=== PATIENT | male | born 1945 | race Caucasian/White ===

== ENCOUNTER 2019-03-11 15:39 | Inpatient (IN) | payer MEDICARE, OTHER ==
--- NOTE | 2019-03-11 18:44 | ED ---
Extremity Problem HPI - General Chief complaint: Extremity Problem,Nontraumatic Stated complaint: Blood in urine, cellulitis Time Seen by Provider: 03/11/19 17:49 Source: patient, family, RN notes reviewed, old records reviewed - History of Present Illness Initial comments: This is a 73-year-old male who presents us for evaluation. Patient's sent in by visiting physicians evaluation. Patient presents today in regards to bilateral looks repainted edema. Significant swelling and erythema which they believe is related to infection. Swelling is despite patient being at home Lasix. Patient has family members at bedside who state patient swelling is a bit increased is doing poorly. In taking his medications other during his legs when his activity level has been significantly diminished. He denies any complaints denying shortness of breath or chest pain currently.Hospitalizations no recent travel history. Patient states the legs do hurt her painful but it is both legs MD Complaint: extremity pain, extremity swelling -: days(s) Location: left, right, bilateral lower extremity History of Same: Yes -: Yes arthralgia Radiation: none Severity scale (1-10): 3 Quality: aching Consistency: constant Improves with: nothing Worsens with: nothing Associated Symptoms: chest pain, myalgias, arthralgias - Related Data Previous Rx's Medication Instructions Recorded Clindamycin [Cleocin] 450 mg PO Q8HR #90 capsule 07/12/14 Allergies Allergy/AdvReac Type Severity Reaction Status Date / Time ciprofloxacin [From Cipro] Allergy Unknown Verified 03/11/19 16:52 ciprofloxacin HCl Allergy Unknown Verified 03/11/19 16:52 [From Cipro] levofloxacin [From Levaquin] Allergy Unknown Verified 03/11/19 16:52 Review of Systems ROS Statement: Those systems with pertinent positive or pertinent negative responses have been documented in the HPI. ROS Other: All systems not noted in ROS Statement are negative. Past Medical History Past Medical History: Diabetes Mellitus, GERD/Reflux, Hypertension History of Any Multi-Drug Resistant Organisms: None Reported Past Surgical History: Appendectomy, Cholecystectomy, Joint Replacement, Orthopedic Surgery, Tonsillectomy Additional Past Surgical History / Comment(s): Additional Medical Hx: Cerebral Palsy Past Psychological History: No Psychological Hx Reported Smoking Status: Never smoker Past Alcohol Use History: None Reported Past Drug Use History: None Reported General Exam General appearance: alert, in no apparent distress Head exam: Present: atraumatic, normocephalic, normal inspection Eye exam: Present: normal appearance, PERRL, EOMI. Absent: scleral icterus, conjunctival injection, periorbital swelling ENT exam: Present: normal exam, mucous membranes moist Neck exam: Present: normal inspection. Absent: tenderness, meningismus, lymphadenopathy Respiratory exam: Present: normal lung sounds bilaterally. Absent: respiratory distress, wheezes, rales, rhonchi, stridor Cardiovascular Exam: Present: regular rate, normal rhythm, normal heart sounds. Absent: systolic murmur, diastolic murmur, rubs, gallop, clicks GI/Abdominal exam: Present: soft, normal bowel sounds. Absent: distended, tenderness, guarding, rebound, rigid Extremities exam: Present: normal inspection, full ROM, normal capillary refill, other (Bilateral lower extremity edema significant). Absent: tenderness, pedal edema, joint swelling, calf tenderness Back exam: Present: normal inspection Neurological exam: Present: alert, oriented X3, CN II-XII intact Psychiatric exam: Present: normal affect, normal mood Skin exam: Present: warm, dry, intact, normal color. Absent: rash Course Vital Signs 03/11/19 16:46 Temperature 99.3 F Pulse Rate 68 Respiratory 17 Rate Blood Pressure 141/74 O2 Sat by Pulse 93 L Oximetry - Reevaluation(s) Reevaluation #1: 03/11/19 20:50 Medical records reviewed Reevaluation #2: 03/11/19 20:51 Patient having no significant shortness of breath or distress - Consultations Consultation #1: Spoke with Dr. Guzmán is agreeable for observation Medical Decision Making - Medical Decision Making 73 male to the ER for evaluation of significant lower extremity edema and swelling. No real significant shortness of breath or pain chest pain. Patient doesn't work she'll be pain - Lab Data Result diagrams: 03/11/19 19:05 03/11/19 19:05 - EKG Data -: EKG Interpreted by Me (EKG shows paced rhythm of 61, MN 292, QRS 84 QTc 434) - Radiology Data Radiology results: report reviewed (S x-rays negative for acute disease), image reviewed Disposition Clinical Impression: Bilateral lower extremity edema, Bilateral lower leg cellulitis Disposition: ADMITTED IP TO THIS [facility] Condition: Good Is patient prescribed a controlled substance at d/c from ED?: No
[2019-03-11] MEDS ORDERED: FUROSEMIDE 10 MG/ML 10 ML VIAL IV STA (18:57)
[2019-03-11 19:26] LABS: Basophils # (A) 0.1 k/uL (0-0.2); Basophils % (A) 2 %; Eosinophils # (A) 0.3 k/uL (0-0.7); Eosinophils % (A) 4 %; HCT 43.6 % (39.0-53.0); HGB 13.8 gm/dL (13.0-17.5); Lymphocytes % (A) 15 %; MCH 27.8 pg (25.0-35.0); MCHC 31.6 g/dL (31.0-37.0); MCV 88.1 fL (80.0-100.0); Mean Platelet Volume 7.7; Monocytes # (A) 0.5 k/uL (0-1.0); Monocytes % (A) 7 %; Neutrophils # (A) 4.8 k/uL (1.3-7.7); Neutrophils % (A) 72 %; Platelet Count 472 k/uL (150-450); RBC 4.95 m/uL (4.30-5.90); RDW 12.4 % (11.5-15.5); WBC 6.8 k/uL (3.8-10.6)
[2019-03-11 19:27] LABS: ALT 23 U/L (4-49); AST 28 U/L (17-59); African American GFR (CKD) >90 (>60 ml/min/1.73 sqM); Albumin 3.5 g/dL (3.5-5.0); Alkaline Phosphatase 118 U/L (38-126); Anion Gap 7 mmol/L; Blood Urea Nitrogen 15 mg/dL (9-20); Calcium 9.2 mg/dL (8.4-10.2); Carbon Dioxide 29 mmol/L (22-30); Chloride 105 mmol/L (98-107); Creatine Kinase 44 U/L (55-170); Glucose 93 mg/dL (74-99); Magnesium 2.1 mg/dL (1.6-2.3); Non-African American GFR(CKD) >90 (>60 ml/min/1.73 sqM); Phosphorus 3.2 mg/dL (2.5-4.5); Potassium 4.1 mmol/L (3.5-5.1); Sodium 141 mmol/L (137-145); Total Bilirubin 0.5 mg/dL (0.2-1.3); Total Protein 6.6 g/dL (6.3-8.2)
--- NOTE | 2019-03-11 20:18 | XR ---
EXAMINATION TYPE: XR chest 2V DATE OF EXAM: 03/11/2019 COMPARISON: 07/01/2011 HISTORY: Short of breath. Weakness. TECHNIQUE: 2 views FINDINGS: There is no heart failure nor confluent pneumonic infiltrate. There is neural stimulator in the mid thoracic spine. Costophrenic angles are clear. Heart size is normal. IMPRESSION: No active cardiopulmonary disease. No change.
[2019-03-11 22:30] LABS: Glucose,Whole Blood 96 mg/dL (75-99)
[2019-03-11] MEDS: FUROSEMIDE 10 MG/ML 4 ML VIAL IV SCH (23:03)
--- NOTE | 2019-03-12 02:55 | P.HPIM ---
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 The history was supplemented by the patient's brother (HCP - Mario Alberto Woods) who noted that the patient has been dealing with his LE edema f or many years and has had multiple episodes of cellulitis, particularly of the L leg. The patient has been taking Lasix 20 mg PO daily as prescribed by his PCP. Patient also endorsed R knee swelling and pain on-going for several weeks, which is making him difficult to ambulate with his walker. He denied any additional complaints including chest pain, SOB, nausea, vomiting, dizziness, fever, chills , or cough. The patient underwent an extensive evaluation in the emergency room with Troponin < 0.012, WBC count 6.8, Hgb 13.8, Na 141, K 4.1, Cl 105, CO2 29, BUN 15, Cr 0.51, and glucose 93. The patient is being admitted to the medicine service for further management of cellulitis. Review of Systems Pertinent positives and negatives as discussed in HPI, a complete review of systems was performed and all other systems are negative. Past Medical History Past Medical History: Diabetes Mellitus, GERD/Reflux, Hypertension History of Any Multi-Drug Resistant Organisms: None Reported Past Surgical History: Appendectomy, Cholecystectomy, Joint Replacement, Orthopedic Surgery, Tonsillectomy Additional Past Surgical History / Comment(s): Additional Medical Hx: Cerebral Palsy Past Anesthesia/Blood Transfusion Reactions: No Reported Reaction Past Psychological History: No Psychological Hx Reported Smoking Status: Never smoker Past Alcohol Use History: None Reported Past Drug Use History: None Reported - Past Family History Father Family Medical History: No Reported History Medications and Allergies Home Medications Medication Instructions Recorded Confirmed Type Acetaminophen Tab [Tylenol Tab] 500 mg PO Q6H PRN 03/11/19 03/11/19 History Ammonium Lactate Lotion 1 applic TOPICAL BID PRN 03/11/19 03/11/19 History [Lac-Hydrin 12% Lotion] Aspirin EC [Ecotrin Low Dose] 81 mg PO HS 03/11/19 03/11/19 History Atorvastatin Calcium [Lipitor] 10 mg PO DAILY 03/11/19 03/11/19 History Docusate [Colace] 200 mg PO HS 03/11/19 03/11/19 History Furosemide [Lasix] 20 mg PO DAILY 03/11/19 03/11/19 History Ipratropium Waldo 0.06%Nasal 2 spray EA NOSTRIL TID PRN 03/11/19 03/11/19 History [Atrovent Nasal 0.06%] Magnesium Oxide [Vu] 500 mg PO DAILY 03/11/19 03/11/19 History Methocarbamol [Robaxin] 1,000 mg PO QID 03/11/19 03/11/19 History NIFEdipine [NIFEdipine ER] 30 mg PO DAILY 03/11/19 03/11/19 History Potassium Chloride [Klor-Con 10] 10 meq PO BID 03/11/19 03/11/19 History Pregabalin [Lyrica] 100 mg PO BID 03/11/19 03/11/19 History metFORMIN HCL [Glucophage] 500 mg PO BID 03/11/19 03/11/19 History traMADol HCL 50 mg PO TID PRN 03/11/19 03/11/19 History Allergies Allergy/AdvReac Type Severity Reaction Status Date / Time acyclovir Allergy Unknown Verified 03/11/19 21:04 amoxicillin [From Augmentin] Allergy Unknown Verified 03/11/19 21:04 ciprofloxacin [From Cipro] Allergy Unknown Verified 03/11/19 21:04 ciprofloxacin HCl Allergy Unknown Verified 03/11/19 21:04 [From Cipro] clavulanic acid Allergy Unknown Verified 03/11/19 21:04 [From Augmentin] levofloxacin [From Levaquin] Allergy Unknown Verified 03/11/19 21:04 Macrolide Antibiotics Allergy Unknown Verified 03/11/19 21:04 Physical Exam Vitals: Vital Signs Temp Pulse Resp BP Pulse Ox 03/11/19 16:46 99.3 F 68 17 141/74 93 L Intake and Output 03/11/19 03/11/19 03/12/19 14:59 22:59 06:59 Output Total 1650 Balance -1650 Output: Urine 1650 Other: Weight 98.883 kg Results CBC & Chem 7: 03/11/19 19:05 03/11/19 19:05 Labs: Abnormal Lab Results - Last 24 Hours (Table) 03/11/19 03/11/19 Range/Units 19:05 19:05 Plt Count 472 H (150-450) k/uL Creatinine 0.51 L (0.66-1.25) mg/dL Creatine Kinase 44 L (55-170) U/L Thrombosis Risk Factor Assmnt - Choose All That Apply Any of the Below Risk Factors Present?: Yes Each Factor Represents 1 point: Obesity (BMI >25), Swollen legs (current) Each Risk Factor Represents 2 Points: Age 61-74 years Other congenital or acquired thrombophilia - If yes, enter type in comment: No Thrombosis Risk Factor Assessment Total Risk Factor Score: 4 Thrombosis Risk Factor Assessment Level: Moderate Risk Assessment and Plan Plan: Left lower extremity cellulitis in setting of LE edema -Will start patient on Clindamycin -Lasix 40 mg IV q12h -Elevate legs R knee swelling and erythema w/ hx of knee replacement -Consult orthopedic surgery Chronic conditions: Asthma, back spasms, HLD, HTN, DM -C/w home meds -CHAPO with FS DVT prophylaxis -Lovenox The patient is admitted with an anticipated less than 2 midnight stay for evaluation of cellulitis. CODE STATUS:No Code Discussed with: Patient Anticipated discharge date: 1-[address]: Home A total of 35 minutes was spent on the care of this complex patient more than 50% of the time was spent in counseling and care coordination.
[2019-03-12] MEDS ORDERED: ACETAMINOPHEN TAB 500 MG TAB PO PRN (06:00)
[2019-03-12] MEDS: CLINDAMYCIN 300 MG in DEXTROSE 5% IN WATER 50 ML IVPB SCH ×6 (06:16→17:15)
[2019-03-12 07:29] LABS: Glucose,Whole Blood 105 mg/dL (75-99)
[2019-03-12] MEDS: ENOXAPARIN 40 MG/0.4 ML SYRINGE SQ SCH (07:39)
[2019-03-12] MEDS: FUROSEMIDE 10 MG/ML 4 ML VIAL IV SCH ×2 (07:39→22:19)
[2019-03-12] MEDS: ATORVASTATIN 10 MG TAB PO SCH (07:40)
[2019-03-12] MEDS: PREGABALIN 100 MG CAP PO SCH ×2 (07:40→22:19)
[2019-03-12] MEDS: METHOCARBAMOL 500 MG TAB PO SCH ×4 (07:40→22:20)
[2019-03-12] MEDS: INSULIN ASPART (NovoLOG) 100 UNIT/ML VIAL SQ SCH ×3 (07:40→17:14)
[2019-03-12] MEDS: POTASSIUM CHLORIDE ER 10 MEQ TAB.ER.PRT PO SCH ×2 (07:40→22:19)
--- NOTE | 2019-03-12 08:56 | P.PN ---
Subjective Progress Note Date: 03/12/19 Feels ok , no cp no sob no n/v no abd pain Objective - Vital Signs Vital signs: Vital Signs Temp 98.5 F 03/12/19 05:50 Pulse 77 03/12/19 05:50 Resp 18 03/12/19 05:50 BP 150/81 03/12/19 05:50 Pulse Ox 94 L 03/12/19 05:50 Intake & Output 03/11/19 03/12/19 03/12/19 18:59 06:59 18:59 Output Total 2425 Balance -2425 Weight 98.883 kg 98.883 kg Output: Urine 2425 Other: Voiding Method Toilet Urinal # Voids 200 - Exam General: non toxic, no distress Head: atraumatic, normocephalic Eyes: EOMI, pupils equal round reactive to light ENT: Nose and ears atraumatic Neck: supple Cardiovascular: S1S2 reg, no murmur, positive posterior tibial pulse bilateral, 2+ Arthur LE edema Lungs: CTA bilateral, no rhonchi, no rales , no accessory muscle use Abdominal: soft, nontender to palpation, no guarding, no appreciable organomegaly, normal bowel sounds Ext: no gross muscle atrophy, muscle strength 4 out of 5 in all 4 extremities grossly, no contractures, R knee swollen with warmth Neuro: CN II-XI grossly intact, light touch intact all 4 extremities, finger to nose within normal limits, Psych: Alert, oriented, appropriate affect Skin: lower ext erythema - Labs CBC & Chem 7: 03/11/19 19:05 03/11/19 19:05 Labs: Abnormal Lab Results - Last 24 Hours (Table) 03/11/19 03/11/19 03/12/19 Range/Units 19:05 19:05 07:10 Plt Count 472 H (150-450) k/uL Creatinine 0.51 L (0.66-1.25) mg/dL POC Glucose (mg/dL) 105 H (75-99) mg/dL Creatine Kinase 44 L (55-170) U/L Assessment and Plan Plan: Left lower extremity cellulitis in setting of LE edema Continue on Clindamycin -Lasix 40 mg IV q12h -Elevate legs obtain bilateral lower extension to Dopplers Obtain a d-dimer Obtain a 2-D echo R knee swelling and erythema w/ hx of knee replacement -Consult orthopedic surgery, monitor, follow with recommendations. Chronic conditions: Asthma, back spasms, HLD, HTN, DM -C/w home meds -CHAPO with FS Obesity: BMI 35.2, conservative treatment. DVT prophylaxis -Lovenox CODE STATUS:No Code Discussed with: Patient Anticipated discharge date: 1-[address]: Home
--- NOTE | 2019-03-12 10:10 | US ---
EXAMINATION TYPE: US venous doppler duplex LE DATE OF EXAM: 03/12/2019 9:38 AM COMPARISON: US 2015 prior bilateral CLINICAL HISTORY: edema . Bilateral leg pain and swelling x couple weeks, exam done portable SIDE PERFORMED: Bilateral TECHNIQUE: The lower extremity deep venous system is examined utilizing real time linear array sonog gris with graded compression, doppler sonography and color-flow sonography. VESSELS IMAGED: External Iliac Vein (EIV) Common Femoral Vein Deep Femoral Vein Greater Saphenous Vein * Femoral Vein Popliteal Vein Small Saphenous Vein * Proximal Calf Veins (* superficial vessels) Right Leg: Appears negative for DVT Left Leg: Appears negative for DVT Grayscale, color doppler, spectral doppler imaging performed of the deep veins of the bilateral lower extremities. There is normal flow, compressibility, vascular waveforms. IMPRESSION: No ultrasonographic evidence for acute DVT in either lower extremity. Moderate to sever e subcutaneous edema beginning popliteal level bilaterally more prominent from prior study.
[2019-03-12 12:34] LABS: Glucose,Whole Blood 111 mg/dL (75-99)
--- NOTE | 2019-03-12 13:08 | P.CNOR ---
History of Present Illness - [facility] Consult date: 03/12/19 Consult reason: joint pain (Right knee pain) History of present illness: The patient is a 73-year-old male who was admitted for bilateral lower leg cellulitis yesterday. 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 His lower legs continue to worsen and he presented to the emergency department yesterday. He was admitted for further evaluation by internal medicine and with pedis was consulted for right knee pain. The patient states that he normally ambulates with a walker at home but has noticed incr eased pain on weightbearing to the right leg. He does have a history of a right total knee arthroplasty by Dr. Carl Smith in 2010. 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 He later went on to have a stage II revision by Dr. Carl Smith in 2011 when the infection cleared. He states the knee has been feeling okay since then but noticed increased pain over the last few days. He denies fever, chills, ill feeling, and rigors. The patient was started on antibiotics and admitted for further evaluation. Review of Systems Constitutional: Denies chills, Denies fever Cardiovascular: Denies chest pain, Denies shortness of breath Respiratory: Denies cough Gastrointestinal: Denies abdominal pain, Denies diarrhea, Denies nausea, Denies vomiting Musculoskeletal: right: knee pain, knee stiffness, knee swelling Past Medical History Past Medical History: Diabetes Mellitus, GERD/Reflux, Hypertension History of Any Multi-Drug Resistant Organisms: None Reported Past Surgical History: Appendectomy, Cholecystectomy, Joint Replacement, Orthopedic Surgery, Tonsillectomy Additional Past Surgical History / Comment(s): Additional Medical Hx: Cerebral Palsy Past Anesthesia/Blood Transfusion Reactions: No Reported Reaction Past Psychological History: No Psychological Hx Reported Smoking Status: Never smoker Past Alcohol Use History: None Reported Past Drug Use History: None Reported - Past Family History Father Family Medical History: No Reported History Medications and Allergies Home Medications Medication Instructions Recorded Confirmed Type Acetaminophen Tab [Tylenol Tab] 500 mg PO Q6H PRN 03/11/19 03/11/19 History Ammonium Lactate Lotion 1 applic TOPICAL BID PRN 03/11/19 03/11/19 History [Lac-Hydrin 12% Lotion] Aspirin EC [Ecotrin Low Dose] 81 mg PO HS 12/26/19 12/26/19 History Atorvastatin Calcium [Lipitor] 10 mg PO DAILY 03/11/19 03/11/19 History Docusate [Colace] 200 mg PO HS 03/11/19 03/11/19 History Furosemide [Lasix] 20 mg PO DAILY 03/11/19 03/11/19 History Magnesium Oxide [Vu] 500 mg PO DAILY 03/11/19 03/11/19 History Methocarbamol [Robaxin] 1,000 mg PO QID 03/11/19 03/11/19 History NIFEdipine [NIFEdipine ER] 30 mg PO DAILY 03/11/19 03/11/19 History Potassium Chloride [Klor-Con 10] 10 meq PO BID 03/11/19 03/11/19 History Pregabalin [Lyrica] 100 mg PO BID 03/11/19 03/11/19 History metFORMIN HCL [Glucophage] 500 mg PO BID 03/11/19 03/11/19 History traMADol HCL 50 mg PO TID PRN 03/11/19 03/11/19 History Allergies Allergy/AdvReac Type Severity Reaction Status Date / Time acyclovir Allergy Unknown Verified 03/11/19 21:04 amoxicillin [From Augmentin] Allergy Unknown Verified 03/11/19 21:04 ciprofloxacin [From Cipro] Allergy Unknown Verified 03/11/19 21:04 ciprofloxacin HCl Allergy Unknown Verified 03/11/19 21:04 [From Cipro] clavulanic acid Allergy Unknown Verified 03/11/19 21:04 [From Augmentin] levofloxacin [From Levaquin] Allergy Unknown Verified 03/11/19 21:04 Macrolide Antibiotics Allergy Unknown Verified 03/11/19 21:04 Physical Examination The patient is a 73-year-old male who is in no acute distress. He is alert and oriented 3. Exam of the right leg reveals diffuse swelling to the right knee, calf, and foot. There is mild pain to palpation to the medial and lateral joint lines but is not significant. There is a small to moderate effusion present. No open wounds to the knee or lower leg are present. There is no significant redness to the right lower extremity. The patient has weakness to lift the leg off the bed but has some active flexion of the knee without significant pain. No pain upon passive range of motion of the knee. Calf is soft and nontender. He is able to dorsiflex and plantarflex the ankle without much difficulty. Neurological and circulatory status is intact. Results - Labs Labs: Abnormal Lab Results - Last 24 Hours (Table) 03/11/19 03/11/19 03/12/19 Range/Units 19:05 19:05 07:10 Plt Count 472 H (150-450) k/uL D-Dimer (<0.60) mg/L FEU Creatinine 0.51 L (0.66-1.25) mg/dL POC Glucose (mg/dL) 105 H (75-99) mg/dL Creatine Kinase 44 L (55-170) U/L 03/12/19 03/12/19 Range/Units 09:30 12:18 Plt Count (150-450) k/uL D-Dimer 2.01 H (<0.60) mg/L FEU Creatinine (0.66-1.25) mg/dL POC Glucose (mg/dL) 111 H (75-99) mg/dL Creatine Kinase (55-170) U/L H & H 03/11/19 Range/Units 19:05 Hgb 13.8 (13.0-17.5) gm/dL Hct 43.6 (39.0-53.0) % Result Diagrams: 03/11/19 19:05 03/11/19 19:05 Assessment and Plan (1) Right knee pain Current Visit: Yes Status: Acute Code(s): M25.561 - PAIN IN RIGHT KNEE SNOMED Code(s): 68713586 (2) Status post right knee replacement Current Visit: Yes Status: Acute Code(s): Z96.651 - PRESENCE OF RIGHT ARTIFICIAL KNEE JOINT SNOMED Code(s): 8950564839944 (3) Bilateral lower extremity edema Current Visit: Yes Status: Acute Code(s): R60.0 - LOCALIZED EDEMA SNOMED Code(s): 336176063 (4) Bilateral lower leg cellulitis Current Visit: Yes Status: Acute Code(s): L03.116 - CELLULITIS OF LEFT LOWER LIMB; L03.115 - CELLULITIS OF RIGHT LOWER LIMB SNOMED Code(s): 775070031 Plan: The clinical findings were discussed with the patient. This case was discussed at length with Dr. Pagan. There is no family at the bedside at this time. We are recommending a aspiration of the right knee joint to rule out a recurrent total knee infection. The patient agrees to this procedure. X-ray of the right knee has also been ordered. A bedside timeout procedure was performed. The right knee was prepped with chlorhexidine. An 18-gauge needle with a 12 mL syringe was inserted in the right knee joint. There is a cloudy/turbid fluid was first aspirated then blood was aspirated from the knee joint. 5 mL of synovial fluid fluid was removed and will be sent to the laboratory for analysis of culture and sensitivity, cell count, and crystals. A 4 x 4 gauze was applied and Carlos wrap for compression to the right knee. If the patient is experiencing pain later ice can be applied. We will await aspiration results and make further recommendations depending on the patient's course and laboratory results.
--- NOTE | 2019-03-12 14:26 | XR ---
Right knee HISTORY: Right knee pain Limited right knee performed, 2 views, correlation to prior exam 11/15/2011 Soft tissue swelling is present. Patient is status post right knee arthroplasty. There is anatomic alignment. There is an overlying dr maurice. Questionable loss of joint space tibiotalar joint, possible metal to metal contact seen on th e lateral exam. No fracture or dislocation. IMPRESSION: Soft tissue swelling and additional findings above.
[2019-03-12 17:11] LABS: Glucose,Whole Blood 122 mg/dL (75-99)
--- NOTE | 2019-03-12 19:38 | ECHOF ---
Referral Reason:edema MEASUREMENTS -------- HEIGHT: 165.1 cm WEIGHT: 98.9 kg BP: 150/81 IVSd: 0.8 cm (0.6 - 1.1) LVIDd: 4.9 cm (3.9 - 5.3) LVPWd: 1.2 cm (0.6 - 1.1) IVSs: 1.3 cm LVIDs: 2.9 cm LVPWs: 1.6 cm LA Diam: 3.5 cm (2.7 - 3.8) LAESV Index (A-L): 16.13 ml/m Ao Diam: 3.5 cm (2.0 - 3.7) AV Cusp: 2.3 cm (1.5 - 2.6) LA Diam: 4.1 cm (2.7 - 3.8) MV EXCURSION: 27.072 mm (> 18.000) MV EF SLOPE: 134 mm/s (70 - 150) EPSS: 0.7 cm MV E Kingsley: 0.55 m/s MV DecT: 269 ms MV A Kingsley: 0.66 m/s MV E/A Ratio: 0.83 RAP: 5.00 mmHg RVSP: 21.80 mmHg FINDINGS -------- Sinus rhythm. This was a technically difficult study with suboptimal views. The left ventricular size is normal. There is mild concentric left ventricular hypertrophy. Overa ll left ventricular systolic function is normal with, an EF between 55 - 60 %. The right ventricle is normal in size. The left atrial size is normal. The right atrial size is normal. There is mild aortic valve sclerosis. There is no evidence of aortic regurgitation. Mild mitral annular calcification present. Mild mitral regurgitation is present. Mild tricuspid regurgitation present. Right ventricular systolic pressure is normal at < 35 mmHg. There is no evidence of pulmonary hypertension. The pulmonic valve was not well visualized. The aortic root size is normal. There is no pericardial effusion. CONCLUSIONS -------- 1. Sinus rhythm. 2. This was a technically difficult study with suboptimal views. 3. The left ventricular size is normal. 4. There is mild concentric left ventricular hypertrophy. 5. Overall left ventricular systolic function is normal with, an EF between 55 - 60 %. 6. The left atrial size is normal. 7. There is mild aortic valve sclerosis. 8. Mild mitral annular calcification present. 9. Mild mitral regurgitation is present. 10. Mild tricuspid regurgitation present. 11. Right ventricular systolic pressure is normal at < 35 mmHg. 12. The pulmonic valve was not well visualized. 13. There is no pericardial effusion. BUTTON TACKER: Jo-Ann Samuel RDCS
--- NOTE | 2019-03-12 19:52 | CT ---
EXAMINATION TYPE: CT chest angio for PE DATE OF EXAM: 03/12/2019 COMPARISON: None HISTORY: SOB CT DLP: 593.9 mGycm Automated exposure control for dose reduction was used. CONTRAST: Performed with IV Contrast, patient injected with 100 mL of Isovue 370. There are 3-D post processed images. There is mild subsegmental atelectasis or scarring at the lung bases. There is minimal pleural thicke lala left posterior lung base. There is no pleural effusion. Heart size is normal. There is no perica rdial effusion. There is no mediastinal adenopathy. There are no hilar masses. There is normal contrast opacification of the pulmonary arteries. There are no filling defects. Thoracic aorta shows no aneurysm or dissect ion. There is neural stimulator in the thoracic spine. There is multilevel spondylotic changes in the thoracic spine. There is no compression fracture. The bony thorax is intact. IMPRESSION: Pleural reaction and subsegmental atelectasis at the lung bases. No evidence of pulmonary embolism.
[2019-03-12 20:39] LABS: Glucose,Whole Blood 167 mg/dL (75-99)
[2019-03-12] MEDS: ASPIRIN 81 MG PO SCH (22:19)
[2019-03-12] MEDS: DOCUSATE 100 MG CAP PO SCH (22:19)
[2019-03-13] MEDS: CLINDAMYCIN 300 MG in DEXTROSE 5% IN WATER 50 ML IVPB SCH ×2 (00:10)
[2019-03-13] MEDS: traMADol 50 MG TAB PO PRN (00:13)
[2019-03-13] MEDS: CLINDAMYCIN 150 MG CAP PO SCH ×3 (06:23→17:52)
[2019-03-13] MEDS: ATORVASTATIN 10 MG TAB PO SCH (07:11)
[2019-03-13] MEDS: METHOCARBAMOL 500 MG TAB PO SCH ×4 (07:11→21:47)
[2019-03-13] MEDS: FUROSEMIDE 10 MG/ML 4 ML VIAL IV SCH ×2 (07:11→21:46)
[2019-03-13] MEDS: POTASSIUM CHLORIDE ER 10 MEQ TAB.ER.PRT PO SCH ×2 (07:11→21:46)
[2019-03-13] MEDS: ENOXAPARIN 40 MG/0.4 ML SYRINGE SQ SCH (07:11)
[2019-03-13] MEDS: PREGABALIN 100 MG CAP PO SCH ×2 (07:11→21:47)
[2019-03-13 07:36] LABS: Glucose,Whole Blood 145 mg/dL (75-99)
[2019-03-13] MEDS: INSULIN ASPART (NovoLOG) 100 UNIT/ML VIAL SQ SCH ×4 (08:12→21:46)
[2019-03-13 08:59] LABS: Basophils # (A) 0.1 k/uL (0-0.2); Basophils % (A) 2 %; Eosinophils # (A) 0.2 k/uL (0-0.7); Eosinophils % (A) 4 %; HCT 43.2 % (39.0-53.0); HGB 13.6 gm/dL (13.0-17.5); Lymphocytes # (A) 0.8 k/uL (1.0-4.8); Lymphocytes % (A) 16 %; MCH 27.9 pg (25.0-35.0); MCHC 31.5 g/dL (31.0-37.0); MCV 88.6 fL (80.0-100.0); Mean Platelet Volume 7.4; Monocytes # (A) 0.5 k/uL (0-1.0); Monocytes % (A) 9 %; Neutrophils # (A) 3.3 k/uL (1.3-7.7); Neutrophils % (A) 67 %; Platelet Count 405 k/uL (150-450); RBC 4.88 m/uL (4.30-5.90); RDW 12.5 % (11.5-15.5); WBC 4.9 k/uL (3.8-10.6)
[2019-03-13 09:20] LABS: ALT 19 U/L (4-49); AST 22 U/L (17-59); African American GFR (CKD) >90 (>60 ml/min/1.73 sqM); Albumin 3.3 g/dL (3.5-5.0); Alkaline Phosphatase 111 U/L (38-126); Anion Gap 8 mmol/L; Blood Urea Nitrogen 17 mg/dL (9-20); Calcium 8.8 mg/dL (8.4-10.2); Carbon Dioxide 32 mmol/L (22-30); Chloride 98 mmol/L (98-107); Glucose 122 mg/dL (74-99); Non-African American GFR(CKD) >90 (>60 ml/min/1.73 sqM); Potassium 3.9 mmol/L (3.5-5.1); Sodium 138 mmol/L (137-145); Total Bilirubin 0.5 mg/dL (0.2-1.3); Total Protein 6.3 g/dL (6.3-8.2)
[2019-03-13 11:27] LABS: Glucose,Whole Blood 101 mg/dL (75-99)
--- NOTE | 2019-03-13 12:18 | P.PN ---
<Brandon Bennett - Last Filed: 03/13/19 12:16> Subjective Progress Note Date: 03/13/19 The patient is a 73-year-old male with cerebral palsy, diabetes, hypertension, and chronic lower leg edema with recurrent episodes of cellulitis who was admitted for bilateral lower leg cellulitis 03/11/19. His lower legs continue to worsen and he presented to the emergency department 03/11/19. He was admitted for further evaluation by internal medicine and with orthopedics was consulted for right knee pain. The patient states that he normally ambulates with a walker at home but has noticed increased pain on weightbearing to the right leg. He does have a history of a right total knee arthroplasty by Dr. Carl Smith in 2010. 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 He later went on to have a stage II revision by Dr. Carl Smith in 2011 when the infection cleared. He states the knee has been feeling okay since then but noticed increased pain over the last few days. The patient was examined by Lyric Pelayo DNP yesterday, and a right knee aspiration was performed. Synovial fluid was sent to the lab for cell count, crystal analysis, and culture. Patient is examined bedside this morning. He states his pain in the right knee and right lower extremity has not changed since yesterday. He states besides this pain, he otherwise feels well. He denies chest pain, shortness breath, nausea, vomiting, fevers, chills, feelings of generalized malaise. He has no new complaints this morning. Vital signs stable. Objective - Vital Signs Vital signs: Vital Signs Temp 97.7 F 03/13/19 05:00 Pulse 58 L 03/13/19 05:00 Resp 18 03/13/19 05:00 BP 151/78 03/13/19 05:00 Pulse Ox 95 03/13/19 05:00 Intake & Output 03/12/19 03/13/19 03/13/19 18:59 06:59 18:59 Intake Total 875 Output Total 2500 2425 1999 Balance -2499 Intake: Oral 875 Output: Urine 2500 2425 1999 Other: Voiding Method Urinal Urinal Urinal # Voids 5 - Exam On examination, the patient is sitting up in bed in no apparent distress. He is alert and oriented 3. On inspection of the right lower extremity, there is diffuse swelling and erythema to the right knee, calf, and foot. There are no open wounds or lacerations. There is mild pain to palpation to the anterior knee, medial and lateral joint lines. There is a small joint effusion present. There is no pain with passive range of motion of the knee or ankle. He is able to dorsiflex and plantar flex ankle without difficulty. Motor and sensory function are intact of the right lower extremity. Right lower extremity is warm and well-perfused with brisk capillary refill distally. - Labs CBC & Chem 7: 03/13/19 07:37 03/13/19 07:37 Labs: Abnormal Lab Results - Last 24 Hours (Table) 03/12/19 03/12/19 03/12/19 Range/Units 12:18 17:02 20:15 Lymphocytes # (1.0-4.8) k/uL Carbon Dioxide (22-30) mmol/L Glucose (74-99) mg/dL POC Glucose (mg/dL) 111 H 122 H 167 H (75-99) mg/dL Albumin (3.5-5.0) g/dL 03/13/19 03/13/19 03/13/19 Range/Units 07:34 07:37 07:37 Lymphocytes # 0.8 L (1.0-4.8) k/uL Carbon Dioxide 32 H (22-30) mmol/L Glucose 122 H (74-99) mg/dL POC Glucose (mg/dL) 145 H (75-99) mg/dL Albumin 3.3 L (3.5-5.0) g/dL 03/13/19 Range/Units 11:22 Lymphocytes # (1.0-4.8) k/uL Carbon Dioxide (22-30) mmol/L Glucose (74-99) mg/dL POC Glucose (mg/dL) 101 H (75-99) mg/dL Albumin (3.5-5.0) g/dL Microbiology - Last 24 Hours (Table) 03/12/19 14:00 Gram Stain - Preliminary Synovial Fluid Body Fluid Culture - Preliminary 03/11/19 19:05 Blood Culture - Preliminary Blood No Growth after 24 hours - Imaging and Cardiology Right knee x-ray 03/12/19: Status post total knee arthroplasty, with implants in anatomic position. No fracture or dislocation seen. Assessment and Plan Assessment: Right knee pain status-post total knee arthroplasty with revision in 2011. Bilateral lower extremity cellulitis. Plan: Clinical findings and x-ray findings were discussed with the patient. Her stool leading to receive laboratory results from the aspiration of the right knee performed yesterday by Lyric Hinojosa DNP. The lab was contacted in regards to these results. These results are unable to be obtained, the patient may require a repeat aspiration of the right knee to rule out a recurrent total knee infection. Further treatment will be based off of laboratory results. Patient discussed with Dr. Pagan. <Krzysztof Pagan - Last Filed: 03/14/19 15:37> Objective - Vital Signs Vital signs: Vital Signs Temp 99.1 F 03/14/19 15:00 Pulse 72 03/14/19 15:00 Resp 16 03/14/19 15:00 BP 150/69 03/14/19 15:00 Pulse Ox 96 03/14/19 15:00 Intake & Output 03/13/19 03/14/19 03/14/19 18:59 06:59 18:59 Intake Total 900 Output Total 2800 2025 2800 Balance -2800 -1125 -2800 Intake: Oral 900 Output: Urine 2800 2025 2800 Other: Voiding Method Urinal Urinal Urinal # Voids 2 8 # Bowel Movements 1 - Labs CBC & Chem 7: 03/13/19 07:37 03/13/19 07:37 Labs: Abnormal Lab Results - Last 24 Hours (Table) 03/13/19 03/14/19 03/14/19 Range/Units 20:10 06:52 11:53 POC Glucose (mg/dL) 135 H 110 H 137 H (75-99) mg/dL C-Reactive Protein (<10.0) mg/L 03/14/19 Range/Units 13:01 POC Glucose (mg/dL) (75-99) mg/dL C-Reactive Protein 20.4 H (<10.0) mg/L Microbiology - Last 24 Hours (Table) 03/12/19 14:00 Gram Stain - Preliminary Synovial Fluid Body Fluid Culture - Preliminary 03/11/19 19:05 Blood Culture - Preliminary Blood No Growth after 48 hours Assessment and Plan Plan: Reviewed and agree with above (amendments/corrections noted below). The patient was subsequently seen and examined by me as well. Pain level has not significantly changed. PE Right Knee: Nonfocal tenderness to palpation. Effusion present. Restricted ROM A/P: Right knee pain/effusion If the lab is unable to provide results from the previous specimen, we will repeat the aspiration. Continue symptomatic treatment and PRN pain management. Krzysztof Pagan D.O. [facility]
--- NOTE | 2019-03-13 15:54 | P.PN ---
Subjective Progress Note Date: 03/13/19 Principal diagnosis: Right ankle pain Patient still having right ankle pain and swelling. No fevers or chills, chest pain or shortness of breath. No nausea or vomiting. Objective - Vital Signs Vital signs: Vital Signs Temp 98.0 F 03/13/19 11:25 Pulse 52 L 03/13/19 11:25 Resp 14 03/13/19 11:25 BP 139/73 03/13/19 11:25 Pulse Ox 96 03/13/19 11:25 Intake & Output 03/12/19 03/13/19 03/13/19 18:59 06:59 18:59 Intake Total 875 Output Total 2500 2425 2800 Balance -2500 -1550 -2800 Intake: Oral 875 Output: Urine 2500 2425 2800 Other: Voiding Method Urinal Urinal Urinal # Voids 2 - Exam General: non toxic, no distress Head: atraumatic, normocephalic Eyes: EOMI, pupils equal round reactive to light ENT: Nose and ears atraumatic Neck: supple Cardiovascular: S1S2 reg, no murmur, positive posterior tibial pulse bilateral, 2+ Arthur LE edema Lungs: CTA bilateral, no rhonchi, no rales , no accessory muscle use Abdominal: soft, nontender to palpation, no guarding, no appreciable organomegaly, normal bowel sounds Ext: no gross muscle atrophy, muscle strength 4 out of 5 in all 4 extremities grossly, no contractures, R knee and ankle swollen with warmth Neuro: CN II-XI grossly intact, light touch intact all 4 extremities, finger to nose within normal limits, Psych: Alert, oriented, appropriate affect Skin: lower ext erythema - Labs CBC & Chem 7: 03/13/19 07:37 03/13/19 07:37 Labs: Abnormal Lab Results - Last 24 Hours (Table) 03/12/19 03/12/19 03/13/19 Range/Units 17:02 20:15 07:34 Lymphocytes # (1.0-4.8) k/uL Carbon Dioxide (22-30) mmol/L Glucose (74-99) mg/dL POC Glucose (mg/dL) 122 H 167 H 145 H (75-99) mg/dL Albumin (3.5-5.0) g/dL 12/28/19 12/28/19 12/28/19 Range/Units 07:37 07:37 11:22 Lymphocytes # 0.8 L (1.0-4.8) k/uL Carbon Dioxide 32 H (22-30) mmol/L Glucose 122 H (74-99) mg/dL POC Glucose (mg/dL) 101 H (75-99) mg/dL Albumin 3.3 L (3.5-5.0) g/dL Microbiology - Last 24 Hours (Table) 03/12/19 14:00 Gram Stain - Preliminary Synovial Fluid Body Fluid Culture - Preliminary 03/11/19 19:05 Blood Culture - Preliminary Blood No Growth after 24 hours Assessment and Plan Plan: Left lower extremity cellulitis in setting of LE edema -Continue clindamycin -Diuresing well with lasix -Elevate legs R knee and ankle swelling and erythema w/ hx of knee replacement -Patient had right ankle arthrocentesis done by orthopedics yesterday, for some reason fluid analysis was not done. -Need to rule out infectious arthritis, ortho to repeat the procedure. Gout vs. osteoarthritis in the differential as well. Chronic conditions: Asthma, back spasms, HLD, HTN, DM, cerebral palsy -C/w home meds -CHAPO with FS DVT prophylaxis -Lovenox The patient is admitted with an anticipated less than 2 midnight stay for evaluation of cellulitis. CODE STATUS:No Code Discussed with: Patient Anticipated discharge date: 1-[address]: Home
[2019-03-13 17:11] LABS: Glucose,Whole Blood 93 mg/dL (75-99)
[2019-03-13 20:26] LABS: Glucose,Whole Blood 135 mg/dL (75-99)
[2019-03-13] MEDS: DOCUSATE 100 MG CAP PO SCH (21:47)
[2019-03-13] MEDS: ASPIRIN 81 MG PO SCH (21:47)
[2019-03-14] MEDS: CLINDAMYCIN 150 MG CAP PO SCH ×4 (00:04→17:57)
[2019-03-14 07:06] LABS: Glucose,Whole Blood 110 mg/dL (75-99)
[2019-03-14] MEDS: FUROSEMIDE 10 MG/ML 4 ML VIAL IV SCH ×2 (07:42→21:05)
[2019-03-14] MEDS: POTASSIUM CHLORIDE ER 10 MEQ TAB.ER.PRT PO SCH ×2 (07:42→21:06)
[2019-03-14] MEDS: ENOXAPARIN 40 MG/0.4 ML SYRINGE SQ SCH (07:42)
[2019-03-14] MEDS: PREGABALIN 100 MG CAP PO SCH ×2 (07:42→21:05)
[2019-03-14] MEDS: ATORVASTATIN 10 MG TAB PO SCH (07:42)
[2019-03-14] MEDS: METHOCARBAMOL 500 MG TAB PO SCH ×4 (07:42→21:05)
[2019-03-14] MEDS: traMADol 50 MG TAB PO PRN ×2 (10:46→21:15)
[2019-03-14 11:32] LABS: Appearance,BF Cloudy; Color,BF Yellow; Nucleated Cells, Body Fluid 37800 /uL; RBC, Body Fluid 18850 /uL
[2019-03-14 11:38] LABS: Mononuclear WBC,Body Fluid 12 %; Polynuclear WBC,Body Fluid 85 %; Total Cells Counted,Body Fluid 100
[2019-03-14 12:06] LABS: Glucose,Whole Blood 137 mg/dL (75-99)
--- NOTE | 2019-03-14 12:40 | P.PN ---
Subjective Progress Note Date: 03/14/19 Principal diagnosis: Right ankle pain Patient doing better. His right leg is less swollen today compared to yesterday. Objective - Vital Signs Vital signs: Vital Signs Temp 97.8 F 03/14/19 05:00 Pulse 57 L 03/14/19 05:00 Resp 18 03/14/19 05:00 BP 147/69 03/14/19 05:00 Pulse Ox 95 03/14/19 05:00 Intake & Output 03/13/19 03/14/19 03/14/19 18:59 06:59 18:59 Intake Total 900 Output Total 2800 2024 Balance -2800 -1125 Intake: Oral 900 Output: Urine 2800 2024 Other: Voiding Method Urinal Urinal Urinal # Voids 2 # Bowel Movements 1 - Exam General: non toxic, no distress Head: atraumatic, normocephalic Eyes: EOMI, pupils equal round reactive to light ENT: Nose and ears atraumatic Neck: supple Cardiovascular: S1S2 reg, no murmur, positive posterior tibial pulse bilateral, 2+ Arthur LE edema Lungs: CTA bilateral, no rhonchi, no rales , no accessory muscle use Abdominal: soft, nontender to palpation, no guarding, no appreciable organomegaly, normal bowel sounds Ext: no gross muscle atrophy, muscle strength 4 out of 5 in all 4 extremities grossly, no contractures, R knee and ankle swollen with warmth Neuro: CN II-XI grossly intact, light touch intact all 4 extremities, finger to nose within normal limits, Psych: Alert, oriented, appropriate affect Skin: lower ext erythema - Labs CBC & Chem 7: 03/13/19 07:37 03/13/19 07:37 Labs: Abnormal Lab Results - Last 24 Hours (Table) 03/13/19 03/14/19 03/14/19 Range/Units 20:10 06:52 11:53 POC Glucose (mg/dL) 135 H 110 H 137 H (75-99) mg/dL Microbiology - Last 24 Hours (Table) 03/11/19 19:05 Blood Culture - Preliminary Blood No Growth after 48 hours 03/12/19 14:00 Gram Stain - Preliminary Synovial Fluid Body Fluid Culture - Preliminary Assessment and Plan Plan: Left lower extremity cellulitis in setting of LE edema -Continue clindamycin -Diuresing well with lasix -Elevate legs R knee and ankle swelling and erythema w/ hx of knee replacement -Patient had repeat right [place] [address], crystals analysis pending -Infectious arthritis less likely due to lack of fever or leukocytosis. -Differential diagnosis includes gout, pseudogout, osteoarthritis. check uric acid. R/u inflammatory arthritis, check esr, sed rate Chronic conditions: Asthma, back spasms, HLD, HTN, DM, cerebral palsy -C/w home meds -CHAPO with FS DVT prophylaxis -Lovenox CODE STATUS:No Code Discussed with: Patient Anticipated discharge date: 1-[address]: Home
[2019-03-14] MEDS: INSULIN ASPART (NovoLOG) 100 UNIT/ML VIAL SQ SCH ×2 (12:54→17:34)
--- NOTE | 2019-03-14 15:48 | P.PN ---
Subjective Progress Note Date: 03/14/19 The patient states that the knee pain is mild at rest and well-controlled overall. He admits that he has not been getting around very well for a while and has had difficulty ambulating since December. He has been using a wheelchair more often at home. Objective - Vital Signs Vital signs: Vital Signs Temp 99.1 F 03/14/19 15:00 Pulse 72 03/14/19 15:00 Resp 16 03/14/19 15:00 BP 150/69 03/14/19 15:00 Pulse Ox 96 03/14/19 15:00 Intake & Output 03/13/19 03/14/19 03/14/19 18:59 06:59 18:59 Intake Total 900 Output Total 2800 2024 2800 Balance -2800 -1125 -2800 Intake: Oral 900 Output: Urine 2800 2024 2800 Other: Voiding Method Urinal Urinal Urinal # Voids 2 8 # Bowel Movements 1 - Exam Diffuse tenderness to palpation around the right knee. The knee is grossly enlarged compared to the contralateral side, consistent with multiple surgeries. Mild calor. No erythema. A mild to moderate effusion is present. He has pain with passive range of motion. Flexion contracture is noted. Chronic bilateral lower extremity edema and venous stasis changes are present. - Labs CBC & Chem 7: 03/13/19 07:37 03/13/19 07:37 Labs: Abnormal Lab Results - Last 24 Hours (Table) 03/13/19 03/14/19 03/14/19 Range/Units 20:10 06:52 11:53 POC Glucose (mg/dL) 135 H 110 H 137 H (75-99) mg/dL C-Reactive Protein (<10.0) mg/L 03/14/19 Range/Units 13:01 POC Glucose (mg/dL) (75-99) mg/dL C-Reactive Protein 20.4 H (<10.0) mg/L Microbiology - Last 24 Hours (Table) 03/12/19 14:00 Gram Stain - Preliminary Synovial Fluid Body Fluid Culture - Preliminary 03/11/19 19:05 Blood Culture - Preliminary Blood No Growth after 48 hours Assessment and Plan Assessment: Right knee pain & effusion 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 He was in agreement and an arthrocentesis was performed. 6cc of slightly cloudy yellow fluid was obtained and sent for analysis. Further recommendations to follow. Continue present care.
--- NOTE | 2019-03-14 15:57 | P.PCN ---
Date of Procedure: 03/14/19 Preoperative Diagnosis: 1. Right knee effusion 2. Status post resection arthroplasty and 2-stage revision right TKA for periprosthetic joint infection Postoperative Diagnosis: 1. Right knee effusion 2. Status post resection arthroplasty and 2-stage revision right TKA for perip rosthetic joint infection Procedure(s) Performed: Right knee arthrocentesis Anesthesia: none Surgeon: Krzysztof Pagan Description of Procedure: After informed consent was obtained, the right knee was prepped with chlorhexadine and alcohol. A time-out was performed. Using manual palpation for localization, an 18 gauge needle was inserted into the knee from a superolateral approach, using sterile gloves and strict aseptic technique. Aspirated 6 cc of clear (slightly cloudy), yellow fluid - it did not appear purulent. Sent for cell count, gram stain and cultures. Sterile adhesive dressing was applied. The patient tolerated the procedure well.
[2019-03-14 17:14] LABS: Glucose,Whole Blood 111 mg/dL (75-99)
[2019-03-14] MEDS: DOCUSATE 100 MG CAP PO SCH (21:05)
[2019-03-14] MEDS: ASPIRIN 81 MG PO SCH (21:06)
[2019-03-14 21:30] LABS: Glucose,Whole Blood 129 mg/dL (75-99)
[2019-03-15] MEDS: CLINDAMYCIN 150 MG CAP PO SCH ×5 (00:06→23:17)
[2019-03-15 07:12] LABS: Glucose,Whole Blood 123 mg/dL (75-99)
[2019-03-15] MEDS: INSULIN ASPART (NovoLOG) 100 UNIT/ML VIAL SQ SCH ×3 (07:41→17:10)
--- NOTE | 2019-03-15 08:38 | P.PN ---
Subjective Progress Note Date: 03/15/19 This is a 73 year-old male who is admitted for bialteral lower extremity cellulitis. Patient is seen and evaluated at bedside today with Dr. Carl Smith. Patient underwent aspiration of the right knee by Dr. Pagan due to pain and swelling. Patient states that his pain is improving and he denies any new complaints today. Patient denies any fever/chills, numbness, weakness, tingling, abdominal pain, shortness of breath or chest pain. Objective - Vital Signs Vital signs: Vital Signs Temp 98.0 F 03/15/19 04:49 Pulse 62 03/15/19 04:49 Resp 16 03/15/19 04:49 BP 133/75 03/15/19 04:49 Pulse Ox 92 L 03/15/19 04:49 Intake & Output 03/14/19 03/15/19 03/15/19 18:59 06:59 18:59 Output Total 2800 2025 Balance -2800 -5 Output: Urine 2800 5 Other: Voiding Method Urinal # Voids 8 2 - Exam On exam there is minimal swelling of the right knee. There is no erythema. There is no tendernes to palpation. Patient has good active range of motion of the right knee without pain or difficulty. Calf is soft and nontender to palpation. Sensation intact. Neurovascular status and circulatory status are intact. - Labs CBC & Chem 7: 03/13/19 07:37 03/13/19 07:37 Labs: Abnormal Lab Results - Last 24 Hours (Table) 03/14/19 03/14/19 03/14/19 Range/Units 11:53 13:01 17:04 POC Glucose (mg/dL) 137 H 111 H (75-99) mg/dL C-Reactive Protein 20.4 H (<10.0) mg/L 03/14/19 03/15/19 Range/Units 21:27 06:58 POC Glucose (mg/dL) 129 H 123 H (75-99) mg/dL C-Reactive Protein (<10.0) mg/L Microbiology - Last 24 Hours (Table) 03/14/19 10:32 Gram Stain - Preliminary Synovial Fluid Body Fluid Culture - Preliminary 03/11/19 19:05 Blood Culture - Preliminary Blood No Growth after 72 hours 03/12/19 14:00 Gram Stain - Preliminary Synovial Fluid Body Fluid Culture - Preliminary Assessment and Plan Assessment: History of stage II revision right total knee arthroplasty. (1) Bilateral lower extremity edema Current Visit: Yes Status: Acute Code(s): R60.0 - LOCALIZED EDEMA SNOMED Code(s): 550890214 (2) Right knee pain Current Visit: Yes Status: Acute Code(s): M25.561 - PAIN IN RIGHT KNEE SNOMED Code(s): 92654936 Plan: 1. Very low suspicion for infection of the right knee. Cultures are negative so far. Patient remains afebrile and white blood cell count is within normal limits. 2. Recommend physical therapy for mobilization. 3. No surgical intervention planned. Will continue to follow the patient closely.
[2019-03-15] MEDS: METHOCARBAMOL 500 MG TAB PO SCH ×4 (08:41→20:49)
[2019-03-15] MEDS: PREGABALIN 100 MG CAP PO SCH ×2 (08:41→20:51)
[2019-03-15] MEDS: ATORVASTATIN 10 MG TAB PO SCH (08:43)
[2019-03-15] MEDS: ENOXAPARIN 40 MG/0.4 ML SYRINGE SQ SCH (08:43)
[2019-03-15] MEDS: POTASSIUM CHLORIDE ER 10 MEQ TAB.ER.PRT PO SCH ×2 (08:43→20:49)
[2019-03-15] MEDS: FUROSEMIDE 10 MG/ML 4 ML VIAL IV SCH ×2 (08:43→20:49)
[2019-03-15 12:03] LABS: Glucose,Whole Blood 103 mg/dL (75-99)
[2019-03-15] MEDS ORDERED: ALBUTEROL NEBULIZED 2.5 MG/3 ML INHALATION PRN (15:45)
--- NOTE | 2019-03-15 15:48 | P.PN ---
Subjective Progress Note Date: 03/15/19 Principal diagnosis: Right knee swelling Patient was seen and examined. No acute events overnight. Patient reports slight improvement in the swelling in his right knee. His lower extremities have diuresed well. He denies any chest pain, shortness breath or palpitations. No nausea or vomiting. No fever or chills. Objective - Vital Signs Vital signs: Vital Signs Temp 98.0 F 03/15/19 12:38 Pulse 61 03/15/19 12:38 Resp 16 03/15/19 12:38 BP 128/73 03/15/19 12:38 Pulse Ox 96 03/15/19 12:38 Intake & Output 03/14/19 03/15/19 03/15/19 18:59 06:59 18:59 Intake Total 540 Output Total 2799 2024 Balance -2799 -2024 540 Intake: Oral 540 Output: Urine 2799 2024 Other: Voiding Method Urinal Urinal # Voids 8 2 1 - Exam General: [non toxic], [no distress], [appears at stated age] Derm: [warm], [dry] Head: [atraumatic], [normocephalic], [symmetric] Eyes: [EOMI], [no lid lag], [anicteric sclera] Mouth: [no lip lesion], [mucus membranes moist] Cardiovascular: [S1S2 reg], [no murmur], [positive DP pulse bilateral], Lungs: [CTA bilateral], [no rhonchi, no rales] , [no accessory muscle use] Abdominal: [soft], [ nontender to palpation], [no guarding], [no appreciable organomegaly] Ext: [no gross muscle atrophy], [no edema], [no contractures], [bilateral chronic venous stasis changes with erythema lower extremities], [right knee swollen with no erythema or tenderness to palpation] Neuro: [no focal neuro deficits] Psych: [Alert], [oriented], [appropriate affect] - Labs CBC & Chem 7: 03/13/19 07:37 03/13/19 07:37 Labs: Abnormal Lab Results - Last 24 Hours (Table) 03/14/19 03/14/19 03/15/19 Range/Units 17:04 21:27 06:58 POC Glucose (mg/dL) 111 H 129 H 123 H (75-99) mg/dL 03/15/19 Range/Units 11:36 POC Glucose (mg/dL) 103 H (75-99) mg/dL Microbiology - Last 24 Hours (Table) 03/14/19 10:32 Gram Stain - Preliminary Synovial Fluid Body Fluid Culture - Preliminary 03/12/19 14:00 Gram Stain - Preliminary Synovial Fluid Body Fluid Culture - Preliminary 03/11/19 19:05 Blood Culture - Preliminary Blood No Growth after 72 hours Assessment and Plan Assessment: Right knee swelling with history of knee replacement Left lower extremity cellulitis Asthma Hypertension Diabetes mellitus Cerebral palsy with back spasms Arthrocentesis does not appear to be septic. Patient is afebrile with no leukocytosis. Crystal disease and gout as part of the differential. CRP elevated. Plans: Follow PT consultation. Follow orthopedic recommendations. Follow synovial fluid culture. Plans: Continue clindamycin. Stable. Plans: Albuterol neb as needed for shortness of breath and wheezing. BP 128/73. Plans: Continue nifedipine. Monitor vitals, adjust medications as necessary. Plan care glucose 103. Plans: Insulin sliding scale. Regular Accu-Cheks. Hypoglycemic precautions. Plans: Resume tramadol, Lyrica, Robaxin. Follow PT consultation. [Patient admitted for lower extremity cellulitis. Found to have right knee swelling, arthroscopic cultures pending. Per orthopedic surgery, monitor for 1 more day. PT consultation pending. Likely DC tomorrow.]
[2019-03-15 17:03] LABS: Glucose,Whole Blood 134 mg/dL (75-99)
[2019-03-15 20:45] LABS: Glucose,Whole Blood 143 mg/dL (75-99)
[2019-03-15] MEDS: ASPIRIN 81 MG PO SCH (20:49)
[2019-03-15] MEDS: DOCUSATE 100 MG CAP PO SCH (20:49)
[2019-03-16 04:52] VITALS: RESP 16
[2019-03-16] MEDS: CLINDAMYCIN 150 MG CAP PO SCH ×2 (05:10→12:43)
[2019-03-16 07:16] LABS: Glucose,Whole Blood 117 mg/dL (75-99)
[2019-03-16] MEDS: INSULIN ASPART (NovoLOG) 100 UNIT/ML VIAL SQ SCH ×2 (07:29→12:36)
[2019-03-16] MEDS: ENOXAPARIN 40 MG/0.4 ML SYRINGE SQ SCH (08:46)
[2019-03-16] MEDS: ATORVASTATIN 10 MG TAB PO SCH (08:46)
[2019-03-16] MEDS: POTASSIUM CHLORIDE ER 10 MEQ TAB.ER.PRT PO SCH (08:46)
[2019-03-16] MEDS: FUROSEMIDE 10 MG/ML 4 ML VIAL IV SCH (08:46)
[2019-03-16] MEDS: METHOCARBAMOL 500 MG TAB PO SCH ×2 (08:46→12:43)
[2019-03-16] MEDS: PREGABALIN 100 MG CAP PO SCH (08:46)
[2019-03-16] MEDS ORDERED: NIFEdipine XL 30 MG TAB.ER.24 PO SCH (09:00)
--- NOTE | 2019-03-16 09:14 | P.DS ---
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 Chest x-ray was negative. Venous duplex was negative. Echocardiogram showed EF 55-60% with mild concentric LVH. CTA chest was done due to elevated d-dimer which showed pleural reaction and subsegmental atelectasis at the lung bases and no PE. Patient also endorsed right knee swelling and pain that was ongoing for several weeks. Patient was afebrile with no leukocytosis on admission. He was started on clindamycin and Lasix 40 mg IV twice a day to diuresis his legs. Orthopedic surgery was consulted for right knee swelling. Patient underwent arthrocentesis under orthopedic surgery. Synovial fluid cultures were negative at the time of discharge. Blood culture was negative at 96 hours. Patient was seen and examined. No acute events overnight. Able to ambulate with PT yesterday with the aid of a rolling walker. Recommends rehab but patient prefers to go home. He denies any chest pain, shortness of breath or palpitations. No fever or chills. No nausea or vomiting. General: [non toxic], [no distress], [appears at stated age] Derm: [warm], [dry] Head: [atraumatic], [normocephalic], [symmetric] Eyes: [EOMI], [no lid lag], [anicteric sclera] Mouth: [no lip lesion], [mucus membranes moist] Cardiovascular: [S1S2 reg], [no murmur], [positive DP pulse bilateral], Lungs: [CTA bilateral], [no rhonchi, no rales] , [no accessory muscle use] Abdominal: [soft], [ nontender to palpation], [no guarding], [no appreciable organomegaly] Ext: [no gross muscle atrophy], [no edema], [no contractures], [bilateral cutter out rosa venous stasis changes with improving erythema lower extremities], [right knee swollen with no erythema or tenderness to palpation] Neuro: [no focal neuro deficits] Psych: [Alert], [oriented], [appropriate affect] Right knee swelling with history of knee replacement Left lower extremity cellulitis Asthma Hypertension Diabetes mellitus Cerebral palsy with back spasms Arthrocentesis fluid analysis does not appear to be septic. Patient is afebrile with no leukocytosis. Crystal disease and gout as part of the differential. CRP elevated. Cultures preliminary negative so far. Plans: Follow PT consultation. Follow orthopedic recommendations. Follow synovial fluid culture. Plans: Continue clindamycin. Stable. Plans: Albuterol neb as needed for shortness of breath and wheezing. BP 155/79. Plans: Continue nifedipine. Monitor vitals, adjust medications as necessary. Plan care glucose 143. Plans: Insulin sliding scale. Regular Accu-Cheks. Hypoglycemic precautions. Plans: Resume tramadol, Lyrica, Robaxin. Follow PT consultation. [Patient admitted for lower extremity cellulitis, currently on oral clindamycin. Found to have right knee swelling, arthroscopic cultures so far negative. PT recommends [facility] but patient would like to go home. DC home today.] This complex discharge took about 35 minutes to complete. Pertinent Studies: Chest x-ray, venous duplex, echocardiogram, knee x-ray, chest CTA. Procedures: Arthrocentesis Patient Condition at Discharge: Good Plan - Discharge Summary Discharge Rx Participant: No New Discharge Prescriptions: New Clindamycin [Cleocin] 150 mg PO Q6HR #28 cap Continue metFORMIN HCL [Glucophage] 500 mg PO BID traMADol HCL 50 mg PO TID PRN PRN Reason: Pain NIFEdipine [NIFEdipine ER] 30 mg PO DAILY Magnesium Oxide [Vu] 500 mg PO DAILY Docusate [Colace] 200 mg PO HS Pregabalin [Lyrica] 100 mg PO BID Methocarbamol [Robaxin] 1,000 mg PO QID Aspirin EC [Ecotrin Low Dose] 81 mg PO HS Ammonium Lactate Lotion [Lac-Hydrin 12% Lotion] 1 applic TOPICAL BID PRN PRN Reason: RASH BOTH LEGS Potassium Chloride [Klor-Con 10] 10 meq PO BID Acetaminophen Tab [Tylenol] 500 mg PO Q6H PRN PRN Reason: Pain Atorvastatin Calcium [Lipitor] 10 mg PO DAILY Changed Furosemide [Lasix] 20 mg PO BID #60 tab Discharge Medication List Acetaminophen Tab [Tylenol] 500 mg PO Q6H PRN 03/11/19 [History] Ammonium Lactate Lotion [Lac-Hydrin 12% Lotion] 1 applic TOPICAL BID PRN 03/11/19 [History] Aspirin EC [Ecotrin Low Dose] 81 mg PO HS 03/11/19 [History] Atorvastatin Calcium [Lipitor] 10 mg PO DAILY 03/11/19 [History] Docusate [Colace] 200 mg PO HS 03/11/19 [History] Magnesium Oxide [Vu] 500 mg PO DAILY 03/11/19 [History] Methocarbamol [Robaxin] 1,000 mg PO QID 03/11/19 [History] NIFEdipine [NIFEdipine ER] 30 mg PO DAILY 03/11/19 [History] Potassium Chloride [Klor-Con 10] 10 meq PO BID 03/11/19 [History] Pregabalin [Lyrica] 100 mg PO BID 03/11/19 [History] metFORMIN HCL [Glucophage] 500 mg PO BID 03/11/19 [History] traMADol HCL 50 mg PO TID PRN 03/11/19 [History] Clindamycin [Cleocin] 150 mg PO Q6HR #28 cap 03/16/19 [Rx] Furosemide [Lasix] 20 mg PO BID #60 tab 03/16/19 [Rx] Follow up Appointment(s)/Referral(s): Bill Adkins MD [Primary Care Provider] - 1-2 days Krzysztof Pagan DO [Medical Doctor] - 1 Week Activity/Diet/Wound Care/Special Instructions: Diet: Diabetic Follow-up PCP within 3 days of discharge. Follow-up orthopedic surgery within 1 week of discharge. Take all medications as advised. Discharge Disposition: HOME SELF-CARE
[2019-03-16 12:33] LABS: Glucose,Whole Blood 95 mg/dL (75-99)
[2019-03-16 14:12] VITALS: BP 123/64; PULSE 62; TEMP 99
--- NOTE | 2019-03-16 14:13 | P.PN ---
Subjective Progress Note Date: 03/16/19 This is a 73 year-old male who is admitted for bialteral lower extremity cellulitis. Patient is seen and evaluated at bedside today. Patient states that he was able to stand on the right leg with physical therapy. Patient denies any new complaints or pain in the right knee today. Patient denies any fever/chills, numbness, weakness, tingling, abdominal pain, shortness of breath or chest pain. Objective - Vital Signs Vital signs: Vital Signs Temp 97.9 F 03/16/19 04:50 Pulse 79 03/16/19 04:50 Resp 16 03/16/19 04:50 BP 155/79 03/16/19 04:50 Pulse Ox 95 03/16/19 04:50 Intake & Output 03/15/19 03/16/19 03/16/19 18:59 06:59 18:59 Intake Total 1080 Output Total 1625 500 Balance 1080 -1625 -500 Weight 69.5 kg Intake: Oral 1080 Output: Urine 1625 500 Other: Voiding Method Urinal Urinal # Voids 3 # Bowel Movements 1 - Exam On exam there is minimal swelling of the right knee. There is no erythema. There is no tendernes to palpation. Patient has good active range of motion of the rig ht knee without pain or difficulty. Calf is soft and nontender to palpation. Sensation intact. Neurovascular status and circulatory status are intact. 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 (1) Bilateral lower extremity edema Current Visit: Yes Status: Acute Code(s): R60.0 - LOCALIZED EDEMA SNOMED Code(s): 579006330 (2) Right knee pain Current Visit: Yes Status: Acute Code(s): M25.561 - PAIN IN RIGHT KNEE SNOMED Code(s): 57897349 Plan: 1. Very low suspicion for infection of the right knee. Final cultures are negative. Patient remains afebrile and white blood cell count is within normal limits. 2. Recommend physical therapy for mobilization. 3. No surgical intervention planned. Patient may follow up as an outpatient.
== END 2019-03-16 15:56 | disposition home or self-care (01) | DRG 603 ==
LOC: EC 15:39 → 6NMEDSUR 18:57 → OBSVTOIN 03-13 10:37
PROVIDERS: ADMIT Internal Medicine; ATTEND Internal Medicine
PROC: 0S9C3ZX Drainage of Right Knee Joint, Percutaneous Approach, Diagnostic (ICD-10-PCS; principal; 2019-03-12)
DX: L03.115 Cellulitis of right lower limb (principal); J98.11 Atelectasis; L03.116 Cellulitis of left lower limb; M10.9 Gout, unspecified; E11.9 Type 2 diabetes mellitus without complications; E78.5 Hyperlipidemia, unspecified; G80.9 Cerebral palsy, unspecified; I10 Essential (primary) hypertension; J45.909 Unspecified asthma, uncomplicated; Z79.84 Long term (current) use of oral hypoglycemic drugs; Z79.899 Other long term (current) drug therapy; Z96.651 Presence of right artificial knee joint; M25.461 Effusion, right knee; Z88.1 Allergy status to other antibiotic agents; Z88.0 Allergy status to penicillin; R79.1 Abnormal coagulation profile; Z66 Do not resuscitate; Z90.49 Acquired absence of other specified parts of digestive tract; I83.90 Asymptomatic varicose veins of unspecified lower extremity
CPT/HCPCS: 36415; 71046; 71275; 80053; 82550; 83735; 83880; 84100; 84484; 84550; 85025; 85379; 86140; 87040; 87070; 87205; 89050; 89060; 93005; 93306; 93970; 96365; 96375; 99285

== ENCOUNTER 2019-10-19 13:12 | Inpatient (IN) | payer MEDICARE, OTHER ==
[2019-10-18 11:38] VITALS: BMI 34.7
[~2019-10-19 13:12] MED LIST: DEXAMETHASONE SOD PHOSPHATE 10 MG/ML 1 ML VIAL IV ONE; MIDAZOLAM 2 MG/2 ML VIAL IV PRN; ONDANSETRON 4 MG/2 ML VIAL IVP ONE
[2019-10-19] MEDS: LACTATED RINGERS 1,000 ML IV SCH (13:42)
[2019-10-19] MEDS ORDERED: ONDANSETRON 4 MG/2 ML VIAL ONE (13:51)
[2019-10-19 14:02] LABS: Glucose,Whole Blood 95 mg/dL (75-99)
[2019-10-19] MEDS ORDERED: PROPOFOL 10 MG/ML 20 ML VIAL IV ONE (15:08)
[2019-10-19] MEDS ORDERED: LIDOCAINE 1% INJ 10MG/ML (20 ML MDV) ONE (15:08)
[2019-10-19] MEDS ORDERED: GLYCOPYRROLATE 0.2 MG/ML 2 ML VIAL ONE (15:08)
[2019-10-19] MEDS ORDERED: MIDAZOLAM 2 MG/2 ML VIAL ONE (15:08)
[2019-10-19] MEDS ORDERED: SUCCINYLCHOLINE CHLORIDE 100 MG/5 ML SYR IV ONE (15:08)
[2019-10-19] MEDS ORDERED: fentaNYL (PF) 50 MCG/ML 2 ML AMP ONE (15:08)
[2019-10-19] MEDS ORDERED: ePHEDrine SULFATE/0.9% NACL/PF 50 MG/5 ML SYRINGE IV ONE (15:08)
[2019-10-19] MEDS ORDERED: TOBRAMYCIN SULFATE 1.2 GM VIAL MISCELLANE ONE (15:59)
[2019-10-19] MEDS ORDERED: VANCOMYCIN 1,000 MG VIAL MISCELLANE ONE (16:00)
--- NOTE | 2019-10-19 16:08 | P.OP ---
Date of Procedure: 10/19/19 Preoperative Diagnosis: Infection right total knee Postoperative Diagnosis: Superficial abscess right total knee Procedure(s) Performed: Incision and drainage superficial abscess right total knee Implants: Stimulan biocomposite antibiotic beads x 2 Anesthesia: DEEP Surgeon: Carl [employer] Teacher'S Aide #1: Brandon Bennett Estimated Blood Loss (ml): 25 Pathology: other (Superficial cultures 2. Deep cultures 2) Condition: stable Disposition: PACU Indications for Procedure: This is a 74-year-old gentleman who has had a history of a right total knee replacement. Over the past few weeks he began to have swelling and redness over the anterior medial aspect of his knee. He was seen in the office and this was aspirated and cultured, which failed to grow any bacteria. He was placed on antibiotics but continued to have redness and swelling. After discussing the surgical nonsurgical treatment options with him and his brother at length, I recommended an open irrigation and drainage of the right knee. Informed consent was obtained. Operative Findings: The operative findings show a superficial abscess on the anterior medial aspect of the knee. An arthrotomy was performed and the knee joint was inspected and found to have no purulent material. Based on this appears the infection is superficial. Description of Procedure: Patient was seen in the preoperative area consent was reviewed and operative site was marked with a skin marker. Patient was then brought to the operating room and given a general anesthetic by the anesthesia department. His right lower extremities and prepped and draped in usual sterile fashion. A universal timeout was then performed to confirm the patient's name, surgical site, ALLERGIES, and consent. Incision was made over the is right knee utilizing his prior total knee incision. The skin and subcu tissues were sharply incised down to the patellar tendon. As the tissue was dissected medially, a large abscess was encountered with a moderate amount of purulent material. This was then cultured 2. Serial was complete lately irrigated and inspected and found to have no sinus tracts leading to the knee. Next utilizing pulsatile lavage this area was thoroughly irrigated. The arthrotomy was then performed on the medial aspect of the knee down into the knee joint. Upon entry into the knee joint there was no purulent material encountered. This area was then irrigated with pulsatile lavage as well. Next the stimulan bio composite antibiotic beads were mixed. These were placed both within the knee joint and in the superficial abscess area on the anterior medial aspect of the knee. The fascia was then closed with #1 Vicryl. The subcu tissue was closed with 3-0 Vicryl. Janusz were used for the skin. Sterile shannan ssing was applied. The patient was transferred recovery room. Asst. RUTH Redding was required due the complexity of surgery and need for skilled property management assistant
[2019-10-19 16:25] LABS: Glucose,Whole Blood 102 mg/dL (75-99)
[2019-10-19] MEDS ORDERED: HYDROmorphone 0.5 MG/0.5 ML SYRINGE IVP PRN ×2 (16:28)
[2019-10-19] MEDS ORDERED: ONDANSETRON 4 MG/2 ML VIAL IVP PRN (16:28)
[2019-10-19] MEDS ORDERED: HYDROcodone/APAP 5-325MG 1 EACH TAB PO PRN (16:28)
[2019-10-19] MEDS ORDERED: hydrOXYzine pamoate 25 MG CAP PO PRN (16:28)
[2019-10-19] MEDS ORDERED: NALOXONE 0.4 MG/ML 1 ML VIAL IV PRN (16:28)
[2019-10-19] MEDS: HYDROmorphone 0.5 MG/0.5 ML SYRINGE IVP PRN ×5 (16:41→22:41)
[2019-10-19 16:57] LABS: Glucose,Whole Blood 100 mg/dL (75-99)
[2019-10-19] MEDS ORDERED: LACTATED RINGERS 1,000 ML IV ONE (17:00)
[2019-10-19 17:24] LABS: Basophils % (A) 0 %; Eosinophils # (A) 0.1 k/uL (0-0.7); Eosinophils % (A) 1 %; HCT 42.3 % (39.0-53.0); HGB 12.7 gm/dL (13.0-17.5); Hypochromasia Slight; Lymphocytes # (A) 0.6 k/uL (1.0-4.8); Lymphocytes % (A) 11 %; MCH 25.7 pg (25.0-35.0); MCV 85.8 fL (80.0-100.0); Mean Platelet Volume 7.8; Monocytes # (A) 0.2 k/uL (0-1.0); Monocytes % (A) 4 %; Neutrophils # (A) 4.4 k/uL (1.3-7.7); Neutrophils % (A) 83 %; Platelet Count 197 k/uL (150-450); RBC 4.93 m/uL (4.30-5.90); RDW 14.5 % (11.5-15.5); WBC 5.3 k/uL (3.8-10.6)
[2019-10-19] MEDS ORDERED: diphenhydrAMINE 50 MG/ML 1 ML VIAL IVP ONE (18:30)
[2019-10-19] MEDS ORDERED: SODIUM CHLORIDE 0.9% 1,000 ML IV ONE (18:47)
[2019-10-19] MEDS: SODIUM CHLORIDE 0.9% 1,000 ML IV SCH (20:40)
--- NOTE | 2019-10-19 21:26 | P.CONS ---
History of Present Illness - Reason for Consult Consult date: 10/19/19 Medical management Requesting physician: Bill Adkins - Chief Complaint Right knee infection - History of Present Illness Consultation: This is a 74-year-old patient who follows with visiting physicians Dr. Adkins. 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 Patient has been his brother Susan. Patient called Dr. Smith and had aspiration of the knee on October 05. He continued to have intermittent swelling and redness. No improvement. Some pain. He had postop revision of the right knee in 2011. Otherwise the swelling is started 2 weeks ago. Does use a walker. He did receive a course of Keflex as an outpatient. Today was taken to the operating room. I indifferent superficial abscess of the right knee was total done. It was a large abscess. Moderate amount of purulent material obtained. Cultures were sent. The knee joint itself did not show any pus. Patient currently is a dressing in place. Some pain. Review of systems: GEN.: Tired EYES: None HEENT: Decreased hearing in the right ear NECK: None RESPIRATORY: None CARDIOVASCULAR: None GASTROINTESTINAL: None GENITOURINARY: None MUSCULOSKELETAL: Pain in the joints LYMPHATICS: None HEMATOLOGICAL: None PSYCHIATRY: None NEUROLOGICAL: Unable to straighten his lower extremity. Does use a walker Wheelchair. Past medical history to include: Cerebral palsy, hard of hearing as picking the right ear, hypertension, cerebral palsy, weakness in the legs, Social history: No smoking and I'll call. Lives with his brother Mario Alberto Family history: Reviewed, noncontributory to presentation Physical examination: VITAL SIGNS: Afebrile, 55, 18, 134/61, 100% on 2 L GENERAL: BMI 34.7, Propper in bed, awake. EYES: Pupils equal. Conjunctiva normal. HEENT: External appearance of nose and ears normal, oral cavity grossly normal. Decreased hearing in the right ear NECK: JVD not raised; masses not palpable. HEART: First and second heart sounds are normal; no edema. LUNGS: Respiratory rate normal; clear to auscultation. ABDOMEN: Soft, nontender, liver spleen not palpable, no masses palpable. PSYCH: Patient able to answer questionsl. MUSCULAR skeletal: Dressing over the right knee NEUROLOGICAL: Cranial nerves grossly intact; no facial asymmetry, power and sensation grossly intact. LYMPHATICS: No lymph nodes palpable in the axilla and neck Investigations: -White count 5.3 hemoglobin 12.7 platelets 197 Assessment: -Right knee abscess superficial to the joint, having failed outpatient treatment with Keflex. Large abscess was drained. Culture was sent. Joint space was clear. 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 Home medications and resume. Add Lovenox for DVT prophylaxis. Accu-Cheks to be followed. Care was discussed with the patient. Questions answered. Dr. Craig from [place] is also been consulted Thank Dr. Smith Past Medical History Past Medical History: Diabetes Mellitus, Hearing Disorder / Deafness, Hypertension Additional Past Medical History / Comment(s): hx of cerebral palsey with surgery on legs- cannot straighten legs, uses a walker but is mostly in the wheelchair now., cellulitis feet., dry skin, pain in back, shoulders and right knee., right knee red and swollen., Pt lives in apartment by his brother (Mario Alberto)., hx obtained from Mario Alberto- pt [employer] and lost hearing aids. History of Any Multi-Drug Resistant Organisms: None Reported Past Surgical History: Appendectomy, Cholecystectomy, Joint Replacement, Orthopedic Surgery, Tonsillectomy Additional Past Surgical History / Comment(s): surgery on legs for Cerebral Palsy Past Anesthesia/Blood Transfusion Reactions: No Reported Reaction Past Psychological History: No Psychological Hx Reported Smoking Status: Never smoker Past Alcohol Use History: None Reported Past Drug Use History: None Reported - Past Family History Father Family Medical History: No Reported History Medications and Allergies Home Medications Medication Instructions Recorded Confirmed Type Aspirin EC [Ecotrin Low Dose] 81 mg PO HS 03/11/19 10/18/19 History Atorvastatin Calcium [Lipitor] 10 mg PO DAILY 03/11/19 10/18/19 History Docusate [Colace] 200 mg PO HS 03/11/19 10/18/19 History Magnesium Oxide [Vu] 500 mg PO DAILY 03/11/19 10/18/19 History NIFEdipine [NIFEdipine ER] 30 mg PO DAILY 03/11/19 10/18/19 History Potassium Chloride [Klor-Con 10] 10 meq PO BID 03/11/19 10/18/19 History Pregabalin [Lyrica] 100 mg PO BID 03/11/19 10/18/19 History metFORMIN HCL [Glucophage] 500 mg PO BID 03/11/19 10/18/19 History Furosemide [Lasix] 20 mg PO BID #60 tab 03/16/19 10/18/19 Rx Cephalexin [Keflex] 500 mg PO Q6HR 10/18/19 10/18/19 History HYDROcodone/APAP 5-325MG [Spruce 1 tab PO Q6HR PRN 10/18/19 10/18/19 History 5-325] Magnesium 500 mg PO DAILY 10/18/19 10/18/19 History Allergies Allergy/AdvReac Type Severity Reaction Status Date / Time acyclovir Allergy Unknown Verified 10/19/19 13:35 amoxicillin [From Augmentin] Allergy Unknown Verified 10/19/19 13:35 ciprofloxacin [From Cipro] Allergy Unknown Verified 10/19/19 13:35 ciprofloxacin HCl Allergy Unknown Verified 10/19/19 13:35 [From Cipro] clavulanic acid Allergy Unknown Verified 10/19/19 13:35 [From Augmentin] levofloxacin [From Levaquin] Allergy Unknown Verified 10/19/19 13:35 Macrolide Antibiotics Allergy Unknown Verified 10/19/19 13:35 Physical Exam Vitals: Vital Signs Temp Pulse Pulse Resp BP BP Pulse Ox 10/19/19 19:15 58 L 16 132/68 100 10/19/19 18:45 55 L 18 134/61 10/19/19 18:15 67 18 149/65 97 10/19/19 18:00 72 16 126/76 98 10/19/19 17:30 52 L 16 127/69 97 10/19/19 17:15 68 16 129/73 98 10/19/19 17:00 58 L 18 129/70 97 10/19/19 16:45 70 18 130/69 96 10/19/19 16:30 78 18 144/77 97 10/19/19 16:19 75 16 145/72 97 10/19/19 13:40 97.5 F L 69 16 154/76 96 Intake and Output 10/19/19 10/19/19 10/19/19 06:59 14:59 22:59 Intake Total 300 850 Output Total 25 Balance 300 825 Intake: IV 300 850 Output: Estimated Blood Loss 25 Other: Weight 97.522 kg Results CBC & Chem 7: 10/19/19 16:53 10/19/19 13:48 Labs: Abnormal Lab Results - Last 24 Hours (Table) 10/19/19 10/19/19 10/19/19 Range/Units 16:23 16:53 16:55 Hgb 12.7 L (13.0-17.5) gm/dL MCHC 30.0 L (31.0-37.0) g/dL Lymphocytes # 0.6 L (1.0-4.8) k/uL POC Glucose (mg/dL) 102 H 100 H (75-99) mg/dL
[2019-10-19 22:29] LABS: Glucose,Whole Blood 137 mg/dL (75-99)
[2019-10-19] MEDS: PREGABALIN 100 MG CAP PO SCH (22:29)
[2019-10-19] MEDS: ASPIRIN 81 MG PO SCH (22:29)
[2019-10-19] MEDS: POTASSIUM CHLORIDE ER 10 MEQ TAB.ER.PRT PO SCH (22:29)
[2019-10-19] MEDS: SENNOSIDES-DOCUSATE SODIUM 1 EACH TAB PO SCH (22:29)
[2019-10-19] MEDS: metFORMIN 500 MG TAB PO SCH (22:29)
[2019-10-20] MEDS: SODIUM CHLORIDE 0.9% 1,000 ML IV SCH ×3 (04:13→22:22)
[2019-10-20 06:56] LABS: Glucose,Whole Blood 133 mg/dL (75-99)
[2019-10-20] MEDS: LACTATED RINGERS 1,000 ML IV SCH (06:57)
[2019-10-20] MEDS ORDERED: VANCOMYCIN IV PER PHARMACY 1 EACH MISC MISCELLANE PRN (08:12)
[2019-10-20] MEDS ORDERED: VANCOMYCIN 1,750 MG in SODIUM CHLORIDE 0.9% 500 ML 500 ML IVPB ONE (08:30)
[2019-10-20] MEDS ORDERED: MAGNESIUM 500 MG PO SCH (09:00)
[2019-10-20] MEDS: metFORMIN 500 MG TAB PO SCH ×2 (09:02→22:16)
[2019-10-20] MEDS: MAGNESIUM OXIDE 400 MG TAB PO SCH (09:02)
[2019-10-20] MEDS: FUROSEMIDE 20 MG TAB PO SCH ×2 (09:04→15:15)
[2019-10-20] MEDS: ATORVASTATIN 10 MG TAB PO SCH (09:05)
[2019-10-20] MEDS: ENOXAPARIN 40 MG/0.4 ML SYRINGE SQ SCH (09:06)
[2019-10-20 09:25] LABS: African American GFR (CKD) >90 (>60 ml/min/1.73 sqM); Non-African American GFR(CKD) >90 (>60 ml/min/1.73 sqM)
[2019-10-20] MEDS: NIFEdipine XL 30 MG TAB.ER.24 PO SCH (09:38)
[2019-10-20] MEDS: POTASSIUM CHLORIDE ER 10 MEQ TAB.ER.PRT PO SCH ×2 (09:38→22:16)
[2019-10-20] MEDS: PREGABALIN 100 MG CAP PO SCH ×2 (09:38→22:15)
[2019-10-20 11:21] LABS: Glucose,Whole Blood 123 mg/dL (75-99)
--- NOTE | 2019-10-20 12:50 | P.PN ---
Subjective Progress Note Date: 10/20/19 This is a 74-year-old male who is status post incision and drainage superficial abscess right total knee. This is postoperative day #1 and patient is seen and evaluated at bedside with Dr. Carl Smith. Patient states that his pain is well-controlled and he denies any new complaints today. Objective - Vital Signs Vital signs: Vital Signs Temp 98.7 F 10/20/19 11:48 Pulse 64 10/20/19 11:48 Resp 17 10/20/19 11:48 BP 137/78 10/20/19 11:48 Pulse Ox 98 10/20/19 11:48 Intake & Output 10/19/19 10/20/19 10/20/19 18:59 06:59 18:59 Intake Total 1150 550 Output Total 25 1050 Balance 1125 -1050 550 Weight 97.522 kg 97.522 kg Intake: IV 1150 550 Vancomycin 1,750 mg In 500 Sodium Chloride 0.9% 500 ml 500 ml @ 167 mls/hr IVPB ONCE ONE Rx#: [id number] ceFAZolin 2 gm In Sodium 50 Chloride 0.9% 50 ml @ 100 mls/hr IVPB Q8H [facility] Rx#: [id number] Output: Urine 1050 Estimated Blood Loss 25 Other: Voiding Method Urinal Urinal # Voids 1 - Exam On exam dressing is clean, dry and intact. The right lower extremity is warm and well-perfused. There is chronic swelling to the right lower extremity. Sensation intact. Neurovascular status and circulatory status are intact. - Labs CBC & Chem 7: 10/19/19 16:53 10/20/19 08:42 Labs: Abnormal Lab Results - Last 24 Hours (Table) 10/19/19 10/19/19 10/19/19 Range/Units 16:23 16:53 16:55 Hgb 12.7 L (13.0-17.5) gm/dL MCHC 30.0 L (31.0-37.0) g/dL Lymphocytes # 0.6 L (1.0-4.8) k/uL POC Glucose (mg/dL) 102 H 100 H (75-99) mg/dL 10/19/19 10/20/19 10/20/19 Range/Units 22:27 06:54 11:20 Hgb (13.0-17.5) gm/dL MCHC (31.0-37.0) g/dL Lymphocytes # (1.0-4.8) k/uL POC Glucose (mg/dL) 137 H 133 H 123 H (75-99) mg/dL Microbiology - Last 24 Hours (Table) 10/19/19 15:50 Gram Stain - Preliminary Knee - Right Wound Culture - Preliminary 10/19/19 15:50 Gram Stain - Preliminary Knee - Right Wound Culture - Preliminary 10/19/19 15:50 Gram Stain - Preliminary Knee - Right Wound Culture - Preliminary 10/19/19 15:50 Gram Stain - Preliminary Knee - Right Wound Culture - Preliminary 10/19/19 15:50 Fungal Culture - Preliminary Knee - Right 10/19/19 15:50 Fungal Culture - Preliminary Knee - Right 10/19/19 15:50 Fungal Culture - Preliminary Knee - Right 10/19/19 15:50 Anaerobic Culture - Preliminary Knee - Right 10/19/19 15:50 Fungal Culture - Preliminary Knee - Right 10/19/19 15:50 Anaerobic Culture - Preliminary Knee - Right 10/19/19 15:50 Anaerobic Culture - Preliminary Knee - Right 10/19/19 15:50 Anaerobic Culture - Preliminary Knee - Right Assessment and Plan (1) Infection of right knee Current Visit: Yes Status: Acute Code(s): M00.9 - PYOGENIC ARTHRITIS, UNSPECIFIED SNOMED Code(s): 077146782 (2) Bilateral lower extremity edema Current Visit: No Status: Acute Code(s): R60.0 - LOCALIZED EDEMA SNOMED Code(s): 273545814 (3) Right knee pain Current Visit: No Status: Acute Code(s): M25.561 - PAIN IN RIGHT KNEE SNOMED Code(s): 82671525 (4) Status post right knee replacement Current Visit: No Status: Acute Code(s): Z96.651 - PRESENCE OF RIGHT ARTIFICIAL KNEE JOINT SNOMED Code(s): 4586356916598 Plan: #1.Continue routine postoperative care and pain control. #2.Cultures are pending. #3.Appreciate input from infectious disease. #4.Continue antibiotics per infectious disease. #5.Dressing to stay intact until 10/21/2019. #6. Anticipate discharge in the next 2-3 days.
[2019-10-20 16:41] LABS: Glucose,Whole Blood 103 mg/dL (75-99)
[2019-10-20 20:52] LABS: Glucose,Whole Blood 115 mg/dL (75-99)
[2019-10-20] MEDS: VANCOMYCIN 1,750 MG in SODIUM CHLORIDE 0.9% 500 ML 500 ML IVPB SCH (22:14)
[2019-10-20] MEDS: ASPIRIN 81 MG PO SCH (22:15)
[2019-10-20] MEDS: SENNOSIDES-DOCUSATE SODIUM 1 EACH TAB PO SCH (22:15)
--- NOTE | 2019-10-20 22:33 | P.CONS ---
History of Present Illness - Reason for Consult Consult date: 10/20/19 Right knee abscess Requesting physician: Pasquale Smith - Chief Complaint Right knee pain swelling x weeks - History of Present Illness Patient is a 74-year-old male with a past medical history significant for right knee replacement many years ago patient mentioned in 2011 patient did well for the last 8 years apparently over the last few weeks he started having some pain and swelling redness to the right knee area that has been aspirated outpatient setting by [facility] cultures apparently were negative patient has been treated with oral antibiotic however the patient did have significant improvement he did have persistent swelling redness and pain to the right the area. The patient is scheduled for [place] pain 3-4 out of 10 and no radiation patient denies high-grade fever or chills with these symptoms the patient was evaluated patient was electively admitted to the hospital he was taken to the OR and status post drainage of the right knee abscess which did not rate down to the prosthetic knee patient did have a drainage of this abscess culture has been obtained subsequently antibiotic bead has been placed in the abscess cavity as well as the right knee joint patient did receive cefazolin perioperatively infectious disease was consulted for further management of antibiotic therapy Review of Systems Positive point has been mentioned in the HPI rest of the systems are negative Past Medical History Past Medical History: Diabetes Mellitus, Hearing Disorder / Deafness, Hypertension Additional Past Medical History / Comment(s): hx of cerebral palsey with surgery on legs- cannot straighten legs, uses a walker but is mostly in the wheelchair now., cellulitis feet., dry skin, pain in back, shoulders and right knee., right knee red and swollen., Pt lives in apartment by his brother (Mario Alberto)., hx obtained from Mario Alberto- pt [place] and lost hearing aids. History of Any Multi-Drug Resistant Organisms: None Reported Past Surgical History: Appendectomy, Cholecystectomy, Joint Replacement, Orthopedic Surgery, Tonsillectomy Additional Past Surgical History / Comment(s): surgery on legs for Cerebral Palsy Past Anesthesia/Blood Transfusion Reactions: No Reported Reaction Past Psychological History: No Psychological Hx Reported Smoking Status: Never smoker Past Alcohol Use History: None Reported Past Drug Use History: None Reported - Past Family History Father Family Medical History: No Reported History Medications and Allergies Home Medications Medication Instructions Recorded Confirmed Type Aspirin EC [Ecotrin Low Dose] 81 mg PO HS 03/11/19 10/18/19 History Atorvastatin Calcium [Lipitor] 10 mg PO DAILY 03/11/19 10/18/19 History Docusate [Colace] 200 mg PO HS 03/11/19 10/18/19 History Magnesium Oxide [Vu] 500 mg PO DAILY 03/11/19 10/18/19 History NIFEdipine [NIFEdipine ER] 30 mg PO DAILY 03/11/19 10/18/19 History Potassium Chloride [Klor-Con 10] 10 meq PO BID 03/11/19 10/18/19 History Pregabalin [Lyrica] 100 mg PO BID 03/11/19 10/18/19 History metFORMIN HCL [Glucophage] 500 mg PO BID 03/11/19 10/18/19 History Furosemide [Lasix] 20 mg PO BID #60 tab 03/16/19 10/18/19 Rx Cephalexin [Keflex] 500 mg PO Q6HR 10/18/19 10/18/19 History HYDROcodone/APAP 5-325MG [[place] 1 tab PO Q6HR PRN 10/18/19 10/18/19 History 5-325] Allergies Allergy/AdvReac Type Severity Reaction Status Date / Time acyclovir Allergy Unknown Verified 10/19/19 13:35 amoxicillin [From Augmentin] Allergy Unknown Verified 10/19/19 13:35 ciprofloxacin [From Cipro] Allergy Unknown Verified 10/19/19 13:35 ciprofloxacin HCl Allergy Unknown Verified 10/19/19 13:35 [From Cipro] clavulanic acid Allergy Unknown Verified 10/19/19 13:35 [From Augmentin] levofloxacin [From Levaquin] Allergy Unknown Verified 10/19/19 13:35 Macrolide Antibiotics Allergy Unknown Verified 10/19/19 13:35 Physical Exam Vitals: Vital Signs Temp Pulse Pulse Resp BP BP Pulse Ox 10/20/19 07:00 98.1 F 64 16 127/63 97 10/20/19 04:00 17 10/20/19 01:55 98.6 F 71 18 176/82 97 10/20/19 00:00 18 10/19/19 20:40 16 10/19/19 19:15 58 L 16 132/68 100 10/19/19 18:45 55 L 18 134/61 10/19/19 18:15 67 18 149/65 97 10/19/19 18:00 72 16 126/76 98 08/04/20 17:30 52 L 16 127/69 97 10/19/19 17:15 68 16 129/73 98 10/19/19 17:00 58 L 18 129/70 97 10/19/19 16:45 70 18 130/69 96 10/19/19 16:30 78 18 144/77 97 10/19/19 16:19 75 16 145/72 97 10/19/19 13:40 97.5 F L 69 16 154/76 96 Intake and Output 10/19/19 10/20/19 10/20/19 22:59 06:59 14:59 Intake Total 850 Output Total 525 550 Balance 325 -550 Intake: IV 850 Output: Urine 500 550 Estimated Blood Loss 25 Other: Voiding Method Urinal Urinal # Voids 1 Weight 97.522 kg GENERAL DESCRIPTION: An elderly male lying in bed, no distress. No tachypnea or accessory muscle of respiration use. HEENT: Shows Pallor , no scleral icterus. Oral mucous membrane is dry. No pharyngeal erythema or thrush NECK: Trachea central, no thyromegaly. LUNGS: Unlabored breathing. Clear to auscultation anteriorly. No wheeze or crackle. HEART: S1, S2, regular rate and rhythm. No loud murmur ABDOMEN: Soft, no tenderness , guarding or rigidity, no organomegaly EXTREMITIES: Right knee is currently dressed up in the OR dressing SKIN: No rash, no masses palpable. NEUROLOGICAL: The patient is awake, alert, oriented x3, mood and affect normal. Results CBC & Chem 7: 10/19/19 16:53 10/20/19 08:42 Labs: Abnormal Lab Results - Last 24 Hours (Table) 10/19/19 10/19/19 10/19/19 Range/Units 16:23 16:53 16:55 Hgb 12.7 L (13.0-17.5) gm/dL MCHC 30.0 L (31.0-37.0) g/dL Lymphocytes # 0.6 L (1.0-4.8) k/uL POC Glucose (mg/dL) 102 H 100 H (75-99) mg/dL 10/19/19 10/20/19 Range/Units 22:27 06:54 Hgb (13.0-17.5) gm/dL MCHC (31.0-37.0) g/dL Lymphocytes # (1.0-4.8) k/uL POC Glucose (mg/dL) 137 H 133 H (75-99) mg/dL Microbiology - Last 24 Hours (Table) 10/19/19 15:50 Gram Stain - Preliminary Knee - Right Wound Culture - Preliminary 10/19/19 15:50 Fungal Culture - Preliminary Knee - Right 10/19/19 15:50 Fungal Culture - Preliminary Knee - Right 10/19/19 15:50 Fungal Culture - Preliminary Knee - Right 10/19/19 15:50 Wound Culture - Preliminary Knee - Right 10/19/19 15:50 Anaerobic Culture - Preliminary Knee - Right 10/19/19 15:50 Fungal Culture - Preliminary Knee - Right 10/19/19 15:50 Anaerobic Culture - Preliminary Knee - Right 10/19/19 15:50 Wound Culture - Preliminary Knee - Right 10/19/19 15:50 Wound Culture - Preliminary Knee - Right 10/19/19 15:50 Anaerobic Culture - Preliminary Knee - Right 10/19/19 15:50 Anaerobic Culture - Preliminary Knee - Right Assessment and Plan Assessment: 1- patient with right knee superficial abscess that seemed to have not draining down to the prosthetic joint in this patient failing outpatient oral antibiotic therapy concern is likely from gram-positive skin [facility] suspicion of underlying gram-negative infection 2- Patient with multiple antibiotic ALLERGIES that would limit the number of antibiotic safe to use (1) Abscess of right knee Current Visit: Yes Status: Acute Code(s): L02.415 - CUTANEOUS ABSCESS OF RIGHT LOWER LIMB SNOMED Code(s): 37063370 (2) Allergy to multiple antibiotics Current Visit: Yes Status: Acute Code(s): Z88.1 - ALLERGY STATUS TO OTHER ANTIBIOTIC AGENTS STATUS SNOMED Code(s): 154128412 Plan: 1- Vancomycin pharmacy to dose target trough of 15 while watching his kidney function and Vanco trough closely 2- patient will likely need a PICC line for outpatient IV antibiotic therapy We will follow on clinical condition and cultures to further adjust medication if needed Thank you for this consultation will follow this patient with you Time with Patient: Greater than 30
--- NOTE | 2019-10-20 22:37 | P.PN ---
Progress Note - Text Progress Note Date: 10/20/19 - Chief Complaint Right knee infection Consultation: This is a 74-year-old patient who follows with visiting physicians Dr. Adkins. 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 Patient has been his brother Susan. Patient called Dr. Smith and had aspiration of the knee on October 05. He continued to have intermittent swelling and redness. No improvement. Some pain. He had postop revision of the right knee in 2011. Otherwise the swelling is started 2 weeks ago. Does use a walker. He did receive a course of Keflex as an outpatient. Today was taken to the operating room. I indifferent superficial abscess of the right knee was total done. It was a large abscess. Moderate amount of purulent material obtained. Cultures were sent. The knee joint itself did not show any pus. Patient currently is a dressing in place. Some pain. Today-sitting up in a chair. Pain control. Dressing in place. He tolerated diet. Review of systems: Was done for constitutional, cardiovascular, GI, pulmonary. relevant finding as above Active Medications Hydrocodone Bitart/Acetaminophen ([place] 5-325) 1 each PO Q6HR PRN PRN Reason: Pain Scale 1 to 5 Hydrocodone Bitart/Acetaminophen ([place] 5-325) 2 each PO Q6HR PRN PRN Reason: Pain Scale 6 to 10 Aspirin (Aspirin) 81 mg PO HS [facility] Last Admin: 10/20/19 22:15 Dose: 81 mg Documented by: Atorvastatin Calcium (Lipitor) 10 mg PO DAILY [facility] Last Admin: 10/20/19 09:05 Dose: 10 mg Documented by: Enoxaparin Sodium (Lovenox) 40 mg SQ DAILY [facility] Last Admin: 10/20/19 09:06 Dose: 40 mg Documented by: Furosemide (Lasix) 20 mg PO BID@0900,1600 [facility] Last Admin: 10/20/19 15:15 Dose: 20 mg Documented by: Hydromorphone HCl (Dilaudid) 0.125 mg IVP Q3HR PRN PRN Reason: Pain Scale 1 to 3 Hydromorphone HCl (Dilaudid) 0.25 mg IVP Q3HR PRN PRN Reason: Pain Scale 4 to 6 Hydromorphone HCl (Dilaudid) 0.5 mg IVP Q3HR PRN PRN Reason: Pain Scale 7 to 10 Last Admin: 10/19/19 22:41 Dose: 0.5 mg Documented by: Hydroxyzine Pamoate (Vistaril) 25 mg PO Q4HR PRN PRN Reason: Mild Nausea and/or Anxiety Lactated Ringer's (Lactated Ringers) 1,000 mls @ 20 mls/hr IV .Q24H [facility] Last Admin: 10/20/19 06:57 Dose: Not Given Documented by: Sodium Chloride (Saline 0.9%) 1,000 mls @ 100 mls/hr IV .Q10H [facility] Last Admin: 10/20/19 22:22 Dose: 100 mls/hr Documented by: Vancomycin HCl 1,750 mg/ (Sodium Chloride) 500 mls @ 167 mls/hr IVPB Q12HR [facility] Last Admin: 10/20/19 22:14 Dose: 167 mls/hr Documented by: Magnesium Oxide (Mag-Ox) 400 mg PO DAILY [facility] Last Admin: 10/20/19 09:02 Dose: 400 mg Documented by: Metformin HCl (Glucophage) 500 mg PO BID [facility] Last Admin: 10/20/19 22:16 Dose: 500 mg Documented by: Naloxone HCl (Narcan) 0.2 mg IV Q2M PRN PRN Reason: Opioid Reversal Nifedipine (Procardia Xl) 30 mg PO DAILY [facility] Last Admin: 10/20/19 09:38 Dose: 30 mg Documented by: Ondansetron HCl (Zofran) 4 mg IVP Q24HR PRN PRN Reason: Nausea And Vomiting Potassium Chloride (K-Dur 10) 10 meq PO BID [facility] Last Admin: 10/20/19 22:16 Dose: 10 meq Documented by: Pregabalin (Lyrica) 100 mg PO BID [facility] Last Admin: 10/20/19 22:15 Dose: 100 mg Documented by: Senna/Docusate Sodium (Senokot-S) 2 each PO HS [facility] Last Admin: 10/20/19 22:15 Dose: 2 each Documented by: Physical examination: VITAL SIGNS: 98.8, 54, 18, 135/69, 97% room air GENERAL: BMI 34.7, sitting up in a chair. EYES: Pupils equal. Conjunctiva normal. HEENT: External appearance of nose and ears normal, oral cavity grossly normal. Decreased hearing in the right ear NECK: JVD not raised; masses not palpable. HEART: First and second heart sounds are normal; no edema. LUNGS: Respiratory rate normal; clear to auscultation. ABDOMEN: Soft, nontender, liver spleen not palpable, no masses palpable. PSYCH: Patient able to answer questions. MUSCULAR skeletal: Dressing over the right knee Investigations: Accu-Cheks 123, 103, 115 Wound cultures pending Previous testing -White count 5.3 hemoglobin 12.7 platelets 197 Assessment: -Right knee abscess superficial to the joint, having failed outpatient treatment with Keflex. Large abscess was drained. Culture was sent. Joint space was clear. 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 Other medications to continue. Cultures pending. Discussed with the patient. Thank Dr. Smith
[2019-10-21] MEDS: LACTATED RINGERS 1,000 ML IV SCH (06:01)
[2019-10-21 06:56] LABS: Glucose,Whole Blood 81 mg/dL (75-99)
[2019-10-21 08:05] LABS: African American GFR (CKD) >90 (>60 ml/min/1.73 sqM); Non-African American GFR(CKD) >90 (>60 ml/min/1.73 sqM)
[2019-10-21] MEDS: VANCOMYCIN 1,750 MG in SODIUM CHLORIDE 0.9% 500 ML 500 ML IVPB SCH ×2 (08:23→21:04)
[2019-10-21] MEDS: SODIUM CHLORIDE 0.9% 1,000 ML IV SCH ×2 (08:23→21:03)
[2019-10-21] MEDS: ENOXAPARIN 40 MG/0.4 ML SYRINGE SQ SCH (09:22)
[2019-10-21] MEDS: ATORVASTATIN 10 MG TAB PO SCH (09:24)
[2019-10-21] MEDS: MAGNESIUM OXIDE 400 MG TAB PO SCH (09:24)
[2019-10-21] MEDS: POTASSIUM CHLORIDE ER 10 MEQ TAB.ER.PRT PO SCH ×2 (09:24→21:04)
[2019-10-21] MEDS: FUROSEMIDE 20 MG TAB PO SCH ×2 (09:24→15:28)
[2019-10-21] MEDS: PREGABALIN 100 MG CAP PO SCH ×2 (09:26→21:04)
[2019-10-21] MEDS: NIFEdipine XL 30 MG TAB.ER.24 PO SCH (09:27)
[2019-10-21] MEDS: metFORMIN 500 MG TAB PO SCH ×2 (09:36→21:03)
--- NOTE | 2019-10-21 10:48 | P.PN ---
Subjective Progress Note Date: 10/21/19 This patient is a 74-year-old male who is status-post incision and drainage of right total knee superficial abscess on 10/19/19. Today's postoperative day #2. Patient is examined bedside. The patient states the pain in his right knee is well-controlled. He has been up walking around his room with walker with minimal pain. He states he otherwise feels well. He is tolerating his diet. He denies chest pain, shortness breath, nausea, vomiting, fevers, chills. Vital signs stable. Objective - Vital Signs Vital signs: Vital Signs Temp 98.3 F 10/21/19 07:00 Pulse 55 L 10/21/19 07:00 Resp 20 10/21/19 07:00 BP 154/66 10/21/19 07:00 Pulse Ox 95 10/21/19 07:00 Intake & Output 10/20/19 10/21/19 10/21/19 18:59 06:59 18:59 Intake Total 550 Output Total 950 3150 Balance -400 -3150 Intake: IV 550 Vancomycin 1,750 mg In 500 Sodium Chloride 0.9% 500 ml 500 ml @ 167 mls/hr IVPB ONCE ONE Rx#: [id number] ceFAZolin 2 gm In Sodium 50 Chloride 0.9% 50 ml @ 100 mls/hr IVPB Q8H [facility] Rx#: [id number] Output: Urine 950 3150 Other: Voiding Method Urinal Urinal Urinal # Voids 2 - Exam On examination, the patient is sitting up in bed in no apparent distress. He is alert and oriented 3. There is a clean, dry, intact dressing in place over the right knee. The dressing is taken down and reveals a benign surgical incision of the anterior knee with intact fuad. There is no current drainage or bleeding. There is moderate swelling of the knee. Patient has good strength and range of motion of the right ankle. Motor and sensory function are intact of the right lower extremity. Right calf is soft nontender to palpation. Right lower extremity is warm and well-perfused with brisk capillary refill distally. - Labs CBC & Chem 7: 10/19/19 16:53 10/21/19 07:19 Labs: Abnormal Lab Results - Last 24 Hours (Table) 10/20/19 10/20/19 10/20/19 Range/Units 11:20 16:39 20:51 Creatinine (0.66-1.25) mg/dL POC Glucose (mg/dL) 123 H 103 H 115 H (75-99) mg/dL 10/21/19 Range/Units 07:19 Creatinine 0.55 L (0.66-1.25) mg/dL POC Glucose (mg/dL) (75-99) mg/dL Microbiology - Last 24 Hours (Table) 10/19/19 15:50 Gram Stain - Preliminary Knee - Right Wound Culture - Preliminary 10/19/19 15:50 Gram Stain - Preliminary Knee - Right Wound Culture - Preliminary 10/19/19 15:50 Gram Stain - Preliminary Knee - Right Wound Culture - Preliminary 10/19/19 15:50 Gram Stain - Preliminary Knee - Right Wound Culture - Preliminary Assessment and Plan Assessment: Status-post incision and drainage of right total knee superficial abscess 10/19/2019. Post-operative day #2. Plan: - The patient's dressing was changed bedside today. He may weight-bear as tolerated on the right lower extremity with a walker. - Ice and elevation of the right lower extremity for pain and swelling control. - Pain management as needed. - Antibiotics per infectious disease. Intraoperative cultures currently pending. Per Dr. Craig, the patient will require a PICC line and outpatient IV antibiotics. - Lovenox for DVT prophylaxis per internal medicine. - Anticipate discharge within next 24-48 hours.
[2019-10-21 11:49] LABS: Glucose,Whole Blood 87 mg/dL (75-99)
[2019-10-21] MEDS ORDERED: LACTULOSE 20 GM/30 ML CUP PO ONE (12:00)
[2019-10-21 16:39] LABS: Glucose,Whole Blood 113 mg/dL (75-99)
[2019-10-21 16:56] LABS: Basophils % (A) 1 %; Eosinophils # (A) 0.2 k/uL (0-0.7); Eosinophils % (A) 3 %; HCT 39.1 % (39.0-53.0); HGB 12.1 gm/dL (13.0-17.5); Hypochromasia Slight; Lymphocytes # (A) 1.1 k/uL (1.0-4.8); Lymphocytes % (A) 16 %; MCH 26.4 pg (25.0-35.0); MCHC 30.9 g/dL (31.0-37.0); MCV 85.4 fL (80.0-100.0); Monocytes # (A) 0.7 k/uL (0-1.0); Monocytes % (A) 11 %; Neutrophils # (A) 4.3 k/uL (1.3-7.7); Neutrophils % (A) 67 %; Platelet Count 218 k/uL (150-450); RBC 4.57 m/uL (4.30-5.90); RDW 14.5 % (11.5-15.5); WBC 6.5 k/uL (3.8-10.6)
--- NOTE | 2019-10-21 19:19 | P.PN ---
Progress Note - Text Progress Note Date: 10/21/19 - Chief Complaint Right knee infection Consultation: This is a 74-year-old patient who follows with visiting physicians Dr. Adkins. 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 Patient has been his brother Susan. Patient called Dr. Smith and had aspiration of the knee on October 05. He continued to have intermittent swelling and redness. No improvement. Some pain. He had postop revision of the right knee in 2011. Otherwise the swelling is started 2 weeks ago. Does use a walker. He did receive a course of Keflex as an outpatient. Today was taken to the operating room. I indifferent superficial abscess of the right knee was total done. It was a large abscess. Moderate amount of purulent material obtained. Cultures were sent. The knee joint itself did not show any pus. Patient currently is a dressing in place. Some pain. Today-laying down. Comfortable. Tolerated diet. Pain control. Review of systems: Was done for constitutional, cardiovascular, GI, pulmonary. relevant finding as above Active Medications Hydrocodone Bitart/Acetaminophen ([place] 5-325) 1 each PO Q6HR PRN PRN Reason: Pain Scale 1 to 5 Hydrocodone Bitart/Acetaminophen ([place] 5-325) 2 each PO Q6HR PRN PRN Reason: Pain Scale 6 to 10 Aspirin (Aspirin) 81 mg PO HS [facility] Last Admin: 10/20/19 22:15 Dose: 81 mg Documented by: Atorvastatin Calcium (Lipitor) 10 mg PO DAILY [facility] Last Admin: 10/21/19 09:24 Dose: 10 mg Documented by: Enoxaparin Sodium (Lovenox) 40 mg SQ DAILY [facility] Last Admin: 10/21/19 09:22 Dose: 40 mg Documented by: Furosemide (Lasix) 20 mg PO BID@0900,1600 [facility] Last Admin: 10/21/19 15:28 Dose: 20 mg Documented by: Hydromorphone HCl (Dilaudid) 0.125 mg IVP Q3HR PRN PRN Reason: Pain Scale 1 to 3 Hydromorphone HCl (Dilaudid) 0.25 mg IVP Q3HR PRN PRN Reason: Pain Scale 4 to 6 Hydromorphone HCl (Dilaudid) 0.5 mg IVP Q3HR PRN PRN Reason: Pain Scale 7 to 10 Last Admin: 10/19/19 22:41 Dose: 0.5 mg Documented by: Hydroxyzine Pamoate (Vistaril) 25 mg PO Q4HR PRN PRN Reason: Mild Nausea and/or Anxiety Last Admin: 10/21/19 09:24 Dose: 25 mg Documented by: Lactated Ringer's (Lactated Ringers) 1,000 mls @ 20 mls/hr IV .Q24H [facility] Last Admin: 10/21/19 06:01 Dose: Not Given Documented by: Sodium Chloride (Saline 0.9%) 1,000 mls @ 100 mls/hr IV .Q10H [facility] Last Admin: 10/21/19 08:23 Dose: Not Given Documented by: Vancomycin HCl 1,750 mg/ (Sodium Chloride) 500 mls @ 167 mls/hr IVPB Q12HR [facility] Last Admin: 10/21/19 08:23 Dose: 167 mls/hr Documented by: Magnesium Oxide (Mag-Ox) 400 mg PO DAILY [facility] Last Admin: 10/21/19 09:24 Dose: 400 mg Documented by: Metformin HCl (Glucophage) 500 mg PO BID [facility] Last Admin: 10/21/19 09:36 Dose: 500 mg Documented by: Miscellaneous Information (Vancomycin Trough Due) 0 each MISCELLANE DIRECTED ONE Stop: 10/22/19 08:01 Naloxone HCl (Narcan) 0.2 mg IV Q2M PRN PRN Reason: Opioid Reversal Nifedipine (Procardia Xl) 30 mg PO DAILY [facility] Last Admin: 10/21/19 09:27 Dose: 30 mg Documented by: Ondansetron HCl (Zofran) 4 mg IVP Q24HR PRN PRN Reason: Nausea And Vomiting Potassium Chloride (K-Dur 10) 10 meq PO BID [facility] Last Admin: 10/21/19 09:24 Dose: 10 meq Documented by: Pregabalin (Lyrica) 100 mg PO BID [facility] Last Admin: 10/21/19 09:26 Dose: 100 mg Documented by: Senna/Docusate Sodium (Senokot-S) 2 each PO HS [facility] Last Admin: 10/20/19 22:15 Dose: 2 each Documented by: Physical examination: VITAL SIGNS: 98.3, 55, 20, 154/66, 95% room air GENERAL: Sitting up in the bed, comfortable. EYES: Pupils equal. Conjunctiva normal. HEENT: External appearance of nose and ears normal, oral cavity grossly normal. Decreased hearing in the right ear NECK: JVD not raised; masses not palpable. HEART: First and second heart sounds are normal; no edema. LUNGS: Respiratory rate normal; clear to auscultation. ABDOMEN: Soft, nontender, liver spleen not palpable, no masses palpable. PSYCH: AO 3, mood and affect normal. MUSCULAR skeletal: Dressing over the right knee Investigations: White count 6.5 hemoglobin 12.1 Accu-Cheks 113 Accu-Cheks 123, 103, 115 Wound cultures -pending Previous testing -White count 5.3 hemoglobin 12.7 platelets 197 Assessment: -Right knee abscess superficial to the joint, having failed outpatient treatment with Keflex. Large abscess was drained. Culture-pending. Joint space was clear. 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 Other medications to continue. Cultures pending. Discussed with patient Thank Dr. Smith
[2019-10-21 20:31] LABS: Glucose,Whole Blood 132 mg/dL (75-99)
[2019-10-21] MEDS: ASPIRIN 81 MG PO SCH (21:03)
[2019-10-21] MEDS: SENNOSIDES-DOCUSATE SODIUM 1 EACH TAB PO SCH (21:04)
--- NOTE | 2019-10-21 22:35 | PN ---
PROGRESS NOTE DATE OF SERVICE: 10/21/2019 REASON FOR FOLLOWUP: Right knee abscess and cellulitis. INTERVAL HISTORY: The patient is currently afebrile. The patient is breathing comfortably. Overall pain and discomfort to the right knee is currently controlled. No chest pain, shortness of breath or cough. No abdominal pain or diarrhea. PHYSICAL EXAMINATION: Blood pressure 168/85 with a pulse of 101, temperature 99. He is 100% on room air. General description is an elderly male lying in bed in no distress. RESPIRATORY SYSTEM: Unlabored breathing. Clear to auscultation anteriorly. HEART: S1, S2. Regular rate and rhythm. ABDOMEN: Soft. No tenderness. Right knee currently with some swelling. No significant drainage. DIAGNOSTIC IMPRESSION AND PLAN: Patient with right knee abscess, status post surgical drainage. Cultures are currently pending. Patient is currently on vancomycin, though a culture remains negative. We may switch him over to Rocephin 2 grams daily discharge and close outpatient followup. He will need a midline for outpatient antibiotics. Continue with supportive care. MMODL / IJN: [id number] /
[2019-10-22] MEDS: LACTATED RINGERS 1,000 ML IV SCH (06:03)
[2019-10-22] MEDS: SODIUM CHLORIDE 0.9% 1,000 ML IV SCH ×3 (06:03→23:37)
[2019-10-22 06:40] LABS: Glucose,Whole Blood 91 mg/dL (75-99)
[2019-10-22] MEDS ORDERED: VANCOMYCIN TROUGH DUE 1 EACH MISC MISCELLANE ONE (08:00)
[2019-10-22] MEDS: POTASSIUM CHLORIDE ER 10 MEQ TAB.ER.PRT PO SCH ×2 (08:53→21:52)
[2019-10-22] MEDS: metFORMIN 500 MG TAB PO SCH ×2 (08:53→21:52)
[2019-10-22] MEDS: MAGNESIUM OXIDE 400 MG TAB PO SCH (08:53)
[2019-10-22] MEDS: FUROSEMIDE 20 MG TAB PO SCH ×2 (08:53→16:40)
[2019-10-22] MEDS: PREGABALIN 100 MG CAP PO SCH ×2 (08:53→21:52)
[2019-10-22] MEDS: NIFEdipine XL 30 MG TAB.ER.24 PO SCH (08:54)
[2019-10-22] MEDS: ATORVASTATIN 10 MG TAB PO SCH (08:54)
[2019-10-22] MEDS: ENOXAPARIN 40 MG/0.4 ML SYRINGE SQ SCH (08:54)
[2019-10-22] MEDS: VANCOMYCIN 1,750 MG in SODIUM CHLORIDE 0.9% 500 ML 500 ML IVPB SCH ×2 (09:29→21:52)
[2019-10-22 09:57] LABS: Basophils % (A) 1 %; Eosinophils # (A) 0.2 k/uL (0-0.7); Eosinophils % (A) 3 %; HCT 40.6 % (39.0-53.0); HGB 12.4 gm/dL (13.0-17.5); Hypochromasia Slight; Lymphocytes % (A) 19 %; MCH 26.3 pg (25.0-35.0); MCHC 30.6 g/dL (31.0-37.0); MCV 85.7 fL (80.0-100.0); Mean Platelet Volume 8.1; Monocytes # (A) 0.5 k/uL (0-1.0); Monocytes % (A) 10 %; Neutrophils # (A) 3.5 k/uL (1.3-7.7); Neutrophils % (A) 66 %; Platelet Count 210 k/uL (150-450); RBC 4.73 m/uL (4.30-5.90); RDW 14.6 % (11.5-15.5); WBC 5.3 k/uL (3.8-10.6)
[2019-10-22 10:11] LABS: African American GFR (CKD) >90 (>60 ml/min/1.73 sqM); Anion Gap 5 mmol/L; Blood Urea Nitrogen 13 mg/dL (9-20); C Reactive Protein 19.3 mg/L (<10.0); Calcium 9.2 mg/dL (8.4-10.2); Carbon Dioxide 33 mmol/L (22-30); Chloride 100 mmol/L (98-107); Glucose 100 mg/dL (74-99); Non-African American GFR(CKD) >90 (>60 ml/min/1.73 sqM); Potassium 3.6 mmol/L (3.5-5.1); Sodium 138 mmol/L (137-145)
[2019-10-22 10:42] LABS: Erythrocyte Sedimentation Rate 23 mm/hr (0-15)
[2019-10-22 11:26] LABS: Glucose,Whole Blood 79 mg/dL (75-99)
[2019-10-22 16:31] LABS: INR 1.1 (<1.2); Prothrombin Time 10.9 sec (9.0-12.0)
--- NOTE | 2019-10-22 16:32 | P.PN ---
Subjective Progress Note Date: 10/22/19 This patient is a 74-year-old male who is status-post incision and drainage of right total knee superficial abscess on 10/19/19. Today's postoperative day #3. Patient is examined bedside. He states he feels well and has no complaints. He continues to ambulate with a walker with no issues. He is tolerating his diet well and has had a bowel movement post- operatively. He denies chest pain, shortness of breath, nausea, vomiting, fevers, chills. Vital signs stable. Objective - Vital Signs Vital signs: Vital Signs Temp 97.9 F 10/22/19 15:00 Pulse 62 10/22/19 15:10 Resp 20 10/22/19 15:10 BP 147/60 10/22/19 15:00 Pulse Ox 96 10/22/19 15:00 Intake & Output 10/21/19 10/22/19 10/22/19 18:59 06:59 18:59 Intake Total 500 Output Total 1600 1530 Balance -1600 500 -1530 Intake: Oral 500 Output: Urine 1600 1530 Other: Voiding Method Urinal Urinal Urinal # Voids 4 2 2 - Exam On examination, the patient is sitting up in bed in no apparent distress. He is alert and oriented 3. There is a clean, dry, intact dressing in place over the right knee. The dressing is taken down and reveals a benign surgical incision of the anterior knee with intact fuad. There is no current drainage or bleeding. There is moderate swelling of the knee. Patient has good strength and range of motion of the right ankle. Motor and sensory function are intact of the right lower extremity. Right calf is soft nontender to palpation. Right lower extremity is warm and well-perfused with brisk capillary refill distally. - Labs CBC & Chem 7: 10/22/19 09:13 10/22/19 09:13 Labs: Abnormal Lab Results - Last 24 Hours (Table) 10/21/19 10/21/19 10/21/19 Range/Units 16:38 16:43 20:24 Hgb 12.1 L (13.0-17.5) gm/dL MCHC 30.9 L (31.0-37.0) g/dL ESR (0-15) mm/hr Carbon Dioxide (22-30) mmol/L Creatinine (0.66-1.25) mg/dL Glucose (74-99) mg/dL POC Glucose (mg/dL) 113 H 132 H (75-99) mg/dL C-Reactive Protein (<10.0) mg/L 10/22/19 10/22/19 Range/Units 09:13 09:13 Hgb 12.4 L (13.0-17.5) gm/dL MCHC 30.6 L (31.0-37.0) g/dL ESR 23 H (0-15) mm/hr Carbon Dioxide 33 H (22-30) mmol/L Creatinine 0.59 L (0.66-1.25) mg/dL Glucose 100 H (74-99) mg/dL POC Glucose (mg/dL) (75-99) mg/dL C-Reactive Protein 19.3 H (<10.0) mg/L Microbiology - Last 24 Hours (Table) 10/19/19 15:50 Anaerobic Culture - Preliminary Knee - Right 10/19/19 15:50 Anaerobic Culture - Preliminary Knee - Right 10/19/19 15:50 Anaerobic Culture - Preliminary Knee - Right 10/19/19 15:50 Anaerobic Culture - Preliminary Knee - Right 10/19/19 15:50 Gram Stain - Preliminary Knee - Right Wound Culture - Preliminary 10/19/19 15:50 Gram Stain - Final Knee - Right Wound Culture - Final 10/19/19 15:50 Gram Stain - Final Knee - Right Wound Culture - Final 10/19/19 15:50 Gram Stain - Final Knee - Right Wound Culture - Final Assessment and Plan Assessment: Status-post incision and drainage of right total knee superficial abscess 10/19/2019. Post-operative day #3. Plan: - The patient's dressing was changed bedside today. He may weight-bear as tolerated on the right lower extremity with a walker. - Ice and elevation of the right lower extremity for pain and swelling control. - Pain management as needed. - Antibiotics per infectious disease. Intraoperative cultures currently pending. Per Dr. Craig, the patient will require a PICC line and outpatient IV antibiotics. - Lovenox for DVT prophylaxis per internal medicine. - Anticipate discharge within next 24-48 hours.
[2019-10-22 16:38] LABS: Glucose,Whole Blood 97 mg/dL (75-99)
[2019-10-22 20:44] LABS: Glucose,Whole Blood 119 mg/dL (75-99)
[2019-10-22] MEDS: SENNOSIDES-DOCUSATE SODIUM 1 EACH TAB PO SCH (21:52)
[2019-10-22] MEDS: ASPIRIN 81 MG PO SCH (21:52)
--- NOTE | 2019-10-22 22:46 | P.PN ---
Progress Note - Text Progress Note Date: 10/22/19 - Chief Complaint Right knee infection Consultation: This is a 74-year-old patient who follows with visiting physicians Dr. Adkins. 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 Patient has been his brother Susan. Patient called Dr. Smith and had aspiration of the knee on October 05. He continued to have intermittent swelling and redness. No improvement. Some pain. He had postop revision of the right knee in 2011. Otherwise the swelling is started 2 weeks ago. Does use a walker. He did receive a course of Keflex as an outpatient. Today was taken to the operating room. I indifferent superficial abscess of the right knee was total done. It was a large abscess. Moderate amount of purulent material obtained. Cultures were sent. The knee joint itself did not show any pus. Patient currently is a dressing in place. Some pain. Today-having pain at the operative site. He tolerated diet. Resting in bed. Review of systems: Was done for constitutional, cardiovascular, GI, pulmonary. relevant finding as above Active Medications Hydrocodone Bitart/Acetaminophen (Elbert 5-325) 1 each PO Q6HR PRN PRN Reason: Pain Scale 1 to 5 Last Admin: 10/22/19 09:03 Dose: 1 each Documented by: Hydrocodone Bitart/Acetaminophen (Elbert 5-325) 2 each PO Q6HR PRN PRN Reason: Pain Scale 6 to 10 Aspirin (Aspirin) 81 mg PO HS [facility] [place] Last Admin: 10/22/19 21:52 Dose: 81 mg Documented by: Atorvastatin Calcium (Lipitor) 10 mg PO DAILY [facility] [place] Last Admin: 10/22/19 08:54 Dose: 10 mg Documented by: Enoxaparin Sodium (Lovenox) 40 mg SQ DAILY [facility] [place] Last Admin: 10/22/19 08:54 Dose: 40 mg Documented by: Furosemide (Lasix) 20 mg PO BID@0900,1600 [facility] [place] Last Admin: 10/22/19 16:40 Dose: 20 mg Documented by: Hydromorphone HCl (Dilaudid) 0.125 mg IVP Q3HR PRN PRN Reason: Pain Scale 1 to 3 Hydromorphone HCl (Dilaudid) 0.25 mg IVP Q3HR PRN PRN Reason: Pain Scale 4 to 6 Hydromorphone HCl (Dilaudid) 0.5 mg IVP Q3HR PRN PRN Reason: Pain Scale 7 to 10 Last Admin: 10/19/19 22:41 Dose: 0.5 mg Documented by: Hydroxyzine Pamoate (Vistaril) 25 mg PO Q4HR PRN PRN Reason: Mild Nausea and/or Anxiety Last Admin: 10/21/19 09:24 Dose: 25 mg Documented by: Lactated Ringer's (Lactated Ringers) 1,000 mls @ 20 mls/hr IV .Q24H [facility] [place] Last Admin: 10/22/19 06:03 Dose: Not Given Documented by: Sodium Chloride (Saline 0.9%) 1,000 mls @ 100 mls/hr IV .Q10H [facility] [place] Last Admin: 10/22/19 19:31 Dose: Not Given Documented by: Vancomycin HCl 1,750 mg/ (Sodium Chloride) 500 mls @ 167 mls/hr IVPB Q12HR [facility] [place] Last Admin: 10/22/19 21:52 Dose: 167 mls/hr Documented by: Magnesium Oxide (Mag-Ox) 400 mg PO DAILY [facility] [place] Last Admin: 10/22/19 08:53 Dose: 400 mg Documented by: Metformin HCl (Glucophage) 500 mg PO BID [facility] [place] Last Admin: 10/22/19 21:52 Dose: 500 mg Documented by: Naloxone HCl (Narcan) 0.2 mg IV Q2M PRN PRN Reason: Opioid Reversal Nifedipine (Procardia Xl) 30 mg PO DAILY [facility] [place] Last Admin: 10/22/19 08:54 Dose: 30 mg Documented by: Ondansetron HCl (Zofran) 4 mg IVP Q24HR PRN PRN Reason: Nausea And Vomiting Potassium Chloride (K-Dur 10) 10 meq PO BID [facility] [place] Last Admin: 10/22/19 21:52 Dose: 10 meq Documented by: Pregabalin (Lyrica) 100 mg PO BID [facility] [place] Last Admin: 10/22/19 21:52 Dose: 100 mg Documented by: Senna/Docusate Sodium (Senokot-S) 2 each PO HS [facility] [place] Last Admin: 10/22/19 21:52 Dose: 2 each Documented by: Physical examination: VITAL SIGNS: 98.3, 62, 20, 1 72 x 78, 97% room air GENERAL: Sitting up in the bed, uncomfortable. EYES: Pupils equal. Conjunctiva normal. HEENT: External appearance of nose and ears normal, oral cavity grossly normal. Decreased hearing in the right ear NECK: JVD not raised; masses not palpable. HEART: First and second heart sounds are normal; no edema. LUNGS: Respiratory rate normal; clear to auscultation. ABDOMEN: Soft, nontender, liver spleen not palpable, no masses palpable. PSYCH: AO 3, mood and affect normal. MUSCULAR skeletal: Dressing over the right knee Investigations: White count 6.5 hemoglobin 12.1 Accu-Cheks 113 Accu-Cheks 123, 103, 115 Wound cultures -negative Previous testing -White count 5.3 hemoglobin 12.7 platelets 197 COVID 19 PCR not detected Assessment: -Right knee abscess superficial to the joint, having failed outpatient treatment with Keflex. Large abscess was drained. Culture-pending. Joint space was clear.culture-negative -Diabetes mellitus type 2, oral hypoglycemic -Hard of hearing - essential hypertension -Cerebral palsy -Chronic gait dysfunction uses a walker or wheelchair Plan: IV vancomycin. Other medications to continue. . Discussed with patient Thank Dr. Smith
--- NOTE | 2019-10-23 00:53 | PN ---
PROGRESS NOTE DATE OF SERVICE: 10/22/2019 REASON FOR FOLLOWUP: Right knee abscess and cellulitis. INTERVAL HISTORY: Patient is currently afebrile, has been breathing comfortably. Denies having any chest pain. No shortness of breath or cough. No nausea, vomiting, abdominal pain. Overall pain to the right knee is currently controlled. PHYSICAL EXAMINATION: Blood pressure 146/75 with a pulse of 85, temperature is 97.9. He is 97% on room air. General description is an elderly male up in the chair in no distress. Respiratory system: Unlabored breathing, clear to auscultation anteriorly. Heart S1, S2. Regular rate and rhythm. Abdomen soft, no tenderness. Right knee is currently dressed up. No obvious drainage on the dressing. LABS: Wound cultures are currently pending. His hemoglobin is 10.4, white count 5.9. Sedimentation rate is 23. CRP 19.3. DIAGNOSTIC IMPRESSION AND PLAN: Patient with right knee abscess status post surgical drainage. Culture has been so far negative for any resistant pathogen. Antibiotic will be switched over to cefazolin 2 grams q.8 hours and discontinue vancomycin. PICC line has been ordered ( ) of antibiotics at least 3-4 weeks and close outpatient followup condition. MMODL / IJN: [id number] /
[2019-10-23] MEDS: LACTATED RINGERS 1,000 ML IV SCH (05:15)
[2019-10-23] MEDS: ENOXAPARIN 40 MG/0.4 ML SYRINGE SQ SCH (07:00)
[2019-10-23 07:10] LABS: Glucose,Whole Blood 89 mg/dL (75-99)
[2019-10-23] MEDS: PREGABALIN 100 MG CAP PO SCH ×2 (08:32→21:10)
[2019-10-23] MEDS: metFORMIN 500 MG TAB PO SCH ×2 (08:32→21:10)
[2019-10-23] MEDS: ATORVASTATIN 10 MG TAB PO SCH (08:32)
[2019-10-23] MEDS: FUROSEMIDE 20 MG TAB PO SCH ×2 (08:32→16:10)
[2019-10-23] MEDS: NIFEdipine XL 30 MG TAB.ER.24 PO SCH (08:32)
[2019-10-23] MEDS: MAGNESIUM OXIDE 400 MG TAB PO SCH (08:32)
[2019-10-23] MEDS: POTASSIUM CHLORIDE ER 10 MEQ TAB.ER.PRT PO SCH ×2 (08:32→21:10)
[2019-10-23] MEDS: VANCOMYCIN 1,750 MG in SODIUM CHLORIDE 0.9% 500 ML 500 ML IVPB SCH (08:32)
[2019-10-23] MEDS: SODIUM CHLORIDE 0.9% 1,000 ML IV SCH ×2 (08:33→23:28)
[2019-10-23] MEDS: HYDROcodone/APAP 5-325MG 1 EACH TAB PO PRN ×2 (08:36→21:15)
[2019-10-23 09:14] LABS: African American GFR (CKD) >90 (>60 ml/min/1.73 sqM); Non-African American GFR(CKD) >90 (>60 ml/min/1.73 sqM)
--- NOTE | 2019-10-23 09:31 | P.PN ---
Subjective Progress Note Date: 10/23/19 This is a 74-year-old male who is status post incision and drainage superficial abscess right total knee. This is postoperative day #4 and patient is seen and evaluated at bedside. Patient states that his pain is well-controlled and he denies any new complaints today. Objective - Vital Signs Vital signs: Vital Signs Temp 98.4 F 10/23/19 07:00 Pulse 70 10/23/19 07:00 Resp 18 10/23/19 07:00 BP 145/82 10/23/19 07:00 Pulse Ox 96 10/23/19 07:00 Intake & Output 10/22/19 10/23/19 10/23/19 18:59 06:59 18:59 Intake Total 500 Output Total 1530 1950 Balance -1030 -1950 Intake: Intake, IV Titration 500 Amount Vancomycin 1,750 mg In 500 Sodium Chloride 0.9% 500 ml 500 ml @ 167 mls/hr IVPB Q12HR [facility] Rx#: [id number] Output: Urine 1530 1950 Other: Voiding Method Urinal Urinal # Voids 2 2 - Exam On exam incision is clean, dry and intact. No active drainage. The right lower extremity is warm and well-perfused. There is chronic swelling to the right lower extremity. Sensation intact. Neurovascular status and circulatory status are intact. - Labs CBC & Chem 7: 10/22/19 09:13 10/23/19 08:09 Labs: Abnormal Lab Results - Last 24 Hours (Table) 10/22/19 10/22/19 10/22/19 Range/Units 09:13 09:13 20:42 Hgb 12.4 L (13.0-17.5) gm/dL MCHC 30.6 L (31.0-37.0) g/dL ESR 23 H (0-15) mm/hr Carbon Dioxide 33 H (22-30) mmol/L Creatinine 0.59 L (0.66-1.25) mg/dL Glucose 100 H (74-99) mg/dL POC Glucose (mg/dL) 119 H (75-99) mg/dL C-Reactive Protein 19.3 H (<10.0) mg/L 10/23/19 Range/Units 08:09 Hgb (13.0-17.5) gm/dL MCHC (31.0-37.0) g/dL ESR (0-15) mm/hr Carbon Dioxide (22-30) mmol/L Creatinine 0.50 L (0.66-1.25) mg/dL Glucose (74-99) mg/dL POC Glucose (mg/dL) (75-99) mg/dL C-Reactive Protein (<10.0) mg/L Microbiology - Last 24 Hours (Table) 10/19/19 15:50 Gram Stain - Final Knee - Right Wound Culture - Final Assessment and Plan (1) Infection of right knee Current Visit: Yes Status: Acute Code(s): M00.9 - PYOGENIC ARTHRITIS, UNSPECIFIED SNOMED Code(s): 319834737 (2) Bilateral lower extremity edema Current Visit: No Status: Acute Code(s): R60.0 - LOCALIZED EDEMA SNOMED Code(s): 022501286 (3) Right knee pain Current Visit: No Status: Acute Code(s): M25.561 - PAIN IN RIGHT KNEE SNOMED Code(s): 58103754 (4) Status post right knee replacement Current Visit: No Status: Acute Code(s): Z96.651 - PRESENCE OF RIGHT ARTIFICIAL KNEE JOINT SNOMED Code(s): 0459268081111 Plan: #1.Continue routine postoperative care and pain control. Daily dressing changes. #2. Cultures are negative. IV antibiotics managed by infectious disease. Patient is awaiting PICC line placement which will likely happen on 10/25/2019 #3. Appreciate input from infectious disease. #4. Appreciate input from medicine. #5. Anticipate discharge home with home care in the next 48 hours.
[2019-10-23 11:59] LABS: Glucose,Whole Blood 149 mg/dL (75-99)
[2019-10-23] MEDS ORDERED: BENZOCAINE/MENTHOL LOZENG 1 EACH LOZENGE MUCOUS MEM PRN (16:19)
[2019-10-23 17:03] LABS: Glucose,Whole Blood 108 mg/dL (75-99)
--- NOTE | 2019-10-23 20:05 | P.PN ---
Progress Note - Text Progress Note Date: 10/23/19 - Chief Complaint Right knee infection Consultation: This is a 74-year-old patient who follows with visiting physicians Dr. Adkins. 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 Patient has been his brother Susan. Patient called Dr. Smith and had aspiration of the knee on October 05. He continued to have intermittent swelling and redness. No improvement. Some pain. He had postop revision of the right knee in 2011. Otherwise the swelling is started 2 weeks ago. Does use a walker. He did receive a course of Keflex as an outpatient. Today was taken to the operating room. I indifferent superficial abscess of the right knee was total done. It was a large abscess. Moderate amount of purulent material obtained. Cultures were sent. The knee joint itself did not show any pus. Patient currently is a dressing in place. Some pain. Today-pain control. Eating well. Somewhat uncomfortable in the bed. To be getting a PICC line. 4 home on outpatient antibiotics. On Ancef Review of systems: Was done for constitutional, cardiovascular, GI, pulmonary. relevant finding as above Active Medications Hydrocodone Bitart/Acetaminophen ([place] 5-325) 1 each PO Q6HR PRN PRN Reason: Pain Scale 1 to 5 Last Admin: 10/22/19 09:03 Dose: 1 each Documented by: Hydrocodone Bitart/Acetaminophen ([place]mboden 5-325) 2 each PO Q6HR PRN PRN Reason: Pain Scale 6 to 10 Last Admin: 10/23/19 08:36 Dose: 2 each Documented by: Aspirin (Aspirin) 81 mg PO HS [facility] Last Admin: 10/22/19 21:52 Dose: 81 mg Documented by: Atorvastatin Calcium (Lipitor) 10 mg PO DAILY [facility] Last Admin: 10/23/19 08:32 Dose: 10 mg Documented by: Benzocaine/Menthol (Cepacol Lozenge) 1 each MUCOUS MEM Q4HR PRN PRN Reason: Cough Enoxaparin Sodium (Lovenox) 40 mg SQ DAILY [facility] Last Admin: 10/23/19 07:00 Dose: Not Given Documented by: Furosemide (Lasix) 20 mg PO BID@0900,1600 [facility] Last Admin: 10/23/19 16:10 Dose: 20 mg Documented by: Hydromorphone HCl (Dilaudid) 0.125 mg IVP Q3HR PRN PRN Reason: Pain Scale 1 to 3 Hydromorphone HCl (Dilaudid) 0.25 mg IVP Q3HR PRN PRN Reason: Pain Scale 4 to 6 Hydromorphone HCl (Dilaudid) 0.5 mg IVP Q3HR PRN PRN Reason: Pain Scale 7 to 10 Last Admin: 10/19/19 22:41 Dose: 0.5 mg Documented by: Hydroxyzine Pamoate (Vistaril) 25 mg PO Q4HR PRN PRN Reason: Mild Nausea and/or Anxiety Last Admin: 10/21/19 09:24 Dose: 25 mg Documented by: Lactated Ringer's (Lactated Ringers) 1,000 mls @ 20 mls/hr IV .Q24H [facility] Last Admin: 10/23/19 05:15 Dose: Not Given Documented by: Sodium Chloride (Saline 0.9%) 1,000 mls @ 100 mls/hr IV .Q10H [facility] Last Admin: 10/23/19 08:33 Dose: 20 mls/hr Documented by: Cefazolin Sodium 2 gm/ Sodium (Chloride) 50 mls @ 100 mls/hr IVPB Q8HR [facility] Last Admin: 10/23/19 16:10 Dose: 100 mls/hr Documented by: Magnesium Oxide (Mag-Ox) 400 mg PO DAILY [facility] Last Admin: 10/23/19 08:32 Dose: 400 mg Documented by: Metformin HCl (Glucophage) 500 mg PO BID [facility] Last Admin: 10/23/19 08:32 Dose: 500 mg Documented by: Naloxone HCl (Narcan) 0.2 mg IV Q2M PRN PRN Reason: Opioid Reversal Nifedipine (Procardia Xl) 30 mg PO DAILY [facility] Last Admin: 10/23/19 08:32 Dose: 30 mg Documented by: Ondansetron HCl (Zofran) 4 mg IVP Q24HR PRN PRN Reason: Nausea And Vomiting Potassium Chloride (K-Dur 10) 10 meq PO BID [facility] Last Admin: 10/23/19 08:32 Dose: 10 meq Documented by: Pregabalin (Lyrica) 100 mg PO BID [facility] Last Admin: 10/23/19 08:32 Dose: 100 mg Documented by: Senna/Docusate Sodium (Senokot-S) 2 each PO HS [facility] Last Admin: 10/22/19 21:52 Dose: 2 each Documented by: Physical examination: VITAL SIGNS: 98.4, 70, 18, 145/82, 96% room air GENERAL: Sitting up in the bed, uncomfortable. EYES: Pupils equal. Conjunctiva normal. HEENT: External appearance of nose and ears normal, oral cavity grossly normal. Decreased hearing in the right ear NECK: JVD not raised; masses not palpable. HEART: First and second heart sounds are normal; no edema. LUNGS: Respiratory rate normal; clear to auscultation. ABDOMEN: Soft, nontender, liver spleen not palpable, no masses palpable. PSYCH: AO 3, mood and affect normal. MUSCULAR skeletal: Dressing over the right knee Investigations: White count 6.5 hemoglobin 12.1 Accu-Cheks 113 Accu-Cheks 123, 103, 115 Wound cultures -negative Previous testing -White count 5.3 hemoglobin 12.7 platelets 197 COVID 19 PCR not detected Assessment: -Right knee abscess superficial to the joint, having failed outpatient treatment with Keflex. Large abscess was drained. Culture-pending. Joint space was clear.culture-negative -Diabetes mellitus type 2, oral hypoglycemic -Hard of hearing - essential hypertension -Cerebral palsy -Chronic gait dysfunction uses a walker or wheelchair Plan: Antibiotic changed to IV Ancef. Other medications to continue. Will be going home on IV Ancef. Discussed with the patient. Thank Dr. Smith
[2019-10-23 21:01] LABS: Glucose,Whole Blood 96 mg/dL (75-99)
[2019-10-23] MEDS: ASPIRIN 81 MG PO SCH (21:10)
[2019-10-23] MEDS: SENNOSIDES-DOCUSATE SODIUM 1 EACH TAB PO SCH (21:10)
--- NOTE | 2019-10-23 23:16 | PN ---
PROGRESS NOTE DATE OF SERVICE: 10/23/2019. REASON FOR FOLLOWUP VISIT: Right knee abscess and cellulitis. INTERVAL HISTORY: Patient is currently afebrile, has been breathing comfortably. Denies having any chest pain or shortness of breath. No cough. No nausea or vomiting or abdominal pain. Pain to the right knee is currently controlled. PHYSICAL EXAMINATION: Blood pressure 114/68 with a pulse of 87, temperature 98.4. She is 95% on room air. General description is an elderly male up in the chair in no distress. Respiratory system: Unlabored breathing, clear to auscultation anteriorly. Heart S1, S2. Regular rate and rhythm. Abdomen soft, nontender. Right knee is currently dressed up. No obvious drainage on the dressing. DIAGNOSTIC IMPRESSION AND PLAN: Patient with right knee abscess, status post surgical drainage. Culture has been negative for resistant pathogen. Currently on cefazolin 2 grams q.8 hours to continue for 4 weeks. Waiting for the PICC line and possible discharge to long term on Friday. Continue supportive care. MMODL / IJN: [id number] /
[2019-10-24] MEDS: LACTATED RINGERS 1,000 ML IV SCH (04:50)
[2019-10-24 07:05] LABS: Glucose,Whole Blood 87 mg/dL (75-99)
[2019-10-24] MEDS: ENOXAPARIN 40 MG/0.4 ML SYRINGE SQ SCH (08:03)
[2019-10-24] MEDS: MAGNESIUM OXIDE 400 MG TAB PO SCH (08:05)
[2019-10-24] MEDS: PREGABALIN 100 MG CAP PO SCH ×2 (08:05→20:53)
[2019-10-24] MEDS: FUROSEMIDE 20 MG TAB PO SCH ×2 (08:05→15:12)
[2019-10-24] MEDS: POTASSIUM CHLORIDE ER 10 MEQ TAB.ER.PRT PO SCH ×2 (08:05→20:53)
[2019-10-24] MEDS: NIFEdipine XL 30 MG TAB.ER.24 PO SCH (08:05)
[2019-10-24] MEDS: ATORVASTATIN 10 MG TAB PO SCH (08:05)
[2019-10-24] MEDS: metFORMIN 500 MG TAB PO SCH ×2 (08:05→20:53)
[2019-10-24] MEDS: SODIUM CHLORIDE 0.9% 1,000 ML IV SCH (08:06)
--- NOTE | 2019-10-24 09:40 | P.PN ---
Subjective Progress Note Date: 10/24/19 This is a 74-year-old male who is status post incision and drainage superficial abscess right total knee. This is postoperative day #5 and patient is seen and evaluated at bedside. Patient states that his pain is well-controlled and he denies any new complaints today. Objective - Vital Signs Vital signs: Vital Signs Temp 98.3 F 10/24/19 07:00 Pulse 57 L 10/24/19 07:00 Resp 18 10/24/19 07:00 BP 138/72 10/24/19 07:00 Pulse Ox 95 10/24/19 07:00 Intake & Output 10/23/19 10/24/19 10/24/19 18:59 06:59 18:59 Intake Total 660 800 Balance 660 800 Intake: Intake, IV Titration 660 400 Amount Sodium Chloride 0.9% 1, 160 400 000 ml @ 100 mls/hr IV . Q10H [facility] Rx#:[id number] Vancomycin 1,750 mg In 500 Sodium Chloride 0.9% 500 ml 500 ml @ 167 mls/hr IVPB Q12HR [facility] Rx#: [id number] Oral 400 Other: Voiding Method Urinal # Voids 2 - Exam On exam incision is clean, dry and intact. No active drainage. The right lower extremity is warm and well-perfused. There is chronic swelling to the right lower extremity. Sensation intact. Neurovascular status and circulatory status are intact. - Labs CBC & Chem 7: 10/22/19 09:13 10/23/19 08:09 Labs: Abnormal Lab Results - Last 24 Hours (Table) 10/23/19 10/23/19 Range/Units 11:56 17:00 POC Glucose (mg/dL) 149 H 108 H (75-99) mg/dL Microbiology - Last 24 Hours (Table) 10/19/19 15:50 Anaerobic Culture - Final Knee - Right 10/19/19 15:50 Anaerobic Culture - Final Knee - Right 10/19/19 15:50 Anaerobic Culture - Final Knee - Right 10/19/19 15:50 Anaerobic Culture - Final Knee - Right Assessment and Plan (1) Infection of right knee Current Visit: Yes Status: Acute Code(s): M00.9 - PYOGENIC ARTHRITIS, UNSPECIFIED SNOMED Code(s): 509036570 (2) Bilateral lower extremity edema Current Visit: No Status: Acute Code(s): R60.0 - LOCALIZED EDEMA SNOMED Code(s): 757702387 (3) Right knee pain Current Visit: No Status: Acute Code(s): M25.561 - PAIN IN RIGHT KNEE SNOMED Code(s): 21703826 (4) Status post right knee replacement Current Visit: No Status: Acute Code(s): Z96.651 - PRESENCE OF RIGHT ARTIFICIAL KNEE JOINT SNOMED Code(s): 6290224989424 Plan: #1.Continue routine postoperative care and pain control. Daily dressing changes. #2. Cultures are negative. IV antibiotics managed by infectious disease. Patient is awaiting PICC line placement which will likely happen on 10/25/2019. #3. Appreciate input from infectious disease. #4. Appreciate input from medicine. #5. Anticipate discharge home with home care in the next 48 hours.
[2019-10-24 11:54] LABS: Glucose,Whole Blood 80 mg/dL (75-99)
--- NOTE | 2019-10-24 15:30 | P.PN ---
Progress Note - Text Progress Note Date: 10/24/19 - Chief Complaint Right knee infection Consultation: This is a 74-year-old patient who follows with visiting physicians Dr. Adkins. 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 Patient has been his brother Susan. Patient called Dr. Smith and had aspiration of the knee on October 05. He continued to have intermittent swelling and redness. No improvement. Some pain. He had postop revision of the right knee in 2011. Otherwise the swelling is started 2 weeks ago. Does use a walker. He did receive a course of Keflex as an outpatient. Today was taken to the operating room. I indifferent superficial abscess of the right knee was total done. It was a large abscess. Moderate amount of purulent material obtained. Cultures were sent. The knee joint itself did not show any pus. Patient currently is a dressing in place. Some pain. Today-pain better control. Tolerating a diet. Pending a PICC line. Plan to go to [facility] tomorrow. Review of systems: Was done for constitutional, cardiovascular, GI, pulmonary. relevant finding as above Active Medications Hydrocodone Bitart/Acetaminophen (Man 5-325) 1 each PO Q6HR PRN PRN Reason: Pain Scale 1 to 5 Last Admin: 10/22/19 09:03 Dose: 1 each Documented by: Hydrocodone Bitart/Acetaminophen (Man 5-325) 2 each PO Q6HR PRN PRN Reason: Pain Scale 6 to 10 Last Admin: 10/23/19 21:15 Dose: 2 each Documented by: Aspirin (Aspirin) 81 mg PO HS [facility] Last Admin: 10/23/19 21:10 Dose: 81 mg Documented by: Atorvastatin Calcium (Lipitor) 10 mg PO DAILY [facility] Last Admin: 10/24/19 08:05 Dose: 10 mg Documented by: Benzocaine/Menthol (Cepacol Lozenge) 1 each MUCOUS MEM Q4HR PRN PRN Reason: Cough Enoxaparin Sodium (Lovenox) 40 mg SQ DAILY [facility] Last Admin: 10/24/19 08:03 Dose: Not Given Documented by: Furosemide (Lasix) 20 mg PO BID@0900,1600 [facility] Last Admin: 10/24/19 15:12 Dose: 20 mg Documented by: Hydromorphone HCl (Dilaudid) 0.125 mg IVP Q3HR PRN PRN Reason: Pain Scale 1 to 3 Hydromorphone HCl (Dilaudid) 0.25 mg IVP Q3HR PRN PRN Reason: Pain Scale 4 to 6 Hydromorphone HCl (Dilaudid) 0.5 mg IVP Q3HR PRN PRN Reason: Pain Scale 7 to 10 Last Admin: 10/19/19 22:41 Dose: 0.5 mg Documented by: Hydroxyzine Pamoate (Vistaril) 25 mg PO Q4HR PRN PRN Reason: Mild Nausea and/or Anxiety Last Admin: 10/21/19 09:24 Dose: 25 mg Documented by: Lactated Ringer's (Lactated Ringers) 1,000 mls @ 20 mls/hr IV .Q24H [facility] Last Admin: 10/24/19 04:50 Dose: Not Given Documented by: Sodium Chloride (Saline 0.9%) 1,000 mls @ 100 mls/hr IV .Q10H [facility] Last Admin: 10/24/19 08:06 Dose: 100 mls/hr Documented by: Cefazolin Sodium 2 gm/ Sodium (Chloride) 50 mls @ 100 mls/hr IVPB Q8HR [facility] Last Admin: 10/24/19 15:12 Dose: 100 mls/hr Documented by: Magnesium Oxide (Mag-Ox) 400 mg PO DAILY [facility] Last Admin: 10/24/19 08:05 Dose: 400 mg Documented by: Metformin HCl (Glucophage) 500 mg PO BID [facility] Last Admin: 10/24/19 08:05 Dose: 500 mg Documented by: Naloxone HCl (Narcan) 0.2 mg IV Q2M PRN PRN Reason: Opioid Reversal Nifedipine (Procardia Xl) 30 mg PO DAILY [facility] Last Admin: 10/24/19 08:05 Dose: 30 mg Documented by: Ondansetron HCl (Zofran) 4 mg IVP Q24HR PRN PRN Reason: Nausea And Vomiting Potassium Chloride (K-Dur 10) 10 meq PO BID [facility] Last Admin: 10/24/19 08:05 Dose: 10 meq Documented by: Pregabalin (Lyrica) 100 mg PO BID [facility] Last Admin: 08/09/20 08:05 Dose: 100 mg Documented by: Senna/Docusate Sodium (Senokot-S) 2 each PO HS [facility] Last Admin: 10/23/19 21:10 Dose: 2 each Documented by: Physical examination: VITAL SIGNS: 98.3, 57, 18, 138/72, 95% room air GENERAL: Sitting up in the bed, comfortable. EYES: Pupils equal. Conjunctiva normal. HEENT: External appearance of nose and ears normal, oral cavity grossly normal. Decreased hearing in the right ear NECK: JVD not raised; masses not palpable. HEART: First and second heart sounds are normal; no edema. LUNGS: Respiratory rate normal; clear to auscultation. ABDOMEN: Soft, nontender, liver spleen not palpable, no masses palpable. PSYCH: AO 3, mood and affect normal. MUSCULAR skeletal: Dressing over the right knee Investigations: White count 6.5 hemoglobin 12.1 Accu-Cheks 113 Accu-Cheks 123, 103, 115 Wound cultures -negative Previous testing -White count 5.3 hemoglobin 12.7 platelets 197 COVID 19 PCR not detected Assessment: -Right knee abscess superficial to the joint, having failed outpatient treatment with Keflex. Large abscess was drained. Culture-pending. Joint space was clear.culture-negative -Diabetes mellitus type 2, oral hypoglycemic -Hard of hearing - essential hypertension -Cerebral palsy -Chronic gait dysfunction uses a walker or wheelchair Plan: Plan to get a PICC line tomorrow and go to the ECF. IV Ancef as per Dr. Craig. Discussed with the patient. Check labs in the morning. Thank Dr. Smith
[2019-10-24 16:46] LABS: Glucose,Whole Blood 96 mg/dL (75-99)
[2019-10-24 20:02] LABS: Glucose,Whole Blood 115 mg/dL (75-99)
[2019-10-24] MEDS: ASPIRIN 81 MG PO SCH (20:53)
[2019-10-24] MEDS: SENNOSIDES-DOCUSATE SODIUM 1 EACH TAB PO SCH (20:53)
--- NOTE | 2019-10-25 00:08 | PN ---
PROGRESS NOTE DATE OF SERVICE: 10/24/2019 REASON FOR FOLLOWUP: Right knee abscess cellulitis. INTERVAL HISTORY: The patient is currently afebrile. The patient is breathing comfortably. The patient denies having any chest pain or shortness of breath or cough. No nausea or vomiting. No abdominal pain or pain to the right knee. PHYSICAL EXAMINATION: Blood pressure 139/83 with a pulse of 59, temperature 99.1. He is 96% on room air. General description is an elderly male up in the chair in no distress. RESPIRATORY SYSTEM: Unlabored breathing, clear to auscultation anteriorly. HEART: S1, S2. Regular rate and rhythm. ABDOMEN: Soft, no tenderness. Right knee is currently dressed up. No obvious drainage on the dressing. LABS: Culture has been negative so far. DIAGNOSTIC IMPRESSION AND PLAN: Patient with right knee abscess, status post surgical drainage with no evidence of any extension down to the knee area. The patient is currently covered with cefazolin to continue. Waiting for the PICC line placement tomorrow. Continue with supportive care. MMODL / IJN: [id number] /
[2019-10-25] MEDS: HYDROcodone/APAP 5-325MG 1 EACH TAB PO PRN (00:11)
[2019-10-25] MEDS: HYDROmorphone 0.5 MG/0.5 ML SYRINGE IVP PRN (02:34)
[2019-10-25] MEDS: LACTATED RINGERS 1,000 ML IV SCH (05:31)
[2019-10-25 06:56] LABS: Glucose,Whole Blood 85 mg/dL (75-99)
[2019-10-25 07:53] LABS: HCT 37.5 % (39.0-53.0); HGB 11.9 gm/dL (13.0-17.5); MCH 26.8 pg (25.0-35.0); MCHC 31.8 g/dL (31.0-37.0); MCV 84.4 fL (80.0-100.0); Platelet Count 199 k/uL (150-450); RBC 4.45 m/uL (4.30-5.90); RDW 14.5 % (11.5-15.5); WBC 5.8 k/uL (3.8-10.6)
[2019-10-25] MEDS: PREGABALIN 100 MG CAP PO SCH (08:00)
[2019-10-25] MEDS: MAGNESIUM OXIDE 400 MG TAB PO SCH (08:00)
[2019-10-25] MEDS: FUROSEMIDE 20 MG TAB PO SCH (08:00)
[2019-10-25] MEDS: POTASSIUM CHLORIDE ER 10 MEQ TAB.ER.PRT PO SCH (08:00)
[2019-10-25] MEDS: metFORMIN 500 MG TAB PO SCH (08:00)
[2019-10-25] MEDS: ATORVASTATIN 10 MG TAB PO SCH (08:00)
[2019-10-25] MEDS: NIFEdipine XL 30 MG TAB.ER.24 PO SCH (08:01)
[2019-10-25] MEDS: ENOXAPARIN 40 MG/0.4 ML SYRINGE SQ SCH (08:01)
--- NOTE | 2019-10-25 08:19 | P.DS ---
Providers Date of admission: 10/20/19 10:39 Expected date of discharge: 10/25/19 Attending physician: Carl Smith Consults: 10/19/19 16:33 Consult Physician Routine Consulting Provider: Luis Rojas Consult Reason/Comments: medical management Do you want consulting provider notified?: Yes Consult Physician Routine Consulting Provider: Farrah Craig Consult Reason/Comments: s/p right knee I&D, history of TKA Do you want consulting provider notified?: Yes Primary care physician: Bill Adkins MD - Discharge Diagnosis(es) (1) Infection of right knee Current Visit: Yes Status: Acute (2) Bilateral lower extremity edema Current Visit: No Status: Acute (3) Right knee pain Current Visit: No Status: Acute (4) Status post right knee replacement Current Visit: No Status: Acute Hospital Course: This is a 74-year-old male with known history of infection of the right knee. The patient presents for evaluation. After discussion and consideration patient elects to proceed with incision and drainage of right knee. The patient is seen preoperatively by Dr. Smith. Patient is admitted to [facility] on 10/19/2019 for incision and drainage of right knee. The procedures performed without complication or sequelae. The patient is doing well postoperatively. Labs and vital signs are stable on day of discharge. Patient's IV antibiotics are being managed by infectious disease and patient received a PICC line before discharge. On day of discharge patient's knee incision is healing well. There is minimal erythema. There is no drainage noted at this time. There is mild soft tissue swelling to the knee. Patient has full foot and ankle motion without difficulty or pain. Calf is soft and nontender to palpation. Neurovascular status to the right lower extremity is intact. Patient is discharged to rehab in good condition. Opioid start talking form is reviewed and signed at patient bedside. Please see med rec for accurate list of home medications. Plan - Discharge Summary Discharge Rx Participant: Yes New Discharge Prescriptions: New Aspirin [Adult Low Dose Aspirin EC] 81 mg PO BID 30 Days #60 tablet. HYDROcodone/APAP 5-325MG [[place] 5-325] 1 - 2 tab PO Q6HR PRN #48 tab PRN Reason: Pain Sennosides [Senokot] 2 tab PO DAILY PRN #60 tablet PRN Reason: Constipation No Action metFORMIN HCL [Glucophage] 500 mg PO BID NIFEdipine [NIFEdipine ER] 30 mg PO DAILY Magnesium Oxide [Vu] 500 mg PO DAILY Docusate [Colace] 200 mg PO HS Pregabalin [Lyrica] 100 mg PO BID Aspirin EC [Ecotrin Low Dose] 81 mg PO HS Potassium Chloride [Klor-Con 10] 10 meq PO BID Atorvastatin Calcium [Lipitor] 10 mg PO DAILY Furosemide [Lasix] 20 mg PO BID #60 tab Cephalexin [Keflex] 500 mg PO Q6HR HYDROcodone/APAP 5-325MG [[place] 5-325] 1 tab PO Q6HR PRN PRN Reason: Pain Discharge Medication List Aspirin EC [Ecotrin Low Dose] 81 mg PO HS 03/11/19 [History] Atorvastatin Calcium [Lipitor] 10 mg PO DAILY 03/11/19 [History] Docusate [Colace] 200 mg PO HS 03/11/19 [History] Magnesium Oxide [Vu] 500 mg PO DAILY 03/11/19 [History] NIFEdipine [NIFEdipine ER] 30 mg PO DAILY 03/11/19 [History] Potassium Chloride [Klor-Con 10] 10 meq PO BID 03/11/19 [History] Pregabalin [Lyrica] 100 mg PO BID 03/11/19 [History] metFORMIN HCL [Glucophage] 500 mg PO BID 03/11/19 [History] Furosemide [Lasix] 20 mg PO BID #60 tab 03/16/19 [Rx] Cephalexin [Keflex] 500 mg PO Q6HR 10/18/19 [History] HYDROcodone/APAP 5-325MG [[place] 5-325] 1 tab PO Q6HR PRN 10/18/19 [History] Aspirin [Adult Low Dose Aspirin EC] 81 mg PO BID 30 Days #60 tablet. 10/25/19 [Rx] HYDROcodone/APAP 5-325MG [[place] 5-325] 1 - 2 tab PO Q6HR PRN #48 tab 10/25/19 [Rx] Sennosides [Senokot] 2 tab PO DAILY PRN #60 tablet 10/25/19 [Rx] Follow up Appointment(s)/Referral(s): Carl Smith DO [Doctor of Osteopathic Medicine] - 2 Weeks Patient Instructions/Handouts: Joint Incision and Drainage (DC) Activity/Diet/Wound Care/Special Instructions: Weightbearing as tolerated with a walker. Janusz to be removed 10-14 days postoperatively. Daily dressing changes, keep incision clean and dry. May shower if no drainage from incision. Please follow up with [facility] and call with questions or concerns, [phone]. Discharge Disposition: TRANSFER TO SNF/ECF
[2019-10-25 08:24] LABS: African American GFR (CKD) >90 (>60 ml/min/1.73 sqM); Anion Gap 4 mmol/L; Blood Urea Nitrogen 17 mg/dL (9-20); Calcium 8.8 mg/dL (8.4-10.2); Carbon Dioxide 33 mmol/L (22-30); Chloride 100 mmol/L (98-107); Glucose 78 mg/dL (74-99); Non-African American GFR(CKD) >90 (>60 ml/min/1.73 sqM); Potassium 3.9 mmol/L (3.5-5.1); Sodium 137 mmol/L (137-145)
[2019-10-25 11:29] LABS: Glucose,Whole Blood 81 mg/dL (75-99)
[2019-10-25] MEDS ORDERED: LIDOCAINE 1% INJ 10MG/ML (20 ML MDV) ONE (13:43)
[2019-10-25] MEDS ORDERED: LIDOCAINE 1% INJ 10MG/ML (20 ML MDV) SQ ONE (14:06)
--- NOTE | 2019-10-25 14:12 | PN ---
PROGRESS NOTE DATE OF SERVICE: 10/25/2019 REASON FOR FOLLOWUP: Right knee cellulitis. INTERVAL HISTORY: Patient is currently afebrile, patient is breathing comfortably. The patient denies having any chest pain, no shortness of breath, no cough. No nausea, no abdominal pain. Pain to the right knee is currently controlled. PHYSICAL EXAMINATION: Blood pressure 144/69 with a pulse of 54, temperature 98.7. He is 95% on room air. General description is an elderly male, up in the bed, in no distress. RESPIRATORY SYSTEM: Unlabored breathing, clear to auscultation anteriorly. HEART: S1, S2. Regular rate and rhythm. ABDOMEN: Soft, no tenderness. Right knee is currently dressed up. No obvious drainage on the dressing. LABS: Hemoglobin is 12.8, white count of 5.9, BUN of 17, creatinine 0.55, and it was 23. CRP of 98.3. DIAGNOSTIC IMPRESSION AND PLAN: Patient with right knee abscess, status post drainage. Culture has been negative for resistant pathogen. Plan is to continue with cefazolin 2 g q.4 weeks with close outpatient followup. MMODL / IJN: [id number] /
[2019-10-25 14:39] VITALS: BP 136/71; PULSE 55; RESP 16; TEMP 98.3
--- NOTE | 2019-10-28 08:03 | IR ---
PICC LINE PLACEMENT: HISTORY: Infection requiring long-term antibiotic therapy PROCEDURE: Ultrasound and fluoroscopic guidance of PICC line placement. COMPLICATIONS: None ANESTHESIA: 1. 1% Lidocaine locally. FINDINGS/TECHNIQUE: The procedure was explained to the patient. The risks, complications, benefits and alternatives were discussed and any questions were answered. Informed consent was obtained. The patient was placed supine on the fluoroscopic table and prepped and draped in the usual sterile fash ion. Utilizing a 21 gauge needle and sonographic and fluoroscopic guidance, access in the left basi lic vein was achieved and there is placement of a 0.018 guidewire. The vein is patent. A 4-F sheath was placed over the guidewire. The guidewire and dilator were removed and a 4-F. PICC line was plac ed through the sheath with the tip at the level of the SVC. The sheath was removed, the catheter was flushed and sutured into position. The patient was stable throughout the procedure and remained sta ble upon discharge from the Department of Radiology. The vein puncture was patent under ultrasound. A camilo scale image was obtained to document patency of the vein punctured. All elements of the maximal barrier technique were utilized. FLUOROSCOPY TIME: 0.2 minutes and 1 images submitted IMPRESSION: Successful PICC line placement under ultrasound and fluoroscopic guidance.
== END 2019-10-25 16:48 | DRG 486 ==
LOC: OR 13:12 → 4SSUR 16:19 → OR 10-20 10:39 → 4SSUR 10-20 10:39
PROVIDERS: ADMIT Orthopaedic Surgery; ATTEND Orthopaedic Surgery
PROC: 3E0U029 Introduction of Other Anti-infective into Joints, Open Approach (ICD-10-PCS; principal; 2019-10-19 17:15)
PROC: 0SJC0ZZ Inspection of Right Knee Joint, Open Approach (ICD-10-PCS; principal; 2019-10-19 17:15)
PROC: 0J9N0ZX Drainage of Right Lower Leg Subcutaneous Tissue and Fascia, Open Approach, Diagnostic (ICD-10-PCS; principal; 2019-10-19 17:15)
PROC: 05HY33Z Insertion of Infusion Device into Upper Vein, Percutaneous Approach (ICD-10-PCS; 2019-10-25)
DX: T84.53XA Infection and inflammatory reaction due to internal right knee prosthesis, initial encounter (principal); L02.415 Cutaneous abscess of right lower limb; G80.9 Cerebral palsy, unspecified; E11.9 Type 2 diabetes mellitus without complications; H91.91 Unspecified hearing loss, right ear; I10 Essential (primary) hypertension; Y83.1 Surgical operation with implant of artificial internal device as the cause of abnormal reaction of the patient, or of later complication, without mention of misadventure at the time of the procedure; Z79.84 Long term (current) use of oral hypoglycemic drugs; Z79.899 Other long term (current) drug therapy; Z20.828 Contact with and (suspected) exposure to other viral communicable diseases; Z88.1 Allergy status to other antibiotic agents; Z88.0 Allergy status to penicillin; Z90.89 Acquired absence of other organs; Z90.49 Acquired absence of other specified parts of digestive tract
CPT/HCPCS: 36573; 80048; 80051; 80202; 82565; 85025; 85027; 85610; 85652; 86140; 87070; 87075; 87102; 87205; 87635

== ENCOUNTER → 2020-02-18 | Outpatient (CLI) | payer MEDICARE, OTHER ==
[2020-02-18 12:56] LABS: African American GFR (CKD) >90 (>60 ml/min/1.73 sqM); Blood Urea Nitrogen 20 mg/dL (9-20); Non-African American GFR(CKD) >90 (>60 ml/min/1.73 sqM)
--- NOTE | 2020-02-18 15:40 | CT ---
EXAMINATION TYPE: CT urogram wo/w con DATE OF EXAM: 02/18/2020 COMPARISON: None. HISTORY: Flank pain with hematuria. CT DLP: 2714.7 mGycm, Automated Exposure Control for Dose Reduction was Utilized. CONTRAST: CT scan of the abdomen and pelvis is performed with oral and without and with IV Contrast, patient in jected with 100 mL of Isovue 370. Urogram protocol with 3-D reconstructed images created on a [employer] workstation and reviewed. FINDINGS: KUB: Noncontrast images show no renal calculi bilaterally. Postcontrast images show symmetric cortica l medullary uptake and excretion without hydronephrosis seen bilaterally. There is simple appearing 1 .6 cm thin-walled cyst anteriorly upper pole left kidney image 41 series 7 and 1.2 cm simple appearin g thin-walled cyst posteriorly lower pole of the right kidney image 51 series 7. No intraluminal calc maryann in the bladder. Prominent right-sided pelvic phlebolith. No suspicious intraluminal mass or wall thickening. Incomplete opacification of the distal left ureter. No obvious mass or calculus. LUNG BASES: No significant abnormality is appreciated. LIVER/GB: Cholecystectomy clips. PANCREAS: No significant abnormality is seen. SPLEEN: No significant abnormality is seen. ADRENALS: No significant abnormality is seen. BOWEL: No significant abnormality is seen. PROSTATE/SEMINAL VESICLES: Enlarged prostate gland consistent with BPH. LYMPH NODES: No greater than 1cm abdominal or pelvic lymph nodes are appreciated. OSSEOUS STRUCTURES: Underlying levoconvex scoliosis centered at L3 level. Ryclainm-ox-pimfhg multilev el spurring in the thoracolumbar spine. Findings greatest at L2-L3 and L4-L5 levels. Posterior spurri ng effaces anterior thecal sac at these levels. Multilevel facet arthropathy in the lumbar spine. OTHER: Some generalized cerebral place atrophy of the gluteal muscles incidentally noted. IMPRESSION: Source of hematuria and flank pain not identified. Scoliosis with multilevel moderate-to- severe degenerative changes throughout the visualized spine.
== END | disposition home or self-care (01) ==
LOC: RADCTMAIN 11:55
PROVIDERS: ATTEND Urology
DX: N28.1 Cyst of kidney, acquired (principal); R10.9 Unspecified abdominal pain; R31.9 Hematuria, unspecified; Z88.0 Allergy status to penicillin; Z88.1 Allergy status to other antibiotic agents
CPT/HCPCS: 82565; 84520; 74178; 74400; Q9967

== ENCOUNTER → 2020-07-26 | Outpatient (CLI) | payer MEDICARE, OTHER ==
[2020-07-26 11:41] LABS: HCT 33.3 % (39.0-53.0); Hypochromasia Marked; MCH 23.9 pg (25.0-35.0); MCV 79.8 fL (80.0-100.0); Mean Platelet Volume 7.1; Platelet Count 348 k/uL (150-450); RBC 4.17 m/uL (4.30-5.90); WBC 8.9 k/uL (3.8-10.6)
[2020-07-26 11:57] LABS: Partial Thromboplastin Time 30.3 sec (22.0-30.0); Prothrombin Time 10.8 sec (9.0-12.0)
[2020-07-26 12:05] LABS: ALT 16 U/L (4-49); AST 22 U/L (17-59); African American GFR (CKD) >90 (>60 ml/min/1.73 sqM); Albumin 3.1 g/dL (3.5-5.0); Alkaline Phosphatase 106 U/L (38-126); Anion Gap 7 mmol/L; Blood Urea Nitrogen 20 mg/dL (9-20); Carbon Dioxide 31 mmol/L (22-30); Chloride 102 mmol/L (98-107); Glucose 111 mg/dL (74-99); Non-African American GFR(CKD) >90 (>60 ml/min/1.73 sqM); Sodium 140 mmol/L (137-145); Total Bilirubin 0.3 mg/dL (0.2-1.3)
[2020-07-26 12:34] LABS: Amorphous Sediment,Urine Rare /hpf; Appearance,Urine Cloudy (Clear); Bacteria,Urine Rare /hpf; Bilirubin,Urine Negative (Negative); Blood,Urine Negative (Negative); Color,Urine Yellow; Glucose,Urine (UA) Negative (Negative); Hyaline Casts,Urine 4 /lpf (0-2); Ketones,Urine Negative (Negative); Leukocyte Esterase,Urine Negative (Negative); Mucus,Urine Many /hpf; Nitrite,Urine Negative (Negative); PH, Urine 6.5 (5.0-8.0); Protein,Urine Trace (Negative); RBC,Urine 2 /hpf (0-5); Specific Gravity,Urine 1.025 (1.001-1.035); Squamous Epithelial Cell,Urine 1 /hpf (0-4); Urobilinogen,Urine <2.0 mg/dL (<2.0); WBC,Urine 1 /hpf (0-5)
== END | disposition home or self-care (01) ==
LOC: LABPAT 10:58
PROVIDERS: ATTEND Orthopaedic Surgery
DX: Z01.812 Encounter for preprocedural laboratory examination (principal); Z79.01 Long term (current) use of anticoagulants
CPT/HCPCS: 36415; 80053; 81001; 85027; 85610; 85730; 87070

== ENCOUNTER 2020-08-01 14:07 | Inpatient (IN) | payer MEDICARE, OTHER ==
[2020-07-26 16:32] VITALS: BMI 32.1
[~2020-08-01 14:07] MED LIST changes: -DEXAMETHASONE SOD PHOSPHATE 10 MG/ML 1 ML VIAL IV ONE; +DEXAMETHASONE SOD PHOSPHATE 4 MG/ML 1 ML VIAL IV ONE; -MIDAZOLAM 2 MG/2 ML VIAL IV PRN
[2020-08-01] MEDS: LACTATED RINGERS 1,000 ML IV SCH ×2 (14:41→19:16)
[2020-08-01 14:44] LABS: Glucose,Whole Blood 85 mg/dL (75-99)
[2020-08-01] MEDS ORDERED: NA PHOS,M-B/NA PHOS,DI-BA 133 ML ENEMA RECTAL PRN (15:15)
[2020-08-01] MEDS ORDERED: MAGNESIUM HYDROXIDE 2,400 MG/10 ML CUP PO PRN (15:15)
[2020-08-01] MEDS ORDERED: HYDROmorphone 0.5 MG/0.5 ML SYRINGE IVP PRN (15:15)
[2020-08-01] MEDS ORDERED: NALOXONE 0.4 MG/ML 1 ML VIAL IV PRN (15:15)
[2020-08-01] MEDS ORDERED: bisacodyL 10 MG SUPP RECTAL PRN (15:15)
[2020-08-01] MEDS ORDERED: HYDROmorphone 0.2 MG/1 ML SYRINGE IVP PRN (15:15)
[2020-08-01] MEDS ORDERED: ONDANSETRON 4 MG/2 ML VIAL IVP PRN (15:15)
[2020-08-01] MEDS ORDERED: HYDROcodone/APAP 7.5-325MG 1 EACH TAB PO PRN (15:17)
[2020-08-01] MEDS ORDERED: MIDAZOLAM 2 MG/2 ML VIAL ONE (15:25)
[2020-08-01] MEDS ORDERED: LIDOCAINE 1% INJ 10MG/ML (20 ML MDV) ONE (15:25)
[2020-08-01] MEDS ORDERED: PROPOFOL 10 MG/ML 20 ML VIAL IV ONE (15:25)
[2020-08-01] MEDS ORDERED: NEOSTIGMINE 1 MG/ML 10 ML VIAL ONE (15:25)
[2020-08-01] MEDS ORDERED: HYDROmorphone (PF) 1 MG/ML ONE (15:25)
[2020-08-01] MEDS ORDERED: GLYCOPYRROLATE 0.2 MG/ML 2 ML VIAL ONE (15:25)
[2020-08-01] MEDS ORDERED: fentaNYL (PF) 50 MCG/ML 2 ML AMP ONE (15:25)
[2020-08-01] MEDS ORDERED: ROCURONIUM 10 MG/ML (5 ML VIAL) IV ONE (15:25)
[2020-08-01] MEDS ORDERED: ePHEDrine SULFATE/0.9% NACL/PF 50 MG/5 ML SYRINGE IV ONE (15:25)
[2020-08-01] MEDS ORDERED: LACTATED RINGERS 1,000 ML IV ONE (17:05)
--- NOTE | 2020-08-01 17:24 | P.OP ---
Date of Procedure: 08/01/20 Preoperative Diagnosis: Infected right total knee arthroplasty Postoperative Diagnosis: Infected right total knee arthroplasty Procedure(s) Performed: Irrigation and debridement right total knee, with attempted Stage I revision right total knee arthroplasty. The components were well fixed and unable to be removed. 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 He's had a prior irrigation debridement with antibiotic beads and suppressive antibiotics, but continues to have drainage and infection in his right knee. After discussing the surgical nonsurgical treatment options with her at length recommended removal components and placement of antibiotic spacers stage I revision. Informed consent was obtained. Operative Findings: The operative findings are consistent with a infected right total knee arthroplasty. Multiple attempts to remove the components were tried. The components were too well fixed and there is danger of causing further damage to the bone if further attempts were made. A decision was made to do a aggressive irrigation and debridement and retention of the components. Description of Procedure: Patient was seen in the preoperative area consent was reviewed and operative site was marked with a skin marker. Patient was then brought to the operating room and given preoperative antibiotics intravenously. A general anesthetic was administered by the anesthesia department. A tourniquet was placed on the upper thigh and the lower extremity was prepped and draped in usual sterile fashion. A universal timeout was then performed which confirmed the patient's name, surgical site, ALLERGIES, and consent. The tourniquet was inflated to 300 mmHg. A standard and anterior midline approach to the knee was performed through the prior scar.. The skin and subcutaneous tissue was dissected down to the patellar tendon. A large amount of purulent [place] was encountered and this was cultured . A medial parapatellar arthrotomy was then performed. A large amount of scar was excised around the knee and the patellar component was then exposed. The patellar component was then removed without difficulty. The femoral component was then exposed and a small oscillating saw was used to break the cement in component interface. Multiple aggressive attempts were made to remove the femoral component. There was no evidence of any loosening or movement of the femoral component despite aggressive extraction techniques. At this point it was decided that I would have to leave the components in order to avoid causing more damage to the bone and soft tissue. Thorough irrigation and debridement was performed with antibiotic solution and also with Irricept solution. The fascia was then closed with #2 strata fix suture. The subcutaneous tissue was closed with 2-0 Vicryl and fuad for the skin.. The patient was placed in a sterile silver dressing. Patient was then transferred to recovery room in stable condition. The engineering inspection assistant RUTH Jordan was required due the complexity surgery and the need for a skilled assistant plant control operator. She assisted in positioning, draping, retraction, and closure of the wound.
[2020-08-01] MEDS: HYDROmorphone 0.5 MG/0.5 ML SYRINGE IVP PRN ×3 (17:40→18:00)
[2020-08-01] MEDS ORDERED: diphenhydrAMINE 50 MG/ML 1 ML VIAL IVP ONE (18:23)
[2020-08-01] MEDS ORDERED: SODIUM CHLORIDE 0.9% 1,000 ML IV ONE (18:27)
--- NOTE | 2020-08-01 18:41 | XR ---
Result: History: Postoperative right knee. Comparison: 03/12/2019. Technique: 2 views of the right knee. Findings: Redemonstrated are postsurgical changes of total knee arthroplasty without evidence of immediate hard uqreshi complication. No acute fracture or dislocation of is seen. Associated soft tissue emphysema wit h joint effusion. Impression: Postoperative changes related to revised right total knee arthroplasty. Please see surgical report fo r additional details.
[2020-08-01] MEDS: SODIUM CHLORIDE 0.9% 1,000 ML IV SCH (19:11)
[2020-08-01 21:04] LABS: Glucose,Whole Blood 106 mg/dL (75-99)
[2020-08-01] MEDS: SENNOSIDES-DOCUSATE SODIUM 1 EACH TAB PO SCH (21:18)
[2020-08-01] MEDS: ASPIRIN 325 MG TAB PO SCH (21:18)
[2020-08-02] MEDS: HYDROmorphone 0.5 MG/0.5 ML SYRINGE IVP PRN ×2 (00:55→05:22)
[2020-08-02] MEDS: HYDROcodone/APAP 7.5-325MG 1 EACH TAB PO PRN ×3 (04:10→21:23)
[2020-08-02] MEDS: SODIUM CHLORIDE 0.9% 1,000 ML IV SCH (06:51)
[2020-08-02 07:00] LABS: Glucose,Whole Blood 138 mg/dL (75-99)
[2020-08-02 08:11] LABS: Basophils % (A) 0 %; Eosinophils % (A) 0 %; HCT 28.7 % (39.0-53.0); HGB 8.9 gm/dL (13.0-17.5); Hypochromasia Marked; Lymphocytes # (A) 0.6 k/uL (1.0-4.8); Lymphocytes % (A) 7 %; MCH 24.2 pg (25.0-35.0); MCHC 31.1 g/dL (31.0-37.0); MCV 77.8 fL (80.0-100.0); Mean Platelet Volume 6.8; Microcytosis Slight; Monocytes % (A) 12 %; Neutrophils # (A) 6.8 k/uL (1.3-7.7); Neutrophils % (A) 80 %; Platelet Count 366 k/uL (150-450); RBC 3.69 m/uL (4.30-5.90); RDW 15.3 % (11.5-15.5); WBC 8.5 k/uL (3.8-10.6)
[2020-08-02] MEDS: ASPIRIN 325 MG TAB PO SCH ×2 (08:43→21:20)
[2020-08-02] MEDS ORDERED: VANCOMYCIN IV PER PHARMACY 1 EACH MISC MISCELLANE PRN (08:44)
[2020-08-02] MEDS: VANCOMYCIN 1,500 MG in SODIUM CHLORIDE 0.9% 250 ML IVPB SCH ×2 (09:32→16:57)
[2020-08-02 09:40] LABS: African American GFR (CKD) >90 (>60 ml/min/1.73 sqM); Non-African American GFR(CKD) >90 (>60 ml/min/1.73 sqM)
[2020-08-02] MEDS: POTASSIUM CHLORIDE ER 10 MEQ TAB.ER.PRT PO SCH ×2 (10:28→21:21)
[2020-08-02] MEDS: ATORVASTATIN 10 MG TAB PO SCH (10:28)
[2020-08-02] MEDS: PREGABALIN 100 MG CAP PO SCH ×2 (10:28→21:21)
[2020-08-02] MEDS: metFORMIN 500 MG TAB PO SCH ×2 (10:28→21:21)
[2020-08-02] MEDS: MAGNESIUM OXIDE 400 MG TAB PO SCH (10:29)
[2020-08-02] MEDS: NIFEdipine XL 30 MG TAB.ER.24 PO SCH (10:29)
--- NOTE | 2020-08-02 10:40 | P.PN ---
Subjective Progress Note Date: 08/02/20 Principal diagnosis: Septic arthritis right knee. History of total right knee arthroplasty. 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 He's had a prior irrigation debridement with antibiotic beads and suppressive antibiotics, but continues to have drainage and infection in his right knee. After discussing the surgical nonsurgical treatment options with her at length recommended removal components and placement of antibiotic spacers stage I revision. Informed consent was obtained. Today is postoperative day #1 status post irrigation and debridement with attempt to remove implants. Implants were well seated and unable to be removed. The patient is stable from an orthopedic standpoint. He has no new complaints or concerns today. He is sitting in a chair at bedside. Vital signs and labs are stable. Objective - Vital Signs Vital signs: Vital Signs Temp 97.9 F 08/02/20 07:48 Pulse 73 08/02/20 07:48 Resp 18 08/02/20 07:48 BP 101/51 08/02/20 07:48 Pulse Ox 95 08/02/20 07:48 Intake & Output 08/01/20 08/02/20 08/02/20 18:59 06:59 18:59 Intake Total 2049 Output Total 100 Balance 1950 Weight 90.265 kg Intake: IV 2049 Output: Estimated Blood Loss 100 Other: Voiding Method Urinal # Voids 4 - Exam This is a pleasant 75-year-old male in no acute distress. He is alert and oriented 3. Exam of the right knee reveals that he has opted for home dressing is intact. There is currently no drainage on the dressing. The dressing has been recently changed this morning. He is unable to actively dorsiflex the foot and ankle which is his baseline. He continues to have edema to the lower extremity. - Labs CBC & Chem 7: 08/02/20 06:25 08/02/20 08:55 Labs: Abnormal Lab Results - Last 24 Hours (Table) 08/01/20 08/02/20 08/02/20 Range/Units 21:03 06:25 06:56 RBC 3.69 L (4.30-5.90) m/uL Hgb 8.9 L (13.0-17.5) gm/dL Hct 28.7 L (39.0-53.0) % MCV 77.8 L (80.0-100.0) fL MCH 24.2 L (25.0-35.0) pg Lymphocytes # 0.6 L (1.0-4.8) k/uL Creatinine (0.66-1.25) mg/dL POC Glucose (mg/dL) 106 H 138 H (75-99) mg/dL 08/02/20 Range/Units 08:55 RBC (4.30-5.90) m/uL Hgb (13.0-17.5) gm/dL Hct (39.0-53.0) % MCV (80.0-100.0) fL MCH (25.0-35.0) pg Lymphocytes # (1.0-4.8) k/uL Creatinine 0.62 L (0.66-1.25) mg/dL POC Glucose (mg/dL) (75-99) mg/dL Microbiology - Last 24 Hours (Table) 08/01/20 15:00 Gram Stain - Preliminary Knee - Right Wound Culture - Preliminary 08/01/20 17:00 Gram Stain - Preliminary Knee - Right Wound Culture - Preliminary 08/01/20 15:00 Anaerobic Culture - Preliminary Knee - Right 08/01/20 17:00 Anaerobic Culture - Preliminary Knee - Right Assessment and Plan (1) Infection of right knee Current Visit: No Status: Acute Code(s): M00.9 - PYOGENIC ARTHRITIS, UNSPECIFIED SNOMED Code(s): 474183720 (2) Status post right knee replacement Current Visit: No Status: Acute Code(s): Z96.651 - PRESENCE OF RIGHT ARTIFICIAL KNEE JOINT SNOMED Code(s): 2199093828984 Plan: The clinical findings are discussed with the patient. Infectious disease is following the case. He will most likely require long-term IV antibiotics. He is awaiting rehab placement.
[2020-08-02 11:52] LABS: Glucose,Whole Blood 148 mg/dL (75-99)
[2020-08-02] MEDS: methocarbamoL 500 MG TAB PO SCH ×3 (12:34→21:21)
--- NOTE | 2020-08-02 16:21 | P.CONS ---
History of Present Illness - Reason for Consult Consult date: 08/02/20 Medical management Requesting physician: Bill Adkins - Chief Complaint Right knee pain - History of Present Illness Consultation: This is a pleasant 75-year-old patient who follows with visiting physicians Dr. Adkins. Chronic stable medical conditions include congestive heart failure, diabetes, heart of hearing, hypertension, cerebral palsy. And a baseline uses a wheelchair. Had a history of infected right knee often planned. Patient lives of this brother Mario Alberto was also the medical POA. 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 His had prior indication debridement with antibiotic beads and suppressive antibiotics. And has had continued to have drainage and active infection. Patient has failed nonsurgical treatment. Patient underwent indication and debridement right total knee with attempted stage I revision right total knee arthroplasty. The components were well fixed and was unable to be removed. Has decision was made to proceed with aggressive medication and debridement and amputation of the components. Patient has some pain and discomfort at the operative site. Sitting up in a chair. No nausea vomiting. Did tolerate his meals. Denies any fever and chills. Patient is able to provide a simple history. Review of systems: GEN.: None EYES: None HEENT: [Decreased hearing NECK: None RESPIRATORY: None CARDIOVASCULAR: None GASTROINTESTINAL: None GENITOURINARY: None MUSCULOSKELETAL: Pain in the right knee and occasionally gets pain in the lower back radiating down the right leg LYMPHATICS: None HEMATOLOGICAL: None PSYCHIATRY: Forgetful NEUROLOGICAL: None Past medical history to include: Chronic congestive heart failure from diastolic dysfunction EF 55-60%, diabetes mellitus, hard of hearing, hypertension, ostomy arthritis, cerebral palsy, chronic gait dysfunction uses a wheelchair, cognitive impairment Social history: No history of smoking and alcohol. Lives with his brother Susan who is also the 20 POA. Family history: Reviewed, noncontributory to presentation Physical examination: VITAL SIGNS: 97.9, 73, 18, 101/51, 95% room air GENERAL: BMI 32.1, sitting up in a chair, not in distress. EYES: Pupils equal. Conjunctiva normal. HEENT: External appearance of nose and ears normal, oral cavity grossly normal decreased hearing. NECK: JVD not raised; masses not palpable. HEART: First and second heart sounds are normal; no edema. LUNGS: Respiratory rate normal; clear to auscultation. ABDOMEN: Soft, nontender, liver spleen not palpable, no masses palpable. PSYCH: Awake able to answer simple questions. NEUROLOGICAL: [Cranial nerves grossly intact; no facial asymmetry, decreased bowel in the lower extremities EXTREMITIES: Swelling/edema of the lower extremity. 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 Status post deep intensive indication and debridement, and hardware was not removed. Cultures are pending. Patient started on vancomycin per ID. -Obesity BMI 32.1 Weight loss measures and follow-up with PCP -Chronic congestive heart failure from diastolic dysfunction EF 55-60% Follow clinically and fluid status. Continue with Lasix -Diabetes mellitus type 2, on oral hypoglycemic Follow Accu-Cheks, continue Glucophage -Peripheral neuropathy Continue with Lyrica -Essential hypertension Continue with nifedipine ER -Hyperlipidemia Continue with Lipitor -Chronic gait dysfunction, at her baseline uses a wheelchair Fall precautions -Microcytic anemia Check iron studies. Iron/TIBC/ferritin Care was discussed with the patient. Home medications are continued. Follow Accu-Cheks. DC IV fluids. Resume Lasix. Add xarelto 10 mg for DVT prophylaxis. Thank you Dr. Smith Past Medical History Past Medical History: Heart Failure, Diabetes Mellitus, Hearing Disorder / Deafness, Hypertension, Memory Impairment, Osteoarthritis (OA) Additional Past Medical History / Comment(s): hx cerebral palsy, hx surgery on legs- cannot straighten legs, uses wheelchair. cellulitis feet. c/o pain in back, right knee. Hx infected Rt knee after implant, ongoing prob. Edema BLE. Pt lives in apartment by his brother (Mario Alberto); poor short term memory, hx obtained from Mario Alberto - brother/Medical POA. History of Any Multi-Drug Resistant Organisms: None Reported Past Surgical History: Appendectomy, Cholecystectomy, Joint Replacement, Orthopedic Surgery, Tonsillectomy Additional Past Surgical History / Comment(s): surgery on legs for Cerebral Palsy; Nerve stimulator back. Total Rt knee long ago; Arthrocentesis Rt knee; I&D Rt knee Past Anesthesia/Blood Transfusion Reactions: No Reported Reaction, Family History of Problems w/ Anesthesia Additional Past Anesthesia/Blood Transfusion Reaction / Comm: brother had ongoing hiccups after anesthesia Past Psychological History: No Psychological Hx Reported Smoking Status: Never smoker Past Alcohol Use History: None Reported Past Drug Use History: None Reported - Past Family History Father Family Medical History: No Reported History Medications and Allergies Home Medications Medication Instructions Recorded Confirmed Type Atorvastatin Calcium [Lipitor] 10 mg PO DAILY 03/11/19 07/26/20 History Docusate [Colace] 100 mg PO BID 03/11/19 07/26/20 History Magnesium Oxide [Vu] 500 mg PO DAILY 03/11/19 07/26/20 History NIFEdipine [NIFEdipine ER] 30 mg PO DAILY 03/11/19 07/26/20 History Potassium Chloride [Klor-Con 10] 10 meq PO BID 03/11/19 07/26/20 History metFORMIN HCL [Glucophage] 500 mg PO BID 03/11/19 07/26/20 History Furosemide [Lasix] 20 mg PO BID #60 tab 03/16/19 07/26/20 Rx Aspirin [Adult Low Dose Aspirin EC] 81 mg PO BID 30 Days #60 tablet. 10/25/19 07/26/20 Rx HYDROcodone/APAP 5-325MG [[place] 1 - 2 tab PO Q6HR PRN #48 tab 10/25/19 07/26/20 Rx 5-325] Pregabalin [Lyrica] 100 mg PO BID #6 cap 10/25/19 07/26/20 Rx Cephalexin [Keflex] 500 mg PO QID 07/26/20 07/26/20 History methocarbamoL [Robaxin] 1,000 mg PO QID 07/26/20 07/26/20 History Aspirin 325 mg PO BID #60 tab 08/01/20 Rx HYDROcodone/APAP 7.5-325MG [[place] 1 - 2 tab PO Q6H PRN #32 tab 08/01/20 Rx 7.5-325] Sennosides [Senokot] 2 tab PO DAILY PRN #60 tablet 08/01/20 Rx Allergies Allergy/AdvReac Type Severity Reaction Status Date / Time acyclovir Allergy Unknown Verified 08/01/20 14:23 amoxicillin [From Augmentin] Allergy Unknown Verified 08/01/20 14:23 ciprofloxacin [From Cipro] Allergy Unknown Verified 08/01/20 14:23 ciprofloxacin HCl Allergy Unknown Verified 08/01/20 14:23 [From Cipro] clavulanic acid Allergy Unknown Verified 08/01/20 14:23 [From Augmentin] latex Allergy Unknown Verified 08/01/20 14:23 Latex, Natural Rubber Allergy Unknown Verified 08/01/20 14:23 levofloxacin [From Levaquin] Allergy Unknown Verified 08/01/20 14:23 Macrolide Antibiotics Allergy Unknown Verified 08/01/20 14:23 Physical Exam Vitals: Vital Signs Temp Pulse Resp BP BP Pulse Ox 08/02/20 07:48 97.9 F 73 18 101/51 95 08/02/20 01:06 98.2 F 89 16 142/82 97 08/01/20 20:58 83 145/75 08/01/20 20:43 46 L 16 159/76 98 08/01/20 20:28 53 L 16 121/62 97 08/01/20 20:13 46 L 16 121/51 97 08/01/20 20:00 89 16 08/01/20 19:58 48 L 16 135/62 95 08/01/20 19:43 82 16 140/71 94 L 08/01/20 19:28 67 16 145/70 98 08/01/20 18:30 59 L 14 133/65 96 08/01/20 18:15 52 L 16 119/60 99 08/01/20 18:00 61 14 126/58 100 08/01/20 17:45 64 14 128/62 100 08/01/20 17:35 97.3 F L 84 16 141/74 100 08/01/20 14:34 98.0 F 55 L 17 127/60 99 Intake and Output 08/01/20 08/02/20 08/02/20 22:59 06:59 14:59 Intake Total 1950 Output Total 100 Balance 1850 Intake: IV 1950 Output: Estimated Blood Loss 100 Other: Voiding Method Urinal # Voids 4 Weight 90.265 kg Results CBC & Chem 7: 08/02/20 06:25 08/02/20 08:55 Labs: Abnormal Lab Results - Last 24 Hours (Table) 08/01/20 08/02/20 08/02/20 Range/Units 21:03 06:25 06:56 RBC 3.69 L (4.30-5.90) m/uL Hgb 8.9 L (13.0-17.5) gm/dL Hct 28.7 L (39.0-53.0) % MCV 77.8 L (80.0-100.0) fL MCH 24.2 L (25.0-35.0) pg Lymphocytes # 0.6 L (1.0-4.8) k/uL Creatinine (0.66-1.25) mg/dL POC Glucose (mg/dL) 106 H 138 H (75-99) mg/dL 08/02/20 Range/Units 08:55 RBC (4.30-5.90) m/uL Hgb (13.0-17.5) gm/dL Hct (39.0-53.0) % MCV (80.0-100.0) fL MCH (25.0-35.0) pg Lymphocytes # (1.0-4.8) k/uL Creatinine 0.62 L (0.66-1.25) mg/dL POC Glucose (mg/dL) (75-99) mg/dL Microbiology - Last 24 Hours (Table) 08/01/20 15:00 Gram Stain - Preliminary Knee - Right Wound Culture - Preliminary 08/01/20 17:00 Gram Stain - Preliminary Knee - Right Wound Culture - Preliminary 08/01/20 15:00 Anaerobic Culture - Preliminary Knee - Right 08/01/20 17:00 Anaerobic Culture - Preliminary Knee - Right
[2020-08-02 16:48] LABS: Glucose,Whole Blood 102 mg/dL (75-99)
[2020-08-02] MEDS: RIVAROXABAN 10 MG TAB PO SCH (16:58)
--- NOTE | 2020-08-02 20:23 | CONS ---
CONSULTATION DATE OF SERVICE: 08/02/2020 REASON FOR CONSULTATION: Right knee septic arthritis. HISTORY OF PRESENT ILLNESS: The patient is a 75-year-old male with a past medical history significant for right knee arthroplasty. This patient subsequently did have an infection requiring I and D and antibiotic bead placement for suppressive antibiotic therapy. However, the patient continued to have a problem with pain, swelling, redness and drainage of the right knee. After discussion of the nonsurgical treatment and failure, the patient subsequently was admitted to the hospital yesterday for excision arthroplasty and antibiotic spacer placement. During surgery the patient was noted to have significantly fixed hardware, and components could not be removed. The patient did have I and D and culture has been obtained. He has been admitted to the hospital. Infectious Disease was consulted for management of antibiotic therapy. The patient currently denies having any fever or any chills. The patient denies having any chest pain or shortness of breath or cough. The patient denies any nausea, vomiting, abdominal pain or any diarrhea. The patient has been afebrile so far. Cultures are currently pending. White count has been normal. REVIEW OF SYSTEMS: Positive points have been mentioned in the HPI. Rest of the systems are negative. PAST MEDICAL HISTORY: Diabetes mellitus, hypertension, osteoarthritis, right knee septic arthritis. PAST SURGICAL HISTORY: Appendectomy, cholecystectomy, right knee replacement. SOCIAL HISTORY: No history of smoking, drinking or drug use. FAMILY HISTORY: No pertinent findings noticed. ALLERGIES: MULTIPLE MEDICATIONS. They are listed in the chart and reviewed. MEDICATIONS: Currently the patient is on Alexander, aspirin, Lipitor, Dulcolax, Colace, Lasix, Dilaudid, milk of magnesia, Glucophage, Robaxin, Narcan, Procardia, Zofran, Xarelto. PHYSICAL EXAMINATION: Blood pressure 110/56, pulse of 69, temperature 98.3. He is 95% on room air. General description is an elderly male lying in bed in no distress. HEENT: Examination shows slight pallor. No scleral icterus. Oral mucous membrane is dry. NECK: Trachea is central. No thyromegaly. LUNGS: Unlabored breathing. Clear to auscultation anteriorly. No wheeze or crackle. HEART: S1, S2. Regular rate and rhythm. ABDOMEN: Soft. No tenderness. No guarding or rigidity. EXTREMITIES: Right leg did have significant swelling. Incision is currently intact, but there is some bleeding with surrounding swelling. No significant redness or drainage. Neurologically the patient is awake, alert, oriented x3. Mood and affect normal. LABS: Hemoglobin is 8.1, white count 8.5, creatinine 0.62. OR cultures are currently pending. DIAGNOSTIC IMPRESSION AND PLAN: 1. Patient with right knee septic arthritis in this patient with attempted removal of the infected prosthesis for arthroplasty. Antibiotic spacer placement with plan for repeat surgery, possibly this afternoon. Will need to cover for the Gram- positive the likely pathogen. 2. Patient with MULTIPLE ANTIBIOTIC ALLERGIES that will limit the number of antibiotics safe to use. PLAN: 1. Blood cultures x2 STAT. 2. Will start the patient on vancomycin, Pharmacy to dose, while waiting for the culture to finalize and will monitor his kidney function closely. 3. Will follow his clinical condition and culture to further adjust medication if needed. Thank you for this consultation. Will follow this patient along with you. MMODL / IJN: [id number] /
[2020-08-02 21:07] LABS: Glucose,Whole Blood 121 mg/dL (75-99)
[2020-08-02] MEDS: SENNOSIDES-DOCUSATE SODIUM 1 EACH TAB PO SCH (21:21)
[2020-08-02] MEDS: DOCUSATE 100 MG CAP PO SCH (21:21)
[2020-08-02] MEDS: FUROSEMIDE 20 MG TAB PO SCH (21:21)
[2020-08-03] MEDS: VANCOMYCIN 1,500 MG in SODIUM CHLORIDE 0.9% 250 ML IVPB SCH ×3 (01:38→17:42)
[2020-08-03 05:17] LABS: Ferritin 295.7 ng/mL (22.0-322.0)
[2020-08-03 05:25] LABS: % Iron Saturation 3.8 (15.00-50.00)
[2020-08-03 06:57] LABS: Glucose,Whole Blood 86 mg/dL (75-99)
[2020-08-03] MEDS: ATORVASTATIN 10 MG TAB PO SCH (07:23)
[2020-08-03] MEDS: PREGABALIN 100 MG CAP PO SCH ×2 (07:23→20:01)
[2020-08-03] MEDS: POTASSIUM CHLORIDE ER 10 MEQ TAB.ER.PRT PO SCH ×2 (07:23→20:01)
[2020-08-03] MEDS: metFORMIN 500 MG TAB PO SCH ×2 (07:23→20:01)
[2020-08-03] MEDS: ASPIRIN 325 MG TAB PO SCH ×2 (07:23→20:01)
[2020-08-03] MEDS: NIFEdipine XL 30 MG TAB.ER.24 PO SCH (07:23)
[2020-08-03] MEDS: methocarbamoL 500 MG TAB PO SCH ×4 (07:23→20:01)
[2020-08-03] MEDS: DOCUSATE 100 MG CAP PO SCH ×2 (07:24→20:01)
[2020-08-03] MEDS: FUROSEMIDE 20 MG TAB PO SCH ×2 (07:24→20:01)
[2020-08-03] MEDS: MAGNESIUM OXIDE 400 MG TAB PO SCH (07:24)
[2020-08-03] MEDS: RIVAROXABAN 10 MG TAB PO SCH (07:24)
[2020-08-03 07:35] LABS: African American GFR (CKD) >90 (>60 ml/min/1.73 sqM); Non-African American GFR(CKD) >90 (>60 ml/min/1.73 sqM)
[2020-08-03] MEDS: HYDROcodone/APAP 7.5-325MG 1 EACH TAB PO PRN ×2 (08:41→17:54)
[2020-08-03 11:45] LABS: Glucose,Whole Blood 108 mg/dL (75-99)
--- NOTE | 2020-08-03 12:22 | P.PN ---
Subjective Progress Note Date: 08/03/20 This is a 75 year-old male who is status post irrigation and debridement with attempted stage 1 revision right total knee. This is post op day #2 and patient is seen and evaluated at bedside today. Patient states that he has occasional muscle spasms of the right thigh, but these have been improving over the last couple of days. Otherwise, patient states that his pain is well controlled. Patient states that he has noticed some drainage from his incision today, but less compared to yesterday. Otherwise, patient denies any new complaints today. Objective - Vital Signs Vital signs: Vital Signs Temp 98 F 08/03/20 07:14 Pulse 66 08/03/20 07:14 Resp 18 08/03/20 07:14 BP 117/61 08/03/20 07:14 Pulse Ox 95 08/03/20 07:14 Intake & Output 08/02/20 08/03/20 08/03/20 18:59 06:59 18:59 Output Total 400 800 Balance -400 -800 Output: Urine 400 800 Other: Voiding Method Urinal # Bowel Movements 1 - Exam Vital signs are stable. Patient is in no acute distress and is alert and oriented 3. Calf is soft and nontender to palpation. Dressing is intact with mild sanguineous drainage present. Patient has full foot and ankle motion with out pain or difficulty. There is chronic edema of the right lower extremity. Sensation intact. Neurovascular status and circulatory status are intact. - Labs CBC & Chem 7: 08/02/20 06:25 08/03/20 06:16 Labs: Abnormal Lab Results - Last 24 Hours (Table) 08/02/20 08/02/20 08/02/20 Range/Units 16:36 16:46 20:57 Creatinine (0.66-1.25) mg/dL POC Glucose (mg/dL) 102 H 121 H (75-99) mg/dL Iron 9 L (65-175) ug/dL % Saturation 3.80 L (15.00-50.00) 08/03/20 08/03/20 Range/Units 06:16 11:42 Creatinine 0.52 L (0.66-1.25) mg/dL POC Glucose (mg/dL) 108 H (75-99) mg/dL Iron (65-175) ug/dL % Saturation (15.00-50.00) Microbiology - Last 24 Hours (Table) 08/02/20 09:45 Blood Culture - Preliminary Blood No Growth after 24 hours 08/02/20 08:55 Blood Culture - Preliminary Blood No Growth after 24 hours 08/01/20 17:00 Gram Stain - Preliminary Knee - Right Wound Culture - Preliminary 08/01/20 15:00 Gram Stain - Preliminary Knee - Right Wound Culture - Preliminary Assessment and Plan (1) Infection of total right knee replacement Current Visit: Yes Status: Acute Code(s): T84.53XA - INFECT/INFLM REACTION DUE TO INTERNAL R KNEE PROSTH, INIT SNOMED Code(s): 379813777 (2) Right knee pain Current Visit: No Status: Acute Code(s): M25.561 - PAIN IN RIGHT KNEE SNOMED Code(s): 5243347210 Plan: 1. Continue routine postoperative care and pain control. 2. Cultures are pending. Antibiotics per infectious disease. 3. Physical therapy for mobilization. 4. Anticipate discharge to rehab in the next 24-48 hours.
--- NOTE | 2020-08-03 12:34 | P.PN ---
Progress Note - Text Progress Note Date: 08/03/20 - Chief Complaint Right knee pain - History of Present Illness Consultation: This is a pleasant 75-year-old patient who follows with visiting physicians Dr. Adkins. Chronic stable medical conditions include congestive heart failure, diabetes, heart of hearing, hypertension, cerebral palsy. And a baseline uses a wheelchair. Had a history of infected right knee often planned. Patient lives of this brother Mario Alberto was also the medical POA. 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 His had prior indication debridement with antibiotic beads and suppressive antibiotics. And has had continued to have drainage and active infection. Patient has failed nonsurgical treatment. Patient underwent indication and debridement right total knee with attempted stage I revision right total knee arthroplasty. The components were well fixed and was unable to be removed. Has decision was made to proceed with aggressive medication and debridement of the components. Today: Laying in bed. Some discomfort in the right knee. No fever no chills. Oral intake good. Review of systems: Was done for constitutional, cardiovascular, GI, pulmonary. relevant finding as above Active Medications Hydrocodone Bitart/Acetaminophen (Hydrocodone/Apap 7.5-325mg 1 Each Tab) 1 each PO Q6H PRN PRN Reason: Pain Scale 1 to 5 Stop: 08/31/20 15:18 Last Admin: 08/01/20 21:17 Dose: 1 each Documented by: Hydrocodone Bitart/Acetaminophen (Hydrocodone/Apap 7.5-325mg 1 Each Tab) 2 each PO Q6H PRN PRN Reason: Pain Scale 6 to 10 Stop: 08/31/20 15:18 Last Admin: 08/03/20 08:41 Dose: 2 each Documented by: Aspirin (Aspirin 325 Mg Tab) 325 mg PO BID [facility] Stop: 08/31/20 21:01 Last Admin: 08/03/20 07:23 Dose: 325 mg Documented by: Atorvastatin Calcium (Atorvastatin 10 Mg Tab) 10 mg PO DAILY [facility] Last Admin: 08/03/20 07:23 Dose: 10 mg Documented by: Bisacodyl (Bisacodyl 10 Mg Supp) 10 mg RECTAL DAILY PRN PRN Reason: Constipation Stop: 08/31/20 15:16 Docusate Sodium (Docusate 100 Mg Cap) 100 mg PO BID [facility] Last Admin: 08/03/20 07:24 Dose: 100 mg Documented by: Furosemide (Furosemide 20 Mg Tab) 20 mg PO BID [facility] Last Admin: 08/03/20 07:24 Dose: 20 mg Documented by: Hydromorphone HCl (Hydromorphone 0.2 Mg/1 Ml Syringe) 0.2 mg IVP Q3HR PRN PRN Reason: Pain Scale 4 to 6 Stop: 08/31/20 15:16 Hydromorphone HCl (Hydromorphone 0.5 Mg/0.5 Ml Syringe) 0.125 mg IVP Q3HR PRN PRN Reason: Pain Scale 1 to 3 Stop: 08/31/20 15:16 Hydromorphone HCl (Hydromorphone 0.5 Mg/0.5 Ml Syringe) 0.5 mg IVP Q3HR PRN PRN Reason: Pain Scale 7 to 10 Stop: 08/31/20 15:16 Last Admin: 08/02/20 05:22 Dose: 0.5 mg Documented by: Vancomycin HCl 1,500 mg/ (Sodium Chloride) 250 mls @ 125 mls/hr IVPB Q8H [facility] Last Admin: 08/03/20 07:24 Dose: 125 mls/hr Documented by: Magnesium Hydroxide (Magnesium Hydroxide 2,400 Mg/10 Ml Cup) 2,400 mg PO DAILY PRN PRN Reason: Constipation Stop: 08/31/20 15:16 Magnesium Oxide (Magnesium Oxide 400 Mg Tab) 400 mg PO DAILY [facility] Last Admin: 08/03/20 07:24 Dose: 400 mg Documented by: Metformin HCl (Metformin 500 Mg Tab) 500 mg PO BID [facility] Last Admin: 08/03/20 07:23 Dose: 500 mg Documented by: Methocarbamol (Methocarbamol 500 Mg Tab) 1,000 mg PO QID [facility] Last Admin: 08/03/20 07:23 Dose: 1,000 mg Documented by: Miscellaneous Information (Vancomycin Trough Due 1 Each Misc) 0 each MISCELLANE DIRECTED ONE Stop: 08/03/20 16:01 Naloxone HCl (Naloxone 0.4 Mg/Ml 1 Ml Vial) 0.2 mg IV Q2M PRN PRN Reason: Opioid Reversal Stop: 08/31/20 15:16 Nifedipine (Nifedipine Xl 30 Mg Tab.Er.24) 30 mg PO DAILY [facility] Last Admin: 08/03/20 07:23 Dose: 30 mg Documented by: Ondansetron HCl (Ondansetron 4 Mg/2 Ml Vial) 4 mg IVP Q8HR PRN PRN Reason: Nausea And Vomiting Stop: 08/31/20 15:16 Potassium Chloride (Potassium Chloride Er 10 Meq Tab.Er.Prt) 10 meq PO BID [facility] Last Admin: 08/03/20 07:23 Dose: 10 meq Documented by: Pregabalin (Pregabalin 100 Mg Cap) 100 mg PO BID [facility] Last Admin: 08/03/20 07:23 Dose: 100 mg Documented by: Rivaroxaban (Rivaroxaban 10 Mg Tab) 10 mg PO DAILY [facility] Last Admin: 08/03/20 07:24 Dose: 10 mg Documented by: Senna/Docusate Sodium (Sennosides-Docusate Sodium 1 Each Tab) 2 each PO HS [facility] Stop: 08/31/20 21:01 Last Admin: 08/02/20 21:21 Dose: 2 each Documented by: Sodium Biphosphate/Sodium Phosphate (Na Phos,M-B/Na Phos,Di-Ba 133 Ml Enema) 133 ml RECTAL DAILY PRN PRN Reason: Constipation Stop: 08/31/20 15:16 Past medical history to include: Chronic congestive heart failure from diastolic dysfunction EF 55-60%, diabetes mellitus, hard of hearing, hypertension, ostomy arthritis, cerebral palsy, chronic gait dysfunction uses a wheelchair, cognitive impairment Social history: No history of smoking and alcohol. Lives with his brother Susan who is also the 20 POA. Family history: Reviewed, noncontributory to presentation Physical examination: VITAL SIGNS: 98, 66, 18, 117/61, 95% on room air GENERAL:, laying in bed, comfortable EYES: Pupils equal. Conjunctiva normal. HEENT: External appearance of nose and ears normal, oral cavity grossly normal decreased hearing. NECK: JVD not raised; masses not palpable. HEART: First and second heart sounds are normal; no edema. LUNGS: Respiratory rate normal; clear to auscultation. ABDOMEN: Soft, nontender, liver spleen not palpable, no masses palpable. PSYCH: Awake able to answer simple questions. NEUROLOGICAL: [Cranial nerves grossly intact; no facial asymmetry, decreased bowel in the lower extremities EXTREMITIES: Swelling/edema of the lower extremity. Incision on the right knee with a dressing in place INVESTIGATIONS, reviewed in the clinical context: May 20: Creatinine 0.5 to. 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 Status post deep intensive 8 indication and debridement, and hardware could not be removed.. Cultures are pending. Patient started on vancomycin per ID. -Obesity BMI 32.1 Weight loss measures and follow-up with PCP -Chronic congestive heart failure from diastolic dysfunction EF 55-60% Follow clinically and fluid status. Continue with Lasix -Diabetes mellitus type 2, on oral hypoglycemic Follow Accu-Cheks, continue Glucophage -Peripheral neuropathy Continue with Lyrica -Essential hypertension Continue with nifedipine ER -Hyperlipidemia Continue with Lipitor -Chronic gait dysfunction, at her baseline uses a wheelchair Fall precautions -Microcytic anemia Check iron studies. Iron/TIBC/ferritin -DVT prophylaxis Xarelto 10 mg a day Discussed with Dr. Craig from ID. Given recurrent chronic infection hardware removal is the only option and primary team may consider transfer to an outside place if deemed appropriate. Thank you Dr. Smith
[2020-08-03] MEDS ORDERED: VANCOMYCIN TROUGH DUE 1 EACH MISC MISCELLANE ONE (16:00)
--- NOTE | 2020-08-03 18:46 | PN ---
PROGRESS NOTE DATE OF SERVICE: 08/03/2020 REASON FOR FOLLOWUP: Right knee septic arthritis. INTERVAL HISTORY: The patient is currently afebrile, breathing comfortably. Pain to the right knee is currently controlled. The patient denies having any chest pain or shortness of breath or cough. No nausea, no vomiting, no abdominal pain or diarrhea. PHYSICAL EXAMINATION: Blood pressure 109/40 with a pulse of 71, temperature 98.9. He is 94% on room air. General description is an elderly male lying in bed in no distress. RESPIRATORY SYSTEM: Unlabored breathing. Clear to auscultation anteriorly. HEART: S1, S2. Regular rate and rhythm. ABDOMEN: Soft. No tenderness. Right knee is currently dressed. No drainage on the dressing. LABS: Creatinine 0.52. Cultures so far pending. DIAGNOSTIC IMPRESSION AND PLAN: Patient with a chronic infection to the right knee, status post washout. Patient will need excision of antibiotic spacer for his infection. We are waiting for the culture to finalize. Continue with vancomycin and monitor his clinical course closely. MMODL / IJN: [id number] /
[2020-08-03] MEDS: SENNOSIDES-DOCUSATE SODIUM 1 EACH TAB PO SCH (20:01)
[2020-08-03 20:27] LABS: Glucose,Whole Blood 107 mg/dL (75-99)
[2020-08-04] MEDS: VANCOMYCIN 1,500 MG in SODIUM CHLORIDE 0.9% 250 ML IVPB SCH ×4 (00:34→17:15)
[2020-08-04] MEDS: HYDROcodone/APAP 7.5-325MG 1 EACH TAB PO PRN ×3 (01:10→21:50)
[2020-08-04 06:57] LABS: Glucose,Whole Blood 94 mg/dL (75-99)
[2020-08-04 07:37] LABS: African American GFR (CKD) >90 (>60 ml/min/1.73 sqM); Anion Gap 5 mmol/L; Blood Urea Nitrogen 12 mg/dL (9-20); C Reactive Protein 7.4 mg/dL (<1.0); Calcium 8.4 mg/dL (8.4-10.2); Carbon Dioxide 31 mmol/L (22-30); Chloride 99 mmol/L (98-107); Glucose 90 mg/dL (74-99); Non-African American GFR(CKD) >90 (>60 ml/min/1.73 sqM); Potassium 3.8 mmol/L (3.5-5.1); Sodium 135 mmol/L (137-145)
[2020-08-04] MEDS: ASPIRIN 325 MG TAB PO SCH ×2 (09:02→21:54)
[2020-08-04] MEDS: MAGNESIUM OXIDE 400 MG TAB PO SCH (09:02)
[2020-08-04] MEDS: POTASSIUM CHLORIDE ER 10 MEQ TAB.ER.PRT PO SCH ×2 (09:02→21:51)
[2020-08-04] MEDS: RIVAROXABAN 10 MG TAB PO SCH (09:02)
[2020-08-04] MEDS: FUROSEMIDE 20 MG TAB PO SCH ×2 (09:02→21:49)
[2020-08-04] MEDS: DOCUSATE 100 MG CAP PO SCH ×2 (09:02→21:50)
[2020-08-04] MEDS: metFORMIN 500 MG TAB PO SCH ×2 (09:02→21:50)
[2020-08-04] MEDS: ATORVASTATIN 10 MG TAB PO SCH (09:02)
[2020-08-04] MEDS: methocarbamoL 500 MG TAB PO SCH ×4 (09:02→21:51)
[2020-08-04] MEDS: PREGABALIN 100 MG CAP PO SCH ×2 (09:02→21:50)
[2020-08-04] MEDS: NIFEdipine XL 30 MG TAB.ER.24 PO SCH (09:02)
[2020-08-04 11:00] LABS: Basophils # (A) 0.03 X 10*3/uL (0.00-0.10); Basophils % (A) 0.4 %; Eosinophils # (A) 0.27 X 10*3/uL (0.04-0.35); Eosinophils % (A) 3.3 %; HCT 27.8 % (39.6-50.0); HGB 7.9 g/dL (13.0-17.0); Lymphocytes # (A) 1.07 X 10*3/uL (0.90-5.00); Lymphocytes % (A) 12.9 %; MCHC 28.4 g/dL (32.0-37.0); MCV 80.8 fL (80.0-97.0); Mean Platelet Volume 9.9 fL (9.5-12.2); Monocytes # (A) 0.83 X 10*3/uL (0.20-1.00); Neutrophils # (A) 6.07 X 10*3/uL (1.80-7.70); Platelet Count 334 X 10*3/uL (140-440); RBC 3.44 X 10*6/uL (4.40-5.60); RDW 16.1 % (11.5-14.5)
--- NOTE | 2020-08-04 11:03 | P.PN ---
Subjective Progress Note Date: 08/04/20 This is a 75 year-old male who is status post irrigation and debridement with attempted stage 1 revision right total knee. This is post op day #3 and patient is seen and evaluated at bedside today. Patient states that he has occasional pain in the right knee with certain movements. Otherwise, patient denies any new complaints today. Objective - Vital Signs Vital signs: Vital Signs Temp 98.2 F 08/04/20 07:49 Pulse 63 08/04/20 07:49 Resp 15 08/04/20 07:49 BP 136/66 08/04/20 07:49 Pulse Ox 94 L 08/04/20 07:49 Intake & Output 08/03/20 08/04/20 08/04/20 18:59 06:59 18:59 Output Total 1600 700 175 Balance -1600 -700 -175 Output: Urine 1600 700 175 Other: Voiding Method Urinal # Voids 1 - Exam Vital signs are stable. Patient is in no acute distress and is alert and oriented 3. Calf is soft and nontender to palpation. Dressing is intact with mild sanguineous drainage present. Patient has full foot and ankle motion without pain or difficulty. There is chronic edema of the right lower extremity. Sensation intact. Neurovascular status and circulatory status are intact. - Labs CBC & Chem 7: 08/04/20 06:46 08/04/20 06:46 Labs: Abnormal Lab Results - Last 24 Hours (Table) 08/03/20 08/03/20 08/04/20 Range/Units 11:42 20:26 06:46 Sodium 135 L (137-145) mmol/L Carbon Dioxide 31 H (22-30) mmol/L Creatinine 0.57 L (0.66-1.25) mg/dL POC Glucose (mg/dL) 108 H 107 H (75-99) mg/dL C-Reactive Protein 7.4 H (<1.0) mg/dL Microbiology - Last 24 Hours (Table) 08/01/20 15:00 Anaerobic Culture - Preliminary Knee - Right 08/01/20 17:00 Anaerobic Culture - Preliminary Knee - Right 08/01/20 15:00 Gram Stain - Final Knee - Right Wound Culture - Final 08/01/20 17:00 Gram Stain - Final Knee - Right Wound Culture - Final 08/02/20 09:45 Blood Culture - Preliminary Blood No Growth after 24 hours 08/02/20 08:55 Blood Culture - Preliminary Blood No Growth after 24 hours Assessment and Plan (1) Infection of total right knee replacement Current Visit: Yes Status: Acute Code(s): T84.53XA - INFECT/INFLM REACTION DUE TO INTERNAL R KNEE PROSTH, INIT SNOMED Code(s): 349811285 (2) Right knee pain Current Visit: No Status: Acute Code(s): M25.561 - PAIN IN RIGHT KNEE SNOMED Code(s): 4626430066 Plan: 1. Continue routine postoperative care and pain control. Patient remains well- appearing with stable labs and vitals signs. 2. Cultures are negative so far. Antibiotics per infectious disease. 3. Physical therapy for mobilization. 4. It was discussed with the patient and his family that Juan M likely needs an [id number] amputation as the next phase of treatment as his hardware is unable to be removed without risk of causing more damage to his bone. The patient and his family do not wish to pursue amputation at this time. Recommend continued treatment with antibiotics to suppress infection. 5. Anticipate discharge to rehab in the next 24 hours.
[2020-08-04 11:33] LABS: Glucose,Whole Blood 104 mg/dL (75-99)
--- NOTE | 2020-08-04 12:57 | P.PN ---
Progress Note - Text Progress Note Date: 08/04/20 - Chief Complaint Right knee pain - History of Present Illness Consultation: This is a pleasant 75-year-old patient who follows with visiting physicians Dr. Adkins. Chronic stable medical conditions include congestive heart failure, diabetes, heart of hearing, hypertension, cerebral palsy. And a baseline uses a wheelchair. Had a history of infected right knee often planned. Patient lives of this brother Mario Alberto was also the medical POA. 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 His had prior indication debridement with antibiotic beads and suppressive antibiotics. And has had continued to have drainage and active infection. Patient has failed nonsurgical treatment. Patient underwent indication and debridement right total knee with attempted stage I revision right total knee arthroplasty. The components were well fixed and was unable to be removed. Has decision was made to proceed with aggressive medication and debridement of the components. Dr. Smith team discussed with the patient's family as an option being right above-knee amputation as the heart rate cannot be removed. At this point the family does not want the same. Today: Sitting up in a chair. Comfortable. Oral intake good. Some pain in the right knee. Review of systems: Was done for constitutional, cardiovascular, GI, pulmonary. relevant finding as above Active Medications Hydrocodone Bitart/Acetaminophen (Hydrocodone/Apap 7.5-325mg 1 Each Tab) 1 each PO Q6H PRN PRN Reason: Pain Scale 1 to 5 Stop: 08/31/20 15:18 Last Admin: 08/01/20 21:17 Dose: 1 each Documented by: Hydrocodone Bitart/Acetaminophen (Hydrocodone/Apap 7.5-325mg 1 Each Tab) 2 each PO Q6H PRN PRN Reason: Pain Scale 6 to 10 Stop: 08/31/20 15:18 Last Admin: 08/04/20 06:21 Dose: 2 each Documented by: Aspirin (Aspirin 325 Mg Tab) 325 mg PO BID [facility] Stop: 08/31/20 21:01 Last Admin: 08/04/20 09:02 Dose: 325 mg Documented by: Atorvastatin Calcium (Atorvastatin 10 Mg Tab) 10 mg PO DAILY [facility] Last Admin: 08/04/20 09:02 Dose: 10 mg Documented by: Bisacodyl (Bisacodyl 10 Mg Supp) 10 mg RECTAL DAILY PRN PRN Reason: Constipation Stop: 08/31/20 15:16 Docusate Sodium (Docusate 100 Mg Cap) 100 mg PO BID [facility] Last Admin: 08/04/20 09:02 Dose: 100 mg Documented by: Furosemide (Furosemide 20 Mg Tab) 20 mg PO BID [facility] Last Admin: 08/04/20 09:02 Dose: 20 mg Documented by: Hydromorphone HCl (Hydromorphone 0.2 Mg/1 Ml Syringe) 0.2 mg IVP Q3HR PRN PRN Reason: Pain Scale 4 to 6 Stop: 08/31/20 15:16 Hydromorphone HCl (Hydromorphone 0.5 Mg/0.5 Ml Syringe) 0.125 mg IVP Q3HR PRN PRN Reason: Pain Scale 1 to 3 Stop: 08/31/20 15:16 Hydromorphone HCl (Hydromorphone 0.5 Mg/0.5 Ml Syringe) 0.5 mg IVP Q3HR PRN PRN Reason: Pain Scale 7 to 10 Stop: 08/31/20 15:16 Last Admin: 08/02/20 05:22 Dose: 0.5 mg Documented by: Vancomycin HCl 1,500 mg/ (Sodium Chloride) 250 mls @ 125 mls/hr IVPB Q8H [facility] Last Admin: 08/04/20 09:04 Dose: 125 mls/hr Documented by: Magnesium Hydroxide (Magnesium Hydroxide 2,400 Mg/10 Ml Cup) 2,400 mg PO DAILY PRN PRN Reason: Constipation Stop: 08/31/20 15:16 Magnesium Oxide (Magnesium Oxide 400 Mg Tab) 400 mg PO DAILY [facility] Last Admin: 08/04/20 09:02 Dose: 400 mg Documented by: Metformin HCl (Metformin 500 Mg Tab) 500 mg PO BID [facility] Last Admin: 08/04/20 09:02 Dose: 500 mg Documented by: Methocarbamol (Methocarbamol 500 Mg Tab) 1,000 mg PO QID [facility] Last Admin: 08/04/20 09:02 Dose: 1,000 mg Documented by: Miscellaneous Information (Vancomycin Trough Due 1 Each Misc) 0 each MISCELLANE DIRECTED ONE Stop: 08/05/20 08:01 Naloxone HCl (Naloxone 0.4 Mg/Ml 1 Ml Vial) 0.2 mg IV Q2M PRN PRN Reason: Opioid Reversal Stop: 08/31/20 15:16 Nifedipine (Nifedipine Xl 30 Mg Tab.Er.24) 30 mg PO DAILY [facility] Last Admin: 08/04/20 09:02 Dose: 30 mg Documented by: Ondansetron HCl (Ondansetron 4 Mg/2 Ml Vial) 4 mg IVP Q8HR PRN PRN Reason: Nausea And Vomiting Stop: 08/31/20 15:16 Potassium Chloride (Potassium Chloride Er 10 Meq Tab.Er.Prt) 10 meq PO BID [facility] Last Admin: 08/04/20 09:02 Dose: 10 meq Documented by: Pregabalin (Pregabalin 100 Mg Cap) 100 mg PO BID [facility] Last Admin: 08/04/20 09:02 Dose: 100 mg Documented by: Rivaroxaban (Rivaroxaban 10 Mg Tab) 10 mg PO DAILY [facility] Last Admin: 08/04/20 09:02 Dose: 10 mg Documented by: Senna/Docusate Sodium (Sennosides-Docusate Sodium 1 Each Tab) 2 each PO HS [facility] Stop: 08/31/20 21:01 Last Admin: 08/03/20 20:01 Dose: 2 each Documented by: Sodium Biphosphate/Sodium Phosphate (Na Phos,M-B/Na Phos,Di-Ba 133 Ml Enema) 133 ml RECTAL DAILY PRN PRN Reason: Constipation Stop: 08/31/20 15:16 Past medical history to include: Chronic congestive heart failure from diastolic dysfunction EF 55-60%, diabetes mellitus, hard of hearing, hypertension, ostomy arthritis, cerebral palsy, chronic gait dysfunction uses a wheelchair, cognitive impairment Social history: No history of smoking and alcohol. Lives with his brother Susan who is also the 20 POA. Family history: Reviewed, noncontributory to presentation Physical examination: VITAL SIGNS: 98.2, 63, 15, 136/66, 94% room air GENERAL:, Sitting up in a chair, comfortable EYES: Pupils equal. Conjunctiva normal. HEENT: External appearance of nose and ears normal, oral cavity grossly normal decreased hearing. NECK: JVD not raised; masses not palpable. HEART: First and second heart sounds are normal; no edema. LUNGS: Respiratory rate normal; clear to auscultation. ABDOMEN: Soft, nontender, liver spleen not palpable, no masses palpable. PSYCH: Awake able to answer simple questions. NEUROLOGICAL: [Cranial nerves grossly intact; no facial asymmetry, decreased bowel in the lower extremities EXTREMITIES: Swelling/edema of the lower extremity. Incision on the right knee with a dressing in place INVESTIGATIONS, reviewed in the clinical context: August 04: WBC 8.3 hemoglobin 7.9 potassium 3.8 creatinine 0.57 CRP 7.4 INR 9 TIBC 237% saturation 3.8, ferritin 295 August 03: Creatinine 0.5 to. 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 Status post deep irrigation and debridement, and hardware could not be removed.. Patient was offered right above-knee amputation and patient's family has declined the same for now. Cultures are pending. IV vancomycin per ID. -Obesity BMI 32.1 Weight loss measures and follow-up with PCP -Chronic congestive heart failure from diastolic dysfunction EF 55-60% Follow clinically and fluid status. Continue with Lasix -Diabetes mellitus type 2, on oral hypoglycemic Follow Accu-Cheks, continue Glucophage -Peripheral neuropathy Continue with Lyrica -Essential hypertension Continue with nifedipine ER -Hyperlipidemia Continue with Lipitor -Chronic gait dysfunction, at her baseline uses a wheelchair Fall precautions -Microcytic anemia Iron deficiency anemia. Give IV iron. -DVT prophylaxis Xarelto 10 mg a day Continue current medication treatment plan. Give IV iron Thank you Dr. Smith
[2020-08-04] MEDS: SODIUM FERRIC GLUCONAT-SUCROSE 125 MG in SODIUM CHLORIDE 0.9% 100 ML IVPB SCH (14:26)
[2020-08-04 14:53] LABS: Erythrocyte Sedimentation Rate 73 mm/Hr (0-20)
[2020-08-04 16:59] LABS: Glucose,Whole Blood 98 mg/dL (75-99)
--- NOTE | 2020-08-04 17:48 | PN ---
PROGRESS NOTE DATE OF SERVICE: 08/04/2020 REASON FOR FOLLOWUP: Right knee septic arthritis. INTERVAL HISTORY: The patient is afebrile. Pain to the right knee slightly decreased. Denies any chest pain, shortness of breath. Occasional cough. No abdominal pain or diarrhea. PHYSICAL EXAMINATION: Blood pressure is 146/73 with a pulse of 73, temperature 98.2. He is 98% on room air. General description: The patient is an elderly male lying in bed in no distress. Respiratory system: Unlabored breathing, clear to auscultation anteriorly. Heart S1, S2. Regular rate and rhythm. Abdomen: Soft. Right knee is currently dressed up. LABS: Hemoglobin 7.4, white count 8.2, BUN of 12, creatinine 0.57. Cultures so far negative. DIAGNOSTIC IMPRESSION AND PLAN: Patient with right knee septic arthritis with attempted removal of the hardware removed. The patient is status post washout. Cultures are pending. Currently covered with vancomycin with positive cultures and continue supportive care. MMODL / IJN: [id number] /
[2020-08-04 20:52] LABS: Glucose,Whole Blood 123 mg/dL (75-99)
[2020-08-04] MEDS: SENNOSIDES-DOCUSATE SODIUM 1 EACH TAB PO SCH (21:49)
[2020-08-05] MEDS: VANCOMYCIN 1,500 MG in SODIUM CHLORIDE 0.9% 250 ML IVPB SCH ×2 (01:38→11:06)
[2020-08-05] MEDS ORDERED: VANCOMYCIN TROUGH DUE 1 EACH MISC MISCELLANE ONE (08:00)
[2020-08-05 08:11] LABS: Glucose,Whole Blood 98 mg/dL (75-99)
[2020-08-05] MEDS: MAGNESIUM OXIDE 400 MG TAB PO SCH (08:46)
[2020-08-05] MEDS: POTASSIUM CHLORIDE ER 10 MEQ TAB.ER.PRT PO SCH ×2 (08:46→20:42)
[2020-08-05] MEDS: ATORVASTATIN 10 MG TAB PO SCH (08:46)
[2020-08-05] MEDS: FUROSEMIDE 20 MG TAB PO SCH ×2 (08:46→20:42)
[2020-08-05] MEDS: methocarbamoL 500 MG TAB PO SCH ×4 (08:46→20:42)
[2020-08-05] MEDS: DOCUSATE 100 MG CAP PO SCH ×2 (08:47→20:42)
[2020-08-05] MEDS: PREGABALIN 100 MG CAP PO SCH ×2 (08:47→20:42)
[2020-08-05] MEDS: RIVAROXABAN 10 MG TAB PO SCH (08:47)
[2020-08-05] MEDS: metFORMIN 500 MG TAB PO SCH ×2 (08:47→20:42)
[2020-08-05] MEDS: ASPIRIN 325 MG TAB PO SCH ×2 (08:47→20:42)
[2020-08-05] MEDS: NIFEdipine XL 30 MG TAB.ER.24 PO SCH (08:47)
[2020-08-05] MEDS: HYDROcodone/APAP 7.5-325MG 1 EACH TAB PO PRN (08:54)
[2020-08-05] MEDS: SODIUM FERRIC GLUCONAT-SUCROSE 125 MG in SODIUM CHLORIDE 0.9% 100 ML IVPB SCH (09:26)
[2020-08-05 11:35] LABS: Glucose,Whole Blood 132 mg/dL (75-99)
--- NOTE | 2020-08-05 15:35 | P.PN ---
Progress Note - Text Progress Note Date: 08/05/20 - Chief Complaint Right knee pain Consultation: This is a pleasant 75-year-old patient who follows with visiting physicians Dr. Adkins. Chronic stable medical conditions include congestive heart failure, diabetes, heart of hearing, hypertension, cerebral palsy. And a baseline uses a wheelchair. Had a history of infected right knee often planned. Patient lives of this brother Mario Alberto was also the medical POA. 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 His had prior indication debridement with antibiotic beads and suppressive antibiotics. And has had continued to have drainage and active infection. Patient has failed nonsurgical treatment. Patient underwent indication and debridement right total knee with attempted stage I revision right total knee arthroplasty. The components were well fixed and was unable to be removed. Has decision was made to proceed with aggressive medication and debridement of the components. Dr. Smith team discussed with the patient's family as an option being right above-knee amputation as the heart rate cannot be removed. At this point the family does not want the same. Found to have iron deficiency anemia. IV Ferrlecit given-3 doses of 125 mg each Today: Eating all his meals. Right knee dressing. Laying in bed. Some right knee discomfort. Review of systems: Was done for constitutional, cardiovascular, GI, pulmonary. relevant finding as above Active Medications Hydrocodone Bitart/Acetaminophen (Hydrocodone/Apap 7.5-325mg 1 Each Tab) 1 each PO Q6H PRN PRN Reason: Pain Scale 1 to 5 Stop: 08/31/20 15:18 Last Admin: 08/01/20 21:17 Dose: 1 each Documented by: Hydrocodone Bitart/Acetaminophen (Hydrocodone/Apap 7.5-325mg 1 Each Tab) 2 each PO Q6H PRN PRN Reason: Pain Scale 6 to 10 Stop: 08/31/20 15:18 Last Admin: 08/05/20 08:54 Dose: 2 each Documented by: Aspirin (Aspirin 325 Mg Tab) 325 mg PO BID [facility] Stop: 08/31/20 21:01 Last Admin: 08/05/20 08:47 Dose: 325 mg Documented by: Atorvastatin Calcium (Atorvastatin 10 Mg Tab) 10 mg PO DAILY [facility] Last Admin: 08/05/20 08:46 Dose: 10 mg Documented by: Bisacodyl (Bisacodyl 10 Mg Supp) 10 mg RECTAL DAILY PRN PRN Reason: Constipation Stop: 08/31/20 15:16 Docusate Sodium (Docusate 100 Mg Cap) 100 mg PO BID [facility] Last Admin: 08/05/20 08:47 Dose: 100 mg Documented by: Furosemide (Furosemide 20 Mg Tab) 20 mg PO BID [facility] Last Admin: 08/05/20 08:46 Dose: 20 mg Documented by: Hydromorphone HCl (Hydromorphone 0.2 Mg/1 Ml Syringe) 0.2 mg IVP Q3HR PRN PRN Reason: Pain Scale 4 to 6 Stop: 08/31/20 15:16 Hydromorphone HCl (Hydromorphone 0.5 Mg/0.5 Ml Syringe) 0.125 mg IVP Q3HR PRN PRN Reason: Pain Scale 1 to 3 Stop: 08/31/20 15:16 Hydromorphone HCl (Hydromorphone 0.5 Mg/0.5 Ml Syringe) 0.5 mg IVP Q3HR PRN PRN Reason: Pain Scale 7 to 10 Stop: 08/31/20 15:16 Last Admin: 08/02/20 05:22 Dose: 0.5 mg Documented by: Ferric Sodium Gluconate 125 mg (/ Sodium Chloride) 110 mls @ 100 mls/hr IVPB DAILY [facility] Last Admin: 08/05/20 09:26 Dose: 100 mls/hr Documented by: Vancomycin HCl 1,250 mg/ (Sodium Chloride) 250 mls @ 125 mls/hr IVPB Q8H [facility] Magnesium Hydroxide (Magnesium Hydroxide 2,400 Mg/10 Ml Cup) 2,400 mg PO DAILY PRN PRN Reason: Constipation Stop: 08/31/20 15:16 Magnesium Oxide (Magnesium Oxide 400 Mg Tab) 400 mg PO DAILY [facility] Last Admin: 08/05/20 08:46 Dose: 400 mg Documented by: Metformin HCl (Metformin 500 Mg Tab) 500 mg PO BID [facility] Last Admin: 08/05/20 08:47 Dose: 500 mg Documented by: Methocarbamol (Methocarbamol 500 Mg Tab) 1,000 mg PO QID [facility] Last Admin: 08/05/20 12:52 Dose: 1,000 mg Documented by: Naloxone HCl (Naloxone 0.4 Mg/Ml 1 Ml Vial) 0.2 mg IV Q2M PRN PRN Reason: Opioid Reversal Stop: 08/31/20 15:16 Nifedipine (Nifedipine Xl 30 Mg Tab.Er.24) 30 mg PO DAILY [facility] Last Admin: 08/05/20 08:47 Dose: 30 mg Documented by: Ondansetron HCl (Ondansetron 4 Mg/2 Ml Vial) 4 mg IVP Q8HR PRN PRN Reason: Nausea And Vomiting Stop: 08/31/20 15:16 Potassium Chloride (Potassium Chloride Er 10 Meq Tab.Er.Prt) 10 meq PO BID [facility] Last Admin: 08/05/20 08:46 Dose: 10 meq Documented by: Pregabalin (Pregabalin 100 Mg Cap) 100 mg PO BID [facility] Last Admin: 08/05/20 08:47 Dose: 100 mg Documented by: Rivaroxaban (Rivaroxaban 10 Mg Tab) 10 mg PO DAILY [facility] Last Admin: 08/05/20 08:47 Dose: 10 mg Documented by: Senna/Docusate Sodium (Sennosides-Docusate Sodium 1 Each Tab) 2 each PO HS [facility] Stop: 08/31/20 21:01 Last Admin: 08/04/20 21:49 Dose: 2 each Documented by: Sodium Biphosphate/Sodium Phosphate (Na Phos,M-B/Na Phos,Di-Ba 133 Ml Enema) 133 ml RECTAL DAILY PRN PRN Reason: Constipation Stop: 08/31/20 15:16 Past medical history to include: Chronic congestive heart failure from diastolic dysfunction EF 55-60%, diabetes mellitus, hard of hearing, hypertension, osteoarthritis, cerebral palsy, chronic gait dysfunction uses a wheelchair, cognitive impairment Social history: No history of smoking and alcohol. Lives with his brother Susan who is also the 20 POA. Family history: Reviewed, noncontributory to presentation Physical examination: VITAL SIGNS: 98.3, 68, 17, 107/63, 95% room air GENERAL:, Laying in bed comfortable EYES: Pupils equal. Conjunctiva normal. HEENT: External appearance of nose and ears normal, oral cavity grossly normal decreased hearing. NECK: JVD not raised; masses not palpable. HEART: First and second heart sounds are normal; no edema. LUNGS: Respiratory rate normal; clear to auscultation. ABDOMEN: Soft, nontender, liver spleen not palpable, no masses palpable. PSYCH: Awake able to answer simple questions. NEUROLOGICAL: [Cranial nerves grossly intact; no facial asymmetry, decreased bowel in the lower extremities EXTREMITIES: Swelling/edema of the lower extremity. Incision on the right knee with a dressing in place INVESTIGATIONS, reviewed in the clinical context: August 04: WBC 8.3 hemoglobin 7.9 potassium 3.8 creatinine 0.57 CRP 7.4 INR 9 TIBC 237% saturation 3.8, ferritin 295 August 03: Creatinine 0.5 to. 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 Status post deep irrigation and debridement, and hardware could not be removed.. Patient was offered right above-knee amputation and patient's family has declined the same for now. Cultures -negative. IV vancomycin -Obesity BMI 32.1 Weight loss measures and follow-up with PCP -Chronic congestive heart failure from diastolic dysfunction EF 55-60% Follow clinically and fluid status. Continue with Lasix -Diabetes mellitus type 2, on oral hypoglycemic Follow Accu-Cheks, continue Glucophage -Peripheral neuropathy Continue with Lyrica -Essential hypertension Continue with nifedipine ER -Hyperlipidemia Continue with Lipitor -Chronic gait dysfunction, at her baseline uses a wheelchair Fall precautions -Microcytic anemia Iron deficiency anemia. Give IV iron. -DVT prophylaxis Xarelto 10 mg a day Continue with IV iron. Other medications to continue. Thank you Dr. Smith
--- NOTE | 2020-08-05 16:17 | P.PN ---
Subjective Progress Note Date: 08/05/20 Principal diagnosis: S/P Right TKA This is a 75 year-old male who is status post irrigation and debridement with attempted stage 1 revision right total knee. This is post op day #4 and patient is seen and evaluated at bedside today. Patient states that he has occasional pain in the right knee with certain movements. Otherwise, patient denies any new complaints today including fever, chills, chest pain, calf pain or chest pain. Objective - Vital Signs Vital signs: Vital Signs Temp 98.3 F 08/05/20 14:30 Pulse 62 08/05/20 14:30 Resp 18 08/05/20 14:30 BP 128/64 08/05/20 14:30 Pulse Ox 97 08/05/20 14:30 Intake & Output 08/04/20 08/05/20 08/05/20 18:59 06:59 18:59 Intake Total 600 240 Output Total 925 2000 950 Balance -325 -2000 -710 Weight 98 kg Intake: Intake, IV Titration 100 Amount Sodium Ferric Gluconat- 100 Sucrose 125 mg In Sodium Chloride 0.9% 100 ml @ 100 mls/hr IVPB DAILY [facility] Rx#:[id number] Oral 500 240 Output: Urine 925 2000 950 Other: Voiding Method Urinal Urinal # Voids 4 2 - Exam Inspection reveals bandage intact with no evidence of active bleeding or drainage. Neurovascular status is intact throughout the lower extremity with motor and sensation fully intact. Calf is soft and nontender. 2+ dorsalis pedis pulse and less than 2 second cap refill is present. - Constitutional General appearance: Present: no acute distress - Labs CBC & Chem 7: 08/04/20 06:46 08/04/20 06:46 Labs: Abnormal Lab Results - Last 24 Hours (Table) 08/04/20 08/05/20 Range/Units 20:50 11:34 POC Glucose (mg/dL) 123 H 132 H (75-99) mg/dL Microbiology - Last 24 Hours (Table) 08/01/20 17:00 Anaerobic Culture - Final Knee - Right 08/01/20 15:00 Anaerobic Culture - Final Knee - Right 08/02/20 09:45 Blood Culture - Preliminary Blood No Growth after 72 hours 08/02/20 08:55 Blood Culture - Preliminary Blood No Growth after 72 hours Assessment and Plan (1) Infection of total right knee replacement Narrative/Plan: 1. Continue routine postoperative care and pain control. Patient remains well- appearing with stable labs and vitals signs. 2. Cultures are negative so far. Antibiotics per infectious disease. 3. Physical therapy for mobilization. 4. It was discussed with the patient and his family that Juan M likely needs an [id number] amputation as the next phase of treatment as his hardware is unable to be removed without risk of causing more damage to his bone. The patient and his family do not wish to pursue amputation at this time. Recommend continued treatment with antibiotics to suppress infection. 5. Anticipate discharge to rehab 08/07/2020. Current Visit: Yes Status: Acute Code(s): T84.53XA - INFECT/INFLM REACTION DUE TO INTERNAL R KNEE PROSTH, INIT SNOMED Code(s): 225907368 (2) Status post right knee replacement Current Visit: No Status: Acute Code(s): Z96.651 - PRESENCE OF RIGHT ARTIFICIAL KNEE JOINT SNOMED Code(s): 9163605172140 Time with Patient: Less than 30
[2020-08-05] MEDS ORDERED: VANCOMYCIN 1,250 MG in SODIUM CHLORIDE 0.9% 250 ML IVPB SCH (19:00)
[2020-08-05 20:22] LABS: Glucose,Whole Blood 121 mg/dL (75-99)
[2020-08-05] MEDS: SENNOSIDES-DOCUSATE SODIUM 1 EACH TAB PO SCH (20:42)
--- NOTE | 2020-08-06 00:10 | PN ---
PROGRESS NOTE DATE OF SERVICE: 08/05/2020 REASON FOR FOLLOWUP: Right knee septic arthritis. INTERVAL HISTORY: Patient is currently afebrile. He is breathing comfortably. Pain to the right knee is currently controlled. No chest pain. No cough. No abdominal pain or diarrhea. PHYSICAL EXAMINATION: Blood pressure is 132/61, pulse of 72, temperature 98.3. He is 99% on room air. General description: The patient is an elderly male lying in bed in no distress. Respiratory system: Unlabored breathing clear to auscultation anteriorly. Heart S1, S2. Regular rate and rhythm. Abdomen soft, no tenderness. The right leg is currently dressed up. No obvious drainage on the dressing. LABS: No new labs have been obtained today. Cultures remains to be negative. DIAGNOSTIC IMPRESSION AND PLAN: Patient with right knee septic arthritis with field attempted original stage I and D. Patient has been advised positive amputation. The patient is currently refusing with the culture negative for resistant pathogen and high risk of nephrotoxicity. We will discontinue vancomycin and adjust antibiotic to Rocephin 2 grams daily. Repeat inflammatory markers tomorrow and continue supportive care. MMODL / IJN: [id number] /
[2020-08-06] MEDS: HYDROcodone/APAP 7.5-325MG 1 EACH TAB PO PRN ×3 (01:28→15:57)
[2020-08-06] MEDS: FUROSEMIDE 20 MG TAB PO SCH ×2 (07:47→22:00)
[2020-08-06] MEDS: methocarbamoL 500 MG TAB PO SCH ×4 (07:47→22:00)
[2020-08-06] MEDS: ASPIRIN 325 MG TAB PO SCH ×2 (07:47→22:00)
[2020-08-06] MEDS: ATORVASTATIN 10 MG TAB PO SCH (07:47)
[2020-08-06] MEDS: POTASSIUM CHLORIDE ER 10 MEQ TAB.ER.PRT PO SCH ×2 (07:47→22:00)
[2020-08-06] MEDS: RIVAROXABAN 10 MG TAB PO SCH (07:47)
[2020-08-06] MEDS: DOCUSATE 100 MG CAP PO SCH ×2 (07:47→22:00)
[2020-08-06] MEDS: MAGNESIUM OXIDE 400 MG TAB PO SCH (07:48)
[2020-08-06] MEDS: NIFEdipine XL 30 MG TAB.ER.24 PO SCH (07:48)
[2020-08-06] MEDS: PREGABALIN 100 MG CAP PO SCH ×2 (07:48→22:00)
[2020-08-06] MEDS: metFORMIN 500 MG TAB PO SCH ×2 (07:48→22:00)
--- NOTE | 2020-08-06 09:12 | P.PN ---
Subjective Progress Note Date: 08/06/20 Principal diagnosis: S/P Right TKA Patient is a 75 year-old male seen at bedside this am. He is status post irrigation and debridement with attempted stage 1 revision right total knee. This is post op day #5. Patient states that he has occasional pain in the right knee with certain movements but currently controlled at rest. Patient denies any new complaints today including fever, chills, chest pain, calf pain, numbness or chest pain. Objective - Vital Signs Vital signs: Vital Signs Temp 98.5 F 08/06/20 07:31 Pulse 59 L 08/06/20 07:31 Resp 16 08/06/20 07:31 BP 128/61 08/06/20 07:31 Pulse Ox 96 08/06/20 07:31 Intake & Output 08/05/20 08/06/20 08/06/20 18:59 06:59 18:59 Intake Total 240 Output Total 1350 1100 Balance -1110 -1100 Weight 98 kg Intake: Oral 240 Output: Urine 1350 1100 Other: Voiding Method Urinal Urinal Urinal # Voids 2 - Exam Inspection reveals dry ABD bandage with no evidence of active bleeding or drainage. Neurovascular status is intact throughout the lower extremity with motor and sensation. Calf is soft and nontender. 2+ dorsalis pedis pulse and less than 2 second cap refill is present. - Constitutional General appearance: Present: no acute distress - Labs CBC & Chem 7: 08/04/20 06:46 08/04/20 06:46 Labs: Abnormal Lab Results - Last 24 Hours (Table) 08/05/20 08/05/20 Range/Units 11:34 20:21 POC Glucose (mg/dL) 132 H 121 H (75-99) mg/dL Microbiology - Last 24 Hours (Table) 08/01/20 17:00 Anaerobic Culture - Final Knee - Right 08/01/20 15:00 Anaerobic Culture - Final Knee - Right 08/02/20 09:45 Blood Culture - Preliminary Blood No Growth after 72 hours 08/02/20 08:55 Blood Culture - Preliminary Blood No Growth after 72 hours Assessment and Plan (1) Infection of total right knee replacement Narrative/Plan: 1. Continue routine postoperative care and pain control. Patient remains well- appearing with stable labs and vitals signs. 2. Cultures remain negative. Antibiotics per infectious disease which is changing to Rocephin. 3. Physical therapy for mobilization. 4. It was previously discussed with the patient and his family that Juan M likely needs an [id number] amputation as the next phase of treatment as his hardware is unable to be removed without risk of causing more damage to his bone. The patient and his family do not wish to pursue amputation at this time. Recommend continued treatment with antibiotics to suppress infection. 5. Anticipate discharge to rehab 08/07/2020. Current Visit: Yes Status: Acute Priority: Medium Code(s): T84.53XA - INFECT/INFLM REACTION DUE TO INTERNAL R KNEE PROSTH, INIT SNOMED Code(s): 603605791 (2) Status post right knee replacement Current Visit: No Status: Acute Code(s): Z96.651 - PRESENCE OF RIGHT ARTIFICIAL KNEE JOINT SNOMED Code(s): 7915608119007 Time with Patient: Less than 30
[2020-08-06] MEDS: SODIUM FERRIC GLUCONAT-SUCROSE 125 MG in SODIUM CHLORIDE 0.9% 100 ML IVPB SCH (09:18)
--- NOTE | 2020-08-06 20:24 | P.PN ---
Progress Note - Text Progress Note Date: 08/06/20 - Chief Complaint Right knee pain Consultation: This is a pleasant 75-year-old patient who follows with visiting physicians Dr. Adkins. Chronic stable medical conditions include congestive heart failure, diabetes, heart of hearing, hypertension, cerebral palsy. And a baseline uses a wheelchair. Had a history of infected right knee often planned. Patient lives of this brother Mario Alberto was also the medical POA. 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 His had prior indication debridement with antibiotic beads and suppressive antibiotics. And has had continued to have drainage and active infection. Patient has failed nonsurgical treatment. Patient underwent indication and debridement right total knee with attempted stage I revision right total knee arthroplasty. The components were well fixed and was unable to be removed. Has decision was made to proceed with aggressive medication and debridement of the components. Dr. Smith team discussed with the patient's family as an option being right above-knee amputation as the heart rate cannot be removed. At this point the family does not want the same. Found to have iron deficiency anemia. IV Ferrlecit given-3 doses of 125 mg each Today: sitting up in bed. Eating his lunch. Pain is fairly well controlled. Review of systems: Was done for constitutional, cardiovascular, GI, pulmonary. relevant finding as above Active Medications Hydrocodone Bitart/Acetaminophen (Hydrocodone/Apap 7.5-325mg 1 Each Tab) 1 each PO Q6H PRN PRN Reason: Pain Scale 1 to 5 Stop: 08/31/20 15:18 Last Admin: 08/01/20 21:17 Dose: 1 each Documented by: Hydrocodone Bitart/Acetaminophen (Hydrocodone/Apap 7.5-325mg 1 Each Tab) 2 each PO Q6H PRN PRN Reason: Pain Scale 6 to 10 Stop: 08/31/20 15:18 Last Admin: 08/06/20 15:57 Dose: 2 each Documented by: Aspirin (Aspirin 325 Mg Tab) 325 mg PO BID [facility] Stop: 08/31/20 21:01 Last Admin: 08/06/20 07:47 Dose: 325 mg Documented by: Atorvastatin Calcium (Atorvastatin 10 Mg Tab) 10 mg PO DAILY [facility] Last Admin: 08/06/20 07:47 Dose: 10 mg Documented by: Bisacodyl (Bisacodyl 10 Mg Supp) 10 mg RECTAL DAILY PRN PRN Reason: Constipation Stop: 08/31/20 15:16 Docusate Sodium (Docusate 100 Mg Cap) 100 mg PO BID [facility] Last Admin: 08/06/20 07:47 Dose: 100 mg Documented by: Furosemide (Furosemide 20 Mg Tab) 20 mg PO BID [facility] Last Admin: 08/06/20 07:47 Dose: 20 mg Documented by: Hydromorphone HCl (Hydromorphone 0.2 Mg/1 Ml Syringe) 0.2 mg IVP Q3HR PRN PRN Reason: Pain Scale 4 to 6 Stop: 08/31/20 15:16 Hydromorphone HCl (Hydromorphone 0.5 Mg/0.5 Ml Syringe) 0.125 mg IVP Q3HR PRN PRN Reason: Pain Scale 1 to 3 Stop: 08/31/20 15:16 Hydromorphone HCl (Hydromorphone 0.5 Mg/0.5 Ml Syringe) 0.5 mg IVP Q3HR PRN PRN Reason: Pain Scale 7 to 10 Stop: 08/31/20 15:16 Last Admin: 08/02/20 05:22 Dose: 0.5 mg Documented by: Ferric Sodium Gluconate 125 mg (/ Sodium Chloride) 110 mls @ 100 mls/hr IVPB DAILY [facility] Last Admin: 08/06/20 09:18 Dose: 100 mls/hr Documented by: Ceftriaxone Sodium 2 gm/ (Sodium Chloride) 50 mls @ 100 mls/hr IVPB Q24HR [facility] Last Admin: 08/06/20 07:46 Dose: 100 mls/hr Documented by: Magnesium Hydroxide (Magnesium Hydroxide 2,400 Mg/10 Ml Cup) 2,400 mg PO DAILY PRN PRN Reason: Constipation Stop: 08/31/20 15:16 Magnesium Oxide (Magnesium Oxide 400 Mg Tab) 400 mg PO DAILY [facility] Last Admin: 08/06/20 07:48 Dose: 400 mg Documented by: Metformin HCl (Metformin 500 Mg Tab) 500 mg PO BID [facility] Last Admin: 08/06/20 07:48 Dose: 500 mg Documented by: Methocarbamol (Methocarbamol 500 Mg Tab) 1,000 mg PO QID [facility] Last Admin: 08/06/20 17:23 Dose: 1,000 mg Documented by: Naloxone HCl (Naloxone 0.4 Mg/Ml 1 Ml Vial) 0.2 mg IV Q2M PRN PRN Reason: Opioid Reversal Stop: 08/31/20 15:16 Nifedipine (Nifedipine Xl 30 Mg Tab.Er.24) 30 mg PO DAILY [facility] Last Admin: 08/06/20 07:48 Dose: 30 mg Documented by: Ondansetron HCl (Ondansetron 4 Mg/2 Ml Vial) 4 mg IVP Q8HR PRN PRN Reason: Nausea And Vomiting Stop: 08/31/20 15:16 Potassium Chloride (Potassium Chloride Er 10 Meq Tab.Er.Prt) 10 meq PO BID [facility] Last Admin: 08/06/20 07:47 Dose: 10 meq Documented by: Pregabalin (Pregabalin 100 Mg Cap) 100 mg PO BID [facility] Last Admin: 08/06/20 07:48 Dose: 100 mg Documented by: Rivaroxaban (Rivaroxaban 10 Mg Tab) 10 mg PO DAILY [facility] Last Admin: 08/06/20 07:47 Dose: 10 mg Documented by: Senna/Docusate Sodium (Sennosides-Docusate Sodium 1 Each Tab) 2 each PO HS [facility] Stop: 08/31/20 21:01 Last Admin: 08/05/20 20:42 Dose: 2 each Documented by: Sodium Biphosphate/Sodium Phosphate (Na Phos,M-B/Na Phos,Di-Ba 133 Ml Enema) 133 ml RECTAL DAILY PRN PRN Reason: Constipation Stop: 08/31/20 15:16 Past medical history to include: Chronic congestive heart failure from diastolic dysfunction EF 55-60%, diabetes mellitus, hard of hearing, hypertension, osteoarthritis, cerebral palsy, chronic gait dysfunction uses a wheelchair, cognitive impairment Social history: No history of smoking and alcohol. Lives with his brother Susan who is also the 20 POA. Family history: Reviewed, noncontributory to presentation Physical examination: VITAL SIGNS: 98.5, 59, 16, 1 28 x 61, 96% room air GENERAL:, sitting up in bed, eating lunch EYES: Pupils equal. Conjunctiva normal. HEENT: External appearance of nose and ears normal, oral cavity grossly normal decreased hearing. NECK: JVD not raised; masses not palpable. HEART: First and second heart sounds are normal; no edema. LUNGS: Respiratory rate normal; clear to auscultation. ABDOMEN: Soft, nontender, liver spleen not palpable, no masses palpable. PSYCH: Awake able to answer simple questions. NEUROLOGICAL: Cranial nerves grossly intact; no facial asymmetry, decreased bowel in the lower extremities EXTREMITIES: dressing over the right leg INVESTIGATIONS, reviewed in the clinical context: August 06: ESR 85, CRP 5.5 August 04: WBC 8.3 hemoglobin 7.9 potassium 3.8 creatinine 0.57 CRP 7.4 INR 9 TIBC 237% saturation 3.8, ferritin 295 August 03: Creatinine 0.5 to. 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 Status post deep irrigation and debridement, and hardware could not be removed.. Patient was offered right above-knee amputation and patient's family has declined the same for now. Cultures -negative. IV vancomycin -Obesity BMI 32.1 Weight loss measures and follow-up with PCP -Chronic congestive heart failure from diastolic dysfunction EF 55-60% Follow clinically and fluid status. Continue with Lasix -Diabetes mellitus type 2, on oral hypoglycemic Follow Accu-Cheks, continue Glucophage -Peripheral neuropathy Continue with Lyrica -Essential hypertension Continue with nifedipine ER -Hyperlipidemia Continue with Lipitor -Chronic gait dysfunction, at her baseline uses a wheelchair Fall precautions -Microcytic anemia Iron deficiency anemia. Give IV iron. -DVT prophylaxis Xarelto 10 mg a day discussed with patient. Continue current medication treatment plan. Possibly going to [facility] tomorrow. Thank you Dr. Smith
[2020-08-06] MEDS: SENNOSIDES-DOCUSATE SODIUM 1 EACH TAB PO SCH (22:00)
[2020-08-07] MEDS: HYDROcodone/APAP 7.5-325MG 1 EACH TAB PO PRN ×3 (02:58→16:03)
--- NOTE | 2020-08-07 06:04 | PN ---
PROGRESS NOTE DATE OF SERVICE: 08/06/2020 REASON FOR FOLLOWUP: Right knee septic arthritis. INTERVAL HISTORY: Patient is currently afebrile. He is breathing comfortably. No chest pain or cough. No abdominal pain. No worsening pain to the right knee. PHYSICAL EXAMINATION: VITAL SIGNS: Blood pressure 122/61 with a pulse of 59, temperature 98.5. He is 96% on room air. GENERAL DESCRIPTION: An elderly male lying in bed in no distress. RESPIRATORY SYSTEM: Unlabored breathing, clear to auscultation anteriorly. HEART: S1, S2. Regular rate and rhythm. ABDOMEN: Soft, no tenderness. EXTREMITIES: Right knee is currently dressed with minimal . LABS: Sedimentation rate of 85, CRP is 5.5. Cultures remain to be negative. DIAGNOSTIC IMPRESSION AND PLAN: Patient with right knee septic arthritis in this patient with failure to removal all of the infected hardware. The patient is refusing amputation. Suppressive antibiotic from Rocephin for a few weeks and close outpatient followup. Continue supportive care. MMODL / IJN: [id number] /
[2020-08-07 07:58] VITALS: PULSE 61
[2020-08-07] MEDS: RIVAROXABAN 10 MG TAB PO SCH (08:55)
[2020-08-07] MEDS: ATORVASTATIN 10 MG TAB PO SCH (08:55)
[2020-08-07] MEDS: PREGABALIN 100 MG CAP PO SCH (08:55)
[2020-08-07] MEDS: MAGNESIUM OXIDE 400 MG TAB PO SCH (08:55)
[2020-08-07] MEDS: FUROSEMIDE 20 MG TAB PO SCH (08:55)
[2020-08-07] MEDS: POTASSIUM CHLORIDE ER 10 MEQ TAB.ER.PRT PO SCH (08:55)
[2020-08-07] MEDS: ASPIRIN 325 MG TAB PO SCH (08:55)
[2020-08-07] MEDS: DOCUSATE 100 MG CAP PO SCH (08:55)
[2020-08-07] MEDS: metFORMIN 500 MG TAB PO SCH (08:55)
[2020-08-07] MEDS: methocarbamoL 500 MG TAB PO SCH ×2 (08:56→13:08)
[2020-08-07] MEDS: NIFEdipine XL 30 MG TAB.ER.24 PO SCH (08:56)
--- NOTE | 2020-08-07 09:16 | P.DS ---
Providers Date of admission: 08/04/20 13:28 Expected date of discharge: 08/07/20 Attending physician: Carl Smith Consults: 08/01/20 15:15 Consult Physician Routine Consulting Provider: Luis Rojas Consult Reason/Comments: medical management Do you want consulting provider notified?: Yes 08/01/20 15:19 Consult Physician Routine Consulting Provider: Farrah Craig Consult Reason/Comments: stage 1 revision Do you want consulting provider notified?: Yes Primary care physician: Bill Adkins MD - Discharge Diagnosis(es) (1) Infection of total right knee replacement Current Visit: Yes Status: Acute Priority: Medium (2) Right knee pain Current Visit: No Status: Acute Hospital Course: This is a 75-year-old male with known history of chronic infection of his right total knee arthroplasty. The patient presented for evaluation as an outpatient. After discussion and consideration patient elects to proceed with stage I revision right total knee arthroplasty. The patient is seen preoperatively by Dr. Smith and cleared for surgery. Patient is admitted to [facility] on 08/01/2020 and irrigation and debridement right total knee with attempted stage I revision right total knee arthroplasty was performed. The components were well fixed and unable to be removed. The patient is doing well postoperatively. Labs and vital signs are stable on day of discharge. Cultures are negative. Infectious disease is managing the patient's antibiotic treatment postoperatively. On day of discharge patient's knee incision is healing well. Patient has swelling to the right lower extremity. Patient has full foot and ankle motion without difficulty or pain. Neurovascular status to the right lower extremity is intact. Patient is discharged to rehabilitation in good condition. Please see med rec for accurate list of home medications. Plan - Discharge Summary Discharge Rx Participant: No New Discharge Prescriptions: New Aspirin 325 mg PO BID #60 tab Sennosides [Senokot] 2 tab PO DAILY PRN #60 tablet PRN Reason: Constipation HYDROcodone/APAP 7.5-325MG [[place] 7.5-325] 1 - 2 tab PO Q6H PRN #32 tab PRN Reason: Pain No Action metFORMIN HCL [Glucophage] 500 mg PO BID NIFEdipine [NIFEdipine ER] 30 mg PO DAILY Magnesium Oxide [Vu] 500 mg PO DAILY Docusate [Colace] 100 mg PO BID Potassium Chloride [Klor-Con 10] 10 meq PO BID Atorvastatin Calcium [Lipitor] 10 mg PO DAILY Furosemide [Lasix] 20 mg PO BID #60 tab Aspirin [Adult Low Dose Aspirin EC] 81 mg PO BID 30 Days #60 tablet. HYDROcodone/APAP 5-325MG [[place] 5-325] 1 - 2 tab PO Q6HR PRN #48 tab PRN Reason: Pain Pregabalin [Lyrica] 100 mg PO BID #6 cap Cephalexin [Keflex] 500 mg PO QID methocarbamoL [Robaxin] 1,000 mg PO QID Discharge Medication List Atorvastatin Calcium [Lipitor] 10 mg PO DAILY 03/11/19 [History] Docusate [Colace] 100 mg PO BID 03/11/19 [History] Magnesium Oxide [Vu] 500 mg PO DAILY 03/11/19 [History] NIFEdipine [NIFEdipine ER] 30 mg PO DAILY 03/11/19 [History] Potassium Chloride [Klor-Con 10] 10 meq PO BID 03/11/19 [History] metFORMIN HCL [Glucophage] 500 mg PO BID 03/11/19 [History] Furosemide [Lasix] 20 mg PO BID #60 tab 03/16/19 [Rx] Aspirin [Adult Low Dose Aspirin EC] 81 mg PO BID 30 Days #60 tablet. 10/25/19 [Rx] HYDROcodone/APAP 5-325MG [[place] 5-325] 1 - 2 tab PO Q6HR PRN #48 tab 10/25/19 [Rx] Pregabalin [Lyrica] 100 mg PO BID #6 cap 10/25/19 [Rx] Cephalexin [Keflex] 500 mg PO QID 07/26/20 [History] methocarbamoL [Robaxin] 1,000 mg PO QID 07/26/20 [History] Aspirin 325 mg PO BID #60 tab 08/01/20 [Rx] HYDROcodone/APAP 7.5-325MG [[place] 7.5-325] 1 - 2 tab PO Q6H PRN #32 tab 08/01/20 [Rx] Sennosides [Senokot] 2 tab PO DAILY PRN #60 tablet 08/01/20 [Rx] Follow up Appointment(s)/Referral(s): Kirit Fermin, [NON-STAFF] - As Needed Carl Smith DO [Doctor of Osteopathic Medicine] - 2 Weeks Activity/Diet/Wound Care/Special Instructions: Weightbearing as tolerated with a walker. Leave dressing intact. Dressing may be removed by home care nurse or by patient in 7 days. Then change dressing twice daily until follow up. May shower with optifoam dressing intact. If dressing become saturated, please remove. [place] to be removed in 10-14 days. Recommend use of compression stockings daily until follow up to help prevent swelling and blood clots. May remove at night before sleeping. Please take aspirin 325mg twice daily for 30 days to prevent blood clots. Please follow up with [facility] and call with any questions or concerns, . Discharge Disposition: TRANSFER TO SNF/ECF
[2020-08-07] MEDS: SODIUM FERRIC GLUCONAT-SUCROSE 125 MG in SODIUM CHLORIDE 0.9% 100 ML IVPB SCH (10:54)
[2020-08-07] MEDS ORDERED: LACTULOSE 20 GM/30 ML CUP PO ONE (11:30)
[2020-08-07] MEDS ORDERED: LIDOCAINE 1% INJ 10MG/ML (20 ML MDV) SQ ONE (14:42)
[2020-08-07 14:49] VITALS: BP 136/62; RESP 18; TEMP 97.9
--- NOTE | 2020-08-07 15:26 | PN ---
PROGRESS NOTE DATE OF SERVICE: 08/07/2020 REASON FOR FOLLOWUP: Right septic arthritis. INTERVAL HISTORY: The patient is afebrile. The patient is breathing comfortably. Pain to the right hip is currently controlled. Denies having any chest pain, shortness of breath or cough. No abdominal pain or diarrhea. PHYSICAL EXAMINATION: Blood pressure is 131/65 with a pulse of 61, temperature 98.7. He is 94% on room air. General description is an elderly male up in the bed in no distress. RESPIRATORY SYSTEM: Unlabored breathing. Clear to auscultation anteriorly. HEART: S1, S2. Regular rate and rhythm. ABDOMEN: Soft, no tenderness. Right knee is currently dressed, no obvious drainage on the dressing. LABS: Sed rate 85. CRP is 5.5. DIAGNOSTIC IMPRESSION AND PLAN: Patient with right knee septic arthritis unable to remove the hardware consider for therapy with no resistant pathogen. Antibiotic adjusted to Rocephin 2 grams daily. PICC line for 6 weeks of IV antibiotic and close outpatient followup. MMODL / IJN: [id number] /
--- NOTE | 2020-08-07 16:14 | IR ---
EXAMINATION TYPE: IR cvc insert >=5 years DATE OF EXAM: 08/07/2020 COMPARISON: NONE CLINICAL HISTORY: infection Needs long-term intravenous access for antibiotics. PROCEDURE: Hand hygiene obtained with soap and water and alcohol-based hand rub. After informed consent, the skin overlying the left basilic vein was localized with ultrasound and no jas to be compressible and patent. An ultrasound image was obtained and submitted on the patient's c marte. The overlying skin was prepped and draped and Lidocaine was used for local anesthesia. A skin viky was made with a scalpel. Access was gained to the vein under ultrasound guidance with a 21 gau ge needle and a 0.018 inch wire was advanced. Access site was dilated with Peel-Away sheath and cath eter tailored to the appropriate length and advanced such that the distal tip is at the cavoatrial ju nction. Spot image was obtained verifying placement. Catheter was fixed to the skin and a sterile d ressing was placed following hemostasis. Catheter was aspirated and flushed with saline. Patient wa s discharged in stable condition without complication. Maximal barrier technique is utilized. Ultras ound image is documented on the chart. Ultrasound used with sterile technique. Fluoro time and fluoroscopic images submitted to document procedure: 0.5 mins fluoro time, 106 intrao perative images document the procedure IMPRESSION: STATUS POST ULTRASOUND AND FLUOROSCOPIC GUIDED PICC LINE PLACEMENT, READY FOR USE. THIS PROCEDURE WAS PERFORMED BY THE UNDERSIGNED.
--- NOTE | 2020-08-07 19:43 | P.PN ---
Progress Note - Text Progress Note Date: 08/07/20 - Chief Complaint Right knee pain Consultation: This is a pleasant 75-year-old patient who follows with visiting physicians Dr. Adkins. Chronic stable medical conditions include congestive heart failure, diabetes, heart of hearing, hypertension, cerebral palsy. And a baseline uses a wheelchair. Had a history of infected right knee often planned. Patient lives of this brother Mario Alberto was also the medical POA. 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 His had prior indication debridement with antibiotic beads and suppressive antibiotics. And has had continued to have drainage and active infection. Patient has failed nonsurgical treatment. Patient underwent indication and debridement right total knee with attempted stage I revision right total knee arthroplasty. The components were well fixed and was unable to be removed. Has decision was made to proceed with aggressive medication and debridement of the components. Dr. Smith team discussed with the patient's family as an option being right above-knee amputation as the heart rate cannot be removed. At this point the family does not want the same. Found to have iron deficiency anemia. IV Ferrlecit given-3 doses of 125 mg each Today: Sitting up in the bed. Pain control. No new issues. Plan is for patient to go down to rehab today. For ID patient to get Rocephin 2 g daily through a PICC line for 6 weeks. Review of systems: Was done for constitutional, cardiovascular, GI, pulmonary. relevant finding as above Current medications reviewed in today's electronic records Past medical history to include: Chronic congestive heart failure from diastolic dysfunction EF 55-60%, diabetes mellitus, hard of hearing, hypertension, osteoarthritis, cerebral palsy, chronic gait dysfunction uses a wheelchair, cognitive impairment Social history: No history of smoking and alcohol. Lives with his brother Susan who is also the 20 POA. Family history: Reviewed, noncontributory to presentation Physical examination: VITAL SIGNS: 97.9, 61, 18, 1 36 x 62, 88% on room air GENERAL:, sitting up in bed, comfortable EYES: Pupils equal. Conjunctiva normal. HEENT: External appearance of nose and ears normal, oral cavity grossly normal decreased hearing. NECK: JVD not raised; masses not palpable. HEART: First and second heart sounds are normal; no edema. LUNGS: Respiratory rate normal; clear to auscultation. ABDOMEN: Soft, nontender, liver spleen not palpable, no masses palpable. PSYCH: Awake able to answer simple questions. NEUROLOGICAL: Cranial nerves grossly intact; no facial asymmetry, decreased power in the lower extremities EXTREMITIES: dressing over the right leg INVESTIGATIONS, reviewed in the clinical context: August 06: ESR 85, CRP 5.5 August 04: WBC 8.3 hemoglobin 7.9 potassium 3.8 creatinine 0.57 CRP 7.4 INR 9 TIBC 237% saturation 3.8, ferritin 295 August 03: Creatinine 0.5 to. 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 Status post deep irrigation and debridement, and hardware could not be removed.. Patient was offered right above-knee amputation and patient's family has declined the same for now. Cultures -negative. IV vancomycin-changed over to IV ceftriaxone to be taken for another 6 weeks. -Obesity BMI 32.1 Weight loss measures and follow-up with PCP -Chronic congestive heart failure from diastolic dysfunction EF 55-60% Follow clinically and fluid status. Continue with Lasix -Diabetes mellitus type 2, on oral hypoglycemic Follow Accu-Cheks, continue Glucophage -Peripheral neuropathy Continue with Lyrica -Essential hypertension Continue with nifedipine ER -Hyperlipidemia Continue with Lipitor -Chronic gait dysfunction, at her baseline uses a wheelchair Fall precautions -Microcytic anemia Iron deficiency anemia. Give IV iron. For further workup as an outpatient. -DVT prophylaxis On aspirin Continue current medications. Follow-up with PCP as an outpatient for iron deficiency anemia. Discussed with the patient. Going to inpatient rehab today. Thank you Dr. Smith
== END 2020-08-07 17:12 | DRG 464 ==
LOC: OR 14:07 → 4SSUR 17:48 → OR 08-04 13:28
PROVIDERS: ADMIT Orthopaedic Surgery; ATTEND Orthopaedic Surgery
PROC: 0SPC0JC Removal of Synthetic Substitute from Right Knee Joint, Patellar Surface, Open Approach (ICD-10-PCS; principal; 2020-08-01 15:50)
PROC: 3E0U029 Introduction of Other Anti-infective into Joints, Open Approach (ICD-10-PCS; principal; 2020-08-01 15:50)
PROC: 0SJC0ZZ Inspection of Right Knee Joint, Open Approach (ICD-10-PCS; principal; 2020-08-01 15:50)
PROC: 0QBD0ZZ Excision of Right Patella, Open Approach (ICD-10-PCS; principal; 2020-08-01 15:50)
PROC: 02HV33Z Insertion of Infusion Device into Superior Vena Cava, Percutaneous Approach (ICD-10-PCS; 2020-08-07)
DX: T84.53XA Infection and inflammatory reaction due to internal right knee prosthesis, initial encounter (principal); I50.32 Chronic diastolic (congestive) heart failure; M00.9 Pyogenic arthritis, unspecified; D50.9 Iron deficiency anemia, unspecified; E11.42 Type 2 diabetes mellitus with diabetic polyneuropathy; Z79.84 Long term (current) use of oral hypoglycemic drugs; E66.9 Obesity, unspecified; E78.5 Hyperlipidemia, unspecified; G80.9 Cerebral palsy, unspecified; H91.90 Unspecified hearing loss, unspecified ear; I11.0 Hypertensive heart disease with heart failure; Y83.1 Surgical operation with implant of artificial internal device as the cause of abnormal reaction of the patient, or of later complication, without mention of misadventure at the time of the procedure; R26.9 Unspecified abnormalities of gait and mobility; Z20.822 Contact with and (suspected) exposure to COVID-19; Z68.32 Body mass index [BMI] 32.0-32.9, adult; Z79.01 Long term (current) use of anticoagulants; Z79.82 Long term (current) use of aspirin; Z79.899 Other long term (current) drug therapy; Z88.1 Allergy status to other antibiotic agents; Z88.0 Allergy status to penicillin; Z88.8 Allergy status to other drugs, medicaments and biological substances; Z90.89 Acquired absence of other organs; Z90.49 Acquired absence of other specified parts of digestive tract
CPT/HCPCS: 36573; 80048; 80202; 82565; 82728; 83540; 83550; 85025; 85652; 86140; 87040; 87070; 87075; 87205; 87635

== ENCOUNTER 2021-02-23 23:02 | Emergency (ER) | payer MEDICARE, OTHER ==
[2021-02-23 23:13] VITALS: TEMP 97.9
[2021-02-24 00:46] LABS: Anisocytosis Slight; Basophils % (A) 1 %; Eosinophils # (A) 0.3 k/uL (0-0.7); Eosinophils % (A) 4 %; HCT 33.4 % (39.0-53.0); HGB 10.1 gm/dL (13.0-17.5); Hypochromasia Marked; Lymphocytes # (A) 0.9 k/uL (1.0-4.8); Lymphocytes % (A) 11 %; MCH 24.6 pg (25.0-35.0); MCHC 30.3 g/dL (31.0-37.0); MCV 81.4 fL (80.0-100.0); Mean Platelet Volume 7.5; Monocytes # (A) 0.6 k/uL (0-1.0); Monocytes % (A) 8 %; Neutrophils # (A) 6.3 k/uL (1.3-7.7); Neutrophils % (A) 75 %; Platelet Count 299 k/uL (150-450); RDW 16.2 % (11.5-15.5); WBC 8.4 k/uL (3.8-10.6)
[2021-02-24 01:00] LABS: ALT 12 U/L (4-49); AST 22 U/L (17-59); African American GFR (CKD) >90 (>60 ml/min/1.73 sqM); Albumin 3.3 g/dL (3.5-5.0); Alkaline Phosphatase 104 U/L (38-126); Anion Gap 11 mmol/L; Blood Urea Nitrogen 24 mg/dL (9-20); Calcium 8.8 mg/dL (8.4-10.2); Carbon Dioxide 28 mmol/L (22-30); Chloride 98 mmol/L (98-107); Glucose 117 mg/dL (74-99); Magnesium 1.9 mg/dL (1.6-2.3); Non-African American GFR(CKD) >90 (>60 ml/min/1.73 sqM); Potassium 3.8 mmol/L (3.5-5.1); Sodium 137 mmol/L (137-145); Total Bilirubin 0.3 mg/dL (0.2-1.3); Total Protein 6.3 g/dL (6.3-8.2)
--- NOTE | 2021-02-24 03:42 | ED ---
Extremity Problem HPI - General Chief complaint: Extremity Problem,Nontraumatic Stated complaint: Leg Wound Time Seen by Provider: 02/24/21 00:19 Source: patient, EMS Mode of arrival: EMS Limitations: no limitations - History of Present Illness Initial comments: 75 year-old male patient presents to the emergency department for bleeding from right knee wound. Patient states for the last several months he has had swelling to the bilateral lower extremities. Wounds over the right leg. States he is on antibiotics at home, he is unsure which one. States that he is unable walk and has been bed bound for the last 2 months. States that he has been seen by ortho and does have a visiting physician. Denies any fever or chills. States he is eating well. Does take his lasix as directed. Eating and drinking without difficulty. - Related Data Home Medications Medication Instructions Recorded Confirmed Atorvastatin Calcium [Lipitor] 10 mg PO DAILY 03/11/19 07/26/20 NIFEdipine [NIFEdipine ER] 30 mg PO DAILY 03/11/19 07/26/20 Potassium Chloride [Klor-Con 10 ER] 10 meq PO BID 03/11/19 07/26/20 metFORMIN HCL [Glucophage] 500 mg PO BID 03/11/19 07/26/20 methocarbamoL [Robaxin] 1,000 mg PO QID 07/26/20 07/26/20 Previous Rx's Medication Instructions Recorded Furosemide [Lasix] 20 mg PO BID #60 tab 03/16/19 Pregabalin [Lyrica] 100 mg PO BID #6 cap 10/25/19 Aspirin 325 mg PO BID #60 tab 08/01/20 HYDROcodone/APAP 7.5-325MG [[place] 1 - 2 tab PO Q6H PRN #32 tab 08/01/20 7.5-325] Sennosides [Senokot] 2 tab PO DAILY PRN #60 tablet 08/01/20 Psyllium Husk (with Sugar) 0 gm PO DAILY #1 gm 08/07/20 [Metamucil Powder] Sennosides-Docusate Sodium 2 each PO HS tab 08/07/20 [Senokot-S] cefTRIAXone [Rocephin] 2,000 mg IVP Q24HR #42 vial 08/07/20 Allergies Allergy/AdvReac Type Severity Reaction Status Date / Time acyclovir Allergy Unknown Verified 08/01/20 14:23 amoxicillin [From Augmentin] Allergy Unknown Verified 08/01/20 14:23 ciprofloxacin [From Cipro] Allergy Unknown Verified 08/01/20 14:23 ciprofloxacin HCl Allergy Unknown Verified 08/01/20 14:23 [From Cipro] clavulanic acid Allergy Unknown Verified 08/01/20 14:23 [From Augmentin] latex Allergy Unknown Verified 08/01/20 14:23 Latex, Natural Rubber Allergy Unknown Verified 08/01/20 14:23 levofloxacin [From Levaquin] Allergy Unknown Verified 08/01/20 14:23 Macrolide Antibiotics Allergy Unknown Verified 08/01/20 14:23 Review of Systems ROS Statement: Those systems with pertinent positive or pertinent negative responses have been documented in the HPI. ROS Other: All systems not noted in ROS Statement are negative. Past Medical History Past Medical History: Diabetes Mellitus, Hearing Disorder / Deafness, Hypert ension Additional Past Medical History / Comment(s): hx of cerebral palsey with surgery on legs- cannot straighten legs, uses a walker but is mostly in the wheelchair now., cellulitis feet., dry skin, pain in back, shoulders and right knee., right knee red and swollen., Pt lives in apartment by his brother (Mario Alberto)., hx obtained from Mario Alberto- pt [place] and lost hearing aids. History of Any Multi-Drug Resistant Organisms: None Reported Past Surgical History: Appendectomy, Cholecystectomy, Joint Replacement, Orthopedic Surgery, Tonsillectomy Additional Past Surgical History / Comment(s): surgery on legs for Cerebral Palsy Past Anesthesia/Blood Transfusion Reactions: No Reported Reaction Additional Past Anesthesia/Blood Transfusion Reaction / Comment(s): brother had ongoing hiccups after anesthesia Past Psychological History: No Psychological Hx Reported Smoking Status: Never smoker Past Alcohol Use History: None Reported Past Drug Use History: None Reported - Past Family History Father Family Medical History: No Reported History General Exam Limitations: no limitations General appearance: alert, in no apparent distress, other (this is a well- developed, well-nourished adult male patient in no acute distress. ) ENT exam: Present: normal exam, normal oropharynx, mucous membranes moist Respiratory exam: Present: normal lung sounds bilaterally. Absent: respiratory distress, wheezes, rales, rhonchi, stridor Cardiovascular Exam: Present: regular rate, normal rhythm, normal heart sounds. Absent: systolic murmur, diastolic murmur, rubs, gallop, clicks GI/Abdominal exam: Present: soft, normal bowel sounds. Absent: distended, tenderness, guarding, rebound, rigid Extremities exam: Present: full ROM, normal capillary refill, other (Severe 3+ bilateral lower extremity edema. Purulent wound noted to right lateral knee, anterior knee. General warmth. No surrounding erythema. ). Absent: tenderness, pedal edema, joint swelling, calf tenderness Neurological exam: Present: alert, oriented X3, CN II-XII intact Psychiatric exam: Present: normal affect, normal mood Skin exam: Present: warm, dry, intact, normal color. Absent: rash Course Vital Signs 02/23/21 23:06 Temperature 97.9 F Pulse Rate 67 Respiratory 18 Rate Blood Pressure 157/70 O2 Sat by Pulse 98 Oximetry Medical Decision Making - Medical Decision Making 75-year-old male patient presents to the emergency department today for bloody drainage from a right knee wound. Physical examination did reveal severe bilateral lower extremity swelling. Chronic wounds to the right knee with mild. Drainage. Patient does have visiting physician a recently start him on antibiotics. Patient is afebrile normal vital signs. Labs reviewed and did reveal normal white blood cell count. I did discuss findings and results with him. Bleeding has resolved. New dressing was applied to his knee. He'll be discharged with instructions to follow-up with his physician as soon as possible. He is instructed to call on Friday for a sooner appointment. Return parameters were discussed in detail. He verbalizes understanding and agrees with this plan. Case discussed with my attending Dr. Joe. - Lab Data Result diagrams: 02/24/21 00:39 02/24/21 00:39 Lab Results 02/24/21 02/24/21 02/24/21 Range/Units 00:39 00:39 00:39 WBC 8.4 (3.8-10.6) k/uL RBC 4.10 L (4.30-5.90) m/uL Hgb 10.1 L (13.0-17.5) gm/dL Hct 33.4 L (39.0-53.0) % MCV 81.4 (80.0-100.0) fL MCH 24.6 L (25.0-35.0) pg MCHC 30.3 L (31.0-37.0) g/dL RDW 16.2 H (11.5-15.5) % Plt Count 299 (150-450) k/uL MPV 7.5 Neutrophils % 75 % Lymphocytes % 11 % Monocytes % 8 % Eosinophils % 4 % Basophils % 1 % Neutrophils # 6.3 (1.3-7.7) k/uL Lymphocytes # 0.9 L (1.0-4.8) k/uL Monocytes # 0.6 (0-1.0) k/uL Eosinophils # 0.3 (0-0.7) k/uL Basophils # 0.0 (0-0.2) k/uL Hypochromasia Marked Anisocytosis Slight Sodium 137 (137-145) mmol/L Potassium 3.8 (3.5-5.1) mmol/L Chloride 98 (98-107) mmol/L Carbon Dioxide 28 (22-30) mmol/L Anion Gap 11 mmol/L BUN 24 H (9-20) mg/dL Creatinine 0.60 L (0.66-1.25) mg/dL Est GFR (CKD-EPI)AfAm >90 (>60 ml/min/1.73 sqM) Est GFR (CKD-EPI)NonAf >90 (>60 ml/min/1.73 sqM) Glucose 117 H (74-99) mg/dL Plasma Lactic Acid Russ 1.2 (0.7-2.0) mmol/L Calcium 8.8 (8.4-10.2) mg/dL Magnesium 1.9 (1.6-2.3) mg/dL Total Bilirubin 0.3 (0.2-1.3) mg/dL AST 22 (17-59) U/L ALT 12 (4-49) U/L Alkaline Phosphatase 104 (38-126) U/L NT-Pro-B Natriuret Pep pg/mL Total Protein 6.3 (6.3-8.2) g/dL Albumin 3.3 L (3.5-5.0) g/dL 02/24/21 Range/Units 00:39 WBC (3.8-10.6) k/uL RBC (4.30-5.90) m/uL Hgb (13.0-17.5) gm/dL Hct (39.0-53.0) % MCV (80.0-100.0) fL MCH (25.0-35.0) pg MCHC (31.0-37.0) g/dL RDW (11.5-15.5) % Plt Count (150-450) k/uL MPV Neutrophils % % Lymphocytes % % Monocytes % % Eosinophils % % Basophils % % Neutrophils # (1.3-7.7) k/uL Lymphocytes # (1.0-4.8) k/uL Monocytes # (0-1.0) k/uL Eosinophils # (0-0.7) k/uL Basophils # (0-0.2) k/uL Hypochromasia Anisocytosis Sodium (137-145) mmol/L Potassium (3.5-5.1) mmol/L Chloride (98-107) mmol/L Carbon Dioxide (22-30) mmol/L Anion Gap mmol/L BUN (9-20) mg/dL Creatinine (0.66-1.25) mg/dL Est GFR (CKD-EPI)AfAm (>60 ml/min/1.73 sqM) Est GFR (CKD-EPI)NonAf (>60 ml/min/1.73 sqM) Glucose (74-99) mg/dL Plasma Lactic Acid Russ (0.7-2.0) mmol/L Calcium (8.4-10.2) mg/dL Magnesium (1.6-2.3) mg/dL Total Bilirubin (0.2-1.3) mg/dL AST (17-59) U/L ALT (4-49) U/L Alkaline Phosphatase (38-126) U/L NT-Pro-B Natriuret Pep 317 pg/mL Total Protein (6.3-8.2) g/dL Albumin (3.5-5.0) g/dL Disposition Clinical Impression: Bilateral lower extremity edema, Open wound of right knee Disposition: HOME SELF-CARE Instructions (If sedation given, give patient instructions): Chronic Wound Care (ED), Leg Edema (ED) Additional Instructions: Continue home antibiotics. Follow up with your primary care physician as soon as possible. Call Friday to see if they will do a sooner visit. Return for any new, worsening, or concerning symptoms. Is patient prescribed a controlled substance at d/c from ED?: No Referrals: Bill Adkins MD [Primary Care Provider] - 1-2 days Time of Disposition: 03:42
[2021-02-24 04:22] VITALS: BP 141/73; PULSE 64; RESP 17
== END 2021-02-24 04:20 | disposition home or self-care (01) ==
LOC: EC 23:02
DX: S81.001A Unspecified open wound, right knee, initial encounter (principal); R22.43 Localized swelling, mass and lump, lower limb, bilateral; E11.9 Type 2 diabetes mellitus without complications; I10 Essential (primary) hypertension; H91.90 Unspecified hearing loss, unspecified ear; E78.5 Hyperlipidemia, unspecified; Z79.899 Other long term (current) drug therapy; Z79.84 Long term (current) use of oral hypoglycemic drugs; Z91.040 Latex allergy status; Z88.1 Allergy status to other antibiotic agents; Z88.8 Allergy status to other drugs, medicaments and biological substances; Z88.0 Allergy status to penicillin; Z79.82 Long term (current) use of aspirin; X58.XXXA Exposure to other specified factors, initial encounter
CPT/HCPCS: 36415; 80053; 83605; 83735; 83880; 85025; 99283

== ENCOUNTER 2021-04-03 20:29 | Inpatient (IN) | payer MEDICARE, OTHER ==
[2021-04-03 22:43] LABS: Basophils # (A) 0.1 k/uL (0-0.2); Basophils % (A) 1 %; Eosinophils # (A) 0.2 k/uL (0-0.7); Eosinophils % (A) 2 %; HCT 36.4 % (39.0-53.0); HGB 10.7 gm/dL (13.0-17.5); Hypochromasia Marked; Lymphocytes # (A) 0.6 k/uL (1.0-4.8); Lymphocytes % (A) 6 %; MCH 23.3 pg (25.0-35.0); MCHC 29.4 g/dL (31.0-37.0); MCV 79.2 fL (80.0-100.0); Mean Platelet Volume 8.1; Monocytes # (A) 0.8 k/uL (0-1.0); Monocytes % (A) 9 %; Neutrophils # (A) 7.2 k/uL (1.3-7.7); Neutrophils % (A) 81 %; Platelet Count 337 k/uL (150-450); RDW 14.8 % (11.5-15.5)
--- NOTE | 2021-04-03 22:50 | ED ---
Weakness HPI - General Chief complaint: Weakness Stated complaint: Weakness Time Seen by Provider: 04/03/21 21:28 Source: patient, EMS, RN notes reviewed, old records reviewed Mode of arrival: EMS Limitations: no limitations, altered mental status, physical limitation - History of Present Illness Initial comments: This is a 76-year-old male DF for evaluation. Patient is somnolent currently but able to answer questions without significant complaint. Patient is here for lower extremity edema evaluation secondary to severe edema pain and swelling of his bilateral legs. Patient has been doing this from for some time symptoms are progressively worsening failing outpatient treatment. Patient denying any complaints of fever or chest pain patient states his symptoms worsen point where he cannot walk at home or take care of himself MD Complaint: generalized weakness, lack of energy, difficulty walking Location: LLE, RLE Severity: severe Severity scale (1-10): 10 Consistency: constant Improves with: none Worsens with: none Context: history of similar Associated Symptoms: confusion - Related Data Home Medications Medication Instructions Recorded Confirmed Atorvastatin Calcium [Lipitor] 10 mg PO HS 03/11/19 04/03/21 NIFEdipine [NIFEdipine ER] 30 mg PO DAILY 03/11/19 04/03/21 Potassium Chloride [Klor-Con 10 ER] 10 meq PO BID 03/11/19 04/03/21 metFORMIN HCL [Glucophage] 500 mg PO BID 03/11/19 04/03/21 methocarbamoL [Robaxin] 1,000 mg PO QID PRN 07/26/20 04/03/21 Ammonium Lactate Lotion 1 applic TOPICAL DAILY PRN 04/03/21 04/03/21 [Lac-Hydrin 12% Lotion] Aspirin 325 mg PO HS 04/03/21 04/03/21 Cefuroxime Axetil [Ceftin] 500 mg PO BID 04/03/21 04/03/21 Docusate [Colace] 200 mg PO HS 04/03/21 04/03/21 Ferrous Sulfate [Feosol] 325 mg PO DAILY 04/03/21 04/03/21 Furosemide [Lasix] 40 mg PO DAILY 04/03/21 04/03/21 HYDROcodone/APAP 7.5-325MG [[place] 1 tab PO QID PRN 04/03/21 04/03/21 7.5-325] Previous Rx's Medication Instructions Recorded Pregabalin [Lyrica] 100 mg PO BID #6 cap 10/25/19 Allergies Allergy/AdvReac Type Severity Reaction Status Date / Time acyclovir Allergy Unknown Verified 04/03/21 23:19 amoxicillin [From Augmentin] Allergy Unknown Verified 04/03/21 23:19 ciprofloxacin [From Cipro] Allergy Unknown Verified 04/03/21 23:19 ciprofloxacin HCl Allergy Unknown Verified 04/03/21 23:19 [From Cipro] clavulanic acid Allergy Unknown Verified 04/03/21 23:19 [From Augmentin] latex Allergy Unknown Verified 04/03/21 23:19 Latex, Natural Rubber Allergy Unknown Verified 04/03/21 23:19 levofloxacin [From Levaquin] Allergy Unknown Verified 04/03/21 23:19 Macrolide Antibiotics Allergy Unknown Verified 04/03/21 23:19 Review of Systems ROS Statement: Those systems with pertinent positive or pertinent negative responses have been documented in the HPI. ROS Other: All systems not noted in ROS Statement are negative. Past Medical History Past Medical History: Diabetes Mellitus, Hearing Disorder / Deafness, Hypertension Additional Past Medical History / Comment(s): hx of cerebral palsey with surgery on legs- cannot straighten legs, uses a walker but is mostly in the wheelchair now., cellulitis feet., dry skin, pain in back, shoulders and right knee., right knee red and swollen., Pt lives in apartment by his brother (Mario Alberto)., hx obtained from Mario Alberto- pt [place] and lost hearing aids. History of Any Multi-Drug Resistant Organisms: None Reported Past Surgical History: Appendectomy, Cholecystectomy, Joint Replacement, Orthopedic Surgery, Tonsillectomy Additional Past Surgical History / Comment(s): surgery on legs for Cerebral Palsy Past Anesthesia/Blood Transfusion Reactions: No Reported Reaction Additional Past Anesthesia/Blood Transfusion Reaction / Comment(s): brother had ongoing hiccups after anesthesia Past Psychological History: No Psychological Hx Reported Smoking Status: Never smoker Past Alcohol Use History: None Reported Past Drug Use History: None Reported - Past Family History Father Family Medical History: No Reported History General Exam Limitations: altered mental status, physical limitation General appearance: alert, in no apparent distress, lethargic, in distress Head exam: Present: atraumatic, normocephalic, normal inspection Eye exam: Present: normal appearance, PERRL, EOMI. Absent: scleral icterus, conjunctival injection, periorbital swelling ENT exam: Present: normal exam, mucous membranes moist Neck exam: Present: normal inspection. Absent: tenderness, meningismus, lymphadenopathy Respiratory exam: Present: normal lung sounds bilaterally. Absent: respiratory distress, wheezes, rales, rhonchi, stridor Cardiovascular Exam: Present: regular rate, normal rhythm, normal heart sounds. Absent: systolic murmur, diastolic murmur, rubs, gallop, clicks GI/Abdominal exam: Present: soft, normal bowel sounds. Absent: distended, tenderness, guarding, rebound, rigid Extremities exam: Present: tenderness, pedal edema, joint swelling, calf tenderness, other (Swelling and redness bilaterally with erythema and drainage) Back exam: Present: normal inspection Neurological exam: Present: alert, oriented X3, CN II-XII intact Psychiatric exam: Present: normal affect, normal mood Skin exam: Present: warm, dry, intact, normal color. Absent: rash Course Vital Signs 04/03/21 04/04/21 20:37 01:59 Pulse Rate 84 82 Respiratory 18 18 Rate Blood Pressure 128/109 173/82 O2 Sat by Pulse 97 98 Oximetry - Reevaluation(s) Reevaluation #1: 04/04/21 Medical record is reviewed Patient symptoms are significantly improved here in the emergency department Patient informed of results and questions answered - Consultations Consultation #1: With Dr. Rojas agrees to admit this patient EKG Findings - EKG Comments: EKG Findings:: EKG is junctional rhythm with 79 QRS 74 QTc 465 Medical Decision Making - Medical Decision Making 36 male DF for evaluation weakness and not feeling well significant lower extremity edema and swelling concern for worsening cellulitis place on antibiotics and will admit for further evaluation and management - Lab Data Result diagrams: 04/03/21 22:30 04/03/21 22:30 Lab Results 04/03/21 04/03/21 04/03/21 Range/Units 22:30 22:30 22:30 WBC 9.0 (3.8-10.6) k/uL RBC 4.60 (4.30-5.90) m/uL Hgb 10.7 L (13.0-17.5) gm/dL Hct 36.4 L (39.0-53.0) % MCV 79.2 L (80.0-100.0) fL MCH 23.3 L (25.0-35.0) pg MCHC 29.4 L (31.0-37.0) g/dL RDW 14.8 (11.5-15.5) % Plt Count 337 (150-450) k/uL MPV 8.1 Neutrophils % 81 % Lymphocytes % 6 % Monocytes % 9 % Eosinophils % 2 % Basophils % 1 % Neutrophils # 7.2 (1.3-7.7) k/uL Lymphocytes # 0.6 L (1.0-4.8) k/uL Monocytes # 0.8 (0-1.0) k/uL Eosinophils # 0.2 (0-0.7) k/uL Basophils # 0.1 (0-0.2) k/uL Hypochromasia Marked PT 10.4 (9.0-12.0) sec INR 1.0 (<1.2) APTT 29.3 (22.0-30.0) sec Sodium 138 (137-145) mmol/L Potassium 4.5 (3.5-5.1) mmol/L Chloride 100 (98-107) mmol/L Carbon Dioxide 27 (22-30) mmol/L Anion Gap 11 mmol/L BUN 26 H (9-20) mg/dL Creatinine 0.53 L (0.66-1.25) mg/dL Est GFR (CKD-EPI)AfAm >90 (>60 ml/min/1.73 sqM) Est GFR (CKD-EPI)NonAf >90 (>60 ml/min/1.73 sqM) Glucose 121 H (74-99) mg/dL Plasma Lactic Acid Russ (0.7-2.0) mmol/L Calcium 9.3 (8.4-10.2) mg/dL Total Bilirubin 0.4 (0.2-1.3) mg/dL AST 28 (17-59) U/L ALT 15 (4-49) U/L Alkaline Phosphatase 145 H (38-126) U/L Troponin I (0.000-0.034) ng/mL NT-Pro-B Natriuret Pep pg/mL Total Protein 6.8 (6.3-8.2) g/dL Albumin 3.6 (3.5-5.0) g/dL Urine Color Urine Appearance (Clear) Urine pH (5.0-8.0) Ur Specific [place] (1.001-1.035) Urine Protein (Negative) Urine Glucose (UA) (Negative) Urine Ketones (Negative) Urine Blood (Negative) Urine Nitrite (Negative) Urine Bilirubin (Negative) Urine Urobilinogen (<2.0) mg/dL Ur Leukocyte Esterase (Negative) Urine RBC (0-5) /hpf Urine WBC (0-5) /hpf Amorphous Sediment (None) /hpf 04/03/21 04/03/21 04/03/21 Range/Units 22:30 22:30 22:30 WBC (3.8-10.6) k/uL RBC (4.30-5.90) m/uL Hgb (13.0-17.5) gm/dL Hct (39.0-53.0) % MCV (80.0-100.0) fL MCH (25.0-35.0) pg MCHC (31.0-37.0) g/dL RDW (11.5-15.5) % Plt Count (150-450) k/uL MPV Neutrophils % % Lymphocytes % % Monocytes % % Eosinophils % % Basophils % % Neutrophils # (1.3-7.7) k/uL Lymphocytes # (1.0-4.8) k/uL Monocytes # (0-1.0) k/uL Eosinophils # (0-0.7) k/uL Basophils # (0-0.2) k/uL Hypochromasia PT (9.0-12.0) sec INR (<1.2) APTT (22.0-30.0) sec Sodium (137-145) mmol/L Potassium (3.5-5.1) mmol/L Chloride (98-107) mmol/L Carbon Dioxide (22-30) mmol/L Anion Gap mmol/L BUN (9-20) mg/dL Creatinine (0.66-1.25) mg/dL Est GFR (CKD-EPI)AfAm (>60 ml/min/1.73 sqM) Est GFR (CKD-EPI)NonAf (>60 ml/min/1.73 sqM) Glucose (74-99) mg/dL Plasma Lactic Acid Russ 1.4 (0.7-2.0) mmol/L Calcium (8.4-10.2) mg/dL Total Bilirubin (0.2-1.3) mg/dL AST (17-59) U/L ALT (4-49) U/L Alkaline Phosphatase (38-126) U/L Troponin I <0.012 (0.000-0.034) ng/mL NT-Pro-B Natriuret Pep 223 pg/mL Total Protein (6.3-8.2) g/dL Albumin (3.5-5.0) g/dL Urine Color Urine Appearance (Clear) Urine pH (5.0-8.0) Ur Specific [place] (1.001-1.035) Urine Protein (Negative) Urine Glucose (UA) (Negative) Urine Ketones (Negative) Urine Blood (Negative) Urine Nitrite (Negative) Urine Bilirubin (Negative) Urine Urobilinogen (<2.0) mg/dL Ur Leukocyte Esterase (Negative) Urine RBC (0-5) /hpf Urine WBC (0-5) /hpf Amorphous Sediment (None) /hpf 04/03/21 Range/Units 23:38 WBC (3.8-10.6) k/uL RBC (4.30-5.90) m/uL Hgb (13.0-17.5) gm/dL Hct (39.0-53.0) % MCV (80.0-100.0) fL MCH (25.0-35.0) pg MCHC (31.0-37.0) g/dL RDW (11.5-15.5) % Plt Count (150-450) k/uL MPV Neutrophils % % Lymphocytes % % Monocytes % % Eosinophils % % Basophils % % Neutrophils # (1.3-7.7) k/uL Lymphocytes # (1.0-4.8) k/uL Monocytes # (0-1.0) k/uL Eosinophils # (0-0.7) k/uL Basophils # (0-0.2) k/uL Hypochromasia PT (9.0-12.0) sec INR (<1.2) APTT (22.0-30.0) sec Sodium (137-145) mmol/L Potassium (3.5-5.1) mmol/L Chloride (98-107) mmol/L Carbon Dioxide (22-30) mmol/L Anion Gap mmol/L BUN (9-20) mg/dL Creatinine (0.66-1.25) mg/dL Est GFR (CKD-EPI)AfAm (>60 ml/min/1.73 sqM) Est GFR (CKD-EPI)NonAf (>60 ml/min/1.73 sqM) Glucose (74-99) mg/dL Plasma Lactic Acid Russ (0.7-2.0) mmol/L Calcium (8.4-10.2) mg/dL Total Bilirubin (0.2-1.3) mg/dL AST (17-59) U/L ALT (4-49) U/L Alkaline Phosphatase (38-126) U/L Troponin I (0.000-0.034) ng/mL NT-Pro-B Natriuret Pep pg/mL Total Protein (6.3-8.2) g/dL Albumin (3.5-5.0) g/dL Urine Color Yellow Urine Appearance Turbid (Clear) Urine pH 7.5 (5.0-8.0) Ur Specific [place] 1.019 (1.001-1.035) Urine Protein Trace H (Negative) Urine Glucose (UA) Negative (Negative) Urine Ketones Negative (Negative) Urine Blood Negative (Negative) Urine Nitrite Negative (Negative) Urine Bilirubin Negative (Negative) Urine Urobilinogen <2.0 (<2.0) mg/dL Ur Leukocyte Esterase Negative (Negative) Urine RBC 1 (0-5) /hpf Urine WBC <1 (0-5) /hpf Amorphous Sediment Moderate H (None) /hpf - Radiology Data Radiology results: report reviewed (Chest x-rays negative for acute disease), image reviewed Disposition Clinical Impression: Weakness, Bilateral leg weakness, Bilateral lower leg cellulitis, Bilateral leg edema, Allergy to multiple antibiotics Disposition: ADMITTED IP TO THIS [facility] Condition: Fair Is patient prescribed a controlled substance at d/c from ED?: No
[2021-04-03 22:52] LABS: Partial Thromboplastin Time 29.3 sec (22.0-30.0); Prothrombin Time 10.4 sec (9.0-12.0)
--- NOTE | 2021-04-03 22:52 | XR ---
EXAMINATION TYPE: XR chest 2V DATE OF EXAM: 04/03/2021 COMPARISON: 03/11/2019 HISTORY: Weakness TECHNIQUE: 2 views FINDINGS: Heart is normal. Lungs are clear of consolidation. There are no hilar masses. Costophrenic angles are clear. There is neural stimulator in the thoracic spine. There are chest leads. There is m ild thoracic dextroscoliosis. IMPRESSION: No active cardiopulmonary disease. No change.
[2021-04-03 22:53] LABS: ALT 15 U/L (4-49); AST 28 U/L (17-59); African American GFR (CKD) >90 (>60 ml/min/1.73 sqM); Albumin 3.6 g/dL (3.5-5.0); Alkaline Phosphatase 145 U/L (38-126); Anion Gap 11 mmol/L; Blood Urea Nitrogen 26 mg/dL (9-20); Calcium 9.3 mg/dL (8.4-10.2); Carbon Dioxide 27 mmol/L (22-30); Chloride 100 mmol/L (98-107); Glucose 121 mg/dL (74-99); Non-African American GFR(CKD) >90 (>60 ml/min/1.73 sqM); Potassium 4.5 mmol/L (3.5-5.1); Sodium 138 mmol/L (137-145); Total Bilirubin 0.4 mg/dL (0.2-1.3); Total Protein 6.8 g/dL (6.3-8.2)
[2021-04-04 00:29] LABS: Amorphous Sediment,Urine Moderate /hpf; Appearance,Urine Turbid (Clear); Bilirubin,Urine Negative (Negative); Blood,Urine Negative (Negative); Color,Urine Yellow; Glucose,Urine (UA) Negative (Negative); Ketones,Urine Negative (Negative); Leukocyte Esterase,Urine Negative (Negative); Nitrite,Urine Negative (Negative); PH, Urine 7.5 (5.0-8.0); Protein,Urine Trace (Negative); RBC,Urine 1 /hpf (0-5); Specific Gravity,Urine 1.019 (1.001-1.035); Urobilinogen,Urine <2.0 mg/dL (<2.0); WBC,Urine <1 /hpf (0-5)
[2021-04-04] MEDS ORDERED: ONDANSETRON 4 MG/2 ML VIAL IVP PRN (01:22)
[2021-04-04] MEDS ORDERED: NALOXONE 0.4 MG/ML 1 ML VIAL IV PRN (01:22)
[2021-04-04] MEDS ORDERED: LORazepam 2 MG/ML INJ IV PRN (01:22)
[2021-04-04] MEDS ORDERED: FUROSEMIDE 10 MG/ML 4 ML VIAL IV STA (01:23)
[2021-04-04] MEDS: MORPHINE SULFATE 4 MG/ML SYRINGE IV PRN ×2 (04:55→14:05)
[2021-04-04 07:01] LABS: Glucose,Whole Blood 103 mg/dL (75-99)
[2021-04-04] MEDS ORDERED: FUROSEMIDE 10 MG/ML 4 ML VIAL ONE (10:10)
[2021-04-04] MEDS ORDERED: MORPHINE SULFATE 4 MG/ML SYRINGE ONE (10:10)
[2021-04-04] MEDS: FUROSEMIDE 10 MG/ML 4 ML VIAL IV SCH ×2 (10:36→20:53)
[2021-04-04 11:28] LABS: Glucose,Whole Blood 173 mg/dL (75-99)
[2021-04-04] MEDS: ENOXAPARIN 40 MG/0.4 ML SYRINGE SQ SCH (12:37)
[2021-04-04] MEDS: PREGABALIN 100 MG CAP PO SCH ×2 (12:37→20:54)
[2021-04-04] MEDS: metFORMIN 500 MG TAB PO SCH ×2 (12:37→16:58)
[2021-04-04] MEDS: INSULIN ASPART (NovoLOG) 100 UNIT/ML VIAL SQ SCH ×3 (12:38→20:29)
[2021-04-04] MEDS: NIFEdipine XL 30 MG TAB.ER.24 PO SCH (14:05)
[2021-04-04 16:21] LABS: Glucose,Whole Blood 80 mg/dL (75-99)
--- NOTE | 2021-04-04 17:21 | P.CNOR ---
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 He was initially taken to surgery in October 2019 for irrigation and debridement of the right knee. The patient had developed infection in the right knee. He has history of revision total right knee arthroplasty in 2011. He was placed on IV antibiotics and did fairly well at that time. He returned in July 2020 with recurrent infection. There was attempts to remove the implants at that time which was unsuccessful. The implants were too well-seated and at the risk of damaging the bone further the components were retained and he underwent an aggressive irrigation and debridement of the knee. He has been on suppressive antibiotic therapy since that time. That has been discussed with the patient in the past and that the only surgical option at this time would be [id number] amputations. The patient's health has declined over the past several months. He has developed significant weakness and inability to ambulate independently. He is admitted to [facility] for further evaluation and treatment of his weakness and for possible rehab placement. We are consulted for orthopedic evaluation and follow-up of his right knee. Past Medical History Past Medical History: Diabetes Mellitus, Hearing Disorder / Deafness, Hype rtension Additional Past Medical History / Comment(s): hx of cerebral palsey with surgery on legs- cannot straighten legs, uses a walker but is mostly in the wheelchair now., cellulitis feet., dry skin, pain in back, shoulders and right knee., right knee red and swollen., Pt lives in apartment by his brother (Mario Alberto)., hx obtained from Mario Alberto- [facility] and lost hearing aids. History of Any Multi-Drug Resistant Organisms: None Reported Past Surgical History: Appendectomy, Cholecystectomy, Joint Replacement, Orthopedic Surgery, Tonsillectomy Additional Past Surgical History / Comment(s): surgery on legs for Cerebral Palsy Past Anesthesia/Blood Transfusion Reactions: No Reported Reaction Additional Past Anesthesia/Blood Transfusion Reaction / Comm: brother had ongoing hiccups after anesthesia Past Psychological History: No Psychological Hx Reported Smoking Status: Never smoker Past Alcohol Use History: None Reported Past Drug Use History: None Reported - Past Family History Father Family Medical History: No Reported History Medications and Allergies Home Medications Medication Instructions Recorded Confirmed Type Atorvastatin Calcium [Lipitor] 10 mg PO HS 03/11/19 04/03/21 History NIFEdipine [NIFEdipine ER] 30 mg PO DAILY 03/11/19 04/03/21 History Potassium Chloride [Klor-Con 10 ER] 10 meq PO BID 03/11/19 04/03/21 History metFORMIN HCL [Glucophage] 500 mg PO BID 03/11/19 04/03/21 History Pregabalin [Lyrica] 100 mg PO BID #6 cap 10/25/19 04/03/21 Rx methocarbamoL [Robaxin] 1,000 mg PO QID PRN 07/26/20 04/03/21 History Ammonium Lactate Lotion 1 applic TOPICAL DAILY PRN 04/03/21 04/03/21 History [Lac-Hydrin 12% Lotion] Aspirin 325 mg PO HS 04/03/21 04/03/21 History Cefuroxime Axetil [Ceftin] 500 mg PO BID 04/03/21 04/03/21 History Docusate [Colace] 200 mg PO HS 04/03/21 04/03/21 History Ferrous Sulfate [Feosol] 325 mg PO DAILY 04/03/21 04/03/21 History Furosemide [Lasix] 40 mg PO DAILY 04/03/21 04/03/21 History HYDROcodone/APAP 7.5-325MG [[place] 1 tab PO QID PRN 04/03/21 04/03/21 History 7.5-325] Allergies Allergy/AdvReac Type Severity Reaction Status Date / Time acyclovir Allergy Unknown Verified 04/03/21 23:19 amoxicillin [From Augmentin] Allergy Unknown Verified 04/03/21 23:19 ciprofloxacin [From Cipro] Allergy Unknown Verified 04/03/21 23:19 ciprofloxacin HCl Allergy Unknown Verified 04/03/21 23:19 [From Cipro] clavulanic acid Allergy Unknown Verified 04/03/21 23:19 [From Augmentin] latex Allergy Unknown Verified 04/03/21 23:19 Latex, Natural Rubber Allergy Unknown Verified 04/03/21 23:19 levofloxacin [From Levaquin] Allergy Unknown Verified 04/03/21 23:19 Macrolide Antibiotics Allergy Unknown Verified 04/03/21 23:19 Physical Examination This is a pleasant 76-year-old gentleman in no acute distress. He is alert and oriented 3. Exam of the lower extremities reveals a compressive Carlos bandage over the entire lateral legs from his thighs to his toes. There is obvious swelling to the right knee. He has tenderness with palpation about the anterior right knee. He is nontender posteriorly. There is significant swelling to bilateral feet. He has limited motion of the right knee. He is able to move the feet and ankles without difficulty or pain. Neurovascular status to the lower extremities is grossly intact. The remainder of his musculoskeletal exam is unremarkable. Results - Labs Labs: Abnormal Lab Results - Last 24 Hours (Table) 04/03/21 04/03/21 04/03/21 Range/Units 22:30 22:30 23:38 Hgb 10.7 L (13.0-17.5) gm/dL Hct 36.4 L (39.0-53.0) % MCV 79.2 L (80.0-100.0) fL MCH 23.3 L (25.0-35.0) pg MCHC 29.4 L (31.0-37.0) g/dL Lymphocytes # 0.6 L (1.0-4.8) k/uL BUN 26 H (9-20) mg/dL Creatinine 0.53 L (0.66-1.25) mg/dL Glucose 121 H (74-99) mg/dL POC Glucose (mg/dL) (75-99) mg/dL Alkaline Phosphatase 145 H (38-126) U/L Urine Protein Trace H (Negative) Amorphous Sediment Moderate H (None) /hpf 04/04/21 04/04/21 Range/Units 07:00 11:26 Hgb (13.0-17.5) gm/dL Hct (39.0-53.0) % MCV (80.0-100.0) fL MCH (25.0-35.0) pg MCHC (31.0-37.0) g/dL Lymphocytes # (1.0-4.8) k/uL BUN (9-20) mg/dL Creatinine (0.66-1.25) mg/dL Glucose (74-99) mg/dL POC Glucose (mg/dL) 103 H 173 H (75-99) mg/dL Alkaline Phosphatase (38-126) U/L Urine Protein (Negative) Amorphous Sediment (None) /hpf H & H 04/03/21 Range/Units 22:30 Hgb 10.7 L (13.0-17.5) gm/dL Hct 36.4 L (39.0-53.0) % Coagulation 04/03/21 Range/Units 22:30 INR 1.0 (<1.2) Result Diagrams: 04/03/21 22:30 04/03/21 22:30 Assessment and Plan (1) Septic arthritis of knee, right Current Visit: Yes Status: Acute Code(s): M00.9 - PYOGENIC ARTHRITIS, UNSPECIFIED SNOMED Code(s): 514125614 (2) Chronic infection of right knee Current Visit: Yes Status: Acute Code(s): M00.9 - PYOGENIC ARTHRITIS, UNSPECIFIED SNOMED Code(s): 463101668 (3) Weakness Current Visit: Yes Status: Acute Code(s): R53.1 - WEAKNESS SNOMED Code(s): 80018791 (4) Infection of total right knee replacement Current Visit: No Status: Acute Priority: Medium Code(s): T84.53XA - INFECT/INFLM REACTION DUE TO INTERNAL R KNEE PROSTH, INIT SNOMED Code(s): 985992114 Plan: The clinical findings are discussed with the patient and nursing staff. With the patient's multiple medical comorbidities and poor health he is not a candidate for a revision arthroplasty. He has been discussed with the patient in the past that the only surgical intervention that would be considered would be an [id number] amputation. The patient at this point is most likely not a surgical candidate. I recommend continuing antibiotics per infectious disease. We will continue to follow.
[2021-04-04 19:55] LABS: Glucose,Whole Blood 99 mg/dL (75-99)
[2021-04-04] MEDS: ATORVASTATIN 10 MG TAB PO SCH (20:54)
[2021-04-04] MEDS: ASPIRIN 325 MG TAB PO SCH (20:54)
--- NOTE | 2021-04-04 21:09 | P.HPIM ---
History of Present Illness H&P Date: 04/04/21 Chief Complaint: Lower extremity swelling redness Hospital course: This is a pleasant 76-year-old patient, follows with visiting physicians Dr. Adkins. Chronic stable medical conditions includes diabetes, hypertension, cerebral palsy with surgery in the legs cannot straighten legs, sometimes uses a walker otherwise pretty much in a wheelchair. Patient lives in the apartment with his brother Susan. Patient is hard of hearing. Patient is brought in because of increasing swelling of lower extremity. Some redness. Also swelling of the right knee. Patient not a good historian. No fever and chills reported. Appetite is fair. No shortness of breath. No cough. 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 In October 2019 patient had I&D of the right knee. He had a revision right total knee arthroplasty in 2011. In July 2020 he had recurrent infection. Attempt to remove the implant was unsuccessful. Has been on suppressive antibiotic therapy since that time. Only other option would be above-knee amputation per orthopedics. Review of systems: GEN.: Tired EYES: None HEENT: Decreased hearing NECK: None RESPIRATORY: None CARDIOVASCULAR: None GASTROINTESTINAL: None GENITOURINARY: None MUSCULOSKELETAL: Right knee and other joint pains LYMPHATICS: None HEMATOLOGICAL: None PSYCHIATRY: None NEUROLOGICAL: Weakness with lower extremity Past medical history to include: Diabetes, hard of hearing, hypertension, cerebral palsy with surgery in the legs cannot straighten legs, sometimes uses a walker mostly wheelchair. 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 Social history: Lives with his brother and [id number]. No history of smoking or alcohol. Family history: Reviewed, noncontributory to presentation Physical examination: VITAL SIGNS: 98.1, 88, 16, 172/89, 96% room air GENERAL: BMI 29.9, reclining in bed, awake, tired. EYES: Pupils equal. Conjunctiva normal. HEENT: External appearance of nose and ears normal, oral cavity grossly normal. Hard of hearing NECK: JVD not raised; masses not palpable. HEART: First and second heart sounds are normal; edema present. LUNGS: Respiratory rate normal; clear to auscultation. ABDOMEN: Soft, nontender, liver spleen not palpable, no masses palpable. PSYCH: Patient able to answer some questionsl. MUSCULOSKELETAL:No Clubbing/cyanosis;muscles-grossly intact. Tenderness swelling of the right knee. Redness lower extremity. NEUROLOGICAL: [Cranial nerves grossly intact; no facial asymmetry, decreased bowel lower extremity. LYMPHATICS: No lymph nodes palpable in the axilla and neck INVESTIGATIONS, reviewed in the clinical context: White count 9 hemoglobin 10.7 platelets 337 potassium 4.5 BUN 26 creatinine 0.53 ProBNP 2-3 Coronavirus [PCR]: Not detected( EKG tracing personally reviewed by me-poor baseline. Questionable sinus rhythm. Chest x-ray film personally reviewed by me-scoliosis. No infiltrates. Possible cardiomegaly Assessment and plan: -Chronic septic arthritis of the right knee. With a prior history of right total knee arthroplasty in 2011. Patient has been on long-term antibiotics. Only option left is right above knee amputation. Consult orthopedics. Consult ID. -Right lower extremity swelling Rule out DVT. Possibly venous insufficiency. -Right lower extremity cellulitis IV ceftriaxone -Cerebral palsy causing cognitive impairment -Chronic gait dysfunction. Patient used to use a walker. Preoperative much wheelchair bound -Essential hypertension Nifedipine ER 30 mg a day -Diabetes mellitus type 2 Glucophage 5 mg twice a day. Follow Accu-Cheks with sliding scale. -Hyperlipidemia Lipitor 10 mg daily at bedtime -Hard of hearing, patient lost his hearing aids Doppler ultrasound to rule out DVT. IV ceftriaxone. Consultation to orth opedics and ID. Resume home medications. Subcu Lovenox. Patient's currently not able to ambulate Given the complexity and severity of patient's condition expect the patient to be in the hospital at least for 2 overnights Past Medical History Past Medical History: Diabetes Mellitus, Hearing Disorder / Deafness, Hypertension Additional Past Medical History / Comment(s): hx of cerebral palsey with surgery on legs- cannot straighten legs, uses a walker but is mostly in the wheelchair now., cellulitis feet., dry skin, pain in back, shoulders and right knee., right knee red and swollen., Pt lives in apartment by his brother (Mario Alberto)., hx obtained from Mario Alberto- pt [facility] and lost hearing aids. History of Any Multi-Drug Resistant Organisms: None Reported Past Surgical History: Appendectomy, Cholecystectomy, Joint Replacement, Orthopedic Surgery, Tonsillectomy Additional Past Surgical History / Comment(s): surgery on legs for Cerebral Palsy Past Anesthesia/Blood Transfusion Reactions: No Reported Reaction Additional Past Anesthesia/Blood Transfusion Reaction / Comment(s): brother had ongoing hiccups after anesthesia Past Psychological History: No Psychological Hx Reported Smoking Status: Never smoker Past Alcohol Use History: None Reported Past Drug Use History: None Reported - Past Family History Father Family Medical History: No Reported History Medications and Allergies Home Medications Medication Instructions Recorded Confirmed Type Atorvastatin Calcium [Lipitor] 10 mg PO HS 03/11/19 04/03/21 History NIFEdipine [NIFEdipine ER] 30 mg PO DAILY 03/11/19 04/03/21 History Potassium Chloride [Klor-Con 10 ER] 10 meq PO BID 03/11/19 04/03/21 History metFORMIN HCL [Glucophage] 500 mg PO BID 03/11/19 04/03/21 History Pregabalin [Lyrica] 100 mg PO BID #6 cap 10/25/19 04/03/21 Rx methocarbamoL [Robaxin] 1,000 mg PO QID PRN 07/26/20 04/03/21 History Ammonium Lactate Lotion 1 applic TOPICAL DAILY PRN 04/03/21 04/03/21 History [Lac-Hydrin 12% Lotion] Aspirin 325 mg PO HS 04/03/21 04/03/21 History Cefuroxime Axetil [Ceftin] 500 mg PO BID 04/03/21 04/03/21 History Docusate [Colace] 200 mg PO HS 04/03/21 04/03/21 History Ferrous Sulfate [Feosol] 325 mg PO DAILY 04/03/21 04/03/21 History Furosemide [Lasix] 40 mg PO DAILY 04/03/21 04/03/21 History HYDROcodone/APAP 7.5-325MG [[place] 1 tab PO QID PRN 04/03/21 04/03/21 History 7.5-325] Allergies Allergy/AdvReac Type Severity Reaction Status Date / Time acyclovir Allergy Unknown Verified 04/03/21 23:19 amoxicillin [From Augmentin] Allergy Unknown Verified 04/03/21 23:19 ciprofloxacin [From Cipro] Allergy Unknown Verified 04/03/21 23:19 ciprofloxacin HCl Allergy Unknown Verified 04/03/21 23:19 [From Cipro] clavulanic acid Allergy Unknown Verified 04/03/21 23:19 [From Augmentin] latex Allergy Unknown Verified 04/03/21 23:19 Latex, Natural Rubber Allergy Unknown Verified 04/03/21 23:19 levofloxacin [From Levaquin] Allergy Unknown Verified 04/03/21 23:19 Macrolide Antibiotics Allergy Unknown Verified 04/03/21 23:19 Physical Exam Vitals: Vital Signs Temp Pulse Pulse Resp BP BP Pulse Ox 04/04/21 07:45 98.0 F 81 16 160/74 97 04/04/21 07:27 98 F 76 16 126/77 94 L 04/04/21 04:20 98.1 F 88 16 172/89 96 04/04/21 01:59 82 18 173/82 98 04/03/21 20:37 84 18 128/109 97 Intake and Output 04/03/21 04/04/21 04/04/21 22:59 06:59 14:59 Output Total 1450 Balance -1450 Output: Urine 1450 Other: Voiding Method External Catheter Weight 83.915 kg 83.915 kg Results CBC & Chem 7: 04/03/21 22:30 04/03/21 22:30 Labs: Abnormal Lab Results - Last 24 Hours (Table) 04/03/21 04/03/21 04/03/21 Range/Units 22:30 22:30 23:38 Hgb 10.7 L (13.0-17.5) gm/dL Hct 36.4 L (39.0-53.0) % MCV 79.2 L (80.0-100.0) fL MCH 23.3 L (25.0-35.0) pg MCHC 29.4 L (31.0-37.0) g/dL Lymphocytes # 0.6 L (1.0-4.8) k/uL BUN 26 H (9-20) mg/dL Creatinine 0.53 L (0.66-1.25) mg/dL Glucose 121 H (74-99) mg/dL POC Glucose (mg/dL) (75-99) mg/dL Alkaline Phosphatase 145 H (38-126) U/L Urine Protein Trace H (Negative) Amorphous Sediment Moderate H (None) /hpf 04/04/21 Range/Units 07:00 Hgb (13.0-17.5) gm/dL Hct (39.0-53.0) % MCV (80.0-100.0) fL MCH (25.0-35.0) pg MCHC (31.0-37.0) g/dL Lymphocytes # (1.0-4.8) k/uL BUN (9-20) mg/dL Creatinine (0.66-1.25) mg/dL Glucose (74-99) mg/dL POC Glucose (mg/dL) 103 H (75-99) mg/dL Alkaline Phosphatase (38-126) U/L Urine Protein (Negative) Amorphous Sediment (None) /hpf Thrombosis Risk Factor Assmnt - Choose All That Apply Any of the Below Risk Factors Present?: Yes Each Factor Represents 1 point: Obesity (BMI >25) Other Risk Factors: Yes Each Risk Factor Represents 2 Points: Age 61-74 years, Patient confined to bed Thrombosis Risk Factor Assessment Total Risk Factor Score: 5 Thrombosis Risk Factor Assessment Level: High Risk
--- NOTE | 2021-04-04 22:43 | US ---
EXAMINATION TYPE: US venous doppler duplex LE DATE OF EXAM: 04/04/2021 10:17 PM COMPARISON: US CLINICAL HISTORY: Rule out DVT. Swelling. No hx of DVT. Hx multiple right knee surgeries. SIDE PERFORMED: Bilateral TECHNIQUE: The lower extremity deep venous system is examined utilizing real time linear array sonog gris with graded compression, doppler sonography and color-flow sonography. VESSELS IMAGED: Common Femoral Vein Deep Femoral Vein Greater Saphenous Vein * Femoral Vein Popliteal Vein Small Saphenous Vein * Proximal Calf Veins (* superficial vessels) Edema noted throughout bilateral lower extremities. Right Leg: Color flow seen in veins imaged. Difficult to scan behind pt's knee. *Possible chronic internal echoes within popliteal vein, appears to compress incompletely. Hypoechoic area with hyperechoic center and vascularity seen within the right groin: 3.0 x 2.2 x 1.2 cm. Left Leg: No evidence of DVT at this time. IMPRESSION: No evidence of deep vein thrombosis in the left leg. 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
[2021-04-05] MEDS: metFORMIN 500 MG TAB PO SCH ×2 (07:18→17:05)
[2021-04-05] MEDS: NIFEdipine XL 30 MG TAB.ER.24 PO SCH (07:18)
[2021-04-05] MEDS: PREGABALIN 100 MG CAP PO SCH ×2 (07:19→20:19)
[2021-04-05] MEDS: MORPHINE SULFATE 4 MG/ML SYRINGE IV PRN ×3 (07:19→20:20)
[2021-04-05] MEDS: ENOXAPARIN 40 MG/0.4 ML SYRINGE SQ SCH (07:19)
[2021-04-05] MEDS: INSULIN ASPART (NovoLOG) 100 UNIT/ML VIAL SQ SCH ×4 (07:28→20:21)
[2021-04-05 08:58] LABS: Basophils # (A) 0.03 X 10*3/uL (0.00-0.10); Basophils % (A) 0.5 %; Eosinophils # (A) 0.16 X 10*3/uL (0.04-0.35); Eosinophils % (A) 2.5 %; HCT 34.5 % (39.6-50.0); HGB 9.9 g/dL (13.0-17.0); Lymphocytes # (A) 0.71 X 10*3/uL (0.90-5.00); MCH 22.5 pg (27.0-32.0); MCHC 28.7 g/dL (32.0-37.0); MCV 78.4 fL (80.0-97.0); Mean Platelet Volume 10.2 fL (9.5-12.2); Monocytes # (A) 0.94 X 10*3/uL (0.20-1.00); Monocytes % (A) 14.6 %; Neutrophils # (A) 4.58 X 10*3/uL (1.80-7.70); Neutrophils % (A) 71.1 %; Platelet Count 329 X 10*3/uL (140-440); RDW 15.7 % (11.5-14.5); WBC 6.44 X 10*3/uL (4.50-10.00)
[2021-04-05 09:51] LABS: Glucose,Whole Blood 101 mg/dL (75-99)
--- NOTE | 2021-04-05 10:07 | ECHOF ---
Referral Reason:Cardiomegaly MEASUREMENTS -------- HEIGHT: 167.6 cm WEIGHT: 83.9 kg BP: 167/73 RVIDd: 1.6 cm (< 3.3) IVSd: 0.8 cm (0.6 - 1.1) LVIDd: 4.6 cm (3.9 - 5.3) LVPWd: 1.0 cm (0.6 - 1.1) IVSs: 1.1 cm LVIDs: 1.7 cm LVPWs: 1.9 cm Ao Diam: 3.2 cm (2.0 - 3.7) AV Cusp: 1.8 cm (1.5 - 2.6) LA Diam: 3.1 cm (2.7 - 3.8) MV EXCURSION: 16.659 mm (> 18.000) MV EF SLOPE: 133 mm/s (70 - 150) EPSS: 1.0 cm MV E Kingsley: 0.69 m/s MV DecT: 119 ms MV A Kingsley: 1.00 m/s MV E/A Ratio: 0.68 RAP: 5.00 mmHg RVSP: 9.86 mmHg FINDINGS -------- This was a technically good study. The left ventricular size is normal. Left ventricular wall thickness is normal. Overall left vent ricular systolic function is normal with, an EF between 55 - 60 %. The right ventricle is normal in size. The left atrial size is normal. The right atrial size is normal. The aortic valve is trileaflet and appears structurally normal. The mitral valve is normal. There is trace mitral regurgitation. The tricuspid valve appears structurally normal. Trace tricuspid regurgitation present. Right subhash tricular systolic pressure is normal at < 35 mmHg. There is no pulmonic regurgitation present. The aortic root size is normal. Normal inferior vena cava with normal inspiratory collapse consistent with estimated right atrial pre ssure of 5 mmHg. There is no pericardial effusion. CONCLUSIONS -------- 1. The left ventricular size is normal. 2. Left ventricular wall thickness is normal. 3. Overall left ventricular systolic function is normal with, an EF between 55 - 60 %. 4. There is trace mitral regurgitation. 5. Trace tricuspid regurgitation present. 6. There is no pericardial effusion. HEARING AID ASSISTANT: Dariela Almazan RDCS
[2021-04-05 10:33] LABS: ALT 14 U/L (10-49); AST 17 U/L (14-35); African American GFR (CKD) 135.1 (60.0-200.0); Albumin 3.4 g/dL (3.8-4.9); Alkaline Phosphatase 107 U/L (41-126); BUN/Creat Ratio 38.61 Ratio (12.00-20.00); Blood Urea Nitrogen 15.6 mg/dL (9.0-27.0); Calcium 8.8 mg/dL (8.7-10.3); Carbon Dioxide 28.4 mmol/L (20.0-27.5); Chloride 103 mmol/L (96-109); Globulin 2.6 g/dL (1.6-3.3); Glucose 96 mg/dL (70-110); Non-African American GFR(CKD) 116.5 (60.0-200.0); Phosphorus 3.1 mg/dL (2.4-5.1); Potassium 3.8 mmol/L (3.5-5.5); Sodium 142 mmol/L (135-145); Total Bilirubin <0.20 mg/dL (0.30-1.20); Total Protein 6.1 g/dL (6.2-8.2)
--- NOTE | 2021-04-05 10:38 | P.PN ---
Subjective Progress Note Date: 04/05/21 This is a 76-year-old male who is admitted for weakness and chronic infection of his right knee. Patient is seen and evaluated at bedside today. Patient states that the entire right leg is painful and he has been uncomfortable. Otherwise, the patient denies any new complaints today. Objective - Vital Signs Vital signs: Vital Signs Temp 98 F 04/05/21 08:00 Pulse 73 04/05/21 08:00 Resp 16 04/05/21 08:00 BP 154/80 04/05/21 08:00 Pulse Ox 98 04/05/21 08:00 Intake & Output 04/04/21 04/05/21 04/05/21 18:59 06:59 18:59 Intake Total 236 Output Total 2099 3275 Balance -2099 -3274 236 Intake: Oral 236 Output: Urine 20995 Other: Voiding Method External Catheter External Catheter - Exam On exam patient is resting comfortably in bed in no acute distress. Patient is alert and oriented 3. Bilateral lower extremities are wrapped with Carlos wraps for swelling. Sensation intact to the right lower extremity. Neurovascular status and circulatory status are intact. - Labs CBC & Chem 7: 04/05/21 05:51 04/03/21 22:30 Labs: Abnormal Lab Results - Last 24 Hours (Table) 04/04/21 04/05/21 Range/Units 11:26 05:51 Hgb 9.9 L (13.0-17.0) g/dL Hct 34.5 L (39.6-50.0) % MCV 78.4 L (80.0-97.0) fL MCH 22.5 L (27.0-32.0) pg MCHC 28.7 L (32.0-37.0) g/dL RDW 15.7 H (11.5-14.5) % Lymphocytes # 0.71 L (0.90-5.00) X 10*3/uL POC Glucose (mg/dL) 173 H (75-99) mg/dL Assessment and Plan (1) Chronic infection of right knee Current Visit: Yes Status: Acute Code(s): M00.9 - PYOGENIC ARTHRITIS, UNSPECIFIED SNOMED Code(s): 302487040 (2) Weakness Current Visit: Yes Status: Acute Code(s): R53.1 - WEAKNESS SNOMED Code(s): 46790059 Plan: 1. Continue antibiotics per infectious disease. 2. There is no surgical intervention planned.
[2021-04-05 11:43] LABS: Glucose,Whole Blood 91 mg/dL (75-99)
--- NOTE | 2021-04-05 15:59 | P.PN ---
Progress Note - Text Progress Note Date: 04/05/21 Chief Complaint: Lower extremity swelling redness Hospital course: This is a pleasant 76-year-old patient, follows with visiting physicians Dr. Adkins. Chronic stable medical conditions includes diabetes, hypertension, cerebral palsy with surgery in the legs cannot straighten legs, sometimes uses a walker otherwise pretty much in a wheelchair. Patient lives in the apartment with his brother Susan. Patient is hard of hearing. Patient is brought in because of increasing swelling of lower extremity. Some redness. Also swelling of the right knee. Patient not a good historian. No fever and chills reported. Appetite is fair. No shortness of breath. No cough. 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 In October 2019 patient had I&D of the right knee. He had a revision right total knee arthroplasty in 2011. In July 2020 he had recurrent infection. Attempt to remove the implant was unsuccessful. Has been on suppressive antibiotic therapy since that time. Only other option would be above-knee amputation per orthopedics. April 05: Patient states he's been quite miserable with his leg. Significant pain in his right knee at all times. He understands he's had treatment for about a year with antibiotics without much help. He has not even able to straighten his right knee anymore. He become wheelchair bound. A lengthy discussion was had with the patient. That this infection or could improve as his only been discussed with Dr. Smith previously with the patient. Patient is agreeable to proceed with right above-knee amputation. Discussed with Dr. Smith. Consult vascular. Also discussed with Dr. Hagan from [place]. He concurs. Spoke to Dr. Keyona Hernandez from vascular. She will evaluated the patient. Doppler showed chronic DVT of the right leg. Review of systems: Was done for constitutional, cardiovascular, GI, pulmonary. relevant finding as above Active Medications Hydrocodone Bitart/Acetaminophen (Hydrocodone/Apap 7.5-325mg 1 Each Tab) 1 each PO QID PRN PRN Reason: Pain Aspirin (Aspirin 325 Mg Tab) 325 mg PO [facility] Last Admin: 04/04/21 20:54 Dose: 325 mg Documented by: Atorvastatin Calcium (Atorvastatin 10 Mg Tab) 10 mg PO [facility] Last Admin: 04/04/21 20:54 Dose: 10 mg Documented by: Enoxaparin Sodium (Enoxaparin 40 Mg/0.4 Ml Syringe) 40 mg SQ DAILY [facility] Last Admin: 04/05/21 07:19 Dose: 40 mg Documented by: Cefazolin Sodium 2 gm/ Sodium (Chloride) 50 mls @ 100 mls/hr IVPB Q8HR [facility] Last Admin: 04/05/21 15:26 Dose: 100 mls/hr Documented by: Insulin Aspart (Insulin Aspart (Novolog) 100 Unit/Ml Vial) 0 unit SQ ACHS [facility]; Protocol Last Admin: 04/05/21 12:09 Dose: Not Given Documented by: Lorazepam (Lorazepam 2 Mg/Ml Inj) 0.5 mg IV Q6HR PRN PRN Reason: Anxiety Metformin HCl (Metformin 500 Mg Tab) 500 mg PO BID-W/MEALS [facility] Last Admin: 04/05/21 07:18 Dose: 500 mg Documented by: Methocarbamol (Methocarbamol 500 Mg Tab) 1,000 mg PO QID PRN PRN Reason: Muscle Pain Morphine Sulfate (Morphine Sulfate 4 Mg/Ml Syringe) 4 mg IV Q4HR PRN PRN Reason: Severe Pain Last Admin: 04/05/21 15:32 Dose: 4 mg Documented by: Naloxone HCl (Naloxone 0.4 Mg/Ml 1 Ml Vial) 0.2 mg IV Q2M PRN PRN Reason: Opioid Reversal Nifedipine (Nifedipine Xl 30 Mg Tab.Er.24) 30 mg PO DAILY [facility] Last Admin: 04/05/21 07:18 Dose: 30 mg Documented by: Ondansetron HCl (Ondansetron 4 Mg/2 Ml Vial) 4 mg IVP Q8HR PRN PRN Reason: Nausea And Vomiting Pregabalin (Pregabalin 100 Mg Cap) 100 mg PO BID [facility] Last Admin: 04/05/21 07:19 Dose: 100 mg Documented by: Past medical history to include: Diabetes, hard of hearing, hypertension, cerebral palsy with surgery in the legs cannot straighten legs, sometimes uses a walker mostly wheelchair. 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 Social history: Lives with his brother and [id number]. No history of smoking or alcohol. Family history: Reviewed, noncontributory to presentation Physical examination: VITAL SIGNS: 98.1, 80, 17, 150/78, 99% room air GENERAL: reclining in bed, awake, uncomfortable EYES: Pupils equal. Conjunctiva normal. HEENT: External appearance of nose and ears normal, oral cavity grossly normal. Hard of hearing NECK: JVD not raised; masses not palpable. HEART: First and second heart sounds are normal; edema present. LUNGS: Respiratory rate normal; clear to auscultation. ABDOMEN: Soft, nontender, liver spleen not palpable, no masses palpable. PSYCH: Patient able to answer some questionsl. MUSCULOSKELETAL:No Clubbing/cyanosis;muscles-grossly intact. Tenderness swelling of the right knee. Mild Redness /swelling lower extremity. Patient unable to straighten his right knee. NEUROLOGICAL: [Cranial nerves grossly intact; no facial asymmetry, decreased power lower extremity. INVESTIGATIONS, reviewed in the clinical context: 2-D echocardiogram: EF 55-60%. Venous Doppler lower extremity bilateral: Possible chronic DVT in the right occasional weight. April 05: White count 6.4 hemoglobin 9.9 platelets 329 potassium 3.8 creatinine 0.4 White count 9 hemoglobin 10.7 platelets 337 potassium 4.5 BUN 26 creatinine 0.53 ProBNP 2-3 Coronavirus [PCR]: Not detected( EKG tracing personally reviewed by me-poor baseline. Questionable sinus rhythm. Chest x-ray film personally reviewed by me-scoliosis. No infiltrates. Possible cardiomegaly Assessment and plan: -Chronic septic arthritis of the right knee. With a prior history of right total knee arthroplasty in 2011. Patient has been on long-term antibiotics. Only option left is right above knee amputation. Consult orthopedics. Consult ID. -Right lower extremity swelling likely from venous insufficiency Carlos wrap -Chronic DVT of the right popliteal vein Carlos wrap -Right lower extremity cellulitis IV ceftriaxone -Cerebral palsy causing cognitive impairment -Chronic gait dysfunction. Patient used to use a walker. Now wheelchair bound Fall precautions -Essential hypertension Nifedipine ER 30 mg a day -Diabetes mellitus type 2 Glucophage 500 mg twice a day. Follow Accu-Cheks with sliding scale. -Hyperlipidemia Lipitor 10 mg daily at bedtime -Hard of hearing, patient lost his hearing aids I did try to reach out to patient's brother Mario Alberto on his phone [phone]. Went into his voicemail. Spoke to the nurse she will reach out to him to update him about patient agreeing for surgery. Discussions were had with Dr. Smith, Dr. Hernandez, Dr. Bentley. Patient is agreeable to proceed. Right above- knee amputation. Consult cardiology for clearance. Total time spent today about 50 minutes with over 30 minutes of discussion.
--- NOTE | 2021-04-05 16:27 | P.CONS ---
History of Present Illness - Reason for Consult Consult date: 04/04/21 leg cellulitis Requesting physician: Luis Rojas - Chief Complaint swelling and pain to the leg x weeks - History of Present Illness History of Present Illness : Patient is a 76-year male with a past medical history significant for chronic right knee septic arthritis in this patient did have a washout back in October 2019 x-ray knee arthroplasty could not be done because of significant adhesions patient culture were negative received IV antibiotic therapy subsequently has been on suppressive oral antibiotics patient presenting to the [facility] ER last night evaluation of bilateral lower extremity edema with more swelling and some pain to the right leg and knee area describing it to be more of a dull aching 4-5 out of 10 and radiation, the patient did have significant swelling of the right knee area but no significant wound or purulent drainage patient on presentation to the hospital was afebrile and no fever has been recorded subsequently patient did have normal white count with some lymphopenia no left shift creatinine has been normal urine has been negative hand PCR was negative patient did have a chest x-ray no active cardiopulmonary disease patient was started on Rocephin infectious was consulted with concern for lower extremity cellulitis and chronic right knee septic arthritis Review of system: CONSTITUTIONAL: Positive for weakness denies high-grade fever. EYES: No complaint. ENT: No complaint. RESPIRATORY: No complaint. CARDIOVASCULAR: No complaint. GENITOURINARY: No complaint. GASTROINTESTINAL: No complaint. MUSCULOSKELETAL: As per history of present illness. INTEGUMENTARY : As per history of present illness. PSYCHOLOGIC: No complaint. ENDOCRINE: No complaint. NEUROLOGIC: No complaint. Past medical history : Reviewed, documented below Past surgical history : Reviewed, documented below Social history: Reviewed, documented below Medications: Reviewed, as documented below EXAMINATION: Vital sigans= Reviewed and documented below GENERAL DESCRIPTION elderly male lying in bed, no distress. No tachypnea or accessory muscle of respiration use. HEENT: Shows Pallor , no scleral icterus. Oral mucous membrane is dry. NECK: Trachea central, no thyromegaly. LUNGS: Unlabored breathing. Clear to auscultation anteriorly. No wheeze or crackle. HEART: S1, S2, regular rate and rhythm. ABDOMEN: Soft, no tenderness , guarding or rigidity EXTREMITIES: Bilateral lower extremity significant inspection of the right leg knee did have Cron deformity with the swelling no open wound or any purulent drainage was noticed SKIN: No rash, no masses palpable. NEUROLOGICAL: The patient is awake, alert, oriented x3, mood and affect normal. LABS AND RADIOLOGY: Reviewed results see below Assessment : Patient presented to hospital with significant swelling of the right lower extremity also with a chronic pain to the right knee area and inability walk on it patient currently will have any open wound or any purulent drainage and previous washout culture were negative for any resistant pathogen such as MRSA concern for possible lower extremity cellulitis likely from gram- positive skin william Plan: 1-discontinue Rocephin 2-start the patient on cefazolin 2 g every 8 hours 3-Carlos wrap to the leg to keep the swelling down We will follow on clinical condition and cultures to further adjust medication if needed Thank you for this consultation we will follow the patient along with you Past Medical History Past Medical History: Diabetes Mellitus, Hearing Disorder / Deafness, Hypertension Additional Past Medical History / Comment(s): hx of cerebral palsey with surgery on legs- cannot straighten legs, uses a walker but is mostly in the wheelchair now., cellulitis feet., dry skin, pain in back, shoulders and right knee., right knee red and swollen., Pt lives in apartment by his brother (Mario Alberto)., hx obtained from Mario Alberto- pt [facility] and lost hearing aids. History of Any Multi-Drug Resistant Organisms: None Reported Past Surgical History: Appendectomy, Cholecystectomy, Joint Replacement, Orthop edic Surgery, Tonsillectomy Additional Past Surgical History / Comment(s): surgery on legs for Cerebral Palsy Past Anesthesia/Blood Transfusion Reactions: No Reported Reaction Additional Past Anesthesia/Blood Transfusion Reaction / Comm: brother had ongoing hiccups after anesthesia Past Psychological History: No Psychological Hx Reported Smoking Status: Never smoker Past Alcohol Use History: None Reported Past Drug Use History: None Reported - Past Family History Father Family Medical History: No Reported History Medications and Allergies Home Medications Medication Instructions Recorded Confirmed Type Atorvastatin Calcium [Lipitor] 10 mg PO HS 03/11/19 04/03/21 History NIFEdipine [NIFEdipine ER] 30 mg PO DAILY 03/11/19 04/03/21 History Potassium Chloride [Klor-Con 10 ER] 10 meq PO BID 03/11/19 04/03/21 History metFORMIN HCL [Glucophage] 500 mg PO BID 03/11/19 04/03/21 History Pregabalin [Lyrica] 100 mg PO BID #6 cap 10/25/19 04/03/21 Rx methocarbamoL [Robaxin] 1,000 mg PO QID PRN 07/26/20 04/03/21 History Ammonium Lactate Lotion 1 applic TOPICAL DAILY PRN 04/03/21 04/03/21 History [Lac-Hydrin 12% Lotion] Aspirin 325 mg PO HS 04/03/21 04/03/21 History Cefuroxime Axetil [Ceftin] 500 mg PO BID 04/03/21 04/03/21 History Docusate [Colace] 200 mg PO HS 04/03/21 04/03/21 History Ferrous Sulfate [Feosol] 325 mg PO DAILY 04/03/21 04/03/21 History Furosemide [Lasix] 40 mg PO DAILY 04/03/21 04/03/21 History HYDROcodone/APAP 7.5-325MG [[place] 1 tab PO QID PRN 04/03/21 04/03/21 History 7.5-325] Allergies Allergy/AdvReac Type Severity Reaction Status Date / Time acyclovir Allergy Unknown Verified 04/03/21 23:19 amoxicillin [From Augmentin] Allergy Unknown Verified 04/03/21 23:19 ciprofloxacin [From Cipro] Allergy Unknown Verified 04/03/21 23:19 ciprofloxacin HCl Allergy Unknown Verified 04/03/21 23:19 [From Cipro] clavulanic acid Allergy Unknown Verified 04/03/21 23:19 [From Augmentin] latex Allergy Unknown Verified 04/03/21 23:19 Latex, Natural Rubber Allergy Unknown Verified 04/03/21 23:19 levofloxacin [From Levaquin] Allergy Unknown Verified 04/03/21 23:19 Macrolide Antibiotics Allergy Unknown Verified 04/03/21 23:19 Physical Exam Vitals: Vital Signs Temp Pulse Pulse Resp BP BP Pulse Ox 04/04/21 07:45 98.0 F 81 16 160/74 97 04/04/21 07:27 98 F 76 16 126/77 94 L 04/04/21 04:20 98.1 F 88 16 172/89 96 04/04/21 01:59 82 18 173/82 98 04/03/21 20:37 84 18 128/109 97 Intake and Output 01/18/22 01/19/22 01/19/22 22:59 06:59 14:59 Output Total 1450 1300 Balance -1450 -1300 Output: Urine 1450 1300 Other: Voiding Method External Catheter Weight 83.915 kg 83.915 kg Results CBC & Chem 7: 04/05/21 05:51 04/05/21 05:51 Labs: Abnormal Lab Results - Last 24 Hours (Table) 04/03/21 04/03/21 04/03/21 Range/Units 22:30 22:30 23:38 Hgb 10.7 L (13.0-17.5) gm/dL Hct 36.4 L (39.0-53.0) % MCV 79.2 L (80.0-100.0) fL MCH 23.3 L (25.0-35.0) pg MCHC 29.4 L (31.0-37.0) g/dL Lymphocytes # 0.6 L (1.0-4.8) k/uL BUN 26 H (9-20) mg/dL Creatinine 0.53 L (0.66-1.25) mg/dL Glucose 121 H (74-99) mg/dL POC Glucose (mg/dL) (75-99) mg/dL Alkaline Phosphatase 145 H (38-126) U/L Urine Protein Trace H (Negative) Amorphous Sediment Moderate H (None) /hpf 04/04/21 04/04/21 Range/Units 07:00 11:26 Hgb (13.0-17.5) gm/dL Hct (39.0-53.0) % MCV (80.0-100.0) fL MCH (25.0-35.0) pg MCHC (31.0-37.0) g/dL Lymphocytes # (1.0-4.8) k/uL BUN (9-20) mg/dL Creatinine (0.66-1.25) mg/dL Glucose (74-99) mg/dL POC Glucose (mg/dL) 103 H 173 H (75-99) mg/dL Alkaline Phosphatase (38-126) U/L Urine Protein (Negative) Amorphous Sediment (None) /hpf
--- NOTE | 2021-04-05 16:29 | P.PN ---
Subjective Progress Note Date: 04/05/21 Principal diagnosis: Right knee chronic septic arthritis and lower extremity cellulitis Patient is a 76-year male with a past medical history difficult for chronic septic arthritis of the right knee area and this patient last washout was done back in October 2019 also negative for resistant pathogen at that point and the patient to be admitted to hospital with significant pain and swelling lower extremity Doppler were negative for DVT. On today's evaluation there is 04/05/2021 patient denies having any fever or any chills, pain to right knee is currently controlled with the pain medication still has significant swelling to the leg 1 small wound to the knee area with serous drainage but no purulence denies any abdominal pain and no diarrhea Objective - Vital Signs Vital signs: Vital Signs Temp 99 F 04/05/21 14:00 Pulse 80 04/05/21 14:22 Resp 16 04/05/21 14:00 BP 165/76 04/05/21 14:00 Pulse Ox 97 04/05/21 14:00 Intake & Output 04/04/21 04/05/21 04/05/21 18:59 06:59 18:59 Intake Total 472 Output Total 2100 3275 500 Balance -2099 -3275 -28 Intake: Oral 472 Output: Urine 20995 500 Other: Voiding Method External Catheter External Catheter External Catheter - Exam GENERAL DESCRIPTION: Elderly male lying in bed in no distress RESPIRATORY SYSTEM: Unlabored breathing , decreased breath sounds at bases HEART: S1 S2 regular rate and rhythm ,no loud murmurs ABDOMEN: Soft , no tenderness EXTREMITIES: Right knee with deformity swelling and significant swelling to the right leg minimal warmth no open area or any drainage - Labs CBC & Chem 7: 04/05/21 05:51 04/05/21 05:51 Labs: Abnormal Lab Results - Last 24 Hours (Table) 04/05/21 04/05/21 04/05/21 Range/Units 05:51 05:51 07:01 Hgb 9.9 L (13.0-17.0) g/dL Hct 34.5 L (39.6-50.0) % MCV 78.4 L (80.0-97.0) fL MCH 22.5 L (27.0-32.0) pg MCHC 28.7 L (32.0-37.0) g/dL RDW 15.7 H (11.5-14.5) % Lymphocytes # 0.71 L (0.90-5.00) X 10*3/uL Carbon Dioxide 28.4 H (20.0-27.5) mmol/L Creatinine 0.4 L (0.6-1.5) mg/dL BUN/Creatinine Ratio 38.61 H (12.00-20.00) Ratio POC Glucose (mg/dL) 101 H (75-99) mg/dL Total Bilirubin <0.20 L (0.30-1.20) mg/dL Total Protein 6.1 L (6.2-8.2) g/dL Albumin 3.4 L (3.8-4.9) g/dL Albumin/Globulin Ratio 1.30 L (1.60-3.17) g/dL Assessment and Plan Assessment: Patient with a chronic right knee septic arthritis in this patient could not undergo excisional arthroplasty and antibiotic spacer placement because of significant contracture now presented to hospital with significant pain and swelling concern for possible cellulitis, patient is covered cefazolin that will be continued for now possible plain for right [id number] amputation as per discussion with the admitting physician Ortho is already on the case
[2021-04-05 16:47] LABS: Glucose,Whole Blood 127 mg/dL (75-99)
--- NOTE | 2021-04-05 18:39 | P.GSCN ---
History of Present Illness Consult date: 04/05/21 History of present illness: patient is a 76 year old male with history of cerebral palsy who initially had a right total knee replacement in 2011. Since approximately 2019 he has been having issues with septic knee. He has undergone revisions attempted removal of hardware however, they were unsuccessful in clearing his instructions. On suppressive antibiotic. He continues to have significant pain in his right lower extremity. Previously orthopedics recommended undergoing above-knee amputation however, at the time patient was resistant to this. He is seemingly changed his mind this led to undergo an above-knee dictation therefore vascular surgery consult Past Medical History Past Medical History: Diabetes Mellitus, Hearing Disorder / Deafness, Hypertension Additional Past Medical History / Comment(s): hx of cerebral palsey with surgery on legs- cannot straighten legs, uses a walker but is mostly in the wheelchair now., cellulitis feet., dry skin, pain in back, shoulders and right knee., right knee red and swollen., Pt lives in apartment by his brother (Mario Alberto)., hx obtained from Mario Alberto- pt [facility] and lost hearing aids. History of Any Multi-Drug Resistant Organisms: None Reported Past Surgical History: Appendectomy, Cholecystectomy, Joint Replacement, Orthopedic Surgery, Tonsillectomy Additional Past Surgical History / Comment(s): surgery on legs for Cerebral Palsy Past Anesthesia/Blood Transfusion Reactions: No Reported Reaction Additional Past Anesthesia/Blood Transfusion Reaction / Comm: brother had ongoing hiccups after anesthesia Past Psychological History: No Psychological Hx Reported Smoking Status: Never smoker Past Alcohol Use History: None Reported Past Drug Use History: None Reported - Past Family History Father Family Medical History: No Reported History Medications and Allergies Home Medications Medication Instructions Recorded Confirmed Type Atorvastatin Calcium [Lipitor] 10 mg PO HS 03/11/19 04/03/21 History NIFEdipine [NIFEdipine ER] 30 mg PO DAILY 03/11/19 04/03/21 History Potassium Chloride [Klor-Con 10 ER] 10 meq PO BID 03/11/19 04/03/21 History metFORMIN HCL [Glucophage] 500 mg PO BID 03/11/19 04/03/21 History Pregabalin [Lyrica] 100 mg PO BID #6 cap 10/25/19 04/03/21 Rx methocarbamoL [Robaxin] 1,000 mg PO QID PRN 07/26/20 04/03/21 History Ammonium Lactate Lotion 1 applic TOPICAL DAILY PRN 04/03/21 04/03/21 History [Lac-Hydrin 12% Lotion] Aspirin 325 mg PO HS 04/03/21 04/03/21 History Cefuroxime Axetil [Ceftin] 500 mg PO BID 04/03/21 04/03/21 History Docusate [Colace] 200 mg PO HS 04/03/21 04/03/21 History Ferrous Sulfate [Feosol] 325 mg PO DAILY 04/03/21 04/03/21 History Furosemide [Lasix] 40 mg PO DAILY 04/03/21 04/03/21 History HYDROcodone/APAP 7.5-325MG [[place] 1 tab PO QID PRN 04/03/21 04/03/21 History 7.5-325] Allergies Allergy/AdvReac Type Severity Reaction Status Date / Time acyclovir Allergy Unknown Verified 04/03/21 23:19 amoxicillin [From Augmentin] Allergy Unknown Verified 04/03/21 23:19 ciprofloxacin [From Cipro] Allergy Unknown Verified 04/03/21 23:19 ciprofloxacin HCl Allergy Unknown Verified 04/03/21 23:19 [From Cipro] clavulanic acid Allergy Unknown Verified 04/03/21 23:19 [From Augmentin] latex Allergy Unknown Verified 04/03/21 23:19 Latex, Natural Rubber Allergy Unknown Verified 04/03/21 23:19 levofloxacin [From Levaquin] Allergy Unknown Verified 04/03/21 23:19 Macrolide Antibiotics Allergy Unknown Verified 04/03/21 23:19 Surgical - Exam Vital Signs Pulse Resp BP Pulse Ox 84 18 128/109 97 04/03/21 20:37 04/03/21 20:37 04/03/21 20:37 04/03/21 20:37 general is a pleasant and cooperative male in no acute distress. Heart is regular at this time. Lungs are clear bilaterally, although diminished. Abdo men is soft, obese, nontender nondistended. Right lower extremity is slightly contracted. Ice packs and injured his arm in place. Swelling to the knee. No pain or tendernessor pain with Palpation of the thigh. Results - Labs 04/05/21 05:51 04/05/21 05:51 Abnormal Lab Results - Last 24 Hours (Table) 04/05/21 04/05/21 04/05/21 Range/Units 05:51 05:51 07:01 Hgb 9.9 L (13.0-17.0) g/dL Hct 34.5 L (39.6-50.0) % MCV 78.4 L (80.0-97.0) fL MCH 22.5 L (27.0-32.0) pg MCHC 28.7 L (32.0-37.0) g/dL RDW 15.7 H (11.5-14.5) % Lymphocytes # 0.71 L (0.90-5.00) X 10*3/uL Carbon Dioxide 28.4 H (20.0-27.5) mmol/L Creatinine 0.4 L (0.6-1.5) mg/dL BUN/Creatinine Ratio 38.61 H (12.00-20.00) Ratio POC Glucose (mg/dL) 101 H (75-99) mg/dL Total Bilirubin <0.20 L (0.30-1.20) mg/dL Total Protein 6.1 L (6.2-8.2) g/dL Albumin 3.4 L (3.8-4.9) g/dL Albumin/Globulin Ratio 1.30 L (1.60-3.17) g/dL 04/05/21 Range/Units 16:45 Hgb (13.0-17.0) g/dL Hct (39.6-50.0) % MCV (80.0-97.0) fL MCH (27.0-32.0) pg MCHC (32.0-37.0) g/dL RDW (11.5-14.5) % Lymphocytes # (0.90-5.00) X 10*3/uL Carbon Dioxide (20.0-27.5) mmol/L Creatinine (0.6-1.5) mg/dL BUN/Creatinine Ratio (12.00-20.00) Ratio POC Glucose (mg/dL) 127 H (75-99) mg/dL Total Bilirubin (0.30-1.20) mg/dL Total Protein (6.2-8.2) g/dL Albumin (3.8-4.9) g/dL Albumin/Globulin Ratio (1.60-3.17) g/dL Diabetes panel 04/05/21 Range/Units 05:51 Sodium 142 (135-145) mmol/L Potassium 3.8 (3.5-5.5) mmol/L Chloride 103 (96-109) mmol/L Carbon Dioxide 28.4 H (20.0-27.5) mmol/L BUN 15.6 (9.0-27.0) mg/dL Creatinine 0.4 L (0.6-1.5) mg/dL Glucose 96 (70-110) mg/dL Calcium 8.8 (8.7-10.3) mg/dL AST 17 (14-35) U/L ALT 14 (10-49) U/L Alkaline Phosphatase 107 (41-126) U/L Total Protein 6.1 L (6.2-8.2) g/dL Albumin 3.4 L (3.8-4.9) g/dL Calcium panel 04/05/21 Range/Units 05:51 Calcium 8.8 (8.7-10.3) mg/dL Phosphorus 3.1 (2.4-5.1) mg/dL Albumin 3.4 L (3.8-4.9) g/dL Pituitary panel 04/05/21 Range/Units 05:51 Sodium 142 (135-145) mmol/L Potassium 3.8 (3.5-5.5) mmol/L Chloride 103 (96-109) mmol/L Carbon Dioxide 28.4 H (20.0-27.5) mmol/L BUN 15.6 (9.0-27.0) mg/dL Creatinine 0.4 L (0.6-1.5) mg/dL Glucose 96 (70-110) mg/dL Calcium 8.8 (8.7-10.3) mg/dL Adrenal panel 04/05/21 Range/Units 05:51 Sodium 142 (135-145) mmol/L Potassium 3.8 (3.5-5.5) mmol/L Chloride 103 (96-109) mmol/L Carbon Dioxide 28.4 H (20.0-27.5) mmol/L BUN 15.6 (9.0-27.0) mg/dL Creatinine 0.4 L (0.6-1.5) mg/dL Glucose 96 (70-110) mg/dL Calcium 8.8 (8.7-10.3) mg/dL Total Bilirubin <0.20 L (0.30-1.20) mg/dL AST 17 (14-35) U/L ALT 14 (10-49) U/L Alkaline Phosphatase 107 (41-126) U/L Total Protein 6.1 L (6.2-8.2) g/dL Albumin 3.4 L (3.8-4.9) g/dL Assessment and Plan Assessment: infected right total knee arthroplasty, status post revision and attempted hardware removal. No longer a candidate for orthopedic surgical intervention/revision Plan: on discussion with the patient regarding his willingness undergo an above knee amputation. Risks and benefits all discussed. We'll plan to go forward with amputation next 24-48 hours once evaluated by cardiology.
[2021-04-05 19:25] LABS: Glucose,Whole Blood 140 mg/dL (75-99)
[2021-04-05] MEDS: ATORVASTATIN 10 MG TAB PO SCH (20:19)
[2021-04-05] MEDS: ASPIRIN 325 MG TAB PO SCH (20:19)
[2021-04-05] MEDS: ACETAMINOPHEN TAB 500 MG TAB PO PRN (21:00)
[2021-04-06] MEDS: ACETAMINOPHEN TAB 500 MG TAB PO PRN (02:13)
[2021-04-06 06:48] LABS: Glucose,Whole Blood 105 mg/dL (75-99)
[2021-04-06] MEDS: INSULIN ASPART (NovoLOG) 100 UNIT/ML VIAL SQ SCH ×4 (08:25→19:42)
[2021-04-06] MEDS: metFORMIN 500 MG TAB PO SCH ×2 (08:34→16:39)
[2021-04-06] MEDS: NIFEdipine XL 30 MG TAB.ER.24 PO SCH (08:35)
[2021-04-06] MEDS: ENOXAPARIN 40 MG/0.4 ML SYRINGE SQ SCH (08:35)
[2021-04-06] MEDS: PREGABALIN 100 MG CAP PO SCH ×2 (08:36→19:42)
[2021-04-06 09:22] LABS: HCT 35.5 % (39.0-53.0); HGB 10.3 gm/dL (13.0-17.5); Hypochromasia Marked; MCV 79.3 fL (80.0-100.0); Mean Platelet Volume 7.6; Platelet Count 325 k/uL (150-450); RBC 4.47 m/uL (4.30-5.90); RDW 14.9 % (11.5-15.5); WBC 7.4 k/uL (3.8-10.6)
--- NOTE | 2021-04-06 10:06 | P.PN ---
Subjective Progress Note Date: 04/06/21 This is a 76-year-old male who is admitted for weakness and chronic infection of his right knee. Patient is seen and evaluated at bedside today. Patient states that he's decided to go ahead with an [id number] amputation. Patient denies any new complaints today. Objective - Vital Signs Vital signs: Vital Signs Temp 98.4 F 04/06/21 07:00 Pulse 96 04/06/21 07:00 Resp 18 04/06/21 07:00 BP 145/78 04/06/21 07:00 Pulse Ox 95 04/06/21 01:53 Intake & Output 04/05/21 04/06/21 04/06/21 18:59 06:59 18:59 Intake Total 708 Output Total 700 300 Balance 8 -300 Intake: Oral 708 Output: Urine 700 300 Other: Voiding Method External Catheter External Catheter - Exam On exam patient is resting comfortably in bed in no acute distress. Patient is alert and oriented 3. Bilateral lower extremities are wrapped with Carlos wraps for swelling. Sensation intact to the right lower extremity. Neurovascular status and circulatory status are intact. - Labs CBC & Chem 7: 04/06/21 08:44 04/05/21 05:51 Labs: Abnormal Lab Results - Last 24 Hours (Table) 04/05/21 04/05/21 04/05/21 Range/Units 05:51 05:51 07:01 Hgb 9.9 L (13.0-17.0) g/dL Hct 34.5 L (39.6-50.0) % MCV 78.4 L (80.0-97.0) fL MCH 22.5 L (27.0-32.0) pg MCHC 28.7 L (32.0-37.0) g/dL RDW 15.7 H (11.5-14.5) % Lymphocytes # 0.71 L (0.90-5.00) X 10*3/uL Carbon Dioxide 28.4 H (20.0-27.5) mmol/L Creatinine 0.4 L (0.6-1.5) mg/dL BUN/Creatinine Ratio 38.61 H (12.00-20.00) Ratio POC Glucose (mg/dL) 101 H (75-99) mg/dL Total Bilirubin <0.20 L (0.30-1.20) mg/dL Total Protein 6.1 L (6.2-8.2) g/dL Albumin 3.4 L (3.8-4.9) g/dL Albumin/Globulin Ratio 1.30 L (1.60-3.17) g/dL 04/05/21 04/05/21 04/06/21 Range/Units 16:45 19:22 06:47 Hgb (13.0-17.0) g/dL Hct (39.6-50.0) % MCV (80.0-97.0) fL MCH (27.0-32.0) pg MCHC (32.0-37.0) g/dL RDW (11.5-14.5) % Lymphocytes # (0.90-5.00) X 10*3/uL Carbon Dioxide (20.0-27.5) mmol/L Creatinine (0.6-1.5) mg/dL BUN/Creatinine Ratio (12.00-20.00) Ratio POC Glucose (mg/dL) 127 H 140 H 105 H (75-99) mg/dL Total Bilirubin (0.30-1.20) mg/dL Total Protein (6.2-8.2) g/dL Albumin (3.8-4.9) g/dL Albumin/Globulin Ratio (1.60-3.17) g/dL Microbiology - Last 24 Hours (Table) 04/04/21 21:55 Blood Culture - Preliminary Blood No Growth after 24 hours Assessment and Plan (1) Chronic infection of right knee Current Visit: Yes Status: Acute Code(s): M00.9 - PYOGENIC ARTHRITIS, UNSPECIFIED SNOMED Code(s): 548476057 (2) Weakness Current Visit: Yes Status: Acute Code(s): R53.1 - WEAKNESS SNOMED Code(s): 57053500 Plan: Patient is planning to have an [id number] amputation by vascular surgery once cleared by cardiology.
--- NOTE | 2021-04-06 10:57 | P.PN ---
Subjective Progress Note Date: 04/06/21 Patient seen and examined. No complaints. No note in the chart per cardiology at this point Objective - Vital Signs Vital signs: Vital Signs Temp 98.4 F 04/06/21 07:00 Pulse 96 04/06/21 07:00 Resp 18 04/06/21 07:00 BP 145/78 04/06/21 07:00 Pulse Ox 95 04/06/21 01:53 Intake & Output 04/05/21 04/06/21 04/06/21 18:59 06:59 18:59 Intake Total 708 Output Total 700 300 Balance 8 -300 Intake: Oral 708 Output: Urine 700 300 Other: Voiding Method External Catheter External Catheter External Catheter # Voids 2 # Bowel Movements 1 - Exam No acute distress resting comfortably. HEENT is normocephalic, atraumatic, extraocular motion intact. Heart appears regular in rate and rhythm at this time. Lungs are clear bilaterally. Abdomen is soft, nontender nondistended. Right knee with contracture and edema as previous. - Labs CBC & Chem 7: 04/06/21 08:44 04/05/21 05:51 Labs: Abnormal Lab Results - Last 24 Hours (Table) 04/05/21 04/05/21 04/06/21 Range/Units 16:45 19:22 06:47 Hgb (13.0-17.5) gm/dL Hct (39.0-53.0) % MCV (80.0-100.0) fL MCH (25.0-35.0) pg MCHC (31.0-37.0) g/dL POC Glucose (mg/dL) 127 H 140 H 105 H (75-99) mg/dL 04/06/21 Range/Units 08:44 Hgb 10.3 L (13.0-17.5) gm/dL Hct 35.5 L (39.0-53.0) % MCV 79.3 L (80.0-100.0) fL MCH 23.0 L (25.0-35.0) pg MCHC 29.0 L (31.0-37.0) g/dL POC Glucose (mg/dL) (75-99) mg/dL Microbiology - Last 24 Hours (Table) 04/04/21 21:55 Blood Culture - Preliminary Blood No Growth after 24 hours Assessment and Plan Assessment: infected right total knee arthroplasty, status post revision and attempted hardware removal. No longer a candidate for orthopedic surgical intervention/revision Plan: Currently planning for above-knee amputation tomorrow if cleared fully by cardiology. Questions are answered. Patient seemingly understands and wants to proceed
[2021-04-06 11:34] LABS: Glucose,Whole Blood 101 mg/dL (75-99)
--- NOTE | 2021-04-06 11:42 | P.CRDCN ---
History of Present Illness Consult date: 04/06/21 History of present illness: HISTORY OF PRESENT ILLNESS: This is a 76 year old male with a past medical history significant for hypertension, diabetes, and hyperlipidemia. Patient used to follow with Dr. Barrett but has not been seen in the office since 2016. We have been asked to see the patient in consultation for surgical clearance. Patient examined at the bedside. Patient is scheduled to undergo right AKA tomorrow with Dr. Hernandez. Patient denies any chest pain or pressure. He denies any shortness of breath. Vital signs are stable. EKG reveals sinus mechanism with no signs of acute ischemia Chest xray negative for acute process Laboratory data: WBC 7.4. Hemoglobin 10.3. Platelet count 325. Sodium 142. Potassium 3.8. BUN 15. Creatinine 0.4. ProBNP 223. Troponin negative 1. Current home cardiac medications include Lasix 40 mg daily, nifedipine 30 mg daily, Lipitor 10 mg at night, and aspirin 325 mg at night Echocardiogram completed revealed ejection fraction 55-60%, trace mitral regurgitation, and trace tricuspid regurgitation Patient underwent Lexiscan stress test in 2013 which revealed mild intensity fixed perfusion defect in the inferior basal segment suggestive of soft tissue artifact. REVIEW OF SYSTEMS: At the time of my exam: CONSTITUTIONAL: Denies fever or chills. HEENT: Denies blurred vision, vision changes, or eye pain. Denies hemoptysis CARDIOVASCULAR: Denies chest pain. Denies orthopnea. Denies PND. Denies palpitations RESPIRATORY: Denies shortness of breath. GASTROINTESTINAL: Denies abdominal pain. Denies nausea or vomiting. HEMATOLOGIC: Denies bleeding disorders. GENITOURINARY: Denies any blood in urine. SKIN: Denies pruitis. Denies rash. PHYSICAL EXAM: VITAL SIGNS: Reviewed. GENERAL: Well-developed in no acute distress. HEENT: Head is normocephalic. Pupils are equal, round. Sclerae anicteric. Mucous membranes of the mouth are moist. Neck supple. No JVD or thyromegaly LUNGS: Respirations even and unlabored. Lungs essentially clear to auscultation bilaterally. HEART: Regular rate and rhythm. S1 and S2 heard. ABDOMEN: Soft. Nondistended. Nontender. EXTREMITIES: Normal range of motion. No clubbing or cyanosis. Peripheral puls es intact. Carlos wraps to bilateral lower extremities NEUROLOGIC: Awake and alert. Oriented x 3. ASSESSMENT: Infected right total knee arthroplasty, status post revision and attempted hardware removal Hypertension Hyperlipidemia Diabetes PLAN: 2-D echo obtained and reviewed Patient is moderate risk to undergo surgery from a cardiac standpoint (scheduled for R AKA tomorrow) Recommend cautious IV fluid administration Recommend optimal blood pressure control Further recommendations pending patient's course Nurse practitioner note has been reviewed by physician. Signing provider agrees with the documented findings, assessment, and plan of care. Past Medical History Past Medical History: Diabetes Mellitus, Hearing Disorder / Deafness, Hypertension Additional Past Medical History / Comment(s): hx of cerebral palsey with surgery on legs- cannot straighten legs, uses a walker but is mostly in the wheelchair now., cellulitis feet., dry skin, pain in back, shoulders and right knee., right knee red and swollen., Pt lives in apartment by his brother (Mario Alberto)., hx obtained from Mario Alberto- pt [place] and lost hearing aids. History of Any Multi-Drug Resistant Organisms: None Reported Past Surgical History: Appendectomy, Cholecystectomy, Joint Replacement, Orthopedic Surgery, Tonsillectomy Additional Past Surgical History / Comment(s): surgery on legs for Cerebral Palsy Past Anesthesia/Blood Transfusion Reactions: No Reported Reaction Additional Past Anesthesia/Blood Transfusion Reaction / Comment(s): brother had ongoing hiccups after anesthesia Past Psychological History: No Psychological Hx Reported Smoking Status: Never smoker Past Alcohol Use History: None Reported Past Drug Use History: None Reported - Past Family History Father Family Medical History: No Reported History Medications and Allergies Home Medications Medication Instructions Recorded Confirmed Type Atorvastatin Calcium [Lipitor] 10 mg PO HS 03/11/19 04/03/21 History NIFEdipine [NIFEdipine ER] 30 mg PO DAILY 03/11/19 04/03/21 History Potassium Chloride [Klor-Con 10 ER] 10 meq PO BID 03/11/19 04/03/21 History metFORMIN HCL [Glucophage] 500 mg PO BID 03/11/19 04/03/21 History Pregabalin [Lyrica] 100 mg PO BID #6 cap 10/25/19 04/03/21 Rx methocarbamoL [Robaxin] 1,000 mg PO QID PRN 07/26/20 04/03/21 History Ammonium Lactate Lotion 1 applic TOPICAL DAILY PRN 04/03/21 04/03/21 History [Lac-Hydrin 12% Lotion] Aspirin 325 mg PO HS 04/03/21 04/03/21 History Cefuroxime Axetil [Ceftin] 500 mg PO BID 04/03/21 04/03/21 History Docusate [Colace] 200 mg PO HS 04/03/21 04/03/21 History Ferrous Sulfate [Feosol] 325 mg PO DAILY 04/03/21 04/03/21 History Furosemide [Lasix] 40 mg PO DAILY 04/03/21 04/03/21 History HYDROcodone/APAP 7.5-325MG [[place] 1 tab PO QID PRN 04/03/21 04/03/21 History 7.5-325] Allergies Allergy/AdvReac Type Severity Reaction Status Date / Time acyclovir Allergy Unknown Verified 04/03/21 23:19 amoxicillin [From Augmentin] Allergy Unknown Verified 04/03/21 23:19 ciprofloxacin [From Cipro] Allergy Unknown Verified 04/03/21 23:19 ciprofloxacin HCl Allergy Unknown Verified 04/03/21 23:19 [From Cipro] clavulanic acid Allergy Unknown Verified 04/03/21 23:19 [From Augmentin] latex Allergy Unknown Verified 04/03/21 23:19 Latex, Natural Rubber Allergy Unknown Verified 04/03/21 23:19 levofloxacin [From Levaquin] Allergy Unknown Verified 04/03/21 23:19 Macrolide Antibiotics Allergy Unknown Verified 04/03/21 23:19 Physical Exam Vitals: Vital Signs Temp Pulse Resp BP Pulse Ox 04/06/21 07:00 98.4 F 96 18 145/78 04/06/21 01:53 99.9 F H 80 14 136/57 95 04/05/21 19:30 99.8 F H 81 16 144/65 94 L 04/05/21 14:22 80 04/05/21 14:00 99 F 88 16 165/76 97 04/05/21 12:11 98.1 F 80 17 150/78 99 Intake and Output 04/05/21 04/06/21 04/06/21 22:59 06:59 14:59 Intake Total 236 Output Total 200 300 Balance 36 -300 Intake: Oral 236 Output: Urine 200 300 Other: Voiding Method External Catheter External Catheter # Voids 2 # Bowel Movements 1 Results 04/06/21 08:44 04/05/21 05:51 CBC 04/06/21 Range/Units 08:44 WBC 7.4 (3.8-10.6) k/uL RBC 4.47 (4.30-5.90) m/uL Hgb 10.3 L (13.0-17.5) gm/dL Hct 35.5 L (39.0-53.0) % Plt Count 325 (150-450) k/uL Current Medications Generic Name Dose Route Start Last Admin Trade Name Freq PRN Reason Stop Dose Admin Acetaminophen 500 mg 04/05/21 20:28 04/06/21 02:13 Acetaminophen Tab 500 Mg Tab PO 500 mg Q6HR PRN Administration Fever and/ or Pain Hydrocodone Bitart/Acetaminophen 1 each 04/04/21 12:04 Hydrocodone/Apap 7.5-325mg 1 Each Tab PO QID PRN Pain Aspirin 325 mg 04/04/21 21:00 04/05/21 20:19 Aspirin 325 Mg Tab PO 325 mg HS BRUNILDA Administration Atorvastatin Calcium 10 mg 04/04/21 21:00 04/05/21 20:19 Atorvastatin 10 Mg Tab PO 10 mg HS BRUNILDA Administration Enoxaparin Sodium 40 mg 04/04/21 12:15 04/06/21 08:35 Enoxaparin 40 Mg/0.4 Ml Syringe SQ 40 mg DAILY BRUNILDA Administration Cefazolin Sodium 2 gm/ Sodium 50 mls @ 100 mls/hr 04/05/21 00:00 04/06/21 08:35 Chloride IVPB 100 mls/hr Q8HR BRUNILDA Administration Insulin Aspart 0 unit 04/04/21 12:30 04/06/21 08:25 Insulin Aspart (Novolog) 100 Unit/Ml Vial SQ Not Given ACHS BRUNILDA Protocol Lorazepam 0.5 mg 04/04/21 01:22 Lorazepam 2 Mg/Ml Inj IV Q6HR PRN Anxiety Metformin HCl 500 mg 04/04/21 12:15 04/06/21 08:34 Metformin 500 Mg Tab PO 500 mg BID-W/MEALS BRUNILDA Administration Methocarbamol 1,000 mg 04/04/21 12:04 Methocarbamol 500 Mg Tab PO QID PRN Muscle Pain Morphine Sulfate 4 mg 04/04/21 01:22 04/05/21 20:20 Morphine Sulfate 4 Mg/Ml Syringe IV 4 mg Q4HR PRN Administration Severe Pain Naloxone HCl 0.2 mg 04/04/21 01:22 Naloxone 0.4 Mg/Ml 1 Ml Vial IV Q2M PRN Opioid Reversal Nifedipine 30 mg 04/04/21 12:15 04/06/21 08:35 Nifedipine Xl 30 Mg Tab.Er.24 PO 30 mg DAILY BRUNILDA Administration Ondansetron HCl 4 mg 04/04/21 01:22 Ondansetron 4 Mg/2 Ml Vial IVP Q8HR PRN Nausea And Vomiting Pregabalin 100 mg 04/04/21 12:15 04/06/21 08:36 Pregabalin 100 Mg Cap PO 100 mg BID BRUNILDA Administration Intake and Output 04/05/21 04/06/21 04/06/21 22:59 06:59 14:59 Intake Total 236 Output Total 200 300 Balance 36 -300 Intake: Oral 236 Output: Urine 200 300 Other: Voiding Method External Catheter External Catheter # Voids 2 # Bowel Movements 1 04/06/21 08:44 04/05/21 05:51
--- NOTE | 2021-04-06 15:58 | P.PN ---
Subjective Progress Note Date: 04/06/21 Principal diagnosis: Right knee chronic septic arthritis and lower extremity cellulitis Patient is a 76-year male with a past medical history difficult for chronic septic arthritis of the right knee area and this patient last washout was done back in October 2019 also negative for resistant pathogen at that point and the patient to be admitted to hospital with significant pain and swelling lower extremity Doppler were negative for DVT. On today's evaluation there is 04/06/2021 patient remains to be afebrile, the patient pain to right knee is currently controlled with the pain medication still has significant swelling to the leg however no significant drainage repo rted by the nursing staff, the patient denies abdominal pain and no diarrhea Objective - Vital Signs Vital signs: Vital Signs Temp 98.7 F 04/06/21 14:56 Pulse 97 04/06/21 14:56 Resp 16 04/06/21 14:56 BP 157/79 04/06/21 14:56 Pulse Ox 95 04/06/21 01:53 Intake & Output 04/05/21 04/06/21 04/06/21 18:59 06:59 18:59 Intake Total 708 Output Total 700 300 500 Balance 8 -300 -500 Intake: Oral 708 Output: Urine 700 300 500 Other: Voiding Method External Catheter External Catheter External Catheter # Voids 2 # Bowel Movements 1 - Exam GENERAL DESCRIPTION: Elderly male lying in bed in no distress RESPIRATORY SYSTEM: Unlabored breathing , decreased breath sounds at bases HEART: S1 S2 regular rate and rhythm ,no loud murmurs ABDOMEN: Soft , no tenderness EXTREMITIES: Right knee with deformity swelling and significant swelling to the right leg minimal warmth no open area or any drainage - Labs CBC & Chem 7: 04/06/21 08:44 04/05/21 05:51 Labs: Abnormal Lab Results - Last 24 Hours (Table) 04/05/21 04/05/21 04/06/21 Range/Units 16:45 19:22 06:47 Hgb (13.0-17.5) gm/dL Hct (39.0-53.0) % MCV (80.0-100.0) fL MCH (25.0-35.0) pg MCHC (31.0-37.0) g/dL POC Glucose (mg/dL) 127 H 140 H 105 H (75-99) mg/dL 04/06/21 04/06/21 Range/Units 08:44 11:32 Hgb 10.3 L (13.0-17.5) gm/dL Hct 35.5 L (39.0-53.0) % MCV 79.3 L (80.0-100.0) fL MCH 23.0 L (25.0-35.0) pg MCHC 29.0 L (31.0-37.0) g/dL POC Glucose (mg/dL) 101 H (75-99) mg/dL Microbiology - Last 24 Hours (Table) 04/04/21 21:55 Blood Culture - Preliminary Blood No Growth after 24 hours Assessment and Plan Assessment: Patient with a chronic right knee septic arthritis in this patient could not undergo excisional arthroplasty and antibiotic spacer placement because of significant contracture now presented to hospital with significant pain and swelling concern for possible cellulitis, patient is covered cefazolin that will be continued for now , possible right [id number] amputation per vascular surgery tomorrow
[2021-04-06 16:22] LABS: Glucose,Whole Blood 132 mg/dL (75-99)
--- NOTE | 2021-04-06 17:44 | P.PN ---
Progress Note - Text Progress Note Date: 04/06/21 Chief Complaint: Lower extremity swelling redness Hospital course: This is a pleasant 76-year-old patient, follows with visiting physicians Dr. Adkins. Chronic stable medical conditions includes diabetes, hypertension, cerebral palsy with surgery in the legs cannot straighten legs, sometimes uses a walker otherwise pretty much in a wheelchair. Patient lives in the apartment with his brother Susan. Patient is hard of hearing. Patient is brought in because of increasing swelling of lower extremity. Some redness. Also swelling of the right knee. Patient not a good historian. No fever and chills reported. Appetite is fair. No shortness of breath. No cough. 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 In October 2019 patient had I&D of the right knee. He had a revision right total knee arthroplasty in 2011. In July 2020 he had recurrent infection. Attempt to remove the implant was unsuccessful. Has been on suppressive antibiotic therapy since that time. Only other option would be above-knee amputation per orthopedics. April 05: Patient states he's been quite miserable with his leg. Significant pain in his right knee at all times. He understands he's had treatment for about a year with antibiotics without much help. He has not even able to straighten his right knee anymore. He become wheelchair bound. A lengthy discussion was had with the patient. That this infection or could improve as his only been discussed with Dr. Smith previously with the patient. Patient is agreeable to proceed with right above-knee amputation. Discussed with Dr. Smith. Consult vascular. Also discussed with Dr. Hagan from [place]. He concurs. Spoke to Dr. Keyona Hernandez from vascular. She will evaluated the patient. Doppler showed chronic DVT of the right leg. April 06: Patient scheduled for surgery tomorrow. No new issues. Being seen by cardiology for perioperative management. Spoke to patient's brother Susan on the phone and updated in. Questions answered. Review of systems: Was done for constitutional, cardiovascular, GI, pulmonary. relevant finding as above Active Medications Acetaminophen (Acetaminophen Tab 500 Mg Tab) 500 mg PO Q6HR PRN PRN Reason: Fever and/ or Pain Last Admin: 04/06/21 02:13 Dose: 500 mg Documented by: Hydrocodone Bitart/Acetaminophen (Hydrocodone/Apap 7.5-325mg 1 Each Tab) 1 each PO QID PRN PRN Reason: Pain Aspirin (Aspirin 325 Mg Tab) 325 mg PO HS [facility] Last Admin: 04/05/21 20:19 Dose: 325 mg Documented by: Atorvastatin Calcium (Atorvastatin 10 Mg Tab) 10 mg PO HS [facility] Last Admin: 04/05/21 20:19 Dose: 10 mg Documented by: Enoxaparin Sodium (Enoxaparin 40 Mg/0.4 Ml Syringe) 40 mg SQ DAILY [facility] Last Admin: 04/06/21 08:35 Dose: 40 mg Documented by: Cefazolin Sodium 2 gm/ Sodium (Chloride) 50 mls @ 100 mls/hr IVPB Q8HR [facility] Last Admin: 04/06/21 16:39 Dose: 100 mls/hr Documented by: Insulin Aspart (Insulin Aspart (Novolog) 100 Unit/Ml Vial) 0 unit SQ [facility]; Protocol Last Admin: 04/06/21 16:38 Dose: Not Given Documented by: Lorazepam (Lorazepam 2 Mg/Ml Inj) 0.5 mg IV Q6HR PRN PRN Reason: Anxiety Metformin HCl (Metformin 500 Mg Tab) 500 mg PO BID-W/MEALS [facility] Last Admin: 04/06/21 16:39 Dose: 500 mg Documented by: Methocarbamol (Methocarbamol 500 Mg Tab) 1,000 mg PO QID PRN PRN Reason: Muscle Pain Morphine Sulfate (Morphine Sulfate 4 Mg/Ml Syringe) 4 mg IV Q4HR PRN PRN Reason: Severe Pain Last Admin: 04/05/21 20:20 Dose: 4 mg Documented by: Naloxone HCl (Naloxone 0.4 Mg/Ml 1 Ml Vial) 0.2 mg IV Q2M PRN PRN Reason: Opioid Reversal Nifedipine (Nifedipine Xl 30 Mg Tab.Er.24) 30 mg PO DAILY [facility] Last Admin: 04/06/21 08:35 Dose: 30 mg Documented by: Ondansetron HCl (Ondansetron 4 Mg/2 Ml Vial) 4 mg IVP Q8HR PRN PRN Reason: Nausea And Vomiting Pregabalin (Pregabalin 100 Mg Cap) 100 mg PO BID [facility] Last Admin: 04/06/21 08:36 Dose: 100 mg Documented by: Past medical history to include: Diabetes, hard of hearing, hypertension, cerebral palsy with surgery in the legs cannot straighten legs, sometimes uses a walker mostly wheelchair. 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 Social history: Lives with his brother and [id number]. No history of smoking or alcohol. Family history: Reviewed, noncontributory to presentation Physical examination: VITAL SIGNS: 98.4, 96, 18, 145/78, 95% room air GENERAL: reclining in bed, tired EYES: Pupils equal. Conjunctiva normal. HEENT: External appearance of nose and ears normal, oral cavity grossly normal. Hard of hearing NECK: JVD not raised; masses not palpable. HEART: First and second heart sounds are normal; edema present. LUNGS: Respiratory rate normal; clear to auscultation. ABDOMEN: Soft, nontender, liver spleen not palpable, no masses palpable. PSYCH: Patient able to answer some questionsl. MUSCULOSKELETAL:No Clubbing/cyanosis;muscles-grossly intact. Tenderness swelling of the right knee. Mild Redness /swelling lower extremity. Patient unable to straighten his right knee. NEUROLOGICAL: Cranial nerves grossly intact; no facial asymmetry, decreased power lower extremity. INVESTIGATIONS, reviewed in the clinical context: April 06: White count 7.4 hemoglobin 10.3 2-D echocardiogram: EF 55-60%. Venous Doppler lower extremity bilateral: Possible chronic DVT in the right occasional weight. April 05: White count 6.4 hemoglobin 9.9 platelets 329 potassium 3.8 creatinine 0.4 White count 9 hemoglobin 10.7 platelets 337 potassium 4.5 BUN 26 creatinine 0.53 ProBNP 2-3 Coronavirus [PCR]: Not detected( EKG tracing personally reviewed by me-poor baseline. Questionable sinus rhythm. Chest x-ray film personally reviewed by me-scoliosis. No infiltrates. 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 Patient has been on long-term antibiotics-has not responded. Only option left is right above knee amputation. Patient is agreed to right above-knee amputation after discussion with ID and orthopedics. On IV Ancef. -Right lower extremity swelling likely from venous insufficiency Carlos wrap -Chronic DVT of the right popliteal vein Carlos wrap -Right lower extremity cellulitis IV Ancef -Cerebral palsy causing cognitive impairment -Chronic gait dysfunction. Previously walker. Now wheelchair bound Fall precautions -Essential hypertension Nifedipine ER 30 mg a day -Diabetes mellitus type 2 Glucophage 500 mg twice a day. Follow Accu-Cheks with sliding scale. -Hyperlipidemia Lipitor 10 mg daily at bedtime -Hard of hearing, patient lost his hearing aids -Brother, Mario Alberto MILLER Spoke to patient's brotherLarry over the phone. He is agreeable about the surgery. Answers questions. Possible surgery tomorrow. Also spoke to Dr. Hernandez. Total time spent about 45 minutes with over 30 minutes of discussion.
[2021-04-06] MEDS: ATORVASTATIN 10 MG TAB PO SCH (19:42)
[2021-04-06] MEDS: ASPIRIN 325 MG TAB PO SCH (19:42)
[2021-04-06] MEDS: HYDROcodone/APAP 7.5-325MG 1 EACH TAB PO PRN (19:46)
[2021-04-06 19:47] LABS: Glucose,Whole Blood 126 mg/dL (75-99)
[2021-04-07 07:12] LABS: Glucose,Whole Blood 87 mg/dL (75-99)
[2021-04-07] MEDS: NIFEdipine XL 30 MG TAB.ER.24 PO SCH (07:39)
[2021-04-07] MEDS: PREGABALIN 100 MG CAP PO SCH ×2 (07:39→21:49)
[2021-04-07] MEDS ORDERED: PROPOFOL 10 MG/ML 20 ML VIAL IV ONE (07:55)
[2021-04-07] MEDS ORDERED: fentaNYL (PF) 50 MCG/ML 2 ML AMP ONE (07:55)
[2021-04-07] MEDS ORDERED: LIDOCAINE 1% INJ 10MG/ML (20 ML MDV) ONE (07:55)
[2021-04-07] MEDS ORDERED: MIDAZOLAM 2 MG/2 ML VIAL ONE (07:55)
[2021-04-07] MEDS ORDERED: NEOSTIGMINE 1 MG/ML 10 ML VIAL ONE (07:55)
[2021-04-07] MEDS ORDERED: ROCURONIUM 10 MG/ML (5 ML VIAL) IV ONE (07:55)
[2021-04-07] MEDS ORDERED: ePHEDrine 50 MG/ML 1 ML AMP ONE (07:55)
[2021-04-07] MEDS ORDERED: GLYCOPYRROLATE 0.2 MG/ML 2 ML VIAL ONE (07:55)
[2021-04-07] MEDS ORDERED: IV FLUID CONTINUATION 1,000 ML IV ONE (07:55)
[2021-04-07] MEDS: INSULIN ASPART (NovoLOG) 100 UNIT/ML VIAL SQ SCH ×4 (10:04→21:49)
--- NOTE | 2021-04-07 10:09 | P.OP ---
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 Anesthesia: General endotracheal EBL: 100 mL IV fluids: See records Urine output: See records Drains: None Complications: None immediately apparent Condition: Stable to recovery Operative indication and findings: The patient is a 76-year-old male with a history of a total knee arthroplasty on the right. The ends the past 2 years or so he has been dealing with infection in this joint. He has undergone multiple attempts at interventions and reportedly was unable to fully clear the infe ction. He continues to have pain in his lower extremity from this. Recommendations per orthopedics were to undergo an above-knee amputation however this is not something they were going to do therefore we will consult to do so. Risks and benefits were discussed with the patient as well as his brother who seemingly understood and are willing to proceed. Procedure in detail: The patient was taken to the operative suite and placed in supine position. After adequate anesthesia, the right lower extremity was prepped and draped in usual sterile fashion. A preprocedure timeout was performed, all parties were in agreement. Skin marker was utilized and the incision was marked approximately 5 cm proximal to the knee joint. Skin incision was performed and deepened through the subcutaneous tissues to the muscular fascia. The saphenous vein was identified and ligated with 2-0 silk and divided. The muscle groups of the anterior and medial thigh were divided with electrocautery at the same level of the skin incision. The neurovascular bundle was identified on the medial aspect of the thigh. The artery and veins were isolated and suture ligated using 2-0 silk ligature. The sciatic nerve was pulled on stretch and ligated with 2-0 silk tie and divided. The femur was then cleared of its periosteal tissue is elevated roughly 5 cm proximally and was divided with the oscillating saw. The posterior thigh muscles were then divided with electrocautery. The proximal end of the transected femur was smoothed with a rasp. The amputation site was then copiously irrigated. Hemostasis was controlled with electrocautery. The periosteum was reapproximated using interrupted sutures of 2-0 Vicryl. The fascia was reapproximated with interrupted [id number] sutures of 2-0 Vicryl. The skin was reapproximated with fuad. A dressing with gauze, Kerlix and a bandage were placed. The patient tolerated the procedure well and was transported to PACU in stable condition
[2021-04-07] MEDS ORDERED: LACTATED RINGERS 1,000 ML IV ONE (10:51)
[2021-04-07 11:05] LABS: Glucose,Whole Blood 233 mg/dL (75-99)
[2021-04-07] MEDS ORDERED: INSULIN ASPART (NovoLOG) 100 UNIT/ML VIAL SQ ONE (11:05)
--- NOTE | 2021-04-07 11:11 | P.PN ---
Progress Note - Text Progress Note Date: 04/07/21 This is a 76-year-old male who is admitted for weakness and chronic infection of his right knee. He is currently in the operating room with Dr. Hernandez for above knee amputation. Will re-assess tomorrow.
--- NOTE | 2021-04-07 12:07 | PN ---
PROGRESS NOTE FOLLOW-UP NOTE: This is a 76-year-old gentleman with history of hypertension, diabetes, dyslipidemia who was admitted to hospital for right above-knee amputation, and Cardiology was consulted for preoperative cardiac evaluation. Patient underwent surgery. He just returned from surgery. He is doing well, does not have any chest pain or difficulty in breathing. An echocardiogram on this admission revealed normal LV systolic function. On exam, he is comfortable at rest. Vital signs are stable. Chest exam reveals good air entry bilaterally. Heart exam reveals first and second heart sounds. Systolic murmur at the apex. Abdomen is soft. Examination of extremities reveals right above- knee amputation. Patient is currently on aspirin, Lipitor, Lovenox, insulin, Glucophage, Procardia and Lyrica. ASSESSMENT: 1. Peripheral arterial disease, status post right above-knee amputation. 2. Hypertension. 3. Dyslipidemia. 4. Diabetes. PLAN: Patient tolerated the surgery well. Will follow him tomorrow. MMODL / IJN: [id number] /
[2021-04-07] MEDS: ENOXAPARIN 40 MG/0.4 ML SYRINGE SQ SCH (13:18)
[2021-04-07] MEDS: metFORMIN 500 MG TAB PO SCH ×2 (13:19→17:40)
[2021-04-07] MEDS: MORPHINE SULFATE 4 MG/ML SYRINGE IV PRN (13:22)
[2021-04-07] MEDS: ACETAMINOPHEN TAB 500 MG TAB PO PRN (13:33)
[2021-04-07] MEDS: HYDROcodone/APAP 7.5-325MG 1 EACH TAB PO PRN ×2 (13:33→17:40)
[2021-04-07] MEDS: methocarbamoL 500 MG TAB PO PRN (14:53)
[2021-04-07] MEDS: HYDROmorphone 1 MG/ML 1 ML SYRINGE IVP PRN ×2 (15:18→21:49)
[2021-04-07 15:57] LABS: HCT 27.3 % (39.0-53.0); Hypochromasia Marked; MCH 24.1 pg (25.0-35.0); MCHC 29.9 g/dL (31.0-37.0); MCV 80.5 fL (80.0-100.0); Mean Platelet Volume 7.3; Platelet Count 225 k/uL (150-450); RBC 3.39 m/uL (4.30-5.90); RDW 14.8 % (11.5-15.5); WBC 7.4 k/uL (3.8-10.6)
[2021-04-07 16:07] LABS: HGB 8.2 gm/dL (13.0-17.5)
[2021-04-07 16:29] LABS: Glucose,Whole Blood 95 mg/dL (75-99)
--- NOTE | 2021-04-07 19:51 | P.PN ---
Progress Note - Text Progress Note Date: 04/07/21 Chief Complaint: Lower extremity swelling redness Hospital course: This is a pleasant 76-year-old patient, follows with visiting physicians Dr. Adkins. Chronic stable medical conditions includes diabetes, hypertension, cerebral palsy with surgery in the legs cannot straighten legs, sometimes uses a walker otherwise pretty much in a wheelchair. Patient lives in the apartment with his brother Susan. Patient is hard of hearing. Patient is brought in because of increasing swelling of lower extremity. Some redness. Also swelling of the right knee. Patient not a good historian. No fever and chills reported. Appetite is fair. No shortness of breath. No cough. 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 In October 2019 patient had I&D of the right knee. He had a revision right total knee arthroplasty in 2011. In July 2020 he had recurrent infection. Attempt to remove the implant was unsuccessful. Has been on suppressive antibiotic therapy since that time. Only other option would be above-knee amputation per orthopedics. April 05: Patient states he's been quite miserable with his leg. Significant pain in his right knee at all times. He understands he's had treatment for about a year with antibiotics without much help. He has not even able to straighten his right knee anymore. He become wheelchair bound. A lengthy discussion was had with the patient. That this infection or could improve as his only been discussed with Dr. Smith previously with the patient. Patient is agreeable to proceed with right above-knee amputation. Discussed with Dr. Smith. Consult vascular. Also discussed with Dr. Hagan from [place]. He concurs. Spoke to Dr. Keyona Hernandez from vascular. She will evaluated the patient. Doppler showed chronic DVT of the right leg. April 06: Patient scheduled for surgery tomorrow. No new issues. Being seen by cardiology for perioperative management. Spoke to patient's brother Mario Alberto on the phone and updated in. Questions answered. April 07: Patient today underwent right above-knee amputation by Dr. Hernandez. Pain at the operative site. No nausea vomiting. Did eat all his lunch. Questions answered. Review of systems: Was done for constitutional, cardiovascular, GI, pulmonary. r elevant finding as above Active Medications Acetaminophen (Acetaminophen Tab 500 Mg Tab) 500 mg PO Q6HR PRN PRN Reason: Fever and/ or Pain Last Admin: 04/07/21 13:33 Dose: 500 mg Documented by: Hydrocodone Bitart/Acetaminophen (Hydrocodone/Apap 7.5-325mg 1 Each Tab) 1 each PO QID PRN PRN Reason: Pain Last Admin: 04/07/21 17:40 Dose: 1 each Documented by: Aspirin (Aspirin 325 Mg Tab) 325 mg PO HS [facility] Last Admin: 04/06/21 19:42 Dose: 325 mg Documented by: Atorvastatin Calcium (Atorvastatin 10 Mg Tab) 10 mg PO HS [facility] Last Admin: 04/06/21 19:42 Dose: 10 mg Documented by: Enoxaparin Sodium (Enoxaparin 40 Mg/0.4 Ml Syringe) 40 mg SQ DAILY [facility] Last Admin: 04/07/21 13:18 Dose: Not Given Documented by: Hydromorphone HCl (Hydromorphone 1 Mg/Ml 1 Ml Syringe) 1 mg IVP Q2HR PRN PRN Reason: Pain Last Admin: 04/07/21 15:18 Dose: 1 mg Documented by: Cefazolin Sodium 2 gm/ Sodium (Chloride) 50 mls @ 100 mls/hr IVPB Q8HR [facility] Last Admin: 04/07/21 15:19 Dose: 100 mls/hr Documented by: Insulin Aspart (Insulin Aspart (Novolog) 100 Unit/Ml Vial) 0 unit SQ [facility]; Protocol Last Admin: 04/07/21 17:19 Dose: Not Given Documented by: Lorazepam (Lorazepam 2 Mg/Ml Inj) 0.5 mg IV Q6HR PRN PRN Reason: Anxiety Metformin HCl (Metformin 500 Mg Tab) 500 mg PO BID-W/MEALS [facility] Last Admin: 04/07/21 17:40 Dose: 500 mg Documented by: Methocarbamol (Methocarbamol 500 Mg Tab) 1,000 mg PO QID PRN PRN Reason: Muscle Pain Last Admin: 04/07/21 14:53 Dose: 1,000 mg Documented by: Naloxone HCl (Naloxone 0.4 Mg/Ml 1 Ml Vial) 0.2 mg IV Q2M PRN PRN Reason: Opioid Reversal Nifedipine (Nifedipine Xl 30 Mg Tab.Er.24) 30 mg PO DAILY [facility] Last Admin: 04/07/21 07:39 Dose: 30 mg Documented by: Ondansetron HCl (Ondansetron 4 Mg/2 Ml Vial) 4 mg IVP Q8HR PRN PRN Reason: Nausea And Vomiting Pregabalin (Pregabalin 100 Mg Cap) 100 mg PO BID [facility] Last Admin: 04/07/21 07:39 Dose: 100 mg Documented by: Past medical history to include: Diabetes, hard of hearing, hypertension, cerebral palsy with surgery in the legs cannot straighten legs, sometimes uses a walker mostly wheelchair. 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 Social history: Lives with his brother and [id number]. No history of smoking or alcohol. Family history: Reviewed, noncontributory to presentation Physical examination: VITAL SIGNS: 99, 72, 16, 155/72, 97% room air GENERAL: reclining in bed, sleepy EYES: Pupils equal. Conjunctiva normal. HEENT: External appearance of nose and ears normal, oral cavity grossly normal. Hard of hearing NECK: JVD not raised; masses not palpable. HEART: First and second heart sounds are normal; edema present. LUNGS: Respiratory rate normal; clear to auscultation. ABDOMEN: Soft, nontender, liver spleen not palpable, no masses palpable. PSYCH: Patient able to answer some questionsl. MUSCULOSKELETAL:No Clubbing/cyanosis;muscles-grossly intact. Right above-knee amputation with dressing in place NEUROLOGICAL: Cranial nerves grossly intact; no facial asymmetry, decreased power lower extremity. INVESTIGATIONS, reviewed in the clinical context: April 07: Hemoglobin 8.2 April 06: White count 7.4 hemoglobin 10.3 2-D echocardiogram: EF 55-60%. Venous Doppler lower extremity bilateral: Possible chronic DVT in the right occasional weight. April 05: White count 6.4 hemoglobin 9.9 platelets 329 potassium 3.8 crea tinine 0.4 White count 9 hemoglobin 10.7 platelets 337 potassium 4.5 BUN 26 creatinine 0.53 ProBNP 2-3 Coronavirus [PCR]: Not detected( EKG tracing personally reviewed by me-poor baseline. Questionable sinus rhythm. Chest x-ray film personally reviewed by me-scoliosis. No infiltrates. 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 Patient has been on long-term antibiotics-has not responded. Only option left is right above knee amputation. Patient is agreed to right above-knee amputation after discussion with ID and orthopedics. Right above-knee amputation on April [address] Hernandez. On IV Ancef. -Right lower extremity swelling likely from venous insufficiency., And chronic DVT of the right popliteal vein: Patient now underwent right above-knee amputation -Cerebral palsy causing cognitive impairment -Acute postprocedure blood loss anemia expected from surgery IV Ferrlecit -Chronic gait dysfunction. Previously walker. Now wheelchair bound Fall precautions -Essential hypertension Nifedipine ER 30 mg a day -Diabetes mellitus type 2 Glucophage 500 mg twice a day. Follow Accu-Cheks with sliding scale. -Hyperlipidemia Lipitor 10 mg daily at bedtime -Hard of hearing, patient lost his hearing aids -Brother, Mario Alberto MILLER IV Ferrlecit. Home medications resumed. Discussed with patient.
[2021-04-07 20:20] LABS: Glucose,Whole Blood 246 mg/dL (75-99)
[2021-04-07] MEDS: ATORVASTATIN 10 MG TAB PO SCH (21:49)
[2021-04-07] MEDS: ASPIRIN 325 MG TAB PO SCH (21:49)
--- NOTE | 2021-04-07 22:24 | P.PN ---
Subjective Progress Note Date: 04/07/21 Principal diagnosis: Right knee chronic septic arthritis and lower extremity cellulitis Patient is a 76-year male with a past medical history difficult for chronic septic arthritis of the right knee area and this patient last washout was done back in October 2019 also negative for resistant pathogen at that point and the patient to be admitted to hospital with significant pain and swelling lower extremity Doppler were negative for DVT. Patient is status post right a [id number] amputation completed on 04/07/2021 On today's evaluation there is 04/07/2021 patient denies any fever or chills, the patient pain to right AKA stump is currently controlled with the pain medication , the patient denies any chest pain shortness of breath or cough no nausea no vomiting no abdominal pain no diarrhea Objective - Vital Signs Vital signs: Vital Signs Temp 99 F 04/07/21 19:32 Pulse 72 04/07/21 19:34 Resp 16 04/07/21 19:34 BP 155/72 04/07/21 19:32 Pulse Ox 97 04/07/21 19:32 Intake & Output 04/07/21 04/07/21 04/08/21 06:59 18:59 06:59 Intake Total 550 Output Total 1650 1050 Balance -1650 -500 Weight 83.915 kg Intake: IV 550 Output: Urine 1650 950 Estimated Blood Loss 100 Other: Voiding Method External Catheter External Catheter External Catheter - Exam GENERAL DESCRIPTION: Elderly male lying in bed in no distress RESPIRATORY SYSTEM: Unlabored breathing , decreased breath sounds at bases HEART: S1 S2 regular rate and rhythm ,no loud murmurs ABDOMEN: Soft , no tenderness EXTREMITIES: Right AKA stump is currently dressed in the OR dressing - Labs CBC & Chem 7: 04/07/21 15:33 04/05/21 05:51 Labs: Abnormal Lab Results - Last 24 Hours (Table) 04/07/21 04/07/21 04/07/21 Range/Units 11:03 15:33 20:18 RBC 3.39 L (4.30-5.90) m/uL Hgb 8.2 L D (13.0-17.5) gm/dL Hct 27.3 L (39.0-53.0) % MCH 24.1 L (25.0-35.0) pg MCHC 29.9 L (31.0-37.0) g/dL POC Glucose (mg/dL) 233 H 246 H (75-99) mg/dL Microbiology - Last 24 Hours (Table) 04/04/21 21:55 Blood Culture - Preliminary Blood No Growth after 48 hours Assessment and Plan Assessment: Patient with a chronic right knee septic arthritis in this patient could not undergo excisional arthroplasty and antibiotic spacer placement because of significant contracture now presented to hospital with significant pain and swelling concern for possible cellulitis, patient is status post right [id number] amputation with infected part removed the patient will not need long-term antibiotic therapy patient to continue with the perioperative cefazolin Time with Patient: Less than 30
[2021-04-08] MEDS: ACETAMINOPHEN TAB 500 MG TAB PO PRN (01:48)
[2021-04-08] MEDS: methocarbamoL 500 MG TAB PO PRN ×2 (01:48→13:09)
[2021-04-08] MEDS: HYDROcodone/APAP 7.5-325MG 1 EACH TAB PO PRN ×3 (03:28→17:01)
[2021-04-08 06:55] LABS: Glucose,Whole Blood 98 mg/dL (75-99)
[2021-04-08] MEDS: PREGABALIN 100 MG CAP PO SCH ×2 (07:39→21:51)
[2021-04-08] MEDS: ENOXAPARIN 40 MG/0.4 ML SYRINGE SQ SCH (07:39)
[2021-04-08] MEDS: metFORMIN 500 MG TAB PO SCH ×2 (07:39→17:01)
[2021-04-08] MEDS: NIFEdipine XL 30 MG TAB.ER.24 PO SCH (07:39)
[2021-04-08] MEDS: INSULIN ASPART (NovoLOG) 100 UNIT/ML VIAL SQ SCH ×4 (07:43→21:51)
[2021-04-08] MEDS: SODIUM FERRIC GLUCONAT-SUCROSE 125 MG in SODIUM CHLORIDE 0.9% 100 ML IVPB SCH (08:55)
--- NOTE | 2021-04-08 10:32 | P.PN ---
Subjective Progress Note Date: 04/08/21 This is a 76-year-old male who is admitted for weakness and chronic infection of his right knee. He is status-post right above knee amputation yesterday 04/07/[address] Hernandez. He is seen and examined bedside today. He states he is doing well with no complaints. Vital signs stable. Objective - Vital Signs Vital signs: Vital Signs Temp 98.6 F 04/08/21 07:35 Pulse 72 04/08/21 07:35 Resp 16 04/08/21 07:35 BP 147/66 04/08/21 07:35 Pulse Ox 96 04/08/21 07:35 Intake & Output 04/07/21 04/08/21 04/08/21 18:59 06:59 18:59 Intake Total 550 1300 Output Total 1050 725 Balance -500 575 Weight 83.915 kg Intake: IV 550 Intake, IV Titration 900 Amount Lactated Ringers 1,000 ml 900 @ 0 mls/hr IV .[facility] Rx#:[id number] Oral 400 Output: Urine 950 725 Estimated Blood Loss 100 Other: Voiding Method External Catheter External Catheter - Exam On examination, patient is sitting up in bed in no apparent distress. He is alert and orientated x3. Above knee amputation right lower extremity with clean, intact surgical dressings. - Labs CBC & Chem 7: 04/07/21 15:33 04/05/21 05:51 Labs: Abnormal Lab Results - Last 24 Hours (Table) 04/07/21 04/07/21 04/07/21 Range/Units 11:03 15:33 20:18 RBC 3.39 L (4.30-5.90) m/uL Hgb 8.2 L D (13.0-17.5) gm/dL Hct 27.3 L (39.0-53.0) % MCH 24.1 L (25.0-35.0) pg MCHC 29.9 L (31.0-37.0) g/dL POC Glucose (mg/dL) 233 H 246 H (75-99) mg/dL Microbiology - Last 24 Hours (Table) 04/04/21 21:55 Blood Culture - Preliminary Blood No Growth after 72 hours Assessment and Plan Assessment: This is a 76-year-old male who is admitted for weakness and chronic infection of his right knee who is status-post right above knee amputation yesterday 04/08/[address] Hernandez. Plan: - Post-operative care for right above knee amputation per Dr. Hernandez. We will follow patient on an as-needed basis.
[2021-04-08 11:31] LABS: Glucose,Whole Blood 127 mg/dL (75-99)
[2021-04-08] MEDS: HYDROmorphone 1 MG/ML 1 ML SYRINGE IVP PRN ×2 (13:35→22:05)
[2021-04-08 15:28] LABS: Basophils % (A) 0 %; Eosinophils # (A) 0.2 k/uL (0-0.7); Eosinophils % (A) 3 %; HCT 27.9 % (39.0-53.0); HGB 8.3 gm/dL (13.0-17.5); Hypochromasia Marked; Lymphocytes # (A) 0.7 k/uL (1.0-4.8); Lymphocytes % (A) 12 %; MCH 23.6 pg (25.0-35.0); MCHC 29.9 g/dL (31.0-37.0); Mean Platelet Volume 7.8; Monocytes # (A) 0.5 k/uL (0-1.0); Monocytes % (A) 8 %; Neutrophils # (A) 4.5 k/uL (1.3-7.7); Neutrophils % (A) 74 %; Platelet Count 305 k/uL (150-450); RBC 3.53 m/uL (4.30-5.90); RDW 14.8 % (11.5-15.5); WBC 6.1 k/uL (3.8-10.6)
--- NOTE | 2021-04-08 15:34 | P.PN ---
Progress Note - Text Progress Note Date: 04/08/21 Chief Complaint: Lower extremity swelling redness Hospital course: This is a pleasant 76-year-old patient, follows with visiting physicians Dr. Adkins. Chronic stable medical conditions includes diabetes, hypertension, cerebral palsy with surgery in the legs cannot straighten legs, sometimes uses a walker otherwise pretty much in a wheelchair. Patient lives in the apartment with his brother Susan. Patient is hard of hearing. Patient is brought in because of increasing swelling of lower extremity. Some redness. Also swelling of the right knee. Patient not a good historian. No fever and chills reported. Appetite is fair. No shortness of breath. No cough. 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 In October 2019 patient had I&D of the right knee. He had a revision right total knee arthroplasty in 2011. In July 2020 he had recurrent infection. Attempt to remove the implant was unsuccessful. Has been on suppressive antibiotic therapy since that time. Only other option would be above-knee amputation per orthopedics. April 05: Patient states he's been quite miserable with his leg. Significant pain in his right knee at all times. He understands he's had treatment for about a year with antibiotics without much help. He has not even able to straighten his right knee anymore. He become wheelchair bound. A lengthy discussion was had with the patient. That this infection or could improve as his only been discussed with Dr. Smith previously with the patient. Patient is agreeable to proceed with right above-knee amputation. Discussed with Dr. Smith. Consult vascular. Also discussed with Dr. Hagan from [place]. He concurs. Spoke to Dr. Keyona Hernandez from vascular. She will evaluated the patient. Doppler showed chronic DVT of the right leg. April 06: Patient scheduled for surgery tomorrow. No new issues. Being seen by cardiology for perioperative management. Spoke to patient's brother Mario Alberto on the phone and updated in. Questions answered. April 07: Patient today underwent right above-knee amputation by Dr. Hernandez. Pain at the operative site. No nausea vomiting. Did eat all his lunch. Questions answered. April 08: Eating well. Pain at the amputation site. Discussed with the patient. No new issues. Review of systems: Was done for constitutional, cardiovascular, GI, pulmonary. relevant finding as above Active Medications Acetaminophen (Acetaminophen Tab 500 Mg Tab) 500 mg PO Q6HR PRN PRN Reason: Fever and/ or Pain Last Admin: 04/08/21 01:48 Dose: 500 mg Documented by: Hydrocodone Bitart/Acetaminophen (Hydrocodone/Apap 7.5-325mg 1 Each Tab) 1 each PO QID PRN PRN Reason: Pain Last Admin: 04/08/21 07:39 Dose: 1 each Documented by: Aspirin (Aspirin 325 Mg Tab) 325 mg PO HS [facility] Last Admin: 04/07/21 21:49 Dose: 325 mg Documented by: Atorvastatin Calcium (Atorvastatin 10 Mg Tab) 10 mg PO HS [facility] Last Admin: 04/07/21 21:49 Dose: 10 mg Documented by: Enoxaparin Sodium (Enoxaparin 40 Mg/0.4 Ml Syringe) 40 mg SQ DAILY [facility] Last Admin: 04/08/21 07:39 Dose: 40 mg Documented by: Hydromorphone HCl (Hydromorphone 1 Mg/Ml 1 Ml Syringe) 1 mg IVP Q2HR PRN PRN Reason: Pain Last Admin: 04/08/21 13:35 Dose: 1 mg Documented by: Cefazolin Sodium 2 gm/ Sodium (Chloride) 50 mls @ 100 mls/hr IVPB Q8HR [facility] Last Admin: 04/08/21 07:39 Dose: 100 mls/hr Documented by: Ferric Sodium Gluconate 125 mg (/ Sodium Chloride) 110 mls @ 100 mls/hr IVPB DAILY [facility] Stop: 04/09/21 10:05 Last Admin: 04/08/21 08:55 Dose: 100 mls/hr Documented by: Insulin Aspart (Insulin Aspart (Novolog) 100 Unit/Ml Vial) 0 unit SQ ACHS [facility]; Protocol Last Admin: 04/08/21 12:27 Dose: Not Given Documented by: Lorazepam (Lorazepam 2 Mg/Ml Inj) 0.5 mg IV Q6HR PRN PRN Reason: Anxiety Metformin HCl (Metformin 500 Mg Tab) 500 mg PO BID-W/MEALS [facility] Last Admin: 04/08/21 07:39 Dose: 500 mg Documented by: Methocarbamol (Methocarbamol 500 Mg Tab) 1,000 mg PO QID PRN PRN Reason: Muscle Pain Last Admin: 04/08/21 13:09 Dose: 1,000 mg Documented by: Naloxone HCl (Naloxone 0.4 Mg/Ml 1 Ml Vial) 0.2 mg IV Q2M PRN PRN Reason: Opioid Reversal Nifedipine (Nifedipine Xl 30 Mg Tab.Er.24) 30 mg PO DAILY [facility] Last Admin: 04/08/21 07:39 Dose: 30 mg Documented by: Ondansetron HCl (Ondansetron 4 Mg/2 Ml Vial) 4 mg IVP Q8HR PRN PRN Reason: Nausea And Vomiting Pregabalin (Pregabalin 100 Mg Cap) 100 mg PO BID [facility] Last Admin: 04/08/21 07:39 Dose: 100 mg Documented by: Past medical history to include: Diabetes, hard of hearing, hypertension, cerebral palsy with surgery in the legs cannot straighten legs, sometimes uses a walker mostly wheelchair. 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 Social history: Lives with his brother and [id number]-[id number]. No history of smoking or alcohol. Family history: Reviewed, noncontributory to presentation Physical examination: VITAL SIGNS: 98.6, 72, 16, 1 4766, 96% room air GENERAL: reclining in bed, awake EYES: Pupils equal. Conjunctiva normal. HEENT: External appearance of nose and ears normal, oral cavity grossly normal. Hard of hearing NECK: JVD not raised; masses not palpable. HEART: First and second heart sounds are normal; edema present. LUNGS: Respiratory rate normal; clear to auscultation. ABDOMEN: Soft, nontender, liver spleen not palpable, no masses palpable. PSYCH: Patient able to answer some questionsl. MUSCULOSKELETAL:No Clubbing/cyanosis;muscles-grossly intact. Right above-knee amputation with dressing in place NEUROLOGICAL: Cranial nerves grossly intact; no facial asymmetry, decreased power lower extremity. INVESTIGATIONS, reviewed in the clinical context: April 08: White count 6.1 hemoglobin 8.3 April 07: Hemoglobin 8.2 April 06: White count 7.4 hemoglobin 10.3 2-D echocardiogram: EF 55-60%. Venous Doppler lower extremity bilateral: Possible chronic DVT in the right occasional weight. April 05: White count 6.4 hemoglobin 9.9 platelets 329 potassium 3.8 creatinine 0.4 White count 9 hemoglobin 10.7 platelets 337 potassium 4.5 BUN 26 creatinine 0.53 ProBNP 2-3 Coronavirus [PCR]: Not detected( EKG tracing personally reviewed by nv-poor baseline. Questionable sinus rhythm. Chest x-ray film personally reviewed by me-scoliosis. No infiltrates. 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 Patient has been on long-term antibiotics-has not re sponded. Only option left is right above knee amputation. Patient is agreed to right above-knee amputation after discussion with ID and orthopedics. Right above-knee amputation on April [address] Hernandez. On IV Ancef. -Right lower extremity swelling likely from venous insufficiency., And chronic DVT of the right popliteal vein: Patient now underwent right above-knee amputation -Cerebral palsy causing cognitive impairment -Acute postprocedure blood loss anemia expected from surgery IV Ferrlecit -Chronic gait dysfunction. Previously walker. Now wheelchair bound Fall precautions -Essential hypertension Nifedipine ER 30 mg a day -Diabetes mellitus type 2 Glucophage 500 mg twice a day. Follow Accu-Cheks with sliding scale. -Hyperlipidemia Lipitor 10 mg daily at bedtime -Hard of hearing, patient lost his hearing aids -Brother, Mario Alberto MILLER IV Ferrlecit. Continue current medications. Pain control.
--- NOTE | 2021-04-08 16:11 | PN ---
PROGRESS NOTE This is a 76-year-old gentleman who underwent right above-knee amputation for peripheral arterial disease, atrial fibrillation, history of hypertension, diabetes, dyslipidemia. He is doing well and is free of symptoms. He has intermittent episodes of discomfort in the leg. Denies chest pain or shortness of breath. Blood pressure is poorly controlled at times, probably secondary to the pain. EXAM: Appears comfortable this morning. Vital signs stable. Chest exam reveals good air entry bilaterally. Heart exam reveals first and second heart sounds. No gallop. Examination of extremities shows the right above-knee amputation. ASSESSMENT: 1. Status post right above-knee amputation. 2. Hypertension. 3. Diabetes. 4. Dyslipidemia. PLAN: Patient is doing well. Continue current medications. We will follow the patient on a p.r.n. basis. MMSAVANAHL / TAMIAN: [id number] /
[2021-04-08 16:33] LABS: Glucose,Whole Blood 115 mg/dL (75-99)
[2021-04-08 20:17] LABS: Glucose,Whole Blood 125 mg/dL (75-99)
--- NOTE | 2021-04-08 20:22 | P.PN ---
Subjective Progress Note Date: 04/08/21 Principal diagnosis: Right knee chronic septic arthritis and lower extremity cellulitis Patient is a 76-year male with a past medical history difficult for chronic septic arthritis of the right knee area and this patient last washout was done back in October 2019 also negative for resistant pathogen at that point and the patient to be admitted to hospital with significant pain and swelling lower extremity Doppler were negative for DVT. Patient is status post right a xcyw-yst-yelz amputation completed on 04/07/2021 On today's evaluation there is 04/08/2021 patient is afebrile, the patient pain to right AKA stump is currently controlled , the patient denies chest pain shortness of breath or cough no nausea no vomiting no abdominal pain no diarrhea Objective - Vital Signs Vital signs: Vital Signs Temp 100.0 F H 04/08/21 14:00 Pulse 68 04/08/21 14:00 Resp 16 04/08/21 14:00 BP 107/51 04/08/21 14:00 Pulse Ox 93 L 04/08/21 14:00 Intake & Output 04/08/21 04/08/21 04/09/21 06:59 18:59 06:59 Intake Total 1300 240 Output Total 725 1000 Balance 575 -760 Intake: Intake, IV Titration 900 Amount Lactated Ringers 1,000 ml 900 @ 0 mls/hr IV .[employer] [facility] Rx#:[id number] Oral 400 240 Output: Urine 725 1000 Other: Voiding Method External Catheter External Catheter - Exam GENERAL DESCRIPTION: Elderly male lying in bed in no distress RESPIRATORY SYSTEM: Unlabored breathing , decreased breath sounds at bases HEART: S1 S2 regular rate and rhythm ,no loud murmurs ABDOMEN: Soft , no tenderness EXTREMITIES: Right AKA stump is currently dressed in the OR dressing - Labs CBC & Chem 7: 04/08/21 14:31 04/05/21 05:51 Labs: Abnormal Lab Results - Last 24 Hours (Table) 04/07/21 04/08/21 04/08/21 Range/Units 20:18 11:29 14:31 RBC 3.53 L (4.30-5.90) m/uL Hgb 8.3 L (13.0-17.5) gm/dL Hct 27.9 L (39.0-53.0) % MCV 79.0 L (80.0-100.0) fL MCH 23.6 L (25.0-35.0) pg MCHC 29.9 L (31.0-37.0) g/dL Lymphocytes # 0.7 L (1.0-4.8) k/uL POC Glucose (mg/dL) 246 H 127 H (75-99) mg/dL 04/08/21 04/08/21 Range/Units 16:32 20:16 RBC (4.30-5.90) m/uL Hgb (13.0-17.5) gm/dL Hct (39.0-53.0) % MCV (80.0-100.0) fL MCH (25.0-35.0) pg MCHC (31.0-37.0) g/dL Lymphocytes # (1.0-4.8) k/uL POC Glucose (mg/dL) 115 H 125 H (75-99) mg/dL Microbiology - Last 24 Hours (Table) 04/04/21 21:55 Blood Culture - Preliminary Blood No Growth after 72 hours Assessment and Plan Assessment: Patient with a chronic right knee septic arthritis in this patient could not undergo excisional arthroplasty and antibiotic spacer placement because of significant contracture now presented to hospital with significant pain and swelling concern for possible cellulitis, patient is status post right gzavr-hmj-gfei amputation with infected part removed the patient will not need long-term antibiotic therapy patient is currently covered with the cefazolin 2gm q8hr Time with Patient: Less than 30
[2021-04-08] MEDS: ASPIRIN 325 MG TAB PO SCH (21:51)
[2021-04-08] MEDS: ATORVASTATIN 10 MG TAB PO SCH (21:51)
[2021-04-09 06:53] LABS: Glucose,Whole Blood 97 mg/dL (75-99)
[2021-04-09] MEDS: ENOXAPARIN 40 MG/0.4 ML SYRINGE SQ SCH (08:04)
[2021-04-09] MEDS: metFORMIN 500 MG TAB PO SCH (08:05)
[2021-04-09] MEDS: PREGABALIN 100 MG CAP PO SCH (08:05)
[2021-04-09] MEDS: HYDROcodone/APAP 7.5-325MG 1 EACH TAB PO PRN ×2 (08:05→16:00)
[2021-04-09] MEDS: NIFEdipine XL 30 MG TAB.ER.24 PO SCH (08:05)
[2021-04-09] MEDS: INSULIN ASPART (NovoLOG) 100 UNIT/ML VIAL SQ SCH ×2 (08:15→12:27)
[2021-04-09 09:58] LABS: Basophils % (A) 0 %; Eosinophils # (A) 0.2 k/uL (0-0.7); Eosinophils % (A) 2 %; HCT 27.4 % (39.0-53.0); HGB 8.3 gm/dL (13.0-17.5); Hypochromasia Marked; Lymphocytes # (A) 0.8 k/uL (1.0-4.8); Lymphocytes % (A) 11 %; MCH 23.8 pg (25.0-35.0); MCHC 30.1 g/dL (31.0-37.0); MCV 78.9 fL (80.0-100.0); Mean Platelet Volume 7.1; Monocytes # (A) 0.5 k/uL (0-1.0); Monocytes % (A) 8 %; Neutrophils # (A) 5.5 k/uL (1.3-7.7); Neutrophils % (A) 77 %; Platelet Count 308 k/uL (150-450); RBC 3.48 m/uL (4.30-5.90); RDW 15.1 % (11.5-15.5); WBC 7.2 k/uL (3.8-10.6)
[2021-04-09] MEDS: HYDROmorphone 1 MG/ML 1 ML SYRINGE IVP PRN (10:04)
[2021-04-09] MEDS: SODIUM FERRIC GLUCONAT-SUCROSE 125 MG in SODIUM CHLORIDE 0.9% 100 ML IVPB SCH (10:14)
[2021-04-09 10:15] LABS: ALT 12 U/L (4-49); AST 21 U/L (17-59); African American GFR (CKD) >90 (>60 ml/min/1.73 sqM); Albumin 2.5 g/dL (3.5-5.0); Albumin/Globulin Ratio 0.9; Alkaline Phosphatase 108 U/L (38-126); Anion Gap 5 mmol/L; Blood Urea Nitrogen 16 mg/dL (9-20); Calcium 8.4 mg/dL (8.4-10.2); Carbon Dioxide 26 mmol/L (22-30); Chloride 105 mmol/L (98-107); Globulin 2.8 g/dL; Glucose 125 mg/dL (74-99); Non-African American GFR(CKD) >90 (>60 ml/min/1.73 sqM); Potassium 4.3 mmol/L (3.5-5.1); Sodium 136 mmol/L (137-145); Total Bilirubin 0.2 mg/dL (0.2-1.3); Total Protein 5.3 g/dL (6.3-8.2)
[2021-04-09 11:36] LABS: Glucose,Whole Blood 97 mg/dL (75-99)
--- NOTE | 2021-04-09 13:47 | P.PN ---
Subjective Progress Note Date: 04/09/21 Patient is seen and examined at the follow-up for right ffrsm-hrk-cpnv amputation done on . His postop day #2. He is without any significant complaints of pain. His pain is being well managed with medications. He has been afebrile. Objective - Vital Signs Vital signs: Vital Signs Temp 98.8 F 04/09/21 07:59 Pulse 76 04/09/21 07:59 Resp 18 04/09/21 07:59 BP 122/51 04/09/21 07:59 Pulse Ox 93 L 04/09/21 07:59 Intake & Output 04/08/21 04/09/21 04/09/21 18:59 06:59 18:59 Intake Total 240 Output Total 1000 1100 1200 Balance -760 -1100 -1200 Intake: Oral 240 Output: Urine 1000 1100 1200 Other: Voiding Method External Catheter External Catheter - Exam General appearance: The patient is alert, oriented, appears in no acute dis tress. HET: Head is normocephalic and atraumatic. Extremities: Normal skin color and turgor. Right hhvab-niy-tyuv amputation, surgical site well approximated with fuad without any drainage or redness. Surrounding tissues warm to the touch. Site is redressed. Neurological: No focal deficits. Strength and sensation are grossly intact. - Labs CBC & Chem 7: 04/09/21 09:33 04/09/21 09:33 Labs: Abnormal Lab Results - Last 24 Hours (Table) 04/08/21 04/08/21 04/08/21 Range/Units 11:29 14:31 16:32 RBC 3.53 L (4.30-5.90) m/uL Hgb 8.3 L (13.0-17.5) gm/dL Hct 27.9 L (39.0-53.0) % MCV 79.0 L (80.0-100.0) fL MCH 23.6 L (25.0-35.0) pg MCHC 29.9 L (31.0-37.0) g/dL Lymphocytes # 0.7 L (1.0-4.8) k/uL POC Glucose (mg/dL) 127 H 115 H (75-99) mg/dL 04/08/21 04/09/21 Range/Units 20:16 09:33 RBC 3.48 L (4.30-5.90) m/uL Hgb 8.3 L (13.0-17.5) gm/dL Hct 27.4 L (39.0-53.0) % MCV 78.9 L (80.0-100.0) fL MCH 23.8 L (25.0-35.0) pg MCHC 30.1 L (31.0-37.0) g/dL Lymphocytes # 0.8 L (1.0-4.8) k/uL POC Glucose (mg/dL) 125 H (75-99) mg/dL Microbiology - Last 24 Hours (Table) 04/04/21 21:55 Blood Culture - Preliminary Blood No Growth after 96 hours Assessment and Plan Assessment: 1. Postop day #2 for right cjjru-ttr-oofu amputation 2. 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 Recommend physical therapy 2. Case management consulted for stump fitness trainer for [employer] 3. Patient is cleared by vascular surgery for discharge 4. Dressing changes as needed with [employer] and [employer] until stump fitness trainer available The impression and plan of care has been dictated as directed. Dr. Paez I performed a history and examination of this patient, discussed the same with the dictator. I agree with the dictator's note ,documented as a scribe. Any additional findings or plans will be noted.
[2021-04-09 14:08] VITALS: BP 112/60; PULSE 66; RESP 17; TEMP 98.9
[2021-04-09] MEDS: methocarbamoL 500 MG TAB PO PRN (14:38)
--- NOTE | 2021-04-09 15:08 | P.DS ---
Providers Date of admission: 04/06/21 07:40 Expected date of discharge: 04/09/21 Attending physician: Luis Rojas Consults: 04/04/21 12:04 Consult Physician Routine Consulting Provider: Farrah Craig Consult Reason/Comments: leg wounds Do you want consulting provider notified?: Yes 04/04/21 12:14 Consult Physician Routine Consulting Provider: Carl Smith Consult Reason/Comments: Known to patient, swollen/painful right knee Do you want consulting provider notified?: Yes 04/05/21 14:29 Consult Physician Routine Consulting Provider: Zoya Hernandez Consult Reason/Comments: Right AKA Do you want consulting provider notified?: Yes 04/05/21 14:33 Consult Physician Routine Consulting Provider: Matt Courtney Consult Reason/Comments: pre-op clearance/R AKA Do you want consulting provider notified?: Yes Primary care physician: Bill Adkins MD Hospital Course: Chief Complaint: Lower extremity swelling redness Hospital course: This is a pleasant 76-year-old patient, follows with visiting physicians Dr. Adkins. Chronic stable medical conditions includes diabetes, hypertension, cerebral palsy with surgery in the legs cannot straighten legs, sometimes uses a walker otherwise pretty much in a wheelchair. Patient lives in the apartment with his brother Susan. Patient is hard of hearing. Patient is brought in because of increasing swelling of lower extremity. Some redness. Also swelling of the right knee. Patient not a good historian. No fever and chills reported. Appetite is fair. No shortness of breath. No cough. 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 In October 2019 patient had I&D of the right knee. He had a revision right total knee arthroplasty in 2011. In July 2020 he had recurrent infection. Attempt to remove the implant was unsuccessful. Has been on suppressive antibiotic therapy since that time. Only other option would be above-knee amputation per orthopedics. April 05: Patient states he's been quite miserable with his leg. Significant pain in his right knee at all times. He understands he's had treatment for about a year with antibiotics without much help. He has not even able to straighten his right knee anymore. He become wheelchair bound. A lengthy discussion was had with the patient. That this infection or could improve as his only been discussed with Dr. Smith previously with the patient. Patient is agreeable to proceed with right above-knee amputation. Discussed with Dr. Smith. Consult vascular. Also discussed with Dr. Hagan from [place]. He concurs. Spoke to Dr. Keyona Hernandez from vascular. She will evaluated the patient. Doppler showed chronic DVT of the right leg. April 06: Patient scheduled for surgery tomorrow. No new issues. Being seen by cardiology for perioperative management. Spoke to patient's brother Mario Alberto on the phone and updated in. Questions answered. April 07: Patient today underwent right above-knee amputation by Dr. Hernandez. Pain at the operative site. No nausea vomiting. Did eat all his lunch. Questions answered. April 08: Eating well. Pain at the amputation site. Discussed with the p atient. No new issues. April 09: Patient been cleared by vascular or discharge. Patient eating well. Pain much better control. Discussed with the patient. Discussed with social media marketer. cassia Beth. Patient to follow-up with Dr. Hernandez from vascular and Dr. Smith from orthopedics. perID patient to complete a course of oral Keflex as an outpatient Discussion and discharge planning more than 35 minutes Consultation: Dr. Smith from orthopedics Dr. Hernandez from vascular Cardiology associates Dr. Craig from ID Past medical history to include: Diabetes, hard of hearing, hypertension, cerebral palsy with surgery in the legs cannot straighten legs, sometimes uses a walker mostly wheelchair. 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 Social history: Lives with his brother and vodyam-[id number]-pwr. No history of smoking or alcohol. Family history: Reviewed, noncontributory to presentation Physical examination: VITAL SIGNS: 98.9, 66, 17, 112/60, 94% room air GENERAL: reclining in bed, awake EYES: Pupils equal. Conjunctiva normal. HEENT: External appearance of nose and ears normal, oral cavity grossly normal. Hard of hearing NECK: JVD not raised; masses not palpable. HEART: First and second heart sounds are normal; edema present. LUNGS: Respiratory rate normal; clear to auscultation. ABDOMEN: Soft, nontender, liver spleen not palpable, no masses palpable. PSYCH: Patient able to answer some questionsl. MUSCULOSKELETAL:No Clubbing/cyanosis;muscles-grossly intact. Right above-knee amputation with dressing in place NEUROLOGICAL: Cranial nerves grossly intact; no facial asymmetry, decreased power lower extremity. INVESTIGATIONS, reviewed in the clinical context: April 09: White count 7.2 hemoglobin 8.3 platelets 308 potassium 4.3 creatinine 0.5 for. COVID-19: Not detected 2-D echocardiogram: EF 55-60%. Venous Doppler lower extremity bilateral: Possible chronic DVT in the right occasional weight. April 05: White count 6.4 hemoglobin 9.9 platelets 329 potassium 3.8 c reatinine 0.4 White count 9 hemoglobin 10.7 platelets 337 potassium 4.5 BUN 26 creatinine 0.53 ProBNP 2-3 Coronavirus [PCR]: Not detected( EKG tracing personally reviewed by me-poor baseline. Questionable sinus rhythm. Chest x-ray film personally reviewed by me-scoliosis. No infiltrates. 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 Patient has been on long-term antibiotics-has not responded. Only option left is right above knee amputation. Patient is agreed to right above-knee amputation after discussion with ID and orthopedics. Right above-knee amputation on April [address] Hernandez. On IV Ancef. Patient being discharged on oral Keflex. Follow-up with Dr. Hernandez -Right lower extremity swelling likely from venous insufficiency., And chronic DVT of the right popliteal vein: :underwent right above-knee amputation -Cerebral palsy causing cognitive impairment -Acute postprocedure blood loss anemia expected from surgery IV Ferrlecit, 2 doses -Chronic gait dysfunction. Previously walker. Now wheelchair bound Fall precautions -Essential hypertension Nifedipine ER 30 mg a day -Diabetes mellitus type 2 Glucophage 500 mg twice a day. Follow Accu-Cheks with sliding scale. -Hyperlipidemia Lipitor 10 mg daily at bedtime -Hard of hearing, patient lost his hearing aids -Brother, Mario Alberto MILLER Disposition: Inpatient rehab at [facility] Plan - Discharge Summary Discharge Rx Participant: No New Discharge Prescriptions: New INSULIN ASPART (NovoLOG) [NovoLOG (formulary)] 0 unit SQ ACHS ml Cephalexin [Keflex] 500 mg PO Q8HR 1 Days #30 cap Continue metFORMIN HCL [Glucophage] 500 mg PO BID NIFEdipine [NIFEdipine ER] 30 mg PO DAILY Atorvastatin Calcium [Lipitor] 10 mg PO HS methocarbamoL [Robaxin] 1,000 mg PO QID PRN PRN Reason: Muscle Pain Ferrous Sulfate [Iron (65 MG Elemental)] 325 mg PO DAILY Aspirin 325 mg PO HS Pregabalin [Lyrica] 100 mg PO BID #6 cap Changed HYDROcodone/APAP 7.5-325MG [[place] 7.5-325] 1 tab PO QID PRN #12 tab PRN Reason: Pain Discontinued Potassium Chloride [Klor-Con 10 ER] 10 meq PO BID Furosemide [Lasix] 40 mg PO DAILY Docusate [Colace] 200 mg PO HS Cefuroxime Axetil [Ceftin] 500 mg PO BID Ammonium Lactate Lotion [Lac-Hydrin 12% Lotion] 1 applic TOPICAL DAILY PRN PRN Reason: Dry Skin Discharge Medication List Atorvastatin Calcium [Lipitor] 10 mg PO HS 03/11/19 [History] NIFEdipine [NIFEdipine ER] 30 mg PO DAILY 03/11/19 [History] metFORMIN HCL [Glucophage] 500 mg PO BID 03/11/19 [History] methocarbamoL [Robaxin] 1,000 mg PO QID PRN 07/26/20 [History] Aspirin 325 mg PO HS 04/03/21 [History] Ferrous Sulfate [Iron (65 MG Elemental)] 325 mg PO DAILY 04/03/21 [History] Cephalexin [Keflex] 500 mg PO Q8HR 1 Days #30 cap 04/09/21 [Rx] HYDROcodone/APAP 7.5-325MG [[place] 7.5-325] 1 tab PO QID PRN #12 tab 04/09/21 [Rx] INSULIN ASPART (NovoLOG) [NovoLOG (formulary)] 0 unit SQ ACHS ml 04/09/21 [Rx] Pregabalin [Lyrica] 100 mg PO BID #6 cap 04/09/21 [Rx] Follow up Appointment(s)/Referral(s): Bill Adkins MD [Primary Care Provider] - 1-2 days Zoya Hernandez DO [STAFF PHYSICIAN] - 1 Week Carl Smith DO [Doctor of Osteopathic Medicine] - 4 Weeks Activity/Diet/Wound Care/Special Instructions: [facility] - [phone] - stump performance improvement analyst
--- NOTE | 2021-04-09 21:12 | P.PN ---
Subjective Progress Note Date: 04/09/21 Principal diagnosis: Right knee chronic septic arthritis and lower extremity cellulitis Patient is a 76-year male with a past medical history difficult for chronic septic arthritis of the right knee area and this patient last washout was done back in October 2019 also negative for resistant pathogen at that point and the patient to be admitted to hospital with significant pain and swelling lower extremity Doppler were negative for DVT. Patient is status post right a [id number] amputation completed on 04/07/2021 On today's evaluation there is 04/08/2021 patient is afebrile, the patient pain to right AKA stump is currently controlled , the patient denies chest pain shortness of breath or cough no nausea no vomiting no abdominal pain no diarrhea Objective - Vital Signs Vital signs: Vital Signs Temp 98.9 F 04/09/21 14:00 Pulse 66 04/09/21 14:00 Resp 17 04/09/21 14:00 BP 112/60 04/09/21 14:00 Pulse Ox 94 L 04/09/21 14:00 Intake & Output 04/09/21 04/09/21 04/10/21 06:59 18:59 06:59 Output Total 1100 1300 Balance -1100 -1300 Output: Urine 1100 1300 Other: Voiding Method External Catheter # Voids 3 - Labs CBC & Chem 7: 04/09/21 09:33 04/09/21 09:33 Labs: Abnormal Lab Results - Last 24 Hours (Table) 04/09/21 04/09/21 Range/Units 09:33 09:33 RBC 3.48 L (4.30-5.90) m/uL Hgb 8.3 L (13.0-17.5) gm/dL Hct 27.4 L (39.0-53.0) % MCV 78.9 L (80.0-100.0) fL MCH 23.8 L (25.0-35.0) pg MCHC 30.1 L (31.0-37.0) g/dL Lymphocytes # 0.8 L (1.0-4.8) k/uL Sodium 136 L (137-145) mmol/L Creatinine 0.54 L (0.66-1.25) mg/dL Glucose 125 H (74-99) mg/dL Total Protein 5.3 L (6.3-8.2) g/dL Albumin 2.5 L (3.5-5.0) g/dL Microbiology - Last 24 Hours (Table) 04/04/21 21:55 Blood Culture - Preliminary Blood No Growth after 96 hours
== END 2021-04-09 17:18 | DRG 475 ==
LOC: EC 20:29 → 4SSUR 04-04 01:22 → OBSVTOIN 04-06 07:40
PROVIDERS: ADMIT Hospitalist; ATTEND Hospitalist
PROC: 0Y6C0Z3 Detachment at Right Upper Leg, Low, Open Approach (ICD-10-PCS; principal; 2021-04-07 08:00)
DX: T84.53XA Infection and inflammatory reaction due to internal right knee prosthesis, initial encounter (principal); L03.116 Cellulitis of left lower limb; L03.115 Cellulitis of right lower limb; I82.531 Chronic embolism and thrombosis of right popliteal vein; M00.9 Pyogenic arthritis, unspecified; I82.431 Acute embolism and thrombosis of right popliteal vein; Y83.1 Surgical operation with implant of artificial internal device as the cause of abnormal reaction of the patient, or of later complication, without mention of misadventure at the time of the procedure; Z99.3 Dependence on wheelchair; Z79.899 Other long term (current) drug therapy; Z79.84 Long term (current) use of oral hypoglycemic drugs; Z79.82 Long term (current) use of aspirin; Z79.2 Long term (current) use of antibiotics; Z20.822 Contact with and (suspected) exposure to COVID-19; G80.9 Cerebral palsy, unspecified; E78.5 Hyperlipidemia, unspecified; E11.51 Type 2 diabetes mellitus with diabetic peripheral angiopathy without gangrene; D50.0 Iron deficiency anemia secondary to blood loss (chronic); G89.29 Other chronic pain; H91.90 Unspecified hearing loss, unspecified ear; M15.9 Polyosteoarthritis, unspecified; I10 Essential (primary) hypertension; I48.91 Unspecified atrial fibrillation; I87.2 Venous insufficiency (chronic) (peripheral); G83.9 Paralytic syndrome, unspecified; M54.9 Dorsalgia, unspecified; Y84.8 Other medical procedures as the cause of abnormal reaction of the patient, or of later complication, without mention of misadventure at the time of the procedure
CPT/HCPCS: 36415; 71046; 80053; 81001; 83605; 83735; 83880; 84100; 84484; 85025; 85027; 85610; 85730; 86850; 86900; 86901; 87040; 87635; 93005; 93306; 93970; 99285

== ENCOUNTER 2021-06-03 08:40 | Inpatient (IN) | payer MEDICARE, OTHER ==
[2021-06-03] MEDS ORDERED: SODIUM CHLORIDE 0.9% 500 ML 500 ML IV STA (08:49)
[2021-06-03] MEDS ORDERED: HYDROmorphone 0.5 MG/0.5 ML SYRINGE IVP STA (08:50)
--- NOTE | 2021-06-03 09:03 | ED ---
General Adult HPI - General Chief complaint: Abdominal Pain Stated complaint: abd pain Time Seen by Provider: 06/03/21 08:41 Source: patient, EMS, RN notes reviewed, old records reviewed Mode of arrival: EMS Limitations: no limitations - History of Present Illness Initial comments: 76-year-old male presenting from alf for evaluation of fever and abdominal pain. Patient states she's had abdominal pain for approximately one month follow this has worsened recently he describes it as both upper and lower abdominal pain. He was noted to have a fever on Friday which was 3 days ago this was treated with Tylenol at the alf where he resides. Patient was transported today for persistent fever. He had a recent right [id number] amputation. He denies any pain or swelling in this extremity. He has had some pain and erythema in the left leg although this has been present for some time. He denies significant cough. Denies rhinorrhea or sore throat. No known sick contacts. No significant vomiting or diarrhea. - Related Data Home Medications Medication Instructions Recorded Confirmed Atorvastatin Calcium [Lipitor] 10 mg PO HS 03/11/19 04/03/21 NIFEdipine [NIFEdipine ER] 30 mg PO DAILY 03/11/19 04/03/21 metFORMIN HCL [Glucophage] 500 mg PO BID 03/11/19 04/03/21 methocarbamoL [Robaxin] 1,000 mg PO QID PRN 07/26/20 04/03/21 Aspirin 325 mg PO HS 04/03/21 04/03/21 Ferrous Sulfate [Iron (65 MG 325 mg PO DAILY 04/03/21 04/03/21 Elemental)] Previous Rx's Medication Instructions Recorded Cephalexin [Keflex] 500 mg PO Q8HR 1 Days #30 cap 04/09/21 HYDROcodone/APAP 7.5-325MG [[place] 1 tab PO QID PRN #12 tab 04/09/21 7.5-325] INSULIN ASPART (NovoLOG) [NovoLOG 0 unit SQ ACHS ml 04/09/21 (formulary)] Pregabalin [Lyrica] 100 mg PO BID #6 cap 04/09/21 Allergies Allergy/AdvReac Type Severity Reaction Status Date / Time acyclovir Allergy Unknown Verified 06/03/21 08:50 amoxicillin [From Augmentin] Allergy Unknown Verified 06/03/21 08:50 ciprofloxacin [From Cipro] Allergy Unknown Verified 06/03/21 08:50 ciprofloxacin HCl Allergy Unknown Verified 06/03/21 08:50 [From Cipro] clavulanic acid Allergy Unknown Verified 06/03/21 08:50 [From Augmentin] latex Allergy Unknown Verified 06/03/21 08:50 Latex, Natural Rubber Allergy Unknown Verified 06/03/21 08:50 levofloxacin [From Levaquin] Allergy Unknown Verified 06/03/21 08:50 Macrolide Antibiotics Allergy Unknown Verified 06/03/21 08:50 Review of Systems ROS Statement: Those systems with pertinent positive or pertinent negative responses have been documented in the HPI. ROS Other: All systems not noted in ROS Statement are negative. Past Medical History Past Medical History: Diabetes Mellitus, Hearing Disorder / Deafness, Hypertension Additional Past Medical History / Comment(s): hx of cerebral palsey with surgery on legs- cannot straighten legs, uses a walker but is mostly in the wheelchair now., cellulitis feet., dry skin, pain in back, shoulders and right knee., right knee red and swollen., Pt lives in apartment by his brother (Mario Alberto)., hx obtained from Mario Alberto- pt WIYOT and lost hearing aids. 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 Past Anesthesia/Blood Transfusion Reactions: No Reported Reaction Additional Past Anesthesia/Blood Transfusion Reaction / Comment(s): brother had ongoing hiccups after anesthesia Past Psychological History: No Psychological Hx Reported Smoking Status: Never smoker Past Alcohol Use History: None Reported Past Drug Use History: None Reported - Past Family History Father Family Medical History: No Reported History General Exam Limitations: no limitations General appearance: alert, in no apparent distress Head exam: Present: atraumatic, normocephalic Eye exam: Present: normal appearance, PERRL ENT exam: Present: normal exam Neck exam: Present: normal inspection. Absent: tenderness, meningismus Respiratory exam: Present: rhonchi. Absent: respiratory distress, wheezes Cardiovascular Exam: Present: regular rate, normal rhythm GI/Abdominal exam: Present: soft, tenderness (Mild lower abdominal tenderness). Absent: distended Extremities exam: Present: normal capillary refill, other (The right leg has been indicated above the knee, the incision is well-healed there is no signs of soft tissue infection. The left leg is erythematous with mild edema from the knee down.) Neurological exam: Present: alert, oriented X3, CN II-XII intact. Absent: motor sensory deficit Psychiatric exam: Present: normal affect, normal mood Skin exam: Present: warm, dry, intact. Absent: cyanosis, diaphoretic Course Vital Signs 06/03/21 06/03/21 08:42 09:51 Temperature 100.3 F H Pulse Rate 98 86 Respiratory 18 18 Rate Blood Pressure 101/53 94/54 O2 Sat by Pulse 91 L 93 L Oximetry Medical Decision Making - Medical Decision Making 76 yo male presenting for evaluation of fever and one month of abdominal pain. Workup reveals a chest x-ray which is negative for large focal pneumonia, head CT negative for intra-abdominal infectious process. He has a normal white blood cell count. Stable hemoglobin. His urinalysis is negative. Coronavirus and influenza testing is negative. He does have significant erythema to the left lower extremity and he had a recent [id number] amputation on the right. The incision from his amputation looks well healed without signs of infection. I suspect his fever may be coming from a left lower extremity cellulitis. He started on broad-spectrum antibiotics and will be admitted to Dr. Rojas who is aware. - Lab Data Result diagrams: 06/03/21 08:56 06/03/21 08:56 Lab Results 06/03/21 06/03/21 06/03/21 Range/Units 08:56 08:56 08:56 WBC 10.1 (3.8-10.6) k/uL RBC 4.87 (4.30-5.90) m/uL Hgb 12.2 L (13.0-17.5) gm/dL Hct 39.8 (39.0-53.0) % MCV 81.8 (80.0-100.0) fL MCH 25.0 (25.0-35.0) pg MCHC 30.5 L (31.0-37.0) g/dL RDW 18.5 H (11.5-15.5) % Plt Count 124 L (150-450) k/uL MPV 10.0 Neutrophils % 92 % Lymphocytes % 1 % Monocytes % 5 % Eosinophils % 1 % Basophils % 1 % Neutrophils # 9.3 H (1.3-7.7) k/uL Lymphocytes # 0.1 L (1.0-4.8) k/uL Monocytes # 0.5 (0-1.0) k/uL Eosinophils # 0.1 (0-0.7) k/uL Basophils # 0.1 (0-0.2) k/uL Hypochromasia Slight Anisocytosis Slight Microcytosis Slight PT (9.0-12.0) sec INR (<1.2) APTT (22.0-30.0) sec Sodium (137-145) mmol/L Potassium (3.5-5.1) mmol/L Chloride (98-107) mmol/L Carbon Dioxide (22-30) mmol/L Anion Gap mmol/L BUN (9-20) mg/dL Creatinine (0.66-1.25) mg/dL Est GFR (CKD-EPI)AfAm (>60 ml/min/1.73 sqM) Est GFR (CKD-EPI)NonAf (>60 ml/min/1.73 sqM) Glucose (74-99) mg/dL Plasma Lactic Acid Russ (0.7-2.0) mmol/L Calcium (8.4-10.2) mg/dL Total Bilirubin (0.2-1.3) mg/dL AST (17-59) U/L ALT (4-49) U/L Alkaline Phosphatase (38-126) U/L Total Protein (6.3-8.2) g/dL Albumin (3.5-5.0) g/dL Amylase (30-110) U/L Lipase (23-300) U/L Urine Color Urine Appearance (Clear) Urine pH (5.0-8.0) Ur Specific [place] (1.001-1.035) Urine Protein (Negative) Urine Glucose (UA) (Negative) Urine Ketones (Negative) Urine Blood (Negative) Urine Nitrite (Negative) Urine Bilirubin (Negative) Urine Urobilinogen (<2.0) mg/dL Ur Leukocyte Esterase (Negative) Urine RBC (0-5) /hpf Urine WBC (0-5) /hpf Ur Squamous Epith Cells (0-4) /hpf Urine Mucus (None) /hpf Coronavirus (PCR) Not Detected (Not Detectd) Influenza Type A RNA Not Detected (Not Detectd) Influenza Type B (PCR) Not Detected (Not Detectd) 06/03/21 06/03/21 06/03/21 Range/Units 08:56 08:56 08:56 WBC (3.8-10.6) k/uL RBC (4.30-5.90) m/uL Hgb (13.0-17.5) gm/dL Hct (39.0-53.0) % MCV (80.0-100.0) fL MCH (25.0-35.0) pg MCHC (31.0-37.0) g/dL RDW (11.5-15.5) % Plt Count (150-450) k/uL MPV Neutrophils % % Lymphocytes % % Monocytes % % Eosinophils % % Basophils % % Neutrophils # (1.3-7.7) k/uL Lymphocytes # (1.0-4.8) k/uL Monocytes # (0-1.0) k/uL Eosinophils # (0-0.7) k/uL Basophils # (0-0.2) k/uL Hypochromasia Anisocytosis Microcytosis PT 11.3 (9.0-12.0) sec INR 1.1 (<1.2) APTT 31.9 H (22.0-30.0) sec Sodium 134 L (137-145) mmol/L Potassium 4.3 (3.5-5.1) mmol/L Chloride 105 (98-107) mmol/L Carbon Dioxide 23 (22-30) mmol/L Anion Gap 6 mmol/L BUN 28 H (9-20) mg/dL Creatinine 0.55 L (0.66-1.25) mg/dL Est GFR (CKD-EPI)AfAm >90 (>60 ml/min/1.73 sqM) Est GFR (CKD-EPI)NonAf >90 (>60 ml/min/1.73 sqM) Glucose 137 H (74-99) mg/dL Plasma Lactic Acid Russ 1.6 (0.7-2.0) mmol/L Calcium 8.5 (8.4-10.2) mg/dL Total Bilirubin 0.9 (0.2-1.3) mg/dL AST 33 (17-59) U/L ALT 26 (4-49) U/L Alkaline Phosphatase 75 (38-126) U/L Total Protein 5.6 L (6.3-8.2) g/dL Albumin 2.9 L (3.5-5.0) g/dL Amylase 59 (30-110) U/L Lipase 27 (23-300) U/L Urine Color Urine Appearance (Clear) Urine pH (5.0-8.0) Ur Specific [place] (1.001-1.035) Urine Protein (Negative) Urine Glucose (UA) (Negative) Urine Ketones (Negative) Urine Blood (Negative) Urine Nitrite (Negative) Urine Bilirubin (Negative) Urine Urobilinogen (<2.0) mg/dL Ur Leukocyte Esterase (Negative) Urine RBC (0-5) /hpf Urine WBC (0-5) /hpf Ur Squamous Epith Cells (0-4) /hpf Urine Mucus (None) /hpf Coronavirus (PCR) (Not Detectd) Influenza Type A RNA (Not Detectd) Influenza Type B (PCR) (Not Detectd) 06/03/21 Range/Units 11:30 WBC (3.8-10.6) k/uL RBC (4.30-5.90) m/uL Hgb (13.0-17.5) gm/dL Hct (39.0-53.0) % MCV (80.0-100.0) fL MCH (25.0-35.0) pg MCHC (31.0-37.0) g/dL RDW (11.5-15.5) % Plt Count (150-450) k/uL MPV Neutrophils % % Lymphocytes % % Monocytes % % Eosinophils % % Basophils % % Neutrophils # (1.3-7.7) k/uL Lymphocytes # (1.0-4.8) k/uL Monocytes # (0-1.0) k/uL Eosinophils # (0-0.7) k/uL Basophils # (0-0.2) k/uL Hypochromasia Anisocytosis Microcytosis PT (9.0-12.0) sec INR (<1.2) APTT (22.0-30.0) sec Sodium (137-145) mmol/L Potassium (3.5-5.1) mmol/L Chloride (98-107) mmol/L Carbon Dioxide (22-30) mmol/L Anion Gap mmol/L BUN (9-20) mg/dL Creatinine (0.66-1.25) mg/dL Est GFR (CKD-EPI)AfAm (>60 ml/min/1.73 sqM) Est GFR (CKD-EPI)NonAf (>60 ml/min/1.73 sqM) Glucose (74-99) mg/dL Plasma Lactic Acid Russ (0.7-2.0) mmol/L Calcium (8.4-10.2) mg/dL Total Bilirubin (0.2-1.3) mg/dL AST (17-59) U/L ALT (4-49) U/L Alkaline Phosphatase (38-126) U/L Total Protein (6.3-8.2) g/dL Albumin (3.5-5.0) g/dL Amylase (30-110) U/L Lipase (23-300) U/L Urine Color Yellow Urine Appearance Clear (Clear) Urine pH 5.5 (5.0-8.0) Ur Specific [place] 1.030 (1.001-1.035) Urine Protein 2+ H (Negative) Urine Glucose (UA) Negative (Negative) Urine Ketones Negative (Negative) Urine Blood Trace H (Negative) Urine Nitrite Negative (Negative) Urine Bilirubin Negative (Negative) Urine Urobilinogen <2.0 (<2.0) mg/dL Ur Leukocyte Esterase Negative (Negative) Urine RBC 1 (0-5) /hpf Urine WBC 1 (0-5) /hpf Ur Squamous Epith Cells 1 (0-4) /hpf Urine Mucus Occasional H (None) /hpf Coronavirus (PCR) (Not Detectd) Influenza Type A RNA (Not Detectd) Influenza Type B (PCR) (Not Detectd) Disposition Clinical Impression: Left leg cellulitis Disposition: ADMITTED IP TO THIS HOSP Condition: Stable Is patient prescribed a controlled substance at d/c from ED?: No Referrals: Bill Adkins MD [Primary Care Provider] - 1-2 days Decision to Admit Reason: Admit from EC Decision Date: 06/03/21 Decision Time: 12:40
[2021-06-03 09:17] LABS: ALT 26 U/L (4-49); AST 33 U/L (17-59); African American GFR (CKD) >90 (>60 ml/min/1.73 sqM); Albumin 2.9 g/dL (3.5-5.0); Alkaline Phosphatase 75 U/L (38-126); Amylase 59 U/L (30-110); Anion Gap 6 mmol/L; Blood Urea Nitrogen 28 mg/dL (9-20); Calcium 8.5 mg/dL (8.4-10.2); Carbon Dioxide 23 mmol/L (22-30); Chloride 105 mmol/L (98-107); Glucose 137 mg/dL (74-99); Lipase 27 U/L (23-300); Non-African American GFR(CKD) >90 (>60 ml/min/1.73 sqM); Sodium 134 mmol/L (137-145); Total Bilirubin 0.9 mg/dL (0.2-1.3); Total Protein 5.6 g/dL (6.3-8.2)
[2021-06-03 09:18] LABS: INR 1.1 (<1.2); Partial Thromboplastin Time 31.9 sec (22.0-30.0); Potassium 4.3 mmol/L (3.5-5.1); Prothrombin Time 11.3 sec (9.0-12.0)
--- NOTE | 2021-06-03 09:18 | XR ---
EXAMINATION TYPE: XR chest 2V DATE OF EXAM: 06/03/2021 COMPARISON: Chest x-ray April 03, 2021 HISTORY: Fever. TECHNIQUE: Frontal and lateral views of the chest are obtained. FINDINGS: Evaluation is suboptimal due to body habitus. Underlying scoliosis is redemonstrated. Pers istent stimulator leads in the mid thoracic spinal canal. Diminished inspiration on background low wilder ng volumes. More prominent cardiomegaly with tiny bilateral pleural effusions. No new focal airspace opacity or pneumothorax seen bilaterally. IMPRESSION: Suboptimal study. Cardiomegaly with tiny bilateral pleural effusions and mild central va scular congestion. Correlate for CHF exacerbation. No definitive new focal acute infiltrate.
[2021-06-03 09:25] LABS: Anisocytosis Slight; Basophils # (A) 0.1 k/uL (0-0.2); Basophils % (A) 1 %; Eosinophils # (A) 0.1 k/uL (0-0.7); Eosinophils % (A) 1 %; HCT 39.8 % (39.0-53.0); HGB 12.2 gm/dL (13.0-17.5); Hypochromasia Slight; Lymphocytes # (A) 0.1 k/uL (1.0-4.8); Lymphocytes % (A) 1 %; MCHC 30.5 g/dL (31.0-37.0); MCV 81.8 fL (80.0-100.0); Microcytosis Slight; Monocytes # (A) 0.5 k/uL (0-1.0); Monocytes % (A) 5 %; Neutrophils # (A) 9.3 k/uL (1.3-7.7); Neutrophils % (A) 92 %; Platelet Count 124 k/uL (150-450); RBC 4.87 m/uL (4.30-5.90); RDW 18.5 % (11.5-15.5); WBC 10.1 k/uL (3.8-10.6)
--- NOTE | 2021-06-03 10:15 | CT ---
EXAMINATION TYPE: CT abdomen pelvis wo con DATE OF EXAM: 06/03/2021 HISTORY: pain, fever CT DLP: 809.8 mGycm. Automated Exposure Control for Dose Reduction was Utilized. TECHNIQUE: CT scan of the abdomen and pelvis is performed without oral or IV contrast. COMPARISON: CT urogram February 18, 2020 FINDINGS: Within the limitations of a non-contrast study, the following observations are made. Subop timal due to artifact from overlying upper extremities. LUNG BASES: New Tiny bilateral pleural effusions. Coronary artery calcification is partially imaged. LIVER/GB: Cholecystectomy clips are redemonstrated. PANCREAS: No significant abnormality is seen. SPLEEN: No significant abnormality is seen. ADRENALS: No significant abnormality is seen. KIDNEYS: No significant abnormality is seen. BOWEL: There is fairly moderate diffuse colonic fecal prominence greatest in the right colon. This is more prominent from prior study. No suspicious small or large bowel dilatation. GENITAL ORGANS: Mildly enlarged prostate consistent with BPH. LYMPH NODES: No greater than 1cm abdominal or pelvic lymph nodes are appreciated. OSSEOUS STRUCTURES: Posterior spinal stimulator device redemonstrated. Underlying levoconvex scoliosi s again seen. Moderate to severe multilevel spurring and disc space narrowing greatest at right L3-L4 and L4-L5 levels redemonstrated. Transitional type L6 vertebra redemonstrated. Multilevel facet arth ropathy in the lumbar spine again seen. OTHER: No significant additional abnormality is seen. IMPRESSION: Moderate diffuse colonic fecal stasis. No bowel obstruction. No suspicious new or acute f inding otherwise seen.
[2021-06-03 11:42] LABS: Appearance,Urine Clear (Clear); Bilirubin,Urine Negative (Negative); Blood,Urine Trace (Negative); Color,Urine Yellow; Glucose,Urine (UA) Negative (Negative); Ketones,Urine Negative (Negative); Leukocyte Esterase,Urine Negative (Negative); Mucus,Urine Occasional /hpf; Nitrite,Urine Negative (Negative); PH, Urine 5.5 (5.0-8.0); Protein,Urine 2+ (Negative); RBC,Urine 1 /hpf (0-5); Squamous Epithelial Cell,Urine 1 /hpf (0-4); Urobilinogen,Urine <2.0 mg/dL (<2.0); WBC,Urine 1 /hpf (0-5)
[2021-06-03] MEDS ORDERED: cefTRIAXone IN SWFI 1,000 MG/10 ML SYRINGE IVP STA (12:03)
[2021-06-03] MEDS ORDERED: VANCOMYCIN IV PER PHARMACY 1 EACH MISC MISCELLANE PRN (12:04)
[2021-06-03] MEDS ORDERED: VANCOMYCIN 1,500 MG in SODIUM CHLORIDE 0.9% 250 ML IVPB STA (12:08)
[2021-06-03] MEDS ORDERED: SODIUM CHLORIDE 0.9% 500 ML 500 ML IV ONE (12:12)
[2021-06-03] MEDS ORDERED: NALOXONE 0.4 MG/ML 1 ML VIAL IV PRN (12:29)
[2021-06-03] MEDS: SODIUM CHLORIDE 0.9% 1,000 ML IV SCH (12:30)
[2021-06-03] MEDS ORDERED: NON FORMULARY DRUG (Liquacel 30 ML) PO SCH (17:00)
[2021-06-03 17:01] LABS: Glucose,Whole Blood 120 mg/dL (75-99)
[2021-06-03] MEDS: metFORMIN 500 MG TAB PO SCH (17:09)
[2021-06-03] MEDS: FERROUS SULFATE 325 MG TAB PO SCH (17:09)
[2021-06-03] MEDS: PREGABALIN 100 MG CAP PO SCH (17:09)
[2021-06-03] MEDS: HYDROcodone/APAP 7.5-325MG 1 EACH TAB PO PRN ×2 (17:12→22:10)
[2021-06-03] MEDS ORDERED: MELATONIN 3 MG TABLET PO PRN (18:03)
[2021-06-03] MEDS ORDERED: ONDANSETRON 4 MG/2 ML VIAL IVP PRN (18:03)
--- NOTE | 2021-06-03 18:05 | P.HPIM ---
History of Present Illness H&P Date: 06/03/21 Chief Complaint: Fever, abdominal pain Hospital course: This is a pleasant 76-year-old patient, follows with visiting physicians Dr. Adkins. Chronic stable medical conditions includes diabetes, hypertension, cerebral palsy with surgery in the legs cannot straighten legs, sometimes uses a walker otherwise pretty much in a wheelchair. Patient lives in the apartment with his brother Susan. hard of hearing. 04/07/2021 patient underwent right above-knee amputation. Nonhealing infection. Patient now presents with some fever. Also having abdominal pain. Also complains of pain in the lower back seems to be going across. No nausea vomiting. Appetite is good. No change in bowel habits. Lives with his brother. Past medical history to include: Diabetes, hard of hearing, hypertension, cerebral palsy with surgery in the legs cannot straighten legs, sometimes uses a walker mostly wheelchair. 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 Right above-knee amputation Social history: Lives with his brother and [id number]. No history of smoking or alcohol. Family history: Reviewed, noncontributory to presentation Physical examination: VITAL SIGNS: 100.3, 98, 18, 101/53, 91% room air GENERAL: Average built, sitting up, but uncomfortable. EYES: Pupils equal. Conjunctiva normal. HEENT: External appearance of nose and ears normal, oral cavity grossly normal. NECK: JVD not raised; masses not palpable. HEART: First and second heart sounds are normal; no edema. LUNGS: Respiratory rate normal; clear to auscultation. ABDOMEN: Soft, nontender, liver spleen not palpable, no masses palpable. PSYCH: Alert and oriented x3; mood and affect normal. MUSCULOSKELETAL:No Clubbing/cyanosis;muscles-grossly intact. Right above-knee amputation NEUROLOGICAL: Cranial nerves grossly intact; no facial asymmetry, power and sensation grossly intact. LYMPHATICS: No lymph nodes palpable in the axilla and neck INVESTIGATIONS, reviewed in the clinical context: WBC 10.1 hemoglobin 12.2 platelets 124 potassium 4.3 creatinine 0.55 COVID 19, influenza type A, type B: Not detected Chest x-ray film personally reviewed by me-cardiomegaly. Possible atelectasis: Assessment and plan: -Patient presents with fever, lower back pain and some abdominal pain. No nausea vomiting. No change in bowel habit. We'll order computed tomography scan of the lumbar spine/SI joint to rule out discitis.. Consult orthopedics. IV vancomycin. Patient previously followed with Dr. Smith. - right above-knee amputation -Cerebral palsy causing cognitive impairment -Chronic gait dysfunction. wheelchair bound Fall precautions -Essential hypertension Nifedipine ER 30 mg a day -Diabetes mellitus type 2 Glucophage 500 mg twice a day. Follow Accu-Cheks with sliding scale. -Hyperlipidemia Lipitor 10 mg daily at bedtime -Hard of hearing, -Brother, Mario Alberto POA Check ESR, CRP. Computed tomography scan lumbar spine SI joint to rule out discitis. Consult orthopedics and ID. IV vancomycin. Resume home medications.. Given the complexity and severity of patient's condition expect the patient to be in the hospital at least for 2 overnights Past Medical History Past Medical History: Diabetes Mellitus, Hearing Disorder / Deafness, Hypertens ion Additional Past Medical History / Comment(s): hx of cerebral palsey with surgery on legs- cannot straighten legs, uses a walker but is mostly in the wheelchair now., cellulitis feet., dry skin, pain in back, shoulders and right knee., right knee red and swollen., Pt lives in apartment by his brother (Mario Alberto)., hx obtained from Mario Alberto- pt HUSLIA and lost hearing aids. 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 Past Anesthesia/Blood Transfusion Reactions: No Reported Reaction Additional Past Anesthesia/Blood Transfusion Reaction / Comment(s): brother had ongoing hiccups after anesthesia Past Psychological History: No Psychological Hx Reported Smoking Status: Never smoker Past Alcohol Use History: None Reported Past Drug Use History: None Reported - Past Family History Father Family Medical History: No Reported History Medications and Allergies Home Medications Medication Instructions Recorded Confirmed Type Atorvastatin Calcium [Lipitor] 10 mg PO HS@2100 03/11/19 06/03/21 History NIFEdipine [NIFEdipine ER] 30 mg PO DAILY@0800 03/11/19 06/03/21 History metFORMIN HCL [Glucophage] 500 mg PO BID@0800,1700 03/11/19 06/03/21 History methocarbamoL [Robaxin] 1,000 mg PO QID PRN 07/26/20 06/03/21 History Aspirin 325 mg PO HS@2100 04/03/21 06/03/21 History Ferrous Sulfate [Iron (65 MG 325 mg PO BID@0800,1700 04/03/21 06/03/21 History Elemental)] HYDROcodone/APAP 7.5-325MG [[place] 1 tab PO QID PRN #12 tab 04/09/21 06/03/21 Rx 7.5-325] Acetaminophen [Tylenol] 650 mg PO Q4H PRN 06/03/21 06/03/21 History Glucerna Shake 1 can PO DAILY@0800 06/03/21 06/03/21 History Hydrocortisone Cream 1 applic TOPICAL DAILY 06/03/21 06/03/21 History [Hydrocortisone 1% Cream] Levofloxacin [Levaquin] 250 mg PO DAILY 06/03/21 06/03/21 History Liquacel 30 ml PO BID@0800,1700 06/03/21 06/03/21 History Magnesium Hydroxide [Milk of 2,400 mg PO Q48H PRN 06/03/21 06/03/21 History Magnesia] Na Phos,M-B/Na Phos,Di-Ba [Fleet 133 ml RECTAL DAILY PRN 06/03/21 06/03/21 History Adult] Pregabalin [Lyrica] 100 mg PO BID@0800,1700 06/03/21 06/03/21 History Tamsulosin [Flomax] 0.4 mg PO HS@2100 06/03/21 06/03/21 History bisacodyL [Dulcolax] 10 mg RECTAL DAILY PRN 06/03/21 06/03/21 History metroNIDAZOLE [Flagyl] 500 mg PO TID@0600,1400,2100 06/03/21 06/03/21 History Allergies Allergy/AdvReac Type Severity Reaction Status Date / Time acyclovir Allergy Unknown Verified 06/03/21 13:03 amoxicillin [From Augmentin] Allergy Unknown Verified 06/03/21 13:03 ciprofloxacin [From Cipro] Allergy Unknown Verified 06/03/21 13:03 ciprofloxacin HCl Allergy Unknown Verified 06/03/21 13:03 [From Cipro] clavulanic acid Allergy Unknown Verified 06/03/21 13:03 [From Augmentin] latex Allergy Unknown Verified 06/03/21 13:03 Latex, Natural Rubber Allergy Unknown Verified 06/03/21 13:03 levofloxacin [From Levaquin] Allergy Unknown Verified 06/03/21 13:03 Macrolide Antibiotics Allergy Unknown Verified 06/03/21 13:03 Physical Exam Vitals: Vital Signs Temp Pulse Pulse Resp BP BP Pulse Ox 06/03/21 16:07 98.4 F 73 20 126/74 98 06/03/21 15:26 97 F L 61 18 111/82 96 06/03/21 14:19 96.9 F L 62 18 96/62 95 06/03/21 12:31 68 18 100/56 92 L 06/03/21 09:51 86 18 94/54 93 L 06/03/21 08:42 100.3 F H 98 18 101/53 91 L Intake and Output 06/03/21 06/03/21 06/03/21 06:59 14:59 22:59 Output Total 175 Balance -175 Output: Urine 175 Straight 175 Other: Weight 77.111 kg 77.111 kg Results CBC & Chem 7: 06/03/21 08:56 06/03/21 08:56 Labs: Abnormal Lab Results - Last 24 Hours (Table) 06/03/21 06/03/21 06/03/21 Range/Units 08:56 08:56 08:56 Hgb 12.2 L (13.0-17.5) gm/dL MCHC 30.5 L (31.0-37.0) g/dL RDW 18.5 H (11.5-15.5) % Plt Count 124 L (150-450) k/uL Neutrophils # 9.3 H (1.3-7.7) k/uL Lymphocytes # 0.1 L (1.0-4.8) k/uL APTT 31.9 H (22.0-30.0) sec Sodium 134 L (137-145) mmol/L BUN 28 H (9-20) mg/dL Creatinine 0.55 L (0.66-1.25) mg/dL Glucose 137 H (74-99) mg/dL POC Glucose (mg/dL) (75-99) mg/dL Total Protein 5.6 L (6.3-8.2) g/dL Albumin 2.9 L (3.5-5.0) g/dL Urine Protein (Negative) Urine Blood (Negative) Urine Mucus (None) /hpf 06/03/21 06/03/21 Range/Units 11:30 16:57 Hgb (13.0-17.5) gm/dL MCHC (31.0-37.0) g/dL RDW (11.5-15.5) % Plt Count (150-450) k/uL Neutrophils # (1.3-7.7) k/uL Lymphocytes # (1.0-4.8) k/uL APTT (22.0-30.0) sec Sodium (137-145) mmol/L BUN (9-20) mg/dL Creatinine (0.66-1.25) mg/dL Glucose (74-99) mg/dL POC Glucose (mg/dL) 120 H (75-99) mg/dL Total Protein (6.3-8.2) g/dL Albumin (3.5-5.0) g/dL Urine Protein 2+ H (Negative) Urine Blood Trace H (Negative) Urine Mucus Occasional H (None) /hpf Thrombosis Risk Factor Assmnt - Choose All That Apply Any of the Below Risk Factors Present?: Yes Each Risk Factor Represents 2 Points: Age 61-74 years Thrombosis Risk Factor Assessment Total Risk Factor Score: 2 Thrombosis Risk Factor Assessment Level: Low Risk
--- NOTE | 2021-06-03 19:08 | CT ---
EXAMINATION TYPE: CT lumbar spine wo con CT DLP: 1646.6 mGycm, Automated exposure control for dose reduction was used. DATE OF EXAM: 06/03/2021 6:21 PM COMPARISON: MRI lumbar spine 07/19/2011. CT abdomen pelvis 06/03/2021 CLINICAL INDICATION:Male, 76 years old with history of Lower back pain with fever; lower back pain. TECHNIQUE: Multiple axial images were obtained from the midportion of T11 through the sacroiliac abdirahman nts. Soft tissue and bone windows in coronal and sagittal planes were obtained and reviewed. 3-D ref ormats of the bones were created on a separate workstation and submitted for review. FINDINGS: Alignment: There are 5 lumbar type vertebral bodies within the levoscoliosis alignment. There is smal l ribs with what is thought to be T12. Bone: No evidence of fracture is identified. Multilevel disc degeneration changes versus within the lumbar spine. There is facet joint arthropathy throughout predominantly the lower lumbar spine with o steophyte formation. There is levoscoliosis apex L3-L4 there is sacralization of L5. Discs: T12-L1: No significant spinal canal stenosis. The neural foramen are patent. L1-L2: Disc bulging and facet joint arthropathy with mild spinal canal narrowing. The neural foramen are patent. L2-L3: Facet joint arthropathy, disc bulging and osteophytes with mild spinal canal and mild bilatera l neural foraminal stenosis. L3-L4: There is levoscoliosis with facet joint arthropathy and osteophytes resulting in moderate spin al canal stenosis. There is moderate to severe right and moderate left neural foraminal stenosis. L4-L5: Levoscoliosis changes with facet joint arthropathy and osteophytes resulting in mild to moder ate spinal canal stenosis with moderate to severe bilateral neural foraminal stenosis. L5-S1: Sacralization of L5 without significant spinal canal stenosis. There is moderate neural forami nal stenosis Other: Stimulator device with leads entering the spine posterior elements at T10-T11 and exiting out of the [id number]-on-heug superiorly. IMPRESSION: 1. No evidence of fracture of the lumbar spine. 2. Severe multilevel disc degeneration changes of the spine with levoscoliosis and moderate spinal ca nal stenosis at L3-L4 and L4-L5. Additionally there is moderate to severe bilateral neural foraminal stenosis at these levels.
[2021-06-03 21:10] LABS: Glucose,Whole Blood 131 mg/dL (75-99)
[2021-06-03] MEDS: ENOXAPARIN 40 MG/0.4 ML SYRINGE SQ SCH (22:04)
[2021-06-03] MEDS: ATORVASTATIN 10 MG TAB PO SCH (22:05)
[2021-06-03] MEDS: ACETAMINOPHEN TAB 325 MG TAB PO PRN (22:05)
[2021-06-03] MEDS: TAMSULOSIN 0.4 MG CAP.ER.24H PO SCH (22:05)
[2021-06-03] MEDS: ASPIRIN 325 MG TAB PO SCH (22:06)
[2021-06-04] MEDS: VANCOMYCIN 1,500 MG in SODIUM CHLORIDE 0.9% 250 ML IVPB SCH ×2 (00:51→12:53)
[2021-06-04] MEDS: SODIUM CHLORIDE 0.9% 1,000 ML IV SCH ×2 (01:22→13:52)
[2021-06-04 06:41] LABS: Anisocytosis Slight; Basophils % (A) 0 %; Eosinophils % (A) 0 %; HCT 38.9 % (39.0-53.0); HGB 11.9 gm/dL (13.0-17.5); Hypochromasia Marked; Lymphocytes # (A) 0.2 k/uL (1.0-4.8); Lymphocytes % (A) 5 %; MCH 25.6 pg (25.0-35.0); MCHC 30.6 g/dL (31.0-37.0); MCV 83.5 fL (80.0-100.0); Mean Platelet Volume 8.4; Microcytosis Slight; Monocytes # (A) 0.2 k/uL (0-1.0); Monocytes % (A) 4 %; Neutrophils # (A) 3.8 k/uL (1.3-7.7); Neutrophils % (A) 88 %; RBC 4.65 m/uL (4.30-5.90); RDW 18.7 % (11.5-15.5); WBC 4.3 k/uL (3.8-10.6)
[2021-06-04 07:03] LABS: Platelet Count 98 k/uL (150-450)
[2021-06-04 07:04] LABS: Anisocytosis (M) Present; Ovalocytes Present; Poikilocytosis (M) Present
[2021-06-04 07:45] LABS: Glucose,Whole Blood 161 mg/dL (75-99)
[2021-06-04] MEDS ORDERED: NON FORMULARY DRUG (Glucerna Shake 1 CAN Ml) PO SCH (08:00)
[2021-06-04 08:17] LABS: Erythrocyte Sedimentation Rate 33 mm/hr (0-15)
[2021-06-04] MEDS: ENOXAPARIN 40 MG/0.4 ML SYRINGE SQ SCH (08:48)
[2021-06-04] MEDS: FERROUS SULFATE 325 MG TAB PO SCH ×2 (08:48→16:48)
[2021-06-04] MEDS: metFORMIN 500 MG TAB PO SCH ×2 (08:48→16:48)
[2021-06-04] MEDS: NIFEdipine XL 30 MG TAB.ER.24 PO SCH (08:48)
[2021-06-04] MEDS: PREGABALIN 100 MG CAP PO SCH ×2 (08:48→16:48)
[2021-06-04] MEDS: HYDROCORTISONE 1% CREAM 30 GM TUBE TOPICAL SCH (09:33)
[2021-06-04 11:39] LABS: Glucose,Whole Blood 165 mg/dL (75-99)
--- NOTE | 2021-06-04 12:00 | P.CNOR ---
History of Present Illness - [facility] Consult date: 06/04/21 Consult reason: low back pain History of present illness: Patient is a pleasant 76-year-old male who has been having severe low back pain. He says the pain has been severe for about 4-6 weeks at his low back and is not getting any better. He says the pain starts around the side of his left lower back and wraps around towards his abdomen and flank. He says it is severe whenever he tries to move around or do activities. He says that he had a right above-knee amputation about 6 weeks ago. He said he had some pain in his back around that time but since then it has been getting worse for him. He has been a very limited ambulator for several years. He says that he had been using a walker at some points last year but is now primarily in a wheelchair. He says that his leg hurts when he moves it primarily with pain at his lower back but he is not have specific pain down his legs at this point. He had history of neurostimulator placement in his lower back for the pain in his legs about 3 years ago. He does not recall exactly where he had that procedure done. He says he does have chronic low back pain but has never been this bad. He describes pain toward his left flank and toward his abdomen primarily. Review of Systems Denies chest pain shortness of breath. He was having some nausea and vomiting when he was admitted. He feels his leg is doing better. The pain in his back is still quite severe and he has had very difficult time with any sort of mobilization removing. He says his surgical site at the right above-knee amputation is doing okay. He denies changes in bowel bladder function. Past Medical History Past Medical History: Diabetes Mellitus, Hearing Disorder / Deafness, Hypertension Additional Past Medical History / Comment(s): hx of cerebral palsey with surgery on legs- cannot straighten legs, uses a walker but is mostly in the wheelchair now., cellulitis feet., dry skin, pain in back, shoulders and right knee., right knee red and swollen., Pt lives in apartment by his brother (Mario Alberto)., hx obtained from Mario Alberto- pt [facility] and lost hearing aids. 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, history of neuro stimulator placement at his thoracolumbar spine about 3 years ago (she is unsure where this was done) Past Anesthesia/Blood Transfusion Reactions: No Reported Reaction Additional Past Anesthesia/Blood Transfusion Reaction / Comm: brother had ongoing hiccups after anesthesia Past Psychological History: No Psychological Hx Reported Smoking Status: Never smoker Past Alcohol Use History: None Reported Past Drug Use History: None Reported - Past Family History Father Family Medical History: No Reported History Medications and Allergies Home Medications Medication Instructions Recorded Confirmed Type Atorvastatin Calcium [Lipitor] 10 mg PO HS@2100 03/11/19 06/03/21 History NIFEdipine [NIFEdipine ER] 30 mg PO DAILY@0800 03/11/19 06/03/21 History metFORMIN HCL [Glucophage] 500 mg PO BID@0800,1700 03/11/19 06/03/21 History methocarbamoL [Robaxin] 1,000 mg PO QID PRN 07/26/20 06/03/21 History Aspirin 325 mg PO HS@209904/03/21 06/03/21 History Ferrous Sulfate [Iron (65 MG 325 mg PO BID@0800,1700 04/03/21 06/03/21 History Elemental)] HYDROcodone/APAP 7.5-325MG [[place] 1 tab PO QID PRN #12 tab 04/09/21 06/03/21 Rx 7.5-325] Acetaminophen [Tylenol] 650 mg PO Q4H PRN 06/03/21 06/03/21 History Glucerna Shake 1 can PO DAILY@0800 06/03/21 06/03/21 History Hydrocortisone Cream 1 applic TOPICAL DAILY 06/03/21 06/03/21 History [Hydrocortisone 1% Cream] Levofloxacin [Levaquin] 250 mg PO DAILY 06/03/21 06/03/21 History Liquacel 30 ml PO BID@0800,1700 06/03/21 06/03/21 History Magnesium Hydroxide [Milk of 2,400 mg PO Q48H PRN 06/03/21 06/03/21 History Magnesia] Na Phos,M-B/Na Phos,Di-Ba [Fleet 133 ml RECTAL DAILY PRN 06/03/21 06/03/21 History Adult] Pregabalin [Lyrica] 100 mg PO BID@0800,1700 06/03/21 06/03/21 History Tamsulosin [Flomax] 0.4 mg PO HS@2100 06/03/21 06/03/21 History bisacodyL [Dulcolax] 10 mg RECTAL DAILY PRN 06/03/21 06/03/21 History metroNIDAZOLE [Flagyl] 500 mg PO TID@0600,1400,2100 06/03/21 06/03/21 History Allergies Allergy/AdvReac Type Severity Reaction Status Date / Time acyclovir Allergy Unknown Verified 06/03/21 13:03 amoxicillin [From Augmentin] Allergy Unknown Verified 06/03/21 13:03 ciprofloxacin [From Cipro] Allergy Unknown Verified 06/03/21 13:03 ciprofloxacin HCl Allergy Unknown Verified 06/03/21 13:03 [From Cipro] clavulanic acid Allergy Unknown Verified 06/03/21 13:03 [From Augmentin] latex Allergy Unknown Verified 06/03/21 13:03 Latex, Natural Rubber Allergy Unknown Verified 06/03/21 13:03 levofloxacin [From Levaquin] Allergy Unknown Verified 06/03/21 13:03 Macrolide Antibiotics Allergy Unknown Verified 06/03/21 13:03 Physical Examination Osteopathic Statement: *. No significant issues noted on an osteopathic structural exam other than those noted in the History and Physical/Consult. - L Spine: dermatomal strength & reflexes left Strength: hip flexion: 3/5 (Limited motion in his left leg globally. He is able to move his ankle with dorsiflexion and plantarflexion with about 3 out of 5 strength and his knee. He has diffuse swelling over his left leg which he says has significantly improved. His thighs and calves are soft and nontender. He has a right) Strength: ankle dorsiflexion: 3/5 (There is a right above-knee amputation dressing and stirrup. Be stable compartments are soft. His abdomen soft nontender. He is hypersensitive to palpation around his left flank and has pain with any motion around his lower back. The skin is intact without breakdown.) Results - Labs Labs: Abnormal Lab Results - Last 24 Hours (Table) 06/03/21 06/03/21 06/04/21 Range/Units 16:57 21:01 05:18 Hgb (13.0-17.5) gm/dL Hct (39.0-53.0) % MCHC (31.0-37.0) g/dL RDW (11.5-15.5) % Plt Count (150-450) k/uL Lymphocytes # (1.0-4.8) k/uL ESR (0-15) mm/hr POC Glucose (mg/dL) 120 H 131 H (75-99) mg/dL C-Reactive Protein (<1.0) mg/dL Procalcitonin 3.55 H (0.02-0.09) ng/mL 06/04/21 06/04/21 06/04/21 Range/Units 05:18 05:18 07:30 Hgb 11.9 L (13.0-17.5) gm/dL Hct 38.9 L (39.0-53.0) % MCHC 30.6 L (31.0-37.0) g/dL RDW 18.7 H (11.5-15.5) % Plt Count 98 L (150-450) k/uL Lymphocytes # 0.2 L (1.0-4.8) k/uL ESR 33 H (0-15) mm/hr POC Glucose (mg/dL) 161 H (75-99) mg/dL C-Reactive Protein 30.3 H (<1.0) mg/dL Procalcitonin (0.02-0.09) ng/mL 06/04/21 Range/Units 11:37 Hgb (13.0-17.5) gm/dL Hct (39.0-53.0) % MCHC (31.0-37.0) g/dL RDW (11.5-15.5) % Plt Count (150-450) k/uL Lymphocytes # (1.0-4.8) k/uL ESR (0-15) mm/hr POC Glucose (mg/dL) 165 H (75-99) mg/dL C-Reactive Protein (<1.0) mg/dL Procalcitonin (0.02-0.09) ng/mL Microbiology - Last 24 Hours (Table) 06/03/21 09:18 Blood Culture - Final Blood 06/03/21 09:27 Blood Culture - Final Blood 06/03/21 09:27 Blood Culture Gram Stain - Preliminary Blood 06/03/21 09:18 Blood Culture Gram Stain - Preliminary Blood H & H 06/03/21 06/04/21 Range/Units 08:56 05:18 Hgb 12.2 L 11.9 L (13.0-17.5) gm/dL Hct 39.8 38.9 L (39.0-53.0) % Coagulation 06/03/21 Range/Units 08:56 INR 1.1 (<1.2) Result Diagrams: 06/04/21 05:18 06/03/21 08:56 - Diagnostic results CT Scan - lumbar: report reviewed (I do not see any fluid collection, fractures or bony erosions. He does have significant stenosis L3 4 L4 5 and significant degenerative spondylosis.), image reviewed (Computed tomography scan of the lumbar spine is reviewed as are the images. He has severe disc degeneration particular L3 4 L4 5 his evidence of stenosis L3 4 L4 5 degeneration L5-S1 as well. There is a neurostimulator device intact. I do not see any obvious fluid collection or fractures or bony ) Assessment and Plan Assessment: Acute on chronic low back pain with exacerbation of spondylosis over the past 6 weeks Left flank pain with radiation towards his left side of his abdomen Degenerative disc disease Severe diabetes with history of right lower extremity above-knee amputation approximately 6 weeks ago History of cerebral palsy with chronic weakness and contractions in his left lower extremity Limited ambulator , essentially wheelchair dependent chronically Plan: Acute on chronic low back pain with exacerbation of spondylosis over the past 6 weeks Left flank pain with radiation towards his left side of his abdomen Degenerative disc disease Severe diabetes with history of right lower extremity above-knee amputation approximately 6 weeks ago History of cerebral palsy with chronic weakness and contractions in his left lower extremity Limited ambulator , essentially wheelchair dependent chronically The patient has a flare up of his low back pain and has significant pain with an y mobilization. It is difficult to fully determine the source of his symptoms. He does have severe degenerative changes in his low back with evidence of stenosis. His pattern of pain extends over his left flank towards his abdomen primarily. He has been having to do different types of activity since his recent right lower extremity above-knee amputation approximately 6 weeks ago. This may have exacerbated some of his pain in his low back. We can try to see if we can alleviate some of this with medical management and therapy. We are somewhat limited on his medical options particular steroid given his long history of diabetes. I would defer this to his primary care service. I think he should continue with his physical therapy and we will order this. He could have some benefit with evaluation for pain management as he may have some significant pain with his spondylosis from his facets or could benefit from interventional pain management. We will consult pain management. It is difficult to determine if he would be a candidate for any surgical intervention at this point and he should continue to pursue all conservative measures. Some of his pain is towards his left flank and abdomen which raises suspicion for the possibility of kidney stones. He says he has had kidney stones in the past and he should continue this workup as well with medicine service. Time with Patient: Greater than 30
[2021-06-04] MEDS: HYDROcodone/APAP 7.5-325MG 1 EACH TAB PO PRN (13:55)
--- NOTE | 2021-06-04 15:35 | P.PN ---
Progress Note - Text Progress Note Date: 06/04/21 Hospital course: This is a pleasant 76-year-old patient, follows with visiting physicians Dr. Ric olvera. Chronic stable medical conditions includes diabetes, hypertension, cerebral palsy with surgery in the legs cannot straighten legs, sometimes uses a walker otherwise pretty much in a wheelchair. Patient lives in the apartment with his brother Susan. hard of hearing. 04/07/2021 patient underwent right above-knee amputation. Nonhealing infection. Patient now presents with some fever. Also having abdominal pain. Also complains of pain in the lower back seems to be going across. No nausea vomiting. Appetite is good. No change in bowel habits. Lives with his brother. June 04: Lower back pain persists. Blood cultures come back positive. On IV vancomycin. Oral intake fair. Patient has a neurostimulator in the spine hence cannot get an MRI. Concern about discitis still present. Await ID input. No further fever. Active Medications Acetaminophen (Acetaminophen Tab 325 Mg Tab) 650 mg PO Q6HR PRN PRN Reason: Mild Pain or Fever > 100.5 Last Admin: 06/03/21 22:05 Dose: 650 mg Documented by: Hydrocodone Bitart/Acetaminophen (Hydrocodone/Apap 7.5-325mg 1 Each Tab) 1 each PO QID PRN PRN Reason: Pain Last Admin: 06/04/21 13:55 Dose: 1 each Documented by: Aspirin (Aspirin 325 Mg Tab) 325 mg PO HS@2100 [facility] Last Admin: 06/03/21 22:06 Dose: 325 mg Documented by: Atorvastatin Calcium (Atorvastatin 10 Mg Tab) 10 mg PO HS@2100 [facility] Last Admin: 06/03/21 22:05 Dose: 10 mg Documented by: Bisacodyl (Bisacodyl 10 Mg Supp) 10 mg RECTAL DAILY PRN PRN Reason: Constipation Enoxaparin Sodium (Enoxaparin 40 Mg/0.4 Ml Syringe) 40 mg SQ DAILY [facility] Last Admin: 06/04/21 08:48 Dose: 40 mg Documented by: Ferrous Sulfate (Ferrous Sulfate 325 Mg Tab) 325 mg PO BID@0800,1700 [facility] Last Admin: 06/04/21 08:48 Dose: 325 mg Documented by: Hydrocortisone (Hydrocortisone 1% Cream 30 Gm Tube) 1 applic TOPICAL DAILY [facility]; Protocol Last Admin: 06/04/21 09:33 Dose: Not Given Documented by: Hydromorphone HCl (Hydromorphone 0.5 Mg/0.5 Ml Syringe) 0.5 mg IVP Q3HR PRN PRN Reason: Moderate Pain Sodium Chloride (Saline 0.9%) 1,000 mls @ 75 mls/hr IV .[id number] [facility] Last Admin: 06/04/21 13:52 Dose: 75 mls/hr Documented by: Cefazolin Sodium 2 gm/ Sodium (Chloride) 50 mls @ 100 mls/hr IVPB Q8HR [facility]; Protocol Melatonin (Melatonin 3 Mg Tablet) 3 mg PO HS PRN PRN Reason: Insomnia Last Admin: 06/03/21 22:05 Dose: 3 mg Documented by: Metformin HCl (Metformin 500 Mg Tab) 500 mg PO BID@0800,1700 [facility] Last Admin: 06/04/21 08:48 Dose: 500 mg Documented by: Methocarbamol (Methocarbamol 500 Mg Tab) 1,000 mg PO QID PRN PRN Reason: Muscle Pain Naloxone HCl (Naloxone 0.4 Mg/Ml 1 Ml Vial) 0.2 mg IV Q2M PRN PRN Reason: Opioid Reversal Nifedipine (Nifedipine Xl 30 Mg Tab.Er.24) 30 mg PO DAILY@0800 [facility] Last Admin: 06/04/21 08:48 Dose: 30 mg Documented by: Ondansetron HCl (Ondansetron 4 Mg/2 Ml Vial) 4 mg IVP Q8HR PRN PRN Reason: Nausea And Vomiting Pregabalin (Pregabalin 100 Mg Cap) 100 mg PO BID@0800,1700 [facility] Last Admin: 06/04/21 08:48 Dose: 100 mg Documented by: Sodium Biphosphate/Sodium Phosphate (Na Phos,M-B/Na Phos,Di-Ba 133 Ml Enema) 133 ml RECTAL DAILY PRN PRN Reason: Constipation Tamsulosin HCl (Tamsulosin 0.4 Mg Cap.Er.24h) 0.4 mg PO HS@2100 [facility] Last Admin: 06/03/21 22:05 Dose: 0.4 mg Documented by: Past medical history to include: Diabetes, hard of hearing, hypertension, cerebral palsy with surgery in the legs cannot straighten legs, sometimes uses a walker mostly wheelchair. 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 Right above-knee amputation Social history: Lives with his brother and [id number]. No history of smoking or alcohol. Family history: Reviewed, noncontributory to presentation Physical examination: VITAL SIGNS: Afebrile, 57, 18, 133/85, 91% room air GENERAL: Sitting up in a chair, eating EYES: Pupils equal. Conjunctiva normal. HEENT: External appearance of nose and ears normal, oral cavity grossly normal. NECK: JVD not raised; masses not palpable. HEART: First and second heart sounds are normal; no edema. LUNGS: Respiratory rate normal; clear to auscultation. ABDOMEN: Soft, nontender, liver spleen not palpable, no masses palpable. PSYCH: Alert and oriented x3; mood and affect normal. MUSCULOSKELETAL:No Clubbing/cyanosis;muscles-grossly intact. Right above-knee amputation INVESTIGATIONS, reviewed in the clinical context: June 04: White count 4.3 hemoglobin 11.9 which is 98 CRP 30.3 procalcitonin 3.55 ESR 33 Blood culture [June 03]: Streptococcus agalactiae group B WBC 10.1 hemoglobin 12.2 platelets 124 potassium 4.3 creatinine 0.55 COVID 19, influenza type A, type B: Not detected Chest x-ray film personally reviewed by me-cardiomegaly. Possible atelectasis: Assessment and plan: -Patient presents with fever, lower back pain and some abdominal pain. No nausea vomiting. No change in bowel habit.: Slow to respond Differential includes discitis.. IV vancomycin. ID consulted. - right above-knee amputation -Cerebral palsy causing cognitive impairment -Chronic gait dysfunction. wheelchair bound Fall precautions -Essential hypertension Nifedipine ER 30 mg a day -Diabetes mellitus type 2 Glucophage 500 mg twice a day. Follow Accu-Cheks with sliding scale. -Hyperlipidemia Lipitor 10 mg daily at bedtime -Hard of hearing, -Brother, Mario Alberto MILLER Blood cultures positive. IV vancomycin. Discussed with Dr. Mckay from orth opedics. Neuro stimulator will not allow MRI to be done. Await ID input. Discussed with patient.
[2021-06-04 16:42] LABS: Glucose,Whole Blood 133 mg/dL (75-99)
[2021-06-04] MEDS: ASPIRIN 325 MG TAB PO SCH (19:57)
[2021-06-04] MEDS: TAMSULOSIN 0.4 MG CAP.ER.24H PO SCH (19:57)
[2021-06-04] MEDS: ATORVASTATIN 10 MG TAB PO SCH (19:57)
--- NOTE | 2021-06-04 20:22 | P.PAINCN ---
History of Present Illness - Reason for Consult Consult date: 06/04/21 - History of Present Illness This is a 76 years old male who had a chronic low back pain, and he is diagnosed with lumbar degenerative disc disease and lumbar spondylosis, and patient had spinal cord stimulator placed more than 2 years ago and his pain was under control until recently, when he started complaining of increased intensity of the low back pain, the pain is constant localized in the low back area with radiation to the left flank area, patient reported that the pain is severe exacerbated with any movement, he denies any numbness or tingling sensation he described the pain as dull aching pain, patient reported that the the left and the pain increased significantly over the last 4-5 weeks, he denies any i nitiating event but he reported that he had 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 in his right lower extremity, he shouldn't currently on Mason 7.5/325 every 6 hours when necessary he reported the current medication is not helping to control his pain, and patient currently on pain medication and Tylenol 650 every 6 hours when necessary Dilaudid 0.5 mg IV every 3 hours when necessary and Mason 7.5/325 every 6 hours and Robaxin thousand milligrams every 6 hours, and Lyrica 100 mg, patient continued to have low back pain Past Medical History Past Medical History: Diabetes Mellitus, Hearing Disorder / Deafness, Hypertension Additional Past Medical History / Comment(s): hx of cerebral palsey with surgery on legs- cannot straighten legs, uses a walker but is mostly in the wheelchair now., cellulitis feet., dry skin, pain in back, shoulders and right knee., right knee red and swollen., Pt lives in apartment by his brother (Mario Alberto)., hx obtained from Mario Alberto- pt [facility] and lost hearing aids. 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, history of neuro stimulator placement at his thoracolumbar spine about 3 years ago (she is unsure where this was done) Past Anesthesia/Blood Transfusion Reactions: No Reported Reaction Additional Past Anesthesia/Blood Transfusion Reaction / Comm: brother had ongoing hiccups after anesthesia Past Psychological History: No Psychological Hx Reported Smoking Status: Never smoker Past Alcohol Use History: None Reported Past Drug Use History: None Reported - Past Family History Father Family Medical History: No Reported History Medications and Allergies Home Medications Medication Instructions Recorded Confirmed Type Atorvastatin Calcium [Lipitor] 10 mg PO HS@2100 03/11/19 06/03/21 History NIFEdipine [NIFEdipine ER] 30 mg PO DAILY@0800 03/11/19 06/03/21 History metFORMIN HCL [Glucophage] 500 mg PO BID@0800,1700 03/11/19 06/03/21 History methocarbamoL [Robaxin] 1,000 mg PO QID PRN 07/26/20 06/03/21 History Aspirin 325 mg PO HS@209904/03/21 06/03/21 History Ferrous Sulfate [Iron (65 MG 325 mg PO BID@0800,1700 04/03/21 06/03/21 History Elemental)] HYDROcodone/APAP 7.5-325MG [Mason 1 tab PO QID PRN #12 tab 04/09/21 06/03/21 Rx 7.5-325] Acetaminophen [Tylenol] 650 mg PO Q4H PRN 06/03/21 06/03/21 History Glucerna Shake 1 can PO DAILY@0800 06/03/21 06/03/21 History Hydrocortisone Cream 1 applic TOPICAL DAILY 06/03/21 06/03/21 History [Hydrocortisone 1% Cream] Levofloxacin [Levaquin] 250 mg PO DAILY 06/03/21 06/03/21 History Liquacel 30 ml PO BID@0800,1700 06/03/21 06/03/21 History Magnesium Hydroxide [Milk of 2,400 mg PO Q48H PRN 06/03/21 06/03/21 History Magnesia] Na Phos,M-B/Na Phos,Di-Ba [Fleet 133 ml RECTAL DAILY PRN 06/03/21 06/03/21 History Adult] Pregabalin [Lyrica] 100 mg PO BID@0800,1700 06/03/21 06/03/21 History Tamsulosin [Flomax] 0.4 mg PO HS@209906/03/21 06/03/21 History bisacodyL [Dulcolax] 10 mg RECTAL DAILY PRN 06/03/21 06/03/21 History metroNIDAZOLE [Flagyl] 500 mg PO TID@0600,1400,2100 06/03/21 06/03/21 History Allergies Allergy/AdvReac Type Severity Reaction Status Date / Time acyclovir Allergy Unknown Verified 06/03/21 13:03 amoxicillin [From Augmentin] Allergy Unknown Verified 06/03/21 13:03 ciprofloxacin [From Cipro] Allergy Unknown Verified 06/03/21 13:03 ciprofloxacin HCl Allergy Unknown Verified 06/03/21 13:03 [From Cipro] clavulanic acid Allergy Unknown Verified 06/03/21 13:03 [From Augmentin] latex Allergy Unknown Verified 06/03/21 13:03 Latex, Natural Rubber Allergy Unknown Verified 06/03/21 13:03 levofloxacin [From Levaquin] Allergy Unknown Verified 06/03/21 13:03 Macrolide Antibiotics Allergy Unknown Verified 06/03/21 13:03 Physical Exam Vitals: Vital Signs Temp Pulse Resp BP Pulse Ox 06/04/21 14:00 97.8 F 80 18 143/69 95 06/04/21 09:59 16 06/04/21 08:00 97.8 F 57 L 18 133/85 91 L 06/04/21 02:11 97.7 F 70 18 101/61 83 L 06/03/21 20:00 70 18 Intake and Output 06/04/21 06/04/21 06/04/21 06:59 14:59 22:59 Intake Total 200 100 Output Total 400 650 Balance -400 200 -550 Intake: Intake, IV Titration 100 Amount ceFAZolin 2 gm In Sodium 100 Chloride 0.9% 50 ml @ 100 mls/hr IVPB Q8HR [facility] Rx# :[id number] Oral 200 Output: Urine 400 650 Physical Examinations : -Constitutiona : Cooperative , not in acute distress . -HEENT : nech : supple , no Lymphadenopathy , normal thy roid size . : eyes : no ptosis , no icterus, no photophobia . - neurologic : Cranial nerve II to XII intact , no focal neurological deffecit . -psychatric : alert , oriented X 3 , appropriate affect , intact judgment and insight . -Lymphatic : no Lymphadenopathy . - musculoskeltal Lumber spine moter stegnth lower extremities ,thigh and legs 3-4/5 Left side , right lower extremity above knee amputations lumber facet Loading Test =positive Right , positive Left Range of motion of the lumbar spine Flexion 30 degrees, extension 10 degrees strait leg raising test = positive at 45 degree tenderness over the Sacroiliac joint on the Right , and Left sides October trigger point identified in the lumbar paraspinal muscles, left flank muscle area, Results CBC & Chem 7: 06/04/21 05:18 06/03/21 08:56 Labs: Abnormal Lab Results - Last 24 Hours (Table) 06/03/21 06/04/21 06/04/21 Range/Units 21:01 05:18 05:18 Hgb 11.9 L (13.0-17.5) gm/dL Hct 38.9 L (39.0-53.0) % MCHC 30.6 L (31.0-37.0) g/dL RDW 18.7 H (11.5-15.5) % Plt Count 98 L (150-450) k/uL Lymphocytes # 0.2 L (1.0-4.8) k/uL ESR 33 H (0-15) mm/hr POC Glucose (mg/dL) 131 H (75-99) mg/dL C-Reactive Protein (<1.0) mg/dL Procalcitonin 3.55 H (0.02-0.09) ng/mL 06/04/21 06/04/21 06/04/21 Range/Units 05:18 07:30 11:37 Hgb (13.0-17.5) gm/dL Hct (39.0-53.0) % MCHC (31.0-37.0) g/dL RDW (11.5-15.5) % Plt Count (150-450) k/uL Lymphocytes # (1.0-4.8) k/uL ESR (0-15) mm/hr POC Glucose (mg/dL) 161 H 165 H (75-99) mg/dL C-Reactive Protein 30.3 H (<1.0) mg/dL Procalcitonin (0.02-0.09) ng/mL 06/04/21 Range/Units 16:29 Hgb (13.0-17.5) gm/dL Hct (39.0-53.0) % MCHC (31.0-37.0) g/dL RDW (11.5-15.5) % Plt Count (150-450) k/uL Lymphocytes # (1.0-4.8) k/uL ESR (0-15) mm/hr POC Glucose (mg/dL) 133 H (75-99) mg/dL C-Reactive Protein (<1.0) mg/dL Procalcitonin (0.02-0.09) ng/mL Microbiology - Last 24 Hours (Table) 06/03/21 09:18 Blood Culture Gram Stain - Preliminary Blood Blood Culture - Preliminary Strep agalactiae - (group b) 06/03/21 09:18 Blood Culture - Final Blood 06/03/21 09:27 Blood Culture - Final Blood 06/03/21 09:27 Blood Culture Gram Stain - Preliminary Blood Comments: Computed tomography scan of the lumbar spine= multilevel lumbar degenerative disc disease, multilevel lumbar spinal stenosis, multilevel lumbar foraminal stenosis at C3 4 L4 5 and multilevel lumbar facet arthropathy Blood culture was positive for strep bacteria Assessment and Plan Plan: Assessment and plan= 1-chronic pain syndrome. 2-lumbar spondylosis with lumbar facet arthropathy with acute exacerbation of low back pain. 3-lumbar degenerative disc disease. 4-lumbar spinal stenosis. 5-myofascial pain syndrome lumbar paraspinal muscles. 6-history of cerebral palsy with chronic weakness and contraction of left lower extremity. 5-pdmzh-obyn amputations right lower extremity. 8-bacteremia with blood positive culture Patient had bacteremia with the blood culture was positive for strep, the best option at this point is to hold on any interventional pain management, Patient could benefit from Lidoderm patch to be applied to the left side along lumbar area 12 hours on 12 hours off, continue the pain medication Lyrica Robaxin and Mason as prescribed currently, patient can be seen as an outpatient once the infection cleared we can consider doing trigger point injection versus medial branch block depending on the evaluation. Time with Patient: Greater than 30 PQRS Measure Charge Sheet - Pain Location Generalized Non-Pharmacological Interventions: Chiropractic Treatment, Position/Reposition Pharmacological Interventions: PRN Medication Pain Comment: okay right now PQRS Narrative: Smoking Status Never smoker Blood Pressure [Right Arm] 143/69 Blood Pressure 111/82 Pain Intensity [Generalized] 0 Pain Intensity 7 Pain Scale Used Non Verbal Pain Indicator Scale Used Numeric (1 - 10) Home Medications: Ambulatory Orders Atorvastatin Calcium [Lipitor] 10 mg PO HS@2100 12/26/19 NIFEdipine [NIFEdipine ER] 30 mg PO DAILY@0803/11/19 metFORMIN HCL [Glucophage] 500 mg PO BID@0800,1700 03/11/19 methocarbamoL [Robaxin] 1,000 mg PO QID PRN 07/26/20 Aspirin 325 mg PO HS@209904/03/21 Ferrous Sulfate [Iron (65 MG Elemental)] 325 mg PO BID@0800,17004/03/21 HYDROcodone/APAP 7.5-325MG [Mason 7.5-325] 1 tab PO QID PRN #12 tab 04/09/21 Acetaminophen [Tylenol] 650 mg PO Q4H PRN 06/03/21 Glucerna Shake 1 can PO DAILY@0806/03/21 Hydrocortisone Cream [Hydrocortisone 1% Cream] 1 applic TOPICAL DAILY 06/03/21 Levofloxacin [Levaquin] 250 mg PO DAILY 06/03/21 Liquacel 30 ml PO BID@0800,17006/03/21 Magnesium Hydroxide [Milk of Magnesia] 2,400 mg PO Q48H PRN 06/03/21 Na Phos,M-B/Na Phos,Di-Ba [Fleet Adult] 133 ml RECTAL DAILY PRN 06/03/21 Pregabalin [Lyrica] 100 mg PO BID@0800,17006/03/21 Tamsulosin [Flomax] 0.4 mg PO HS@209906/03/21 bisacodyL [Dulcolax] 10 mg RECTAL DAILY PRN 06/03/21 metroNIDAZOLE [Flagyl] 500 mg PO TID@0600,1400,209906/03/21
[2021-06-04 20:42] LABS: Glucose,Whole Blood 158 mg/dL (75-99)
--- NOTE | 2021-06-04 23:43 | P.CONS ---
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 in this patient who recently is s/p right [id number] amputation and the patient was subsequently transferred [facility] local [facility], patient was brought back to the hospital yesterday morning for the patient complaining of fever and abdominal pain patient apparently was complaining abdominal pain mostly lower abdominal area that has been going on for the last few days with a fever noticed on Friday that is 1 day before presentation to the hospital patient denies having any nausea or any vomiting has been complaining of some lower back pain as well patient describes the pain is lower back to be more of a dull aching 5-6 out of 10 head no radiation down to the leg with the symptoms the patient has been evaluated by the ER physician on arrival to the ER the patient did have fever of 100.3 F patient did have a normal white count with a left shift did have a normal creatinine level exams are normal procalcitonin elevated urine was negative hand PCR was negative patient did have a chest x-ray cardiomegaly with tiny bilateral pleural effusion and central venous congestion patient did h ave a CT of abdominal pelvis moderate diffuse colonic fecal stasis no obstruction no suspicious acute findings was noticed patient also have a lumbar CT no evidence of fracture, did shows a multilevel disc degenerative changes with moderate spinal canal stenosis at L3-L4 and L4-L5, patient did have blood cultures drawn in the ER which came back positive with gram-positive cocci Streptococcus agalactiae patient was treated with the vancomycin infectious disease was consulted for further management of antibiotic therapy Review of Systems Positive point has been mentioned in the HPI rest of the systems are negative Past Medical History Past Medical History: Diabetes Mellitus, Hearing Disorder / Deafness, Hypertension Additional Past Medical History / Comment(s): hx of cerebral palsey with surgery on legs- cannot straighten legs, uses a walker but is mostly in the wheelchair now., cellulitis feet., dry skin, pain in back, shoulders and right knee., right knee red and swollen., Pt lives in apartment by his brother (Mario Alberto)., hx obtained from Mario Alberto- pt [facility] and lost hearing aids. 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, history of neuro stimulator placement at his thoracolumbar spine about 3 years ago (she is unsure where this was done) Past Anesthesia/Blood Transfusion Reactions: No Reported Reaction Additional Past Anesthesia/Blood Transfusion Reaction / Comm: brother had ongoing hiccups after anesthesia Past Psychological History: No Psychological Hx Reported Smoking Status: Never smoker Past Alcohol Use History: None Reported Past Drug Use History: None Reported - Past Family History Father Family Medical History: No Reported History Medications and Allergies Home Medications Medication Instructions Recorded Confirmed Type Atorvastatin Calcium [Lipitor] 10 mg PO HS@2100 03/11/19 06/03/21 History NIFEdipine [NIFEdipine ER] 30 mg PO DAILY@0800 03/11/19 06/03/21 History metFORMIN HCL [Glucophage] 500 mg PO BID@0800,1700 03/11/19 06/03/21 History methocarbamoL [Robaxin] 1,000 mg PO QID PRN 07/26/20 06/03/21 History Aspirin 325 mg PO HS@2100 04/03/21 06/03/21 History Ferrous Sulfate [Iron (65 MG 325 mg PO BID@0800,1700 04/03/21 06/03/21 History Elemental)] HYDROcodone/APAP 7.5-325MG [[place] 1 tab PO QID PRN #12 tab 04/09/21 06/03/21 Rx 7.5-325] Acetaminophen [Tylenol] 650 mg PO Q4H PRN 06/03/21 06/03/21 History Glucerna Shake 1 can PO DAILY@0800 06/03/21 06/03/21 History Hydrocortisone Cream 1 applic TOPICAL DAILY 06/03/21 06/03/21 History [Hydrocortisone 1% Cream] Levofloxacin [Levaquin] 250 mg PO DAILY 06/03/21 06/03/21 History Liquacel 30 ml PO BID@0800,1700 06/03/21 06/03/21 History Magnesium Hydroxide [Milk of 2,400 mg PO Q48H PRN 06/03/21 06/03/21 History Magnesia] Na Phos,M-B/Na Phos,Di-Ba [Fleet 133 ml RECTAL DAILY PRN 06/03/21 06/03/21 History Adult] Pregabalin [Lyrica] 100 mg PO BID@0800,1700 06/03/21 06/03/21 History Tamsulosin [Flomax] 0.4 mg PO HS@2100 06/03/21 06/03/21 History bisacodyL [Dulcolax] 10 mg RECTAL DAILY PRN 06/03/21 06/03/21 History metroNIDAZOLE [Flagyl] 500 mg PO TID@0600,1400,2100 06/03/21 06/03/21 History Allergies Allergy/AdvReac Type Severity Reaction Status Date / Time acyclovir Allergy Unknown Verified 06/03/21 13:03 amoxicillin [From Augmentin] Allergy Unknown Verified 06/03/21 13:03 ciprofloxacin [From Cipro] Allergy Unknown Verified 06/03/21 13:03 ciprofloxacin HCl Allergy Unknown Verified 06/03/21 13:03 [From Cipro] clavulanic acid Allergy Unknown Verified 06/03/21 13:03 [From Augmentin] latex Allergy Unknown Verified 06/03/21 13:03 Latex, Natural Rubber Allergy Unknown Verified 06/03/21 13:03 levofloxacin [From Levaquin] Allergy Unknown Verified 06/03/21 13:03 Macrolide Antibiotics Allergy Unknown Verified 06/03/21 13:03 Physical Exam Vitals: Vital Signs Temp Pulse Pulse Resp BP BP Pulse Ox 06/04/21 09:59 16 06/04/21 08:00 97.8 F 57 L 18 133/85 91 L 06/04/21 02:11 97.7 F 70 18 101/61 83 L 06/03/21 20:00 70 18 06/03/21 19:25 98.4 F 101 H 22 173/72 93 L 06/03/21 16:07 98.4 F 73 20 126/74 98 06/03/21 15:26 97 F L 61 18 111/82 96 06/03/21 14:19 96.9 F L 62 18 96/62 95 Intake and Output 06/03/21 06/04/21 06/04/21 22:59 06:59 14:59 Intake Total 200 Output Total 450 400 Balance -450 -400 200 Intake: Oral 200 Output: Urine 450 400 Straight 450 Other: # Voids 2 Weight 77.111 kg GENERAL DESCRIPTION: An elderly male lying in bed, no distress. No tachypnea or accessory muscle of respiration use. HEENT: Shows Pallor , no scleral icterus. Oral mucous membrane is dry. No pharyngeal erythema or thrush NECK: Trachea central, no thyromegaly. LUNGS: Unlabored breathing. Clear to auscultation anteriorly. No wheeze or crackle. HEART: S1, S2, regular rate and rhythm. No loud murmur ABDOMEN: Soft, no tenderness , guarding or rigidity, no organomegaly EXTREMITIES: Right AKA stump incision is healed no swelling no redness left lower extremity with some discoloration and cold no open wound or any drainage SKIN: No rash, no masses palpable. NEUROLOGICAL: The patient is awake, alert, oriented x3, mood and affect normal. Results CBC & Chem 7: 06/04/21 05:18 06/03/21 08:56 Labs: Abnormal Lab Results - Last 24 Hours (Table) 06/03/21 06/03/21 06/04/21 Range/Units 16:57 21:01 05:18 Hgb (13.0-17.5) gm/dL Hct (39.0-53.0) % MCHC (31.0-37.0) g/dL RDW (11.5-15.5) % Plt Count (150-450) k/uL Lymphocytes # (1.0-4.8) k/uL ESR (0-15) mm/hr POC Glucose (mg/dL) 120 H 131 H (75-99) mg/dL C-Reactive Protein (<1.0) mg/dL Procalcitonin 3.55 H (0.02-0.09) ng/mL 06/04/21 06/04/21 06/04/21 Range/Units 05:18 05:18 07:30 Hgb 11.9 L (13.0-17.5) gm/dL Hct 38.9 L (39.0-53.0) % MCHC 30.6 L (31.0-37.0) g/dL RDW 18.7 H (11.5-15.5) % Plt Count 98 L (150-450) k/uL Lymphocytes # 0.2 L (1.0-4.8) k/uL ESR 33 H (0-15) mm/hr POC Glucose (mg/dL) 161 H (75-99) mg/dL C-Reactive Protein 30.3 H (<1.0) mg/dL Procalcitonin (0.02-0.09) ng/mL 06/04/21 Range/Units 11:37 Hgb (13.0-17.5) gm/dL Hct (39.0-53.0) % MCHC (31.0-37.0) g/dL RDW (11.5-15.5) % Plt Count (150-450) k/uL Lymphocytes # (1.0-4.8) k/uL ESR (0-15) mm/hr POC Glucose (mg/dL) 165 H (75-99) mg/dL C-Reactive Protein (<1.0) mg/dL Procalcitonin (0.02-0.09) ng/mL Microbiology - Last 24 Hours (Table) 06/03/21 09:18 Blood Culture Gram Stain - Preliminary Blood Blood Culture - Preliminary Strep agalactiae - (group b) 06/03/21 09:18 Blood Culture - Final Blood 06/03/21 09:27 Blood Culture - Final Blood 06/03/21 09:27 Blood Culture Gram Stain - Preliminary Blood Assessment and Plan (1) Bacteremia Current Visit: Yes Status: Acute Code(s): R78.81 - BACTEREMIA SNOMED Code(s): 0361368 Plan: 1patient with gram-positive bacteremia has been finalized with Streptococcus agalactiae which is usually of a skin and soft tissue origin in this patient right AKA stump is currently healed left leg do not have any evidence of cellulitis patient has been complaining of lower back pain will need to rule out underlying discitis or lumbar osteomyelitis. 2blood cultures will be repeated to document clearance of bacteremia. 3discontinue vancomycin 4-start the patient on cefazolin 2 g every 8 hour 5-we will obtain MRI of the lumbosacral spine to rule out discitis/osteomyelitis We will follow on clinical condition and cultures to further adjust medication if needed Thank you for this consultation we will follow the patient along with you Time with Patient: Greater than 30
[2021-06-05] MEDS: SODIUM CHLORIDE 0.9% 1,000 ML IV SCH ×2 (03:52→16:46)
[2021-06-05 06:53] LABS: Glucose,Whole Blood 147 mg/dL (75-99)
--- NOTE | 2021-06-05 07:57 | P.PN ---
Progress Note - Text Progress Note Date: 06/05/21 Patient seen and examined today at bedside. He is still having severe pain in his back with any motion and movement. He says the pain is not in his legs is not really having a problem in his leg. The pain radiates across his lower back and towards his left flank and abdomen. On exam his left lower extremity essentially unchanged. He is able to have some motion with dorsiflexion and plantarflexion but is limited in general for him. His compartments are soft. Assessment and plan Severe low back pain, acute on chronic Severe degenerative spondylosis L3 through 4 L4 5 L5-S1 with spondylolisthesis and severe facet arthrosis History of neuro stimulator placement at the thoracic or lumbar spine several years ago Recent above-knee amputation for diabetic lower extremity infectious issues approximately 6 weeks ago Bacteremia It is still difficult fully identify the source of the patient's symptoms. He is undergoing further workup for possible discitis versus osteomyelitis with a white blood cell scan per medicine. He is unable to have an MRI due to his neurostimulator intact. I do not know where he had his neurostimulator place and he does not murmur specifically. He feels that was done here in town. If we can find out who did the stimulator or what type it is we could have the pharmacy services representative consider some reprogramming to see if he can help alleviate some of his pain as well. He is continuing management and has started some antibiotics as per infectious disease. We'll see if this helps alleviate some the pain for his back. And we will await further testing. I do not have plans for surgical intervention at this point
[2021-06-05] MEDS: FERROUS SULFATE 325 MG TAB PO SCH ×2 (08:21→16:46)
[2021-06-05] MEDS: NIFEdipine XL 30 MG TAB.ER.24 PO SCH (08:22)
[2021-06-05] MEDS: PREGABALIN 100 MG CAP PO SCH ×2 (08:22→16:46)
[2021-06-05] MEDS: LIDOCAINE 5% PATCH TOPICAL SCH (08:22)
[2021-06-05] MEDS: metFORMIN 500 MG TAB PO SCH ×2 (08:22→16:46)
[2021-06-05] MEDS: ENOXAPARIN 40 MG/0.4 ML SYRINGE SQ SCH (08:23)
[2021-06-05] MEDS: HYDROCORTISONE 1% CREAM 30 GM TUBE TOPICAL SCH (10:46)
[2021-06-05 11:34] LABS: Glucose,Whole Blood 102 mg/dL (75-99)
[2021-06-05] MEDS ORDERED: VANCOMYCIN TROUGH DUE 1 EACH MISC MISCELLANE ONE (12:00)
[2021-06-05 14:26] LABS: African American GFR (CKD) >90 (>60 ml/min/1.73 sqM); Anion Gap 6 mmol/L; Blood Urea Nitrogen 20 mg/dL (9-20); Calcium 8.4 mg/dL (8.4-10.2); Carbon Dioxide 22 mmol/L (22-30); Chloride 106 mmol/L (98-107); Glucose 129 mg/dL (74-99); Non-African American GFR(CKD) >90 (>60 ml/min/1.73 sqM); Potassium 3.9 mmol/L (3.5-5.1); Sodium 134 mmol/L (137-145)
--- NOTE | 2021-06-05 15:42 | P.PN ---
Progress Note - Text Progress Note Date: 06/05/21 Hospital course: This is a pleasant 76-year-old patient, follows with visiting physicians Dr. Ric olvera. Chronic stable medical conditions includes diabetes, hypertension, cerebral palsy with surgery in the legs cannot straighten legs, sometimes uses a walker otherwise pretty much in a wheelchair. Patient lives in the apartment with his brother Susan. hard of hearing. 04/07/2021 patient underwent right above-knee amputation. Nonhealing infection. Patient now presents with some fever. Also having abdominal pain. Also complains of pain in the lower back seems to be going across. No nausea vomiting. Appetite is good. No change in bowel habits. Lives with his brother. June 04: Lower back pain persists. Blood cultures come back positive. On IV vancomycin. Oral intake fair. Patient has a neurostimulator in the spine hence cannot get an MRI. Concern about discitis still present. Await ID input. No further fever. June 05: Low back pain persists. Blood cultures positive for Streptococcus agalactiae. Nurse will recheck a patient well to find out who put the neurostimulator in the spine. Antibiotic changed to IV Ancef. Discussed with ID. Active Medications Acetaminophen (Acetaminophen Tab 325 Mg Tab) 650 mg PO Q6HR PRN PRN Reason: Mild Pain or Fever > 100.5 Last Admin: 06/03/21 22:05 Dose: 650 mg Documented by: Hydrocodone Bitart/Acetaminophen (Hydrocodone/Apap 7.5-325mg 1 Each Tab) 1 each PO QID PRN PRN Reason: Pain Last Admin: 06/04/21 13:55 Dose: 1 each Documented by: Aspirin (Aspirin 325 Mg Tab) 325 mg PO HS@2100 [facility] Last Admin: 06/04/21 19:57 Dose: 325 mg Documented by: Atorvastatin Calcium (Atorvastatin 10 Mg Tab) 10 mg PO HS@2100 [facility] Last Admin: 06/04/21 19:57 Dose: 10 mg Documented by: Bisacodyl (Bisacodyl 10 Mg Supp) 10 mg RECTAL DAILY PRN PRN Reason: Constipation Enoxaparin Sodium (Enoxaparin 40 Mg/0.4 Ml Syringe) 40 mg SQ DAILY [facility] Last Admin: 06/05/21 08:23 Dose: 40 mg Documented by: Ferrous Sulfate (Ferrous Sulfate 325 Mg Tab) 325 mg PO BID@0800,1700 [facility] Last Admin: 06/05/21 08:21 Dose: 325 mg Documented by: Hydrocortisone (Hydrocortisone 1% Cream 30 Gm Tube) 1 applic TOPICAL DAILY [facility]; Protocol Last Admin: 06/05/21 10:46 Dose: Not Given Documented by: Hydromorphone HCl (Hydromorphone 0.5 Mg/0.5 Ml Syringe) 0.5 mg IVP Q3HR PRN PRN Reason: Moderate Pain Sodium Chloride (Saline 0.9%) 1,000 mls @ 75 mls/hr IV .[id number] [facility] Last Admin: 06/05/21 03:52 Dose: Not Given Documented by: Cefazolin Sodium 2 gm/ Sodium (Chloride) 50 mls @ 100 mls/hr IVPB Q8HR [facility]; Protocol Last Admin: 06/05/21 08:21 Dose: 100 mls/hr Documented by: Lidocaine (Lidocaine 5% Patch) 1 patch TOPICAL DAILY [facility]; Protocol Last Admin: 06/05/21 08:22 Dose: 1 patch Documented by: Melatonin (Melatonin 3 Mg Tablet) 3 mg PO HS PRN PRN Reason: Insomnia Last Admin: 06/03/21 22:05 Dose: 3 mg Documented by: Metformin HCl (Metformin 500 Mg Tab) 500 mg PO BID@0800,1700 [facility] Last Admin: 06/05/21 08:22 Dose: 500 mg Documented by: Methocarbamol (Methocarbamol 500 Mg Tab) 1,000 mg PO QID PRN PRN Reason: Muscle Pain Naloxone HCl (Naloxone 0.4 Mg/Ml 1 Ml Vial) 0.2 mg IV Q2M PRN PRN Reason: Opioid Reversal Nifedipine (Nifedipine Xl 30 Mg Tab.Er.24) 30 mg PO DAILY@0800 [facility] Last Admin: 06/05/21 08:22 Dose: 30 mg Documented by: Ondansetron HCl (Ondansetron 4 Mg/2 Ml Vial) 4 mg IVP Q8HR PRN PRN Reason: Nausea And Vomiting Pregabalin (Pregabalin 100 Mg Cap) 100 mg PO BID@0800,1700 [facility] Last Admin: 06/05/21 08:22 Dose: 100 mg Documented by: Sodium Biphosphate/Sodium Phosphate (Na Phos,M-B/Na Phos,Di-Ba 133 Ml Enema) 133 ml RECTAL DAILY PRN PRN Reason: Constipation Tamsulosin HCl (Tamsulosin 0.4 Mg Cap.Er.24h) 0.4 mg PO HS@2100 [facility] Last Admin: 06/04/21 19:57 Dose: 0.4 mg Documented by: Past medical history to include: Diabetes, hard of hearing, hypertension, cerebral palsy with surgery in the legs cannot straighten legs, sometimes uses a walker mostly wheelchair. 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 Right above-knee amputation Social history: Lives with his brother and [id number]. No history of smoking or alcohol. Family history: Reviewed, noncontributory to presentation Physical examination: VITAL SIGNS: 98.1, 88, 20, 140 with a 70, 92% on 2 L GENERAL: Laying in bed, awake, tired EYES: Pupils equal. Conjunctiva normal. HEENT: External appearance of nose and ears normal, oral cavity grossly normal. NECK: JVD not raised; masses not palpable. HEART: First and second heart sounds are normal; no edema. LUNGS: Respiratory rate normal; clear to auscultation. ABDOMEN: Soft, nontender, liver spleen not palpable, no masses palpable. PSYCH: Alert and oriented x3; mood and affect normal. MUSCULOSKELETAL:No Clubbing/cyanosis;muscles-grossly intact. Right above-knee amputation INVESTIGATIONS, reviewed in the clinical context: June 05: Sodium 134 creatinine 0.5 to June 04: White count 4.3 hemoglobin 11.9 which is 98 CRP 30.3 procalcitonin 3.55 ESR 33 Blood culture [June 03]: Streptococcus agalactiae group B WBC 10.1 hemoglobin 12.2 platelets 124 potassium 4.3 creatinine 0.55 COVID 19, influenza type A, type B: Not detected Chest x-ray film personally reviewed by me-cardiomegaly. Possible atelectasis: Assessment and plan: -Patient presents with fever, lower back pain and some abdominal pain. No nausea vomiting. No change in bowel habit.: Slow to respond Differential includes discitis.. IV Ancef. Blood culture positive for Streptococcus agalactiae. Repeat cultures from June 05 pending - right above-knee amputation -Cerebral palsy causing cognitive impairment -Chronic gait dysfunction. wheelchair bound Fall precautions -Essential hypertension Nifedipine ER 30 mg a day -Diabetes mellitus type 2 Glucophage 500 mg twice a day. Follow Accu-Cheks with sliding scale. -Hyperlipidemia Lipitor 10 mg daily at bedtime -Hard of hearing, -Brother, Mario Alberto MILLER Repeat blood cultures done today. IV Ancef. Nurse to find out nerve stimulator was placed at which Dr. yates. Because MRI cannot be done.
[2021-06-05 16:14] LABS: Glucose,Whole Blood 261 mg/dL (75-99)
[2021-06-05] MEDS: HYDROmorphone 0.5 MG/0.5 ML SYRINGE IVP PRN ×2 (16:55→20:53)
[2021-06-05] MEDS: ATORVASTATIN 10 MG TAB PO SCH (20:53)
[2021-06-05] MEDS: ASPIRIN 325 MG TAB PO SCH (20:53)
[2021-06-05] MEDS: TAMSULOSIN 0.4 MG CAP.ER.24H PO SCH (20:53)
[2021-06-05] MEDS: HYDROcodone/APAP 7.5-325MG 1 EACH TAB PO PRN (20:53)
[2021-06-05 21:34] LABS: Glucose,Whole Blood 117 mg/dL (75-99)
[2021-06-05] MEDS: methocarbamoL 500 MG TAB PO PRN (22:17)
--- NOTE | 2021-06-05 23:25 | P.PN ---
Subjective Progress Note Date: 06/05/21 Principal diagnosis: Bacteremia Patient is a 76 year male with a recent right gdfaj-usa-rsis amputation presented to the hospital with a fever and did have evidence of St reptococcus bacteremia in this patient with lower back pain and concern for possible discitis, unfortunately the MRI could not be completed as the patient did have a pain stimulator in the lumbar area On today's evaluation that is 06/05/2021, the patient denies having any fever or chills, the patient is breathing comfortably no chest pain shortness of breath or cough no abdominal pain still complaining of some pain to lower back no bowel or bladder problem Objective - Vital Signs Vital signs: Vital Signs Temp 97.6 F 06/05/21 08:00 Pulse 85 06/05/21 08:00 Resp 20 06/05/21 08:00 BP 141/75 06/05/21 08:00 Pulse Ox 92 L 06/05/21 08:00 Intake & Output 06/04/21 06/05/21 06/05/21 18:59 06:59 18:59 Intake Total 300 100 Output Total 650 500 Balance -350 -400 Intake: Intake, IV Titration 100 100 Amount ceFAZolin 2 gm In Sodium 100 100 Chloride 0.9% 50 ml @ 100 mls/hr IVPB Q8HR [facility] Rx# :[id number] Oral 200 Output: Urine 650 500 Other: Voiding Method Indwelling Catheter Indwelling Catheter - Exam GENERAL DESCRIPTION: An elderly male lying in bed in no distress RESPIRATORY SYSTEM: Unlabored breathing , decreased breath sounds at bases HEART: S1 S2 regular rate and rhythm , ABDOMEN: Soft , no tenderness EXTREMITIES: Left leg is currently dressed no open wound or drainage - Labs CBC & Chem 7: 06/04/21 05:18 06/05/21 08:49 Labs: Abnormal Lab Results - Last 24 Hours (Table) 06/04/21 06/04/21 06/05/21 Range/Units 16:29 20:40 06:52 POC Glucose (mg/dL) 133 H 158 H 147 H (75-99) mg/dL 06/05/21 Range/Units 11:32 POC Glucose (mg/dL) 102 H (75-99) mg/dL Microbiology - Last 24 Hours (Table) 06/03/21 09:27 Blood Culture Gram Stain - Preliminary Blood Blood Culture - Preliminary Strep agalactiae - (group b) 06/03/21 09:18 Blood Culture Gram Stain - Preliminary Blood Blood Culture - Preliminary Strep agalactiae - (group b) 06/03/21 09:18 Blood Culture - Final Blood 06/03/21 09:27 Blood Culture - Final Blood Assessment and Plan (1) Bacteremia Current Visit: Yes Status: Acute Code(s): R78.81 - BACTEREMIA SNOMED Code(s): 5367912 Plan: 1patient with gram-positive bacteremia has been finalized with Streptococcus agalactiae which is usually of a skin and soft tissue origin in this patient right AKA stump is currently healed left leg do not have any evidence of cellulitis patient has been complaining of lower back pain will need to rule out underlying discitis or lumbar osteomyelitis. 2blood cultures repeated to document clearance of bacteremia. 3patient to continue with cefazolin 2 g every 8 hour 4-we will obtain MRI of the lumbosacral spine to rule out discitis/osteomyelitis, if the pain stimulator is compatible with MRI Time with Patient: Less than 30
[2021-06-06] MEDS: HYDROmorphone 1 MG/ML 1 ML SYRINGE IVP PRN ×3 (05:09→15:15)
[2021-06-06 07:11] LABS: Glucose,Whole Blood 105 mg/dL (75-99)
[2021-06-06] MEDS: metFORMIN 500 MG TAB PO SCH ×2 (08:16→17:04)
[2021-06-06] MEDS: NIFEdipine XL 30 MG TAB.ER.24 PO SCH (08:16)
[2021-06-06] MEDS: FERROUS SULFATE 325 MG TAB PO SCH ×2 (08:16→17:04)
[2021-06-06] MEDS: PREGABALIN 100 MG CAP PO SCH ×2 (08:16→17:04)
[2021-06-06] MEDS: ENOXAPARIN 40 MG/0.4 ML SYRINGE SQ SCH (08:17)
[2021-06-06] MEDS: LIDOCAINE 5% PATCH TOPICAL SCH (08:38)
[2021-06-06] MEDS: SODIUM CHLORIDE 0.9% 1,000 ML IV SCH ×2 (09:00→19:36)
[2021-06-06] MEDS: HYDROCORTISONE 1% CREAM 30 GM TUBE TOPICAL SCH (09:02)
--- NOTE | 2021-06-06 10:51 | CDI ---
Documentation Clarification Form Date: 06/06/2021 10:24:53 AM From: Sharmaine Rooney RN CCDS Admit Date: 06/03/2021 12:29:00 PM Patient Name: JuanM Woods Visit Number: [id number] Discharge Date: ATTENTION: The Clinical Documentation Specialists (CDI) and [facility] Coding Staff appreciate your assistance in clarifying documentation. Please respond to the clarification below the line at the bottom and electronically sign. The CDI & [facility] Coding staff will review the response and follow-up if needed. Please note: Queries are made part of the Legal Health Record. If you have any questions, please contact the author of this message via ITS. Dr. Luis Rojas There is documentation of patient with gram-positive bacteremia has been finalized with Streptococcus agalactiae, 06/04, ID consult. Bacteremia is considered a lab finding. Additional clarification regarding bacteremia is requested. Patient history/risk factors: 76-year-old male presents to the ED with fever abdominal pain and pain across lower back. Medical History: DM, HTN, right above knee amputation and mostly uses wheelchair. 06/03, H&P. Clinical Indicators: VSS 06/03: B/p 101/53, HR 98, Temp 100.3 F, RR 18, SpO2 91% room air WBC 06/03: 10.1 Neutrophils 06/03: 9.3 Blood Culture: 06/03 Strep agalactiae (group B) 06/05 Blood culture no growth after 24 hours. Consult 06/04: Streptococcus agalactiae which is usually of a skin and soft tissue origin in this patient right AKA stump is currently healed left leg do not have any evidence of cellulitis need to rule out underlying discitis or lumbar osteomyelitis. Treatment: 06/03 0.9NS 500cc Bolus x 2. Antibiotics: 06/03 Rocephin 2,000mg IVP x 1; 06/03 Vancomycin 1,500mg IVPB x 1; 06/04 d/c 06/04 Vancomycin 1,500mg IVPB Q12H; 06/04 to current Cefazolin 2gm IVPB Q8HR. Please provide additional clarification regarding the etiology/cause and/or clinical significance of the bacteremia: [ ] Bacteremia is related to sepsis [ ] Bacteremia is due to infectious process, please specify: [ ] Bacteremia is not clinically significant [ ] Other, please specify [ ] Unable to determine (Template Last Revised: May 2020) Bacteremia is related to sepsis MTDD
[2021-06-06 11:04] LABS: Glucose,Whole Blood 150 mg/dL (75-99)
[2021-06-06] MEDS: HYDROcodone/APAP 7.5-325MG 1 EACH TAB PO PRN ×2 (12:21→19:35)
[2021-06-06] MEDS: ACETAMINOPHEN TAB 325 MG TAB PO PRN (14:01)
--- NOTE | 2021-06-06 15:34 | P.PN ---
Progress Note - Text Progress Note Date: 06/06/21 Hospital course: This is a pleasant 76-year-old patient, follows with visiting physicians Dr. Ric olvera. Chronic stable medical conditions includes diabetes, hypertension, cerebral palsy with surgery in the legs cannot straighten legs, sometimes uses a walker otherwise pretty much in a wheelchair. Patient lives in the apartment with his brother Susan. hard of hearing. 04/07/2021 patient underwent right above-knee amputation. Nonhealing infection. Patient now presents with some fever. Also having abdominal pain. Also complains of pain in the lower back seems to be going across. No nausea vomiting. Appetite is good. No change in bowel habits. Lives with his brother. June 04: Lower back pain persists. Blood cultures come back positive. On IV vancomycin. Oral intake fair. Patient has a neurostimulator in the spine hence cannot get an MRI. Concern about discitis still present. Await ID input. No further fever. June 05: Low back pain persists. Blood cultures positive for Streptococcus agalactiae. Nurse will recheck a patient well to find out who put the neurostimulator in the spine. Antibiotic changed to IV Ancef. Discussed with ID. June 06: Still having lower back pain. No cisterna finding of about neurostimulator to the brother. On IV Ancef. Oral intake fair. Low-grade fever. Repeat cultures ordered yesterday Active Medications Acetaminophen (Acetaminophen Tab 325 Mg Tab) 650 mg PO Q6HR PRN PRN Reason: Mild Pain or Fever > 100.5 Last Admin: 06/06/21 14:01 Dose: 650 mg Documented by: Hydrocodone Bitart/Acetaminophen (Hydrocodone/Apap 7.5-325mg 1 Each Tab) 2 each PO Q6HR PRN PRN Reason: SEVERE Pain Last Admin: 06/06/21 12:21 Dose: 2 each Documented by: Aspirin (Aspirin 325 Mg Tab) 325 mg PO HS@2100 [facility] Last Admin: 06/05/21 20:53 Dose: 325 mg Documented by: Atorvastatin Calcium (Atorvastatin 10 Mg Tab) 10 mg PO HS@2100 [facility] Last Admin: 06/05/21 20:53 Dose: 10 mg Documented by: Bisacodyl (Bisacodyl 10 Mg Supp) 10 mg RECTAL DAILY PRN PRN Reason: Constipation Enoxaparin Sodium (Enoxaparin 40 Mg/0.4 Ml Syringe) 40 mg SQ DAILY [facility] Last Admin: 06/06/21 08:17 Dose: 40 mg Documented by: Ferrous Sulfate (Ferrous Sulfate 325 Mg Tab) 325 mg PO BID@0800,1700 [facility] Last Admin: 06/06/21 08:16 Dose: 325 mg Documented by: Hydrocortisone (Hydrocortisone 1% Cream 30 Gm Tube) 1 applic TOPICAL DAILY [facility]; Protocol Last Admin: 06/06/21 09:02 Dose: 1 applic Documented by: Hydromorphone HCl (Hydromorphone 0.5 Mg/0.5 Ml Syringe) 0.5 mg IVP Q3HR PRN PRN Reason: Moderate Pain Last Admin: 06/05/21 20:53 Dose: 0.5 mg Documented by: Hydromorphone HCl (Hydromorphone 1 Mg/Ml 1 Ml Syringe) 1 mg IVP Q3HR PRN PRN Reason: Moderate Pain Last Admin: 06/06/21 15:15 Dose: 1 mg Documented by: Sodium Chloride (Saline 0.9%) 1,000 mls @ 75 mls/hr IV .[id number] [facility] Last Admin: 06/06/21 09:00 Dose: 75 mls/hr Documented by: Cefazolin Sodium 2 gm/ Sodium (Chloride) 50 mls @ 100 mls/hr IVPB Q8HR [facility]; Protocol Last Admin: 06/06/21 08:17 Dose: 100 mls/hr Documented by: Lidocaine (Lidocaine 5% Patch) 1 patch TOPICAL DAILY [facility]; Protocol Last Admin: 06/06/21 08:38 Dose: 1 patch Documented by: Melatonin (Melatonin 3 Mg Tablet) 3 mg PO HS PRN PRN Reason: Insomnia Last Admin: 06/03/21 22:05 Dose: 3 mg Documented by: Metformin HCl (Metformin 500 Mg Tab) 500 mg PO BID@0800,1700 [facility] Last Admin: 06/06/21 08:16 Dose: 500 mg Documented by: Methocarbamol (Methocarbamol 500 Mg Tab) 1,000 mg PO QID PRN PRN Reason: Muscle Pain Last Admin: 06/05/21 22:17 Dose: 1,000 mg Documented by: Naloxone HCl (Naloxone 0.4 Mg/Ml 1 Ml Vial) 0.2 mg IV Q2M PRN PRN Reason: Opioid Reversal Nifedipine (Nifedipine Xl 30 Mg Tab.Er.24) 30 mg PO DAILY@0800 [facility] Last Admin: 06/06/21 08:16 Dose: 30 mg Documented by: Ondansetron HCl (Ondansetron 4 Mg/2 Ml Vial) 4 mg IVP Q8HR PRN PRN Reason: Nausea And Vomiting Pregabalin (Pregabalin 100 Mg Cap) 100 mg PO BID@0800,1700 [facility] Last Admin: 06/06/21 08:16 Dose: 100 mg Documented by: Sodium Biphosphate/Sodium Phosphate (Na Phos,M-B/Na Phos,Di-Ba 133 Ml Enema) 133 ml RECTAL DAILY PRN PRN Reason: Constipation Tamsulosin HCl (Tamsulosin 0.4 Mg Cap.Er.24h) 0.4 mg PO HS@2100 [facility] Last Admin: 06/05/21 20:53 Dose: 0.4 mg Documented by: Past medical history to include: Diabetes, hard of hearing, hypertension, cerebral palsy with surgery in the legs cannot straighten legs, sometimes uses a walker mostly wheelchair. 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 Right above-knee amputation Social history: Lives with his brother and [id number]. No history of smoking or alcohol. Family history: Reviewed, noncontributory to presentation Physical examination: VITAL SIGNS: 100.4, 92, 16, 167/74, 90% on 4 L GENERAL: Reclining in bed, awake, tired EYES: Pupils equal. Conjunctiva normal. HEENT: External appearance of nose and ears normal, oral cavity grossly normal. NECK: JVD not raised; masses not palpable. HEART: First and second heart sounds are normal; no edema. LUNGS: Respiratory rate normal; clear to auscultation. ABDOMEN: Soft, nontender, liver spleen not palpable, no masses palpable. PSYCH: Alert and oriented x3; mood and affect anxious MUSCULOSKELETAL:No Clubbing/cyanosis;muscles-grossly intact. Right above-knee a mputation INVESTIGATIONS, reviewed in the clinical context: June 05: Sodium 134 creatinine 0.5 to June 04: White count 4.3 hemoglobin 11.9 which is 98 CRP 30.3 procalcitonin 3.55 ESR 33 Blood culture [June 03]: Streptococcus agalactiae group B WBC 10.1 hemoglobin 12.2 platelets 124 potassium 4.3 creatinine 0.55 COVID 19, influenza type A, type B: Not detected Chest x-ray film personally reviewed by me-cardiomegaly. Possible atelectasis: Assessment and plan: -Patient presents with fever, lower back pain and some abdominal pain. No nausea vomiting. No change in bowel habit.: Slow to respond Differential includes discitis.. IV Ancef. Blood culture positive for Streptococcus agalactiae. Repeat cultures from June 05 pending - right above-knee amputation -Cerebral palsy causing cognitive impairment -Chronic gait dysfunction. wheelchair bound Fall precautions -Essential hypertension Nifedipine ER 30 mg a day -Diabetes mellitus type 2 Glucophage 500 mg twice a day. Follow Accu-Cheks with sliding scale. -Hyperlipidemia Lipitor 10 mg daily at bedtime -Hard of hearing, -Brother, Mario Alberto MILLER Will follow procalcitonin and CRP. MRI depending on the nature of neurosti mulator. Repeat blood cultures done from yesterday. Discussed with patient.
[2021-06-06 16:48] LABS: Glucose,Whole Blood 110 mg/dL (75-99)
[2021-06-06] MEDS: ASPIRIN 325 MG TAB PO SCH (19:35)
[2021-06-06] MEDS: TAMSULOSIN 0.4 MG CAP.ER.24H PO SCH (19:35)
[2021-06-06] MEDS: ATORVASTATIN 10 MG TAB PO SCH (19:36)
[2021-06-06 20:14] LABS: Glucose,Whole Blood 226 mg/dL (75-99)
--- NOTE | 2021-06-06 22:02 | P.PN ---
Subjective Progress Note Date: 06/06/21 Principal diagnosis: Bacteremia Patient is a 76 year male with a recent right codcr-pnh-mcjx amputation presented to the hospital with a fever and did have evidence of St reptococcus bacteremia in this patient with lower back pain and concern for possible discitis, unfortunately the MRI could not be completed as the patient did have a pain stimulator in the lumbar area On today's evaluation that is 06/06/2021, the patient is afebrile, the patient is breathing comfortably, the patient denies chest pain shortness of breath or cough no abdominal pain still complaining of some pain to lower back no bowel or bladder problem, patient did have more erythema in the left leg Objective - Vital Signs Vital signs: Vital Signs Temp 98.1 F 06/06/21 07:08 Pulse 83 06/06/21 07:08 Resp 18 06/06/21 07:08 BP 150/76 06/06/21 07:52 Pulse Ox 90 L 06/06/21 07:08 Intake & Output 06/05/21 06/06/21 06/06/21 18:59 06:59 18:59 Intake Total 360 Output Total 350 1150 Balance -350 -790 Intake: Oral 360 Output: Urine 350 1150 Other: Voiding Method Indwelling Catheter Indwelling Catheter Indwelling Catheter - Exam GENERAL DESCRIPTION: An elderly male lying in bed in no distress RESPIRATORY SYSTEM: Unlabored breathing , decreased breath sounds at bases HEART: S1 S2 regular rate and rhythm , ABDOMEN: Soft , no tenderness EXTREMITIES: Left leg with more erythema and warmth to touch - Labs CBC & Chem 7: 06/04/21 05:18 06/05/21 08:49 Labs: Abnormal Lab Results - Last 24 Hours (Table) 06/05/21 06/05/21 06/05/21 Range/Units 08:49 16:13 21:31 Sodium 134 L (137-145) mmol/L Creatinine 0.52 L (0.66-1.25) mg/dL Glucose 129 H (74-99) mg/dL POC Glucose (mg/dL) 261 H 117 H (75-99) mg/dL 06/06/21 06/06/21 Range/Units 07:10 11:03 Sodium (137-145) mmol/L Creatinine (0.66-1.25) mg/dL Glucose (74-99) mg/dL POC Glucose (mg/dL) 105 H 150 H (75-99) mg/dL Microbiology - Last 24 Hours (Table) 06/05/21 04:57 Blood Culture - Preliminary Blood No Growth after 24 hours 06/03/21 09:27 Blood Culture Gram Stain - Preliminary Blood Blood Culture - Preliminary Strep agalactiae - (group b) Assessment and Plan (1) Bacteremia Current Visit: Yes Status: Acute Code(s): R78.81 - BACTEREMIA SNOMED Code(s): 6430597 Plan: 1patient with gram-positive bacteremia has been finalized with Streptococcus agalactiae which is usually of a skin and soft tissue origin in this patient right AKA stump is currently healed left leg do not have any evidence of cellulitis patient has been complaining of lower back pain will need to rule out underlying discitis or lumbar osteomyelitis versus left lower extremity cellulitis. 2blood cultures repeat are negative so far 3patient to continue with cefazolin 2 g every 8 hour 4-we aren't waiting for MRI of the lumbosacral spine to rule out discitis/osteomyelitis, Time with Patient: Less than 30
[2021-06-07 07:17] LABS: Glucose,Whole Blood 167 mg/dL (75-99)
[2021-06-07] MEDS: LIDOCAINE 5% PATCH TOPICAL SCH (09:05)
[2021-06-07] MEDS: FERROUS SULFATE 325 MG TAB PO SCH ×2 (09:06→16:58)
[2021-06-07] MEDS: ENOXAPARIN 40 MG/0.4 ML SYRINGE SQ SCH (09:06)
[2021-06-07] MEDS: PREGABALIN 100 MG CAP PO SCH ×2 (09:06→16:58)
[2021-06-07] MEDS: metFORMIN 500 MG TAB PO SCH ×2 (09:06→16:58)
[2021-06-07] MEDS: NIFEdipine XL 30 MG TAB.ER.24 PO SCH (09:06)
[2021-06-07] MEDS: HYDROcodone/APAP 7.5-325MG 1 EACH TAB PO PRN (09:07)
[2021-06-07] MEDS: HYDROCORTISONE 1% CREAM 30 GM TUBE TOPICAL SCH (09:26)
[2021-06-07] MEDS: SODIUM CHLORIDE 0.9% 1,000 ML IV SCH ×2 (10:18→21:48)
[2021-06-07] MEDS: bisacodyL 10 MG SUPP RECTAL PRN (10:19)
--- NOTE | 2021-06-07 11:14 | P.PN ---
Progress Note - Text Progress Note Date: 06/07/21 The patient is seen and examined at bedside. He continues to have severe pain at his lower back and around his abdomen globally. He says he is not having significant pain down his leg. He has pain in his back whenever he tries to move. He feels that is not improving. His left lower extremity is wrapped ring he has some superficial cellulitis. His right above-knee amputation stump apparently is clear. I was not able to view. 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 He has not been able to get an MRI due to his neurostimulator which was placed with Dr. Corral's office. We have information about the implant from [facility] and we are trying to see if there is any compatibility for MRI however the department here seems doubtful. They are considering other imaging and the possibility of a white blood cell scan which may offer some information. I would defer that to infectious disease. Interventional pain management has deferred specific treatment that the patient has active bacteremia and I agree. It is very difficult to see if a surgical intervention point give him any benefit with the limited information a half. I think that continuing to treat him for the possibly of discitis is reasonable. This usually requires prolonged long-term IV antibiotics and take 6-12 weeks for resolution. He's continue management through medicine service and infectious disease and I am in agreement.
[2021-06-07 12:04] LABS: Glucose,Whole Blood 117 mg/dL (75-99)
[2021-06-07] MEDS: methocarbamoL 500 MG TAB PO PRN (12:26)
[2021-06-07] MEDS: HYDROmorphone 1 MG/ML 1 ML SYRINGE IVP PRN (17:23)
[2021-06-07 17:25] LABS: Glucose,Whole Blood 163 mg/dL (75-99)
--- NOTE | 2021-06-07 17:38 | P.PN ---
Progress Note - Text Progress Note Date: 06/07/21 Hospital course: This is a pleasant 76-year-old patient, follows with visiting physicians Dr. Ric olvera. Chronic stable medical conditions includes diabetes, hypertension, cerebral palsy with surgery in the legs cannot straighten legs, sometimes uses a walker otherwise pretty much in a wheelchair. Patient lives in the apartment with his brother Susan. hard of hearing. 04/07/2021 patient underwent right above-knee amputation. Nonhealing infection. Patient now presents with some fever. Also having abdominal pain. Also complains of pain in the lower back seems to be going across. No nausea vomiting. Appetite is good. No change in bowel habits. Lives with his brother. June 04: Lower back pain persists. Blood cultures come back positive. On IV vancomycin. Oral intake fair. Patient has a neurostimulator in the spine hence cannot get an MRI. Concern about discitis still present. Await ID input. No further fever. June 05: Low back pain persists. Blood cultures positive for Streptococcus agalactiae. Nurse will recheck a patient well to find out who put the neurostimulator in the spine. Antibiotic changed to IV Ancef. Discussed with ID. June 06: Still having lower back pain. No cisterna finding of about neurostimulator to the brother. On IV Ancef. Oral intake fair. Low-grade fever. Repeat cultures ordered yesterday May 24: 30 just of low back pain. Neurology stratified of about a neurostimulator so that MRI can't be done. IV Ancef. Oral intake good. Repeat cultures have been negative to low. Active Medications Acetaminophen (Acetaminophen Tab 325 Mg Tab) 650 mg PO Q6HR PRN PRN Reason: Mild Pain or Fever > 100.5 Last Admin: 06/06/21 14:01 Dose: 650 mg Documented by: Hydrocodone Bitart/Acetaminophen (Hydrocodone/Apap 7.5-325mg 1 Each Tab) 2 each PO Q6HR PRN PRN Reason: SEVERE Pain Last Admin: 06/07/21 09:07 Dose: 2 each Documented by: Aspirin (Aspirin 325 Mg Tab) 325 mg PO HS@2100 [facility] Last Admin: 06/06/21 19:35 Dose: 325 mg Documented by: Atorvastatin Calcium (Atorvastatin 10 Mg Tab) 10 mg PO HS@2100 [facility] Last Admin: 06/06/21 19:36 Dose: 10 mg Documented by: Bisacodyl (Bisacodyl 10 Mg Supp) 10 mg RECTAL DAILY PRN PRN Reason: Constipation Last Admin: 06/07/21 10:19 Dose: 10 mg Documented by: Enoxaparin Sodium (Enoxaparin 40 Mg/0.4 Ml Syringe) 40 mg SQ DAILY [facility] Last Admin: 06/07/21 09:06 Dose: 40 mg Documented by: Ferrous Sulfate (Ferrous Sulfate 325 Mg Tab) 325 mg PO BID@0800,1700 [facility] Last Admin: 06/07/21 16:58 Dose: 325 mg Documented by: Hydrocortisone (Hydrocortisone 1% Cream 30 Gm Tube) 1 applic TOPICAL DAILY [facility]; Protocol Last Admin: 06/07/21 09:26 Dose: Not Given Documented by: Hydromorphone HCl (Hydromorphone 0.5 Mg/0.5 Ml Syringe) 0.5 mg IVP Q3HR PRN PRN Reason: Moderate Pain Last Admin: 06/05/21 20:53 Dose: 0.5 mg Documented by: Hydromorphone HCl (Hydromorphone 1 Mg/Ml 1 Ml Syringe) 1 mg IVP Q3HR PRN PRN Reason: Moderate Pain Last Admin: 06/07/21 17:23 Dose: 1 mg Documented by: Sodium Chloride (Saline 0.9%) 1,000 mls @ 75 mls/hr IV .[id number] [facility] Last Admin: 06/07/21 10:18 Dose: 75 mls/hr Documented by: Cefazolin Sodium 2 gm/ Sodium (Chloride) 50 mls @ 100 mls/hr IVPB Q8HR [facility]; Protocol Last Admin: 06/07/21 15:03 Dose: 100 mls/hr Documented by: Lidocaine (Lidocaine 5% Patch) 1 patch TOPICAL DAILY [facility]; Protocol Last Admin: 06/07/21 09:05 Dose: 1 patch Documented by: Melatonin (Melatonin 3 Mg Tablet) 3 mg PO HS PRN PRN Reason: Insomnia Last Admin: 06/03/21 22:05 Dose: 3 mg Documented by: Metformin HCl (Metformin 500 Mg Tab) 500 mg PO BID@0800,1700 [facility] Last Admin: 06/07/21 16:58 Dose: 500 mg Documented by: Methocarbamol (Methocarbamol 500 Mg Tab) 1,000 mg PO QID PRN PRN Reason: Muscle Pain Last Admin: 06/07/21 12:26 Dose: 1,000 mg Documented by: Naloxone HCl (Naloxone 0.4 Mg/Ml 1 Ml Vial) 0.2 mg IV Q2M PRN PRN Reason: Opioid Reversal Nifedipine (Nifedipine Xl 30 Mg Tab.Er.24) 30 mg PO DAILY@0800 [facility] Last Admin: 06/07/21 09:06 Dose: 30 mg Documented by: Ondansetron HCl (Ondansetron 4 Mg/2 Ml Vial) 4 mg IVP Q8HR PRN PRN Reason: Nausea And Vomiting Pregabalin (Pregabalin 100 Mg Cap) 100 mg PO BID@0800,1700 [facility] Last Admin: 06/07/21 16:58 Dose: 100 mg Documented by: Sodium Biphosphate/Sodium Phosphate (Na Phos,M-B/Na Phos,Di-Ba 133 Ml Enema) 133 ml RECTAL DAILY PRN PRN Reason: Constipation Tamsulosin HCl (Tamsulosin 0.4 Mg Cap.Er.24h) 0.4 mg PO HS@2100 [facility] Last Admin: 06/06/21 19:35 Dose: 0.4 mg Documented by: Past medical history to include: Diabetes, hard of hearing, hypertension, cerebral palsy with surgery in the legs cannot straighten legs, sometimes uses a walker mostly wheelchair. 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 Right above-knee amputation Social history: Lives with his brother and [id number]. No history of smoking or alcohol. Family history: Reviewed, noncontributory to presentation Physical examination: VITAL SIGNS: 99.4, 88, 16, 142/60, 95% on 4 L GENERAL: Reclining in bed, awake, eating lunch EYES: Pupils equal. Conjunctiva normal. HEENT: External appearance of nose and ears normal, oral cavity grossly normal. NECK: JVD not raised; masses not palpable. HEART: First and second heart sounds are normal; no edema. LUNGS: Respiratory rate normal; clear to auscultation. ABDOMEN: Soft, nontender, liver spleen not palpable, no masses palpable. PSYCH: Alert and oriented x3; mood and affect anxious MUSCULOSKELETAL:No Clubbing/cyanosis;muscles-grossly intact. Right above-knee amputation INVESTIGATIONS, reviewed in the clinical context: June 07: CRP of 17 procalcitonin 0.63 June 05: Sodium 134 creatinine 0.5 to June 04: White count 4.3 hemoglobin 11.9 which is 98 CRP 30.3 procalcitonin 3.55 ESR 33 Blood culture [June 03]: Streptococcus agalactiae group B WBC 10.1 hemoglobin 12.2 platelets 124 potassium 4.3 creatinine 0.55 COVID 19, influenza type A, type B: Not detected Chest x-ray film personally reviewed by me-cardiomegaly. Possible atelectasis: Assessment and plan: -Patient presents with fever, lower back pain and some abdominal pain. No nausea vomiting. No change in bowel habit.: Slow to respond Clinical suspicion for discitis.. IV Ancef. Blood culture positive for Streptococcus agalactiae. Repeat cultures from June 05 pending - right above-knee amputation -Cerebral palsy causing cognitive impairment -Chronic gait dysfunction. wheelchair bound Fall precautions -Essential hypertension Nifedipine ER 30 mg a day -Diabetes mellitus type 2 Glucophage 500 mg twice a day. Follow Accu-Cheks with sliding scale. -Hyperlipidemia Lipitor 10 mg daily at bedtime -Hard of hearing, -Brother, Mario Alberto POA Follow procalcitonin and CRP. MRI depending on the nature of neurostimulator. Discussed with patient.
[2021-06-07] MEDS: ASPIRIN 325 MG TAB PO SCH (20:26)
[2021-06-07] MEDS: TAMSULOSIN 0.4 MG CAP.ER.24H PO SCH (20:26)
[2021-06-07] MEDS: ATORVASTATIN 10 MG TAB PO SCH (20:26)
[2021-06-07 21:11] LABS: Glucose,Whole Blood 129 mg/dL (75-99)
[2021-06-07] MEDS: INSULIN ASPART (NovoLOG) 100 UNIT/ML VIAL SQ SCH (21:48)
[2021-06-08] MEDS: bisacodyL 10 MG SUPP RECTAL PRN (00:48)
[2021-06-08] MEDS: HYDROcodone/APAP 7.5-325MG 1 EACH TAB PO PRN (04:49)
[2021-06-08 06:54] LABS: Glucose,Whole Blood 125 mg/dL (75-99)
[2021-06-08] MEDS: INSULIN ASPART (NovoLOG) 100 UNIT/ML VIAL SQ SCH ×4 (07:01→20:43)
[2021-06-08] MEDS: HYDROmorphone 1 MG/ML 1 ML SYRINGE IVP PRN ×2 (08:20→17:39)
[2021-06-08] MEDS: ACETAMINOPHEN TAB 325 MG TAB PO PRN (08:28)
[2021-06-08] MEDS: PREGABALIN 100 MG CAP PO SCH ×2 (08:48→17:39)
[2021-06-08] MEDS: ENOXAPARIN 40 MG/0.4 ML SYRINGE SQ SCH (08:48)
[2021-06-08] MEDS: FERROUS SULFATE 325 MG TAB PO SCH ×2 (08:48→17:39)
[2021-06-08] MEDS: LIDOCAINE 5% PATCH TOPICAL SCH (08:49)
[2021-06-08] MEDS: NIFEdipine XL 30 MG TAB.ER.24 PO SCH (08:49)
[2021-06-08] MEDS: metFORMIN 500 MG TAB PO SCH ×2 (08:49→17:39)
[2021-06-08] MEDS: HYDROCORTISONE 1% CREAM 30 GM TUBE TOPICAL SCH (10:13)
[2021-06-08] MEDS: NA PHOS,M-B/NA PHOS,DI-BA 133 ML ENEMA RECTAL PRN (10:53)
[2021-06-08 11:22] LABS: Glucose,Whole Blood 166 mg/dL (75-99)
[2021-06-08 12:19] VITALS: BMI 27.4
[2021-06-08] MEDS: methocarbamoL 500 MG TAB PO PRN (12:22)
[2021-06-08] MEDS: SODIUM CHLORIDE 0.9% 1,000 ML IV SCH (13:21)
--- NOTE | 2021-06-08 14:59 | P.PN ---
Progress Note - Text Progress Note Date: 06/08/21 Hospital course: This is a pleasant 76-year-old patient, follows with visiting physicians Dr. Ric olvera. Chronic stable medical conditions includes diabetes, hypertension, cerebral palsy with surgery in the legs cannot straighten legs, sometimes uses a walker otherwise pretty much in a wheelchair. Patient lives in the apartment with his brother Susan. hard of hearing. 04/07/2021 patient underwent right above-knee amputation. Nonhealing infection. Patient now presents with some fever. Also having abdominal pain. Also complains of pain in the lower back seems to be going across. No nausea vomiting. Appetite is good. No change in bowel habits. Lives with his brother. June 04: Lower back pain persists. Blood cultures come back positive. On IV vancomycin. Oral intake fair. Patient has a neurostimulator in the spine hence cannot get an MRI. Concern about discitis still present. Await ID input. No further fever. June 05: Low back pain persists. Blood cultures positive for Streptococcus agalactiae. Nurse will recheck a patient well to find out who put the neurostimulator in the spine. Antibiotic changed to IV Ancef. Discussed with ID. June 06: Still having lower back pain. No cisterna finding of about neurostimulator to the brother. On IV Ancef. Oral intake fair. Low-grade fever. Repeat cultures ordered yesterday June 07: 30 just of low back pain. Neurology stratified of about a neurostimulator so that MRI can't be done. IV Ancef. Oral intake good. Repeat cultures have been negative to low. June 08: Patient going in for MRI this afternoon. Still complaining of significant low back pain. Heating pad ordered. IV Ancef to continue. Repeat blood cultures negative from June 05. Active Medications Acetaminophen (Acetaminophen Tab 325 Mg Tab) 650 mg PO Q6HR PRN PRN Reason: Mild Pain or Fever > 100.5 Last Admin: 06/08/21 08:28 Dose: 650 mg Documented by: Hydrocodone Bitart/Acetaminophen (Hydrocodone/Apap 7.5-325mg 1 Each Tab) 2 each PO Q6HR PRN PRN Reason: SEVERE Pain Last Admin: 06/08/21 04:49 Dose: 2 each Documented by: Aspirin (Aspirin 325 Mg Tab) 325 mg PO HS@2100 [facility] Last Admin: 06/07/21 20:26 Dose: 325 mg Documented by: Atorvastatin Calcium (Atorvastatin 10 Mg Tab) 10 mg PO HS@2100 [facility] Last Admin: 06/07/21 20:26 Dose: 10 mg Documented by: Bisacodyl (Bisacodyl 10 Mg Supp) 10 mg RECTAL DAILY PRN PRN Reason: Constipation Last Admin: 06/08/21 00:48 Dose: 10 mg Documented by: Enoxaparin Sodium (Enoxaparin 40 Mg/0.4 Ml Syringe) 40 mg SQ DAILY [facility] Last Admin: 06/08/21 08:48 Dose: 40 mg Documented by: Ferrous Sulfate (Ferrous Sulfate 325 Mg Tab) 325 mg PO BID@0800,1700 [facility] Last Admin: 06/08/21 08:48 Dose: 325 mg Documented by: Hydrocortisone (Hydrocortisone 1% Cream 30 Gm Tube) 1 applic TOPICAL DAILY [facility]; Protocol Last Admin: 06/08/21 10:13 Dose: Not Given Documented by: Hydromorphone HCl (Hydromorphone 0.5 Mg/0.5 Ml Syringe) 0.5 mg IVP Q3HR PRN PRN Reason: Moderate Pain Last Admin: 06/05/21 20:53 Dose: 0.5 mg Documented by: Hydromorphone HCl (Hydromorphone 1 Mg/Ml 1 Ml Syringe) 1 mg IVP Q3HR PRN PRN Reason: Moderate Pain Last Admin: 06/08/21 08:20 Dose: 1 mg Documented by: Sodium Chloride (Saline 0.9%) 1,000 mls @ 75 mls/hr IV .[id number] [facility] Last Admin: 06/08/21 13:21 Dose: Not Given Documented by: Cefazolin Sodium 2 gm/ Sodium (Chloride) 50 mls @ 100 mls/hr IVPB Q8HR [facility]; Protocol Last Admin: 06/08/21 08:48 Dose: 100 mls/hr Documented by: Insulin Aspart (Insulin Aspart (Novolog) 100 Unit/Ml Vial) 0 unit SQ ACHS [facility]; Protocol Last Admin: 06/08/21 11:37 Dose: 2 unit Documented by: Lidocaine (Lidocaine 5% Patch) 1 patch TOPICAL DAILY [facility]; Protocol Last Admin: 06/08/21 08:49 Dose: 1 patch Documented by: Melatonin (Melatonin 3 Mg Tablet) 3 mg PO HS PRN PRN Reason: Insomnia Last Admin: 06/03/21 22:05 Dose: 3 mg Documented by: Metformin HCl (Metformin 500 Mg Tab) 500 mg PO BID@0800,1700 [facility] Last Admin: 06/08/21 08:49 Dose: 500 mg Documented by: Methocarbamol (Methocarbamol 500 Mg Tab) 1,000 mg PO QID PRN PRN Reason: Muscle Pain Last Admin: 06/08/21 12:22 Dose: 1,000 mg Documented by: Naloxone HCl (Naloxone 0.4 Mg/Ml 1 Ml Vial) 0.2 mg IV Q2M PRN PRN Reason: Opioid Reversal Nifedipine (Nifedipine Xl 30 Mg Tab.Er.24) 30 mg PO DAILY@0800 [facility] Last Admin: 06/08/21 08:49 Dose: 30 mg Documented by: Ondansetron HCl (Ondansetron 4 Mg/2 Ml Vial) 4 mg IVP Q8HR PRN PRN Reason: Nausea And Vomiting Pregabalin (Pregabalin 100 Mg Cap) 100 mg PO BID@0800,1700 [facility] Last Admin: 06/08/21 08:48 Dose: 100 mg Documented by: Sodium Biphosphate/Sodium Phosphate (Na Phos,M-B/Na Phos,Di-Ba 133 Ml Enema) 133 ml RECTAL DAILY PRN PRN Reason: Constipation Last Admin: 06/08/21 10:53 Dose: 133 ml Documented by: Tamsulosin HCl (Tamsulosin 0.4 Mg Cap.Er.24h) 0.4 mg PO HS@2100 [facility] Last Admin: 06/07/21 20:26 Dose: 0.4 mg Documented by: Past medical history to include: Diabetes, hard of hearing, hypertension, cerebral palsy with surgery in the legs cannot straighten legs, sometimes uses a walker mostly wheelchair. 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 Right above-knee amputation Social history: Lives with his brother and [id number]. No history of smoking or alcohol. Family history: Reviewed, noncontributory to presentation Physical examination: VITAL SIGNS: 100.1, 85, 16, 152/61, 92% on 4 L GENERAL: Reclining in bed, awake, bit uncomfortable EYES: Pupils equal. Conjunctiva normal. HEENT: External appearance of nose and ears normal, oral cavity grossly normal. NECK: JVD not raised; masses not palpable. HEART: First and second heart sounds are normal; no edema. LUNGS: Respiratory rate normal; clear to auscultation. ABDOMEN: Soft, nontender, liver spleen not palpable, no masses palpable. PSYCH: Alert and oriented x3; mood and affect anxious MUSCULOSKELETAL:No Clubbing/cyanosis;muscles-grossly intact. Right above-knee amputation INVESTIGATIONS, reviewed in the clinical context: June 07: CRP of 17 procalcitonin 0.63 June 05: Sodium 134 creatinine 0.5 to June 04: White count 4.3 hemoglobin 11.9 which is 98 CRP 30.3 procalcitonin 3.55 ESR 33 Blood culture [June 03]: Streptococcus agalactiae group B WBC 10.1 hemoglobin 12.2 platelets 124 potassium 4.3 creatinine 0.55 COVID 19, influenza type A, type B: Not detected Chest x-ray film personally reviewed by me-cardiomegaly. Possible atelectasis: Assessment and plan: -Patient presents with fever, lower back pain and some abdominal pain. No nausea vomiting. No change in bowel habit.: Slow to respond Clinical suspicion for discitis.. IV Ancef. Blood culture positive for Streptococcus agalactiae. Repeat cultures from June 05 negative. MRI today. - right above-knee amputation -Cerebral palsy causing cognitive impairment -Chronic gait dysfunction. wheelchair bound Fall precautions -Essential hypertension Nifedipine ER 30 mg a day -Diabetes mellitus type 2 Glucophage 500 mg twice a day. Follow Accu-Cheks with sliding scale. -Hyperlipidemia Lipitor 10 mg daily at bedtime -Hard of hearing, -Brother, Mario Alberto MILLER Follow procalcitonin and CRP. MRI today. Ordered K pad for the lower back. Continue IV Ancef.. Discussed with patient.
--- NOTE | 2021-06-08 18:52 | XR ---
EXAMINATION TYPE: XR chest 1V DATE OF EXAM: 06/08/2021 6:47 PM COMPARISON:Chest radiographs from 06/03/2021 TECHNIQUE: XR chest 1V Frontal view of the chest. CLINICAL INDICATION:Male, 76 years old with history of Hypoxic; FINDINGS: Lungs/Pleura: Multifocal airspace opacities. No evidence of pneumothorax or pleural effusion. Pulmonary vascularity: Unremarkable. Heart/mediastinum: Cardiomediastinal silhouette is unremarkable. Musculoskeletal: No acute osseous pathology. Other findings: Spine stimulator leads noted. IMPRESSION: Multifocal airspace opacities concerning for pneumonia.
[2021-06-08] MEDS: ASPIRIN 325 MG TAB PO SCH (19:49)
[2021-06-08] MEDS: TAMSULOSIN 0.4 MG CAP.ER.24H PO SCH (19:49)
[2021-06-08] MEDS: ATORVASTATIN 10 MG TAB PO SCH (19:49)
[2021-06-08 20:13] LABS: Glucose,Whole Blood 117 mg/dL (75-99)
--- NOTE | 2021-06-08 22:02 | P.PN ---
Subjective Progress Note Date: 06/07/21 Principal diagnosis: Bacteremia Patient is a 76 year male with a recent right wmtcn-wrp-plug amputation presented to the hospital with a fever and did have evidence of St reptococcus bacteremia in this patient with lower back pain and concern for possible discitis, unfortunately the MRI could not be completed as the patient did have a pain stimulator in the lumbar area On today's evaluation that is 06/07/2021, the patient remains to be afebrile, the patient is breathing comfortably, the patient denies chest pain shortness of breath or cough no abdominal pain , the patient still have pain to lower back no bowel or bladder problem, Objective - Vital Signs Vital signs: Vital Signs Temp 99.2 F 06/07/21 08:00 Pulse 77 06/07/21 08:00 Resp 16 06/07/21 08:00 BP 153/69 06/07/21 08:00 Pulse Ox 90 L 06/07/21 08:00 Intake & Output 06/06/21 06/07/21 06/07/21 18:59 06:59 18:59 Output Total 650 Balance -650 Output: Urine 650 Other: Voiding Method Indwelling Catheter Indwelling Catheter Indwelling Catheter # Voids 3 # Bowel Movements 0 - Exam GENERAL DESCRIPTION: An elderly male lying in bed in no distress RESPIRATORY SYSTEM: Unlabored breathing , decreased breath sounds at bases HEART: S1 S2 regular rate and rhythm , ABDOMEN: Soft , no tenderness EXTREMITIES: Left leg with more erythema and warmth to touch - Labs CBC & Chem 7: 06/04/21 05:18 06/05/21 08:49 Labs: Abnormal Lab Results - Last 24 Hours (Table) 06/06/21 06/06/21 06/07/21 Range/Units 16:46 20:13 05:32 POC Glucose (mg/dL) 110 H 226 H (75-99) mg/dL C-Reactive Protein 17.0 H (<1.0) mg/dL Procalcitonin (0.02-0.09) ng/mL 06/07/21 06/07/21 Range/Units 05:36 07:16 POC Glucose (mg/dL) 167 H (75-99) mg/dL C-Reactive Protein (<1.0) mg/dL Procalcitonin 0.63 H (0.02-0.09) ng/mL Microbiology - Last 24 Hours (Table) 06/06/21 06:24 Blood Culture - Preliminary Blood No Growth after 24 hours 06/05/21 04:57 Blood Culture - Preliminary Blood No Growth after 48 hours 06/03/21 09:27 Blood Culture Gram Stain - Preliminary Blood Blood Culture - Preliminary Strep agalactiae - (group b) 06/03/21 09:18 Blood Culture Gram Stain - Preliminary Blood Blood Culture - Preliminary Strep agalactiae - (group b) Assessment and Plan (1) Bacteremia Current Visit: Yes Status: Acute Code(s): R78.81 - BACTEREMIA SNOMED Code(s): 6933361 Plan: 1patient with gram-positive bacteremia has been finalized with Streptococcus agalactiae which is usually of a skin and soft tissue origin in this patient right AKA stump is currently healed left leg do not have any evidence of cellulitis patient has been complaining of lower back pain will need to rule out underlying discitis or lumbar osteomyelitis versus left lower extremity cellulitis. 2blood cultures repeat are negative so far 3patient is currently being treated with cefazolin 2 g every 8 hour 4-we are still waiting for MRI of the lumbosacral spine to rule out discitis/osteomyelitis to be completed, Time with Patient: Less than 30
--- NOTE | 2021-06-08 22:04 | P.PN ---
Subjective Progress Note Date: 06/08/21 Principal diagnosis: Bacteremia Patient is a 76 year male with a recent right pqnlr-[id number]-vion amputation presented to the hospital with a fever and did have evidence of St reptococcus bacteremia in this patient with lower back pain and concern for possible discitis, unfortunately the MRI could not be completed as the patient did have a pain stimulator in the lumbar area On today's evaluation that is 06/08/2021, the patient denies any fever or chills , the patient is breathing comfortably on room air , the patient denies chest pain shortness of breath or cough no abdominal pain , the patient denies any worsening pain to lower back no bowel or bladder problem, Objective - Vital Signs Vital signs: Vital Signs Temp 100.1 F H 06/08/21 08:25 Pulse 85 06/08/21 08:25 Resp 16 06/08/21 08:25 BP 152/61 06/08/21 08:25 Pulse Ox 92 L 06/08/21 08:25 Intake & Output 06/07/21 06/08/21 06/08/21 18:59 06:59 18:59 Weight 77.111 kg Other: Voiding Method Indwelling Catheter Indwelling Catheter # Voids 3 # Bowel Movements 0 - Exam GENERAL DESCRIPTION: An elderly male lying in bed in no distress RESPIRATORY SYSTEM: Unlabored breathing , decreased breath sounds at bases HEART: S1 S2 regular rate and rhythm , ABDOMEN: Soft , no tenderness EXTREMITIES: Left leg with more erythema and warmth to touch - Labs CBC & Chem 7: 06/04/21 05:18 06/05/21 08:49 Labs: Abnormal Lab Results - Last 24 Hours (Table) 06/07/21 06/07/21 06/08/21 Range/Units 17:24 20:58 06:53 POC Glucose (mg/dL) 163 H 129 H 125 H (75-99) mg/dL 06/08/21 Range/Units 11:20 POC Glucose (mg/dL) 166 H (75-99) mg/dL Microbiology - Last 24 Hours (Table) 06/06/21 06:24 Blood Culture - Preliminary Blood No Growth after 48 hours 06/03/21 09:18 Blood Culture Gram Stain - Final Blood Blood Culture - Final Strep agalactiae - (group b) 06/03/21 09:27 Blood Culture Gram Stain - Final Blood Blood Culture - Final Strep agalactiae - (group b) 06/05/21 04:57 Blood Culture - Preliminary Blood No Growth after 72 hours Assessment and Plan (1) Bacteremia Current Visit: Yes Status: Acute Code(s): R78.81 - BACTEREMIA SNOMED Code(s): 3603184 Plan: 1patient with gram-positive bacteremia has been finalized with Streptococcus agalactiae which is usually of a skin and soft tissue origin in this patient right AKA stump is currently healed left leg do not have any evidence of cellulitis patient has been complaining of lower back pain will need to rule out underlying discitis or lumbar osteomyelitis versus left lower extremity ce llulitis. 2blood cultures repeat are negative 3patient to continue with cefazolin 2 g every 8 hour 4-MRI of the lumbosacral spine to rule out discitis/osteomyelitis to be completed later this afternoon per the nursing staff, Time with Patient: Less than 30
[2021-06-09] MEDS: HYDROmorphone 1 MG/ML 1 ML SYRINGE IVP PRN ×2 (01:37→05:15)
[2021-06-09] MEDS: SODIUM CHLORIDE 0.9% 1,000 ML IV SCH ×2 (01:43→13:48)
[2021-06-09 06:32] LABS: Anisocytosis Slight; Basophils % (A) 0 %; Eosinophils # (A) 0.1 k/uL (0-0.7); Eosinophils % (A) 2 %; HCT 40.5 % (39.0-53.0); Hypochromasia Moderate; Lymphocytes # (A) 0.7 k/uL (1.0-4.8); Lymphocytes % (A) 9 %; MCH 24.6 pg (25.0-35.0); MCHC 29.6 g/dL (31.0-37.0); MCV 83.1 fL (80.0-100.0); Microcytosis Slight; Monocytes # (A) 0.6 k/uL (0-1.0); Monocytes % (A) 8 %; Neutrophils # (A) 5.7 k/uL (1.3-7.7); Neutrophils % (A) 79 %; RBC 4.87 m/uL (4.30-5.90); RDW 18.2 % (11.5-15.5); WBC 7.3 k/uL (3.8-10.6)
[2021-06-09 06:46] LABS: ALT 14 U/L (4-49); AST 25 U/L (17-59); African American GFR (CKD) >90 (>60 ml/min/1.73 sqM); Albumin 2.6 g/dL (3.5-5.0); Alkaline Phosphatase 254 U/L (38-126); Anion Gap 4 mmol/L; Blood Urea Nitrogen 15 mg/dL (9-20); Carbon Dioxide 27 mmol/L (22-30); Chloride 104 mmol/L (98-107); Globulin 2.7 g/dL; Glucose 106 mg/dL (74-99); Non-African American GFR(CKD) >90 (>60 ml/min/1.73 sqM); Sodium 135 mmol/L (137-145); Total Bilirubin 0.6 mg/dL (0.2-1.3); Total Protein 5.3 g/dL (6.3-8.2)
[2021-06-09 06:51] LABS: Platelet Count 254 k/uL (150-450)
[2021-06-09 07:00] LABS: C Reactive Protein 12.7 mg/dL (<1.0)
[2021-06-09 07:00] LABS: Glucose,Whole Blood 115 mg/dL (75-99)
[2021-06-09] MEDS: INSULIN ASPART (NovoLOG) 100 UNIT/ML VIAL SQ SCH ×4 (07:20→20:50)
[2021-06-09] MEDS: LIDOCAINE 5% PATCH TOPICAL SCH (07:26)
[2021-06-09] MEDS: FERROUS SULFATE 325 MG TAB PO SCH ×2 (07:28→17:07)
[2021-06-09] MEDS: HYDROcodone/APAP 7.5-325MG 1 EACH TAB PO PRN ×2 (07:28→17:17)
[2021-06-09] MEDS: metFORMIN 500 MG TAB PO SCH ×2 (07:28→17:07)
[2021-06-09] MEDS: PREGABALIN 100 MG CAP PO SCH ×2 (07:28→17:07)
[2021-06-09] MEDS: ENOXAPARIN 40 MG/0.4 ML SYRINGE SQ SCH (07:29)
[2021-06-09] MEDS: NIFEdipine XL 30 MG TAB.ER.24 PO SCH (07:29)
[2021-06-09] MEDS: HYDROCORTISONE 1% CREAM 30 GM TUBE TOPICAL SCH (07:30)
[2021-06-09 11:30] LABS: Glucose,Whole Blood 159 mg/dL (75-99)
--- NOTE | 2021-06-09 16:38 | P.PN ---
Progress Note - Text Progress Note Date: 06/09/21 Hospital course: This is a pleasant 76-year-old patient, follows with visiting physicians Dr. Ric olvera. Chronic stable medical conditions includes diabetes, hypertension, cerebral palsy with surgery in the legs cannot straighten legs, sometimes uses a walker otherwise pretty much in a wheelchair. Patient lives in the apartment with his brother Susan. hard of hearing. 04/07/2021 patient underwent right above-knee amputation. Nonhealing infection. Patient now presents with some fever. Also having abdominal pain. Also complains of pain in the lower back seems to be going across. No nausea vomiting. Appetite is good. No change in bowel habits. Lives with his brother. June 04: Lower back pain persists. Blood cultures come back positive. On IV vancomycin. Oral intake fair. Patient has a neurostimulator in the spine hence cannot get an MRI. Concern about discitis still present. Await ID input. No further fever. June 05: Low back pain persists. Blood cultures positive for Streptococcus agalactiae. Nurse will recheck a patient well to find out who put the neurostimulator in the spine. Antibiotic changed to IV Ancef. Discussed with ID. June 06: Still having lower back pain. No cisterna finding of about neurostimulator to the brother. On IV Ancef. Oral intake fair. Low-grade fever. Repeat cultures ordered yesterday June 07: 30 just of low back pain. Neurology stratified of about a neurostimulator so that MRI can't be done. IV Ancef. Oral intake good. Repeat cultures have been negative to low. June 08: Patient going in for MRI this afternoon. Still complaining of significant low back pain. Heating pad ordered. IV Ancef to continue. Repeat blood cultures negative from June 05. June 09: Patient had MRI done at the outside hospital. It is also been requested. Tolerating diet. Pain present. IV Ancef. Chest x-ray showing right basal infiltrate. We'll add IV cefepime. Also hypoxic. Active Medications Acetaminophen (Acetaminophen Tab 325 Mg Tab) 650 mg PO Q6HR PRN PRN Reason: Mild Pain or Fever > 100.5 Last Admin: 06/08/21 08:28 Dose: 650 mg Documented by: Hydrocodone Bitart/Acetaminophen (Hydrocodone/Apap 7.5-325mg 1 Each Tab) 2 each PO Q6HR PRN PRN Reason: SEVERE Pain Last Admin: 06/09/21 07:28 Dose: 2 each Documented by: Aspirin (Aspirin 325 Mg Tab) 325 mg PO HS@2100 [facility] Last Admin: 06/08/21 19:49 Dose: 325 mg Documented by: Atorvastatin Calcium (Atorvastatin 10 Mg Tab) 10 mg PO HS@2100 [facility] Last Admin: 06/08/21 19:49 Dose: 10 mg Documented by: Bisacodyl (Bisacodyl 10 Mg Supp) 10 mg RECTAL DAILY PRN PRN Reason: Constipation Last Admin: 06/08/21 00:48 Dose: 10 mg Documented by: Enoxaparin Sodium (Enoxaparin 40 Mg/0.4 Ml Syringe) 40 mg SQ DAILY [facility] Last Admin: 06/09/21 07:29 Dose: 40 mg Documented by: Ferrous Sulfate (Ferrous Sulfate 325 Mg Tab) 325 mg PO BID@0800,1700 [facility] Last Admin: 06/09/21 07:28 Dose: 325 mg Documented by: Hydrocortisone (Hydrocortisone 1% Cream 30 Gm Tube) 1 applic TOPICAL DAILY [facility]; Protocol Last Admin: 06/09/21 07:30 Dose: Not Given Documented by: Hydromorphone HCl (Hydromorphone 0.5 Mg/0.5 Ml Syringe) 0.5 mg IVP Q3HR PRN PRN Reason: Moderate Pain Last Admin: 06/05/21 20:53 Dose: 0.5 mg Documented by: Hydromorphone HCl (Hydromorphone 1 Mg/Ml 1 Ml Syringe) 1 mg IVP Q3HR PRN PRN Reason: Moderate Pain Last Admin: 06/09/21 05:15 Dose: 1 mg Documented by: Sodium Chloride (Saline 0.9%) 1,000 mls @ 75 mls/hr IV .[id number] [facility] Last Admin: 06/09/21 13:48 Dose: 75 mls/hr Documented by: Cefazolin Sodium 2 gm/ Sodium (Chloride) 50 mls @ 100 mls/hr IVPB Q8HR [facility]; Protocol Last Admin: 06/09/21 15:23 Dose: 100 mls/hr Documented by: Cefepime HCl 2 gm/ Sodium (Chloride) 100 mls @ 25 mls/hr IVPB Q8HR [facility]; Protocol Insulin Aspart (Insulin Aspart (Novolog) 100 Unit/Ml Vial) 0 unit SQ ACHS [facility]; Protocol Last Admin: 06/09/21 11:47 Dose: 1 unit Documented by: Lidocaine (Lidocaine 5% Patch) 1 patch TOPICAL DAILY [facility]; Protocol Last Admin: 06/09/21 07:26 Dose: 1 patch Documented by: Melatonin (Melatonin 3 Mg Tablet) 3 mg PO HS PRN PRN Reason: Insomnia Last Admin: 06/03/21 22:05 Dose: 3 mg Documented by: Metformin HCl (Metformin 500 Mg Tab) 500 mg PO BID@0800,1700 [facility] Last Admin: 06/09/21 07:28 Dose: 500 mg Documented by: Methocarbamol (Methocarbamol 500 Mg Tab) 1,000 mg PO QID PRN PRN Reason: Muscle Pain Last Admin: 06/08/21 12:22 Dose: 1,000 mg Documented by: Naloxone HCl (Naloxone 0.4 Mg/Ml 1 Ml Vial) 0.2 mg IV Q2M PRN PRN Reason: Opioid Reversal Nifedipine (Nifedipine Xl 30 Mg Tab.Er.24) 30 mg PO DAILY@0800 [facility] Last Admin: 06/09/21 07:29 Dose: 30 mg Documented by: Ondansetron HCl (Ondansetron 4 Mg/2 Ml Vial) 4 mg IVP Q8HR PRN PRN Reason: Nausea And Vomiting Pregabalin (Pregabalin 100 Mg Cap) 100 mg PO BID@0800,1700 [facility] Last Admin: 06/09/21 07:28 Dose: 100 mg Documented by: Sodium Biphosphate/Sodium Phosphate (Na Phos,M-B/Na Phos,Di-Ba 133 Ml Enema) 133 ml RECTAL DAILY PRN PRN Reason: Constipation Last Admin: 06/08/21 10:53 Dose: 133 ml Documented by: Tamsulosin HCl (Tamsulosin 0.4 Mg Cap.Er.24h) 0.4 mg PO HS@2100 [facility] Last Admin: 06/08/21 19:49 Dose: 0.4 mg Documented by: Past medical history to include: Diabetes, hard of hearing, hypertension, cerebral palsy with surgery in the legs cannot straighten legs, sometimes uses a walker mostly wheelchair. 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 Right above-knee amputation Social history: Lives with his brother and [id number]. No history of smoking or alcohol. Family history: Reviewed, noncontributory to presentation Physical examination: VITAL SIGNS: 99.6, 75, 17, 167/84, 91% on 4 L GENERAL: Reclining in bed, awake, bit uncomfortable EYES: Pupils equal. Conjunctiva normal. HEENT: External appearance of nose and ears normal, oral cavity grossly normal. NECK: JVD not raised; masses not palpable. HEART: First and second heart sounds are normal; no edema. LUNGS: Respiratory rate increased, right basal coarse breath sounds. ABDOMEN: Soft, nontender, liver spleen not palpable, no masses palpable. PSYCH: Alert and oriented x3; mood and affect anxious MUSCULOSKELETAL:No Clubbing/cyanosis;muscles-grossly intact. Right above-knee amputation INVESTIGATIONS, reviewed in the clinical context: June 09: White count 7.3 hemoglobin 12 potassium 4 creatinine 0.4 to procalcitonin 0.3 toChest x-ray film personally reviewed by me-[June 08]: Right basilar infiltrate. CRP 12.7 June 07: CRP of 17 procalcitonin 0.63 June 05: Sodium 134 creatinine 0.5 to June 04: White count 4.3 hemoglobin 11.9 which is 98 CRP 30.3 procalcitonin 3.55 ESR 33 Blood culture [June 03]: Streptococcus agalactiae group B WBC 10.1 hemoglobin 12.2 platelets 124 potassium 4.3 creatinine 0.55 COVID 19, influenza type A, type B: Not detected Chest x-ray film personally reviewed by me-cardiomegaly. Possible atelectasis: Assessment and plan: -Patient presents with fever, lower back pain and some abdominal pain. No nausea vomiting. No change in bowel habit.: Slow to respond Clinical suspicion for discitis.. IV Ancef. Blood culture positive for Streptococcus agalactiae. Repeat cultures from June 05 negative. MRI done. Results pending -Right basal pneumonia, causing hypoxia:new diagnosis IV cefepime 2 g every 8 -Acute hypoxic respiratory failure from pneumonia Supplement oxygen - right above-knee amputation -Cerebral palsy causing cognitive impairment -Chronic gait dysfunction. wheelchair bound Fall precautions -Essential hypertension Nifedipine ER 30 mg a day -Diabetes mellitus type 2 Glucophage 500 mg twice a day. Follow Accu-Cheks with sliding scale. -Hyperlipidemia Lipitor 10 mg daily at bedtime -Hard of hearing, -Brother, Mario Alberto POA MRA results are pending. Add IV cefepime for pneumonia. On supplemental oxygen. IV Ancef to continue. Other medications to continue.
[2021-06-09 16:52] LABS: Glucose,Whole Blood 111 mg/dL (75-99)
[2021-06-09] MEDS: CEFEPIME 2 GM in SODIUM CHLORIDE 0.9% 100 ML IVPB SCH (17:07)
[2021-06-09] MEDS: TAMSULOSIN 0.4 MG CAP.ER.24H PO SCH (19:46)
[2021-06-09] MEDS: ASPIRIN 325 MG TAB PO SCH (19:46)
[2021-06-09] MEDS: ATORVASTATIN 10 MG TAB PO SCH (19:46)
[2021-06-09 20:24] LABS: Glucose,Whole Blood 121 mg/dL (75-99)
[2021-06-09] MEDS: NA PHOS,M-B/NA PHOS,DI-BA 133 ML ENEMA RECTAL PRN (21:07)
--- NOTE | 2021-06-09 22:20 | P.PN ---
Subjective Progress Note Date: 06/09/21 Principal diagnosis: Bacteremia Patient is a 76 year male with a recent right [id number] amputation presented to the hospital with a fever and did have evidence of St reptococcus bacteremia in this patient with lower back pain and concern for possible discitis, unfortunately the MRI could not be completed as the patient did have a pain stimulator in the lumbar area On today's evaluation that is 06/09/2021, the patient did have a low-grade fever last night , the patient is breathing comfortably on room air , the patient denies chest pain shortness of breath or cough no abdominal pain , the patient still complaining of pain to lower back but no bowel or bladder problem, Objective - Vital Signs Vital signs: Vital Signs Temp 99.2 F 06/09/21 07:16 Pulse 80 06/09/21 07:16 Resp 18 06/09/21 07:30 BP 147/67 06/09/21 07:16 Pulse Ox 93 L 06/09/21 07:35 Intake & Output 06/08/21 06/09/21 06/09/21 18:59 06:59 18:59 Intake Total 360 200 Output Total 1750 950 Balance -1390 -950 200 Weight 77.111 kg Intake: Oral 360 200 Output: Urine 1750 950 Other: Voiding Method Indwelling Catheter Indwelling Catheter - Exam GENERAL DESCRIPTION: An elderly male lying in bed in no distress RESPIRATORY SYSTEM: Unlabored breathing , decreased breath sounds at bases HEART: S1 S2 regular rate and rhythm , ABDOMEN: Soft , no tenderness EXTREMITIES: Left leg with more erythema and warmth to touch - Labs CBC & Chem 7: 06/09/21 06:12 06/09/21 06:12 Labs: Abnormal Lab Results - Last 24 Hours (Table) 06/08/21 06/09/21 06/09/21 Range/Units 20:11 06:12 06:12 Hgb 12.0 L (13.0-17.5) gm/dL MCH 24.6 L (25.0-35.0) pg MCHC 29.6 L (31.0-37.0) g/dL RDW 18.2 H (11.5-15.5) % Lymphocytes # 0.7 L (1.0-4.8) k/uL Sodium (137-145) mmol/L Creatinine (0.66-1.25) mg/dL Glucose (74-99) mg/dL POC Glucose (mg/dL) 117 H (75-99) mg/dL Calcium (8.4-10.2) mg/dL Alkaline Phosphatase (38-126) U/L C-Reactive Protein (<1.0) mg/dL Total Protein (6.3-8.2) g/dL Albumin (3.5-5.0) g/dL Procalcitonin 0.32 H (0.02-0.09) ng/mL 06/09/21 06/09/21 06/09/21 Range/Units 06:12 06:59 11:28 Hgb (13.0-17.5) gm/dL MCH (25.0-35.0) pg MCHC (31.0-37.0) g/dL RDW (11.5-15.5) % Lymphocytes # (1.0-4.8) k/uL Sodium 135 L (137-145) mmol/L Creatinine 0.42 L (0.66-1.25) mg/dL Glucose 106 H (74-99) mg/dL POC Glucose (mg/dL) 115 H 159 H (75-99) mg/dL Calcium 8.0 L (8.4-10.2) mg/dL Alkaline Phosphatase 254 H (38-126) U/L C-Reactive Protein 12.7 H (<1.0) mg/dL Total Protein 5.3 L (6.3-8.2) g/dL Albumin 2.6 L (3.5-5.0) g/dL Procalcitonin (0.02-0.09) ng/mL Microbiology - Last 24 Hours (Table) 06/06/21 06:24 Blood Culture - Preliminary Blood No Growth after 72 hours 06/05/21 04:57 Blood Culture - Preliminary Blood No Growth after 96 hours Assessment and Plan (1) Bacteremia Current Visit: Yes Status: Acute Code(s): R78.81 - BACTEREMIA SNOMED Code(s): 8740264 Plan: 1patient with gram-positive bacteremia has been finalized with Streptococcus agalactiae which is usually of a skin and soft tissue origin in this patient right AKA stump is currently healed left leg do not have any evidence of cellulitis patient has been complaining of lower back pain will need to rule out underlying discitis or lumbar osteomyelitis versus left lower extremity cellulitis. 2blood cultures repeat are negative 3patient to continue with cefazolin 2 g every 8 hour and plan reviewed for possible PICC and outpatient IV antibiotic 4-MRI of the lumbosacral spine was completed at [facility] mention of some fluid collection will be reviewed with the radiologist Time with Patient: Less than 30
[2021-06-10] MEDS: CEFEPIME 2 GM in SODIUM CHLORIDE 0.9% 100 ML IVPB SCH ×4 (00:24→23:31)
[2021-06-10] MEDS: SODIUM CHLORIDE 0.9% 1,000 ML IV SCH ×2 (05:29→16:28)
[2021-06-10 07:14] LABS: Glucose,Whole Blood 103 mg/dL (75-99)
[2021-06-10] MEDS: HYDROCORTISONE 1% CREAM 30 GM TUBE TOPICAL SCH (07:53)
[2021-06-10] MEDS: INSULIN ASPART (NovoLOG) 100 UNIT/ML VIAL SQ SCH ×4 (07:53→20:30)
[2021-06-10] MEDS: FERROUS SULFATE 325 MG TAB PO SCH ×2 (07:57→16:33)
[2021-06-10] MEDS: metFORMIN 500 MG TAB PO SCH ×2 (07:57→16:33)
[2021-06-10] MEDS: HYDROcodone/APAP 7.5-325MG 1 EACH TAB PO PRN ×2 (07:57→16:33)
[2021-06-10] MEDS: PREGABALIN 100 MG CAP PO SCH ×2 (07:57→16:33)
[2021-06-10] MEDS: ENOXAPARIN 40 MG/0.4 ML SYRINGE SQ SCH (07:58)
[2021-06-10] MEDS: LIDOCAINE 5% PATCH TOPICAL SCH (07:59)
[2021-06-10] MEDS: NIFEdipine XL 30 MG TAB.ER.24 PO SCH (07:59)
[2021-06-10 11:48] LABS: Glucose,Whole Blood 89 mg/dL (75-99)
--- NOTE | 2021-06-10 15:23 | P.PN ---
Progress Note - Text Progress Note Date: 06/10/21 Hospital course: This is a pleasant 76-year-old patient, follows with visiting physicians Dr. Ric olvera. Chronic stable medical conditions includes diabetes, hypertension, cerebral palsy with surgery in the legs cannot straighten legs, sometimes uses a walker otherwise pretty much in a wheelchair. Patient lives in the apartment with his brother Susan. hard of hearing. 04/07/2021 patient underwent right above-knee amputation. Nonhealing infection. Patient now presents with some fever. Also having abdominal pain. Also complains of pain in the lower back seems to be going across. No nausea vomiting. Appetite is good. No change in bowel habits. Lives with his brother. June 04: Lower back pain persists. Blood cultures come back positive. On IV vancomycin. Oral intake fair. Patient has a neurostimulator in the spine hence cannot get an MRI. Concern about discitis still present. Await ID input. No further fever. June 05: Low back pain persists. Blood cultures positive for Streptococcus agalactiae. Nurse will recheck a patient well to find out who put the neurostimulator in the spine. Antibiotic changed to IV Ancef. Discussed with ID. June 06: Still having lower back pain. No cisterna finding of about neurostimulator to the brother. On IV Ancef. Oral intake fair. Low-grade fever. Repeat cultures ordered yesterday June 07: 30 just of low back pain. Neurology stratified of about a neurostimulator so that MRI can't be done. IV Ancef. Oral intake good. Repeat cultures have been negative to low. June 08: Patient going in for MRI this afternoon. Still complaining of significant low back pain. Heating pad ordered. IV Ancef to continue. Repeat blood cultures negative from June 05. June 09: Patient had MRI done at the outside hospital. It is also been requested. Tolerating diet. Pain present. IV Ancef. Chest x-ray showing right basal infiltrate. We'll add IV cefepime. Also hypoxic. June 10: Pending results of MRI at [facility]. Eating better. IV Ancef. IV cefepime for pneumonia. Feels better today. Hypoxic better. Active Medications Acetaminophen (Acetaminophen Tab 325 Mg Tab) 650 mg PO Q6HR PRN PRN Reason: Mild Pain or Fever > 100.5 Last Admin: 06/08/21 08:28 Dose: 650 mg Documented by: Hydrocodone Bitart/Acetaminophen (Hydrocodone/Apap 7.5-325mg 1 Each Tab) 2 each PO Q6HR PRN PRN Reason: SEVERE Pain Last Admin: 06/10/21 07:57 Dose: 2 each Documented by: Aspirin (Aspirin 325 Mg Tab) 325 mg PO HS@2100 [facility] Last Admin: 06/09/21 19:46 Dose: 325 mg Documented by: Atorvastatin Calcium (Atorvastatin 10 Mg Tab) 10 mg PO HS@2100 [facility] Last Admin: 06/09/21 19:46 Dose: 10 mg Documented by: Bisacodyl (Bisacodyl 10 Mg Supp) 10 mg RECTAL DAILY PRN PRN Reason: Constipation Last Admin: 06/08/21 00:48 Dose: 10 mg Documented by: Enoxaparin Sodium (Enoxaparin 40 Mg/0.4 Ml Syringe) 40 mg SQ DAILY [facility] Last Admin: 06/10/21 07:58 Dose: 40 mg Documented by: Ferrous Sulfate (Ferrous Sulfate 325 Mg Tab) 325 mg PO BID@0800,1700 [facility] Last Admin: 06/10/21 07:57 Dose: 325 mg Documented by: Hydrocortisone (Hydrocortisone 1% Cream 30 Gm Tube) 1 applic TOPICAL DAILY [facility]; Protocol Last Admin: 06/10/21 07:53 Dose: Not Given Documented by: Hydromorphone HCl (Hydromorphone 0.5 Mg/0.5 Ml Syringe) 0.5 mg IVP Q3HR PRN PRN Reason: Moderate Pain Last Admin: 06/05/21 20:53 Dose: 0.5 mg Documented by: Hydromorphone HCl (Hydromorphone 1 Mg/Ml 1 Ml Syringe) 1 mg IVP Q3HR PRN PRN Reason: Moderate Pain Last Admin: 06/09/21 05:15 Dose: 1 mg Documented by: Sodium Chloride (Saline 0.9%) 1,000 mls @ 75 mls/hr IV .[id number] [facility] Last Admin: 06/10/21 05:29 Dose: Not Given Documented by: Cefepime HCl 2 gm/ Sodium (Chloride) 100 mls @ 25 mls/hr IVPB Q8HR [facility]; Protocol Last Admin: 06/10/21 08:04 Dose: 25 mls/hr Documented by: Insulin Aspart (Insulin Aspart (Novolog) 100 Unit/Ml Vial) 0 unit SQ ACHS [facility]; Protocol Last Admin: 06/10/21 11:48 Dose: Not Given Documented by: Lidocaine (Lidocaine 5% Patch) 1 patch TOPICAL DAILY [facility]; Protocol Last Admin: 06/10/21 07:59 Dose: 1 patch Documented by: Melatonin (Melatonin 3 Mg Tablet) 3 mg PO HS PRN PRN Reason: Insomnia Last Admin: 06/03/21 22:05 Dose: 3 mg Documented by: Metformin HCl (Metformin 500 Mg Tab) 500 mg PO BID@0800,1700 [facility] Last Admin: 06/10/21 07:57 Dose: 500 mg Documented by: Methocarbamol (Methocarbamol 500 Mg Tab) 1,000 mg PO QID PRN PRN Reason: Muscle Pain Last Admin: 06/08/21 12:22 Dose: 1,000 mg Documented by: Naloxone HCl (Naloxone 0.4 Mg/Ml 1 Ml Vial) 0.2 mg IV Q2M PRN PRN Reason: Opioid Reversal Nifedipine (Nifedipine Xl 30 Mg Tab.Er.24) 30 mg PO DAILY@0800 [facility] Last Admin: 06/10/21 07:59 Dose: 30 mg Documented by: Ondansetron HCl (Ondansetron 4 Mg/2 Ml Vial) 4 mg IVP Q8HR PRN PRN Reason: Nausea And Vomiting Pregabalin (Pregabalin 100 Mg Cap) 100 mg PO BID@0800,1700 [facility] Last Admin: 06/10/21 07:57 Dose: 100 mg Documented by: Sodium Biphosphate/Sodium Phosphate (Na Phos,M-B/Na Phos,Di-Ba 133 Ml Enema) 133 ml RECTAL DAILY PRN PRN Reason: Constipation Last Admin: 06/09/21 21:07 Dose: 133 ml Documented by: Tamsulosin HCl (Tamsulosin 0.4 Mg Cap.Er.24h) 0.4 mg PO HS@2100 [facility] Last Admin: 06/09/21 19:46 Dose: 0.4 mg Documented by: Past medical history to include: Diabetes, hard of hearing, hypertension, cerebral palsy with surgery in the legs cannot straighten legs, sometimes uses a walker mostly wheelchair. 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 Right above-knee amputation Social history: Lives with his brother and [id number]. No history of smoking or alcohol. Family history: Reviewed, noncontributory to presentation Physical examination: VITAL SIGNS: 98.2, 79, 18, 147 with 68, 99% room air GENERAL: Reclining in bed, awake, bit uncomfortable EYES: Pupils equal. Conjunctiva normal. HEENT: External appearance of nose and ears normal, oral cavity grossly normal. NECK: JVD not raised; masses not palpable. HEART: First and second heart sounds are normal; no edema. LUNGS: Respiratory rate increased, right basal coarse breath sounds. ABDOMEN: Soft, nontender, liver spleen not palpable, no masses palpable. PSYCH: Alert and oriented x3; mood and affect anxious MUSCULOSKELETAL:No Clubbing/cyanosis;muscles-grossly intact. Right above-knee amputation INVESTIGATIONS, reviewed in the clinical context: June 09: White count 7.3 hemoglobin 12 potassium 4 creatinine 0.4 to procalcitonin 0.3 toChest x-ray film personally reviewed by me-[June 08]: Right basilar infiltrate. CRP 12.7 June 07: CRP of 17 procalcitonin 0.63 June 05: Sodium 134 creatinine 0.5 to June 04: White count 4.3 hemoglobin 11.9 which is 98 CRP 30.3 procalcitonin 3.55 ESR 33 Blood culture [June 03]: Streptococcus agalactiae group B WBC 10.1 hemoglobin 12.2 platelets 124 potassium 4.3 creatinine 0.55 COVID 19, influenza type A, type B: Not detected Chest x-ray film personally reviewed by me-cardiomegaly. Possible atelectasis: Assessment and plan: -Patient presents with fever, lower back pain and some abdominal pain. No nausea vomiting. No change in bowel habit.: Slow to respond Clinical suspicion for discitis.. IV Ancef. Blood culture positive for Streptococcus agalactiae. Repeat cultures from June 05 negative. MRI done. Results pending -Right basal pneumonia, causing hypoxia:new diagnosis IV cefepime 2 g every 8 -Acute hypoxic respiratory failure from pneumonia: Better Supplement oxygen - right above-knee amputation -Cerebral palsy causing cognitive impairment -Chronic gait dysfunction. wheelchair bound Fall precautions -Essential hypertension Nifedipine ER 30 mg a day -Diabetes mellitus type 2 Glucophage 500 mg twice a day. Follow Accu-Cheks with sliding scale. -Hyperlipidemia Lipitor 10 mg daily at bedtime -Hard of hearing, -Brother, Mario Alberto POA Respiratory symptoms better. Pulse ox better. Keep IV cefepime better 24 hours. Awaiting results of the MRI from [facility]. Repeat blood cultures negative. IV Ancef.
[2021-06-10 16:37] LABS: Glucose,Whole Blood 113 mg/dL (75-99)
[2021-06-10 20:04] LABS: Glucose,Whole Blood 149 mg/dL (75-99)
[2021-06-10] MEDS: ATORVASTATIN 10 MG TAB PO SCH (20:30)
[2021-06-10] MEDS: ASPIRIN 325 MG TAB PO SCH (20:30)
[2021-06-10] MEDS: TAMSULOSIN 0.4 MG CAP.ER.24H PO SCH (20:30)
--- NOTE | 2021-06-10 22:51 | P.PN ---
Subjective Progress Note Date: 06/10/21 Principal diagnosis: Bacteremia Patient is a 76 year male with a recent right [id number] amputation presented to the hospital with a fever and did have evidence of St reptococcus bacteremia in this patient with lower back pain and concern for possible discitis, unfortunately the MRI could not be completed as the patient did have a pain stimulator in the lumbar area On today's evaluation that is 06/10/2021, the patient is afebrile , the patient is breathing comfortably on room air , the patient denies chest pain shortness of breath or cough no abdominal pain , the patient denies any worsening pain to lower back but no bowel or bladder problem, Objective - Vital Signs Vital signs: Vital Signs Temp 98.2 F 06/10/21 14:00 Pulse 79 06/10/21 14:00 Resp 18 06/10/21 14:00 BP 147/68 06/10/21 14:00 Pulse Ox 99 06/10/21 14:00 Intake & Output 06/09/21 06/10/21 06/10/21 18:59 06:59 18:59 Intake Total 500 100 200 Output Total 900 1475 Balance -400 -1375 200 Intake: Intake, IV Titration 100 Amount Cefepime 2 gm In Sodium 100 Chloride 0.9% 100 ml @ 25 mls/hr IVPB Q8HR [facility] Rx# :[id number] Oral 500 200 Output: Urine 900 1475 Other: Voiding Method Indwelling Catheter Indwelling Catheter Indwelling Catheter - Exam GENERAL DESCRIPTION: An elderly male lying in bed in no distress RESPIRATORY SYSTEM: Unlabored breathing , decreased breath sounds at bases HEART: S1 S2 regular rate and rhythm , ABDOMEN: Soft , no tenderness EXTREMITIES: Left leg with more erythema and warmth to touch - Labs CBC & Chem 7: 06/09/21 06:12 06/09/21 06:12 Labs: Abnormal Lab Results - Last 24 Hours (Table) 06/09/21 06/09/21 06/10/21 Range/Units 16:51 20:21 05:59 POC Glucose (mg/dL) 111 H 121 H (75-99) mg/dL Procalcitonin 0.22 H (0.02-0.09) ng/mL 06/10/21 Range/Units 07:13 POC Glucose (mg/dL) 103 H (75-99) mg/dL Procalcitonin (0.02-0.09) ng/mL Microbiology - Last 24 Hours (Table) 06/06/21 06:24 Blood Culture - Preliminary Blood No Growth after 96 hours 06/05/21 04:57 Blood Culture - Preliminary Blood No Growth after 120 hours Assessment and Plan (1) Bacteremia Current Visit: Yes Status: Acute Code(s): R78.81 - BACTEREMIA SNOMED Code(s): 4422998 Plan: 1patient with gram-positive bacteremia has been finalized with Streptococcus agalactiae which is usually of a skin and soft tissue origin in this patient right AKA stump is currently healed left leg do not have any evidence of cellulitis patient has been complaining of lower back pain will need to rule out underlying discitis or lumbar osteomyelitis versus left lower extremity cellul itis. 2blood cultures repeat are negative 3patient patient antibiotic has been switched over to cefepime 2 g every 8 hour 4-MRI of the lumbosacral spine was completed at [facility] mention of some fluid collection will be reviewed with the radiologist in the a.m. Time with Patient: Less than 30
[2021-06-10] MEDS: NA PHOS,M-B/NA PHOS,DI-BA 133 ML ENEMA RECTAL PRN (23:26)
[2021-06-11 07:04] LABS: Glucose,Whole Blood 88 mg/dL (75-99)
[2021-06-11] MEDS: FERROUS SULFATE 325 MG TAB PO SCH ×2 (07:05→15:55)
[2021-06-11] MEDS: LIDOCAINE 5% PATCH TOPICAL SCH (07:05)
[2021-06-11] MEDS: HYDROcodone/APAP 7.5-325MG 1 EACH TAB PO PRN ×2 (07:06→18:24)
[2021-06-11] MEDS: NIFEdipine XL 30 MG TAB.ER.24 PO SCH (07:06)
[2021-06-11] MEDS: PREGABALIN 100 MG CAP PO SCH ×2 (07:06→15:55)
[2021-06-11] MEDS: ENOXAPARIN 40 MG/0.4 ML SYRINGE SQ SCH (07:07)
[2021-06-11] MEDS: metFORMIN 500 MG TAB PO SCH ×2 (07:07→15:55)
[2021-06-11] MEDS: CEFEPIME 2 GM in SODIUM CHLORIDE 0.9% 100 ML IVPB SCH (07:08)
[2021-06-11] MEDS: SODIUM CHLORIDE 0.9% 1,000 ML IV SCH ×2 (09:13→17:32)
[2021-06-11] MEDS: INSULIN ASPART (NovoLOG) 100 UNIT/ML VIAL SQ SCH ×4 (09:14→20:42)
[2021-06-11] MEDS: HYDROCORTISONE 1% CREAM 30 GM TUBE TOPICAL SCH (09:17)
[2021-06-11 11:48] LABS: Glucose,Whole Blood 112 mg/dL (75-99)
[2021-06-11] MEDS ORDERED: LACTULOSE 20 GM/30 ML CUP PO ONE (11:52)
[2021-06-11] MEDS: PSYLLIUM HUSK 100% 6 GM PACKET PO SCH (12:24)
--- NOTE | 2021-06-11 13:56 | P.PN ---
Progress Note - Text Progress Note Date: 06/11/21 Hospital course: This is a pleasant 76-year-old patient, follows with visiting physicians Dr. Ric olvera. Chronic stable medical conditions includes diabetes, hypertension, cerebral palsy with surgery in the legs cannot straighten legs, sometimes uses a walker otherwise pretty much in a wheelchair. Patient lives in the apartment with his brother Susan. hard of hearing. 04/07/2021 patient underwent right above-knee amputation. Nonhealing infection. Patient now presents with some fever. Also having abdominal pain. Also complains of pain in the lower back seems to be going across. No nausea vomiting. Appetite is good. No change in bowel habits. Lives with his brother. June 04: Lower back pain persists. Blood cultures come back positive. On IV vancomycin. Oral intake fair. Patient has a neurostimulator in the spine hence cannot get an MRI. Concern about discitis still present. Await ID input. No further fever. June 05: Low back pain persists. Blood cultures positive for Streptococcus agalactiae. Nurse will recheck a patient well to find out who put the neurostimulator in the spine. Antibiotic changed to IV Ancef. Discussed with ID. June 06: Still having lower back pain. No cisterna finding of about neurostimulator to the brother. On IV Ancef. Oral intake fair. Low-grade fever. Repeat cultures ordered yesterday June 07: 30 just of low back pain. Neurology stratified of about a neurostimulator so that MRI can't be done. IV Ancef. Oral intake good. Repeat cultures have been negative to low. June 08: Patient going in for MRI this afternoon. Still complaining of significant low back pain. Heating pad ordered. IV Ancef to continue. Repeat blood cultures negative from June 05. June 09: Patient had MRI done at the outside hospital. It is also been requested. Tolerating diet. Pain present. IV Ancef. Chest x-ray showing right basal infiltrate. We'll add IV cefepime. Also hypoxic. June 10: Pending results of MRI at [facility] [place]. Eating better. IV Ancef. IV cefepime for pneumonia. Feels better today. Hypoxic better. June 11: Patient states has not had a bowel movement for the 7 days. Lactulose 20 g and Metamucil added. Also had some bright red blood with straining. Anusol HC ordered. Pending results of the MRI. Active Medications Acetaminophen (Acetaminophen Tab 325 Mg Tab) 650 mg PO Q6HR PRN PRN Reason: Mild Pain or Fever > 100.5 Last Admin: 06/08/21 08:28 Dose: 650 mg Documented by: Hydrocodone Bitart/Acetaminophen (Hydrocodone/Apap 7.5-325mg 1 Each Tab) 2 each PO Q6HR PRN PRN Reason: SEVERE Pain Last Admin: 06/11/21 07:06 Dose: 2 each Documented by: Aspirin (Aspirin 325 Mg Tab) 325 mg PO HS@2100 [facility] Last Admin: 06/10/21 20:30 Dose: 325 mg Documented by: Atorvastatin Calcium (Atorvastatin 10 Mg Tab) 10 mg PO HS@2100 [facility] Last Admin: 06/10/21 20:30 Dose: 10 mg Documented by: Bisacodyl (Bisacodyl 10 Mg Supp) 10 mg RECTAL DAILY PRN PRN Reason: Constipation Last Admin: 06/08/21 00:48 Dose: 10 mg Documented by: Enoxaparin Sodium (Enoxaparin 40 Mg/0.4 Ml Syringe) 40 mg SQ DAILY [facility] Last Admin: 06/11/21 07:07 Dose: 40 mg Documented by: Ferrous Sulfate (Ferrous Sulfate 325 Mg Tab) 325 mg PO BID@0800,1700 [facility] Last Admin: 06/11/21 07:05 Dose: 325 mg Documented by: Hydrocortisone (Hydrocortisone 1% Cream 30 Gm Tube) 1 applic TOPICAL DAILY [facility]; Protocol Last Admin: 06/11/21 09:17 Dose: 1 applic Documented by: Hydromorphone HCl (Hydromorphone 0.5 Mg/0.5 Ml Syringe) 0.5 mg IVP Q3HR PRN PRN Reason: Moderate Pain Last Admin: 06/05/21 20:53 Dose: 0.5 mg Documented by: Hydromorphone HCl (Hydromorphone 1 Mg/Ml 1 Ml Syringe) 1 mg IVP Q3HR PRN PRN Reason: Moderate Pain Last Admin: 06/09/21 05:15 Dose: 1 mg Documented by: Sodium Chloride (Saline 0.9%) 1,000 mls @ 75 mls/hr IV .[id number] [facility] Last Admin: 06/11/21 09:13 Dose: Not Given Documented by: Cefepime HCl 2 gm/ Sodium (Chloride) 100 mls @ 25 mls/hr IVPB Q8HR [facility]; Protocol Last Admin: 06/11/21 07:08 Dose: 25 mls/hr Documented by: Insulin Aspart (Insulin Aspart (Novolog) 100 Unit/Ml Vial) 0 unit SQ ACHS [facility]; Protocol Last Admin: 06/11/21 12:22 Dose: Not Given Documented by: Lidocaine (Lidocaine 5% Patch) 1 patch TOPICAL DAILY [facility]; Protocol Last Admin: 06/11/21 07:05 Dose: 1 patch Documented by: Melatonin (Melatonin 3 Mg Tablet) 3 mg PO HS PRN PRN Reason: Insomnia Last Admin: 06/03/21 22:05 Dose: 3 mg Documented by: Metformin HCl (Metformin 500 Mg Tab) 500 mg PO BID@0800,1700 [facility] Last Admin: 06/11/21 07:07 Dose: 500 mg Documented by: Methocarbamol (Methocarbamol 500 Mg Tab) 1,000 mg PO QID PRN PRN Reason: Muscle Pain Last Admin: 06/08/21 12:22 Dose: 1,000 mg Documented by: Naloxone HCl (Naloxone 0.4 Mg/Ml 1 Ml Vial) 0.2 mg IV Q2M PRN PRN Reason: Opioid Reversal Nifedipine (Nifedipine Xl 30 Mg Tab.Er.24) 30 mg PO DAILY@0800 [facility] Last Admin: 06/11/21 07:06 Dose: 30 mg Documented by: Ondansetron HCl (Ondansetron 4 Mg/2 Ml Vial) 4 mg IVP Q8HR PRN PRN Reason: Nausea And Vomiting Pregabalin (Pregabalin 100 Mg Cap) 100 mg PO BID@0800,1700 [facility] Last Admin: 06/11/21 07:06 Dose: 100 mg Documented by: Psyllium Hydrophilic Mucilloid (Psyllium Husk 100% 6 Gm Packet) 6 gm PO DAILY [facility] Last Admin: 06/11/21 12:24 Dose: 6 gm Documented by: Sodium Biphosphate/Sodium Phosphate (Na Phos,M-B/Na Phos,Di-Ba 133 Ml Enema) 133 ml RECTAL DAILY PRN PRN Reason: Constipation Last Admin: 06/10/21 23:26 Dose: 133 ml Documented by: Tamsulosin HCl (Tamsulosin 0.4 Mg Cap.Er.24h) 0.4 mg PO HS@2100 [facility] Last Admin: 06/10/21 20:30 Dose: 0.4 mg Documented by: Past medical history to include: Diabetes, hard of hearing, hypertension, cerebral palsy with surgery in the legs cannot straighten legs, sometimes uses a walker mostly wheelchair. 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 Right above-knee amputation Social history: Lives with his brother and [id number]. No history of smoking or alcohol. Family history: Reviewed, noncontributory to presentation Physical examination: VITAL SIGNS: 98.5, 71, 16, 154, 79, 99% 4 L GENERAL: Reclining in bed, awake, EYES: Pupils equal. Conjunctiva normal. HEENT: External appearance of nose and ears normal, oral cavity grossly normal. NECK: JVD not raised; masses not palpable. HEART: First and second heart sounds are normal; no edema. LUNGS: Respiratory rate normal, decreased breath sounds ABDOMEN: Soft, nontender, liver spleen not palpable, no masses palpable. PSYCH: Alert and oriented x3; mood and affect anxious MUSCULOSKELETAL:No Clubbing/cyanosis;muscles-grossly intact. Right above-knee amputation INVESTIGATIONS, reviewed in the clinical context: June 11: Pro-calcitonin 0.17 June 09: White count 7.3 hemoglobin 12 potassium 4 creatinine 0.4 to procalcitonin 0.3 toChest x-ray film personally reviewed by me-[June 08]: Right basilar infiltrate. CRP 12.7 June 07: CRP of 17 procalcitonin 0.63 June 05: Sodium 134 creatinine 0.5 to June 04: White count 4.3 hemoglobin 11.9 which is 98 CRP 30.3 procalcitonin 3.55 ESR 33 Blood culture [June 03]: Streptococcus agalactiae group B WBC 10.1 hemoglobin 12.2 platelets 124 potassium 4.3 creatinine 0.55 COVID 19, influenza type A, type B: Not detected Chest x-ray film personally reviewed by me-cardiomegaly. Possible atelectasis: Assessment and plan: -Patient presents with fever, lower back pain and some abdominal pain. No nausea vomiting. No change in bowel habit.: Slow to respond Clinical suspicion for discitis.. IV Ancef. Blood culture positive for Streptococcus agalactiae. Repeat cultures from June 05 negative. MRI done at [facility] [place]. Results pending -Right basal pneumonia, causing hypoxia: Better IV cefepime 2 g every 8 -Acute hypoxic respiratory failure from pneumonia: Better Supplement oxygen - right above-knee amputation -Cerebral palsy causing cognitive impairment -Chronic gait dysfunction. wheelchair bound Fall precautions -Essential hypertension Nifedipine ER 30 mg a day -Diabetes mellitus type 2 Glucophage 500 mg twice a day. Follow Accu-Cheks with sliding scale. -Hyperlipidemia Lipitor 10 mg daily at bedtime -Hard of hearing, -Hemorrhoidal bleeding Anusol HC. Laxative. -Brother, Mario Alberto POA Lactulose 20 g 1. Metamucil twice daily added. Anusol HC twice a day. Awaiting results from [facility]. Change cefepime to Omnicef 300 twice a day for pneumonia. IV Ancef.
[2021-06-11 16:55] LABS: Glucose,Whole Blood 105 mg/dL (75-99)
[2021-06-11] MEDS: ATORVASTATIN 10 MG TAB PO SCH (20:04)
[2021-06-11] MEDS: TAMSULOSIN 0.4 MG CAP.ER.24H PO SCH (20:04)
[2021-06-11] MEDS: CEFDINIR 300 MG CAP PO SCH (20:05)
[2021-06-11] MEDS: HYDROCORTISONE SUPPOSITORY 25 MG SUPP RECTAL SCH (20:05)
[2021-06-11] MEDS: ASPIRIN 325 MG TAB PO SCH (20:05)
[2021-06-11 20:18] LABS: Glucose,Whole Blood 146 mg/dL (75-99)
--- NOTE | 2021-06-11 22:27 | P.PN ---
Subjective Progress Note Date: 06/11/21 Principal diagnosis: Bacteremia Patient is a 76 year male with a recent right [id number] amputation presented to the hospital with a fever and did have evidence of St reptococcus bacteremia in this patient with lower back pain and concern for possible discitis, unfortunately the MRI could not be completed as the patient did have a pain stimulator in the lumbar area On today's evaluation that is 06/11/2021, the patient remains to be afebrile , the patient is breathing comfortably on room air , the patient denies chest pain shortness of breath or cough , the patient denies abdominal pain and no diarrhea has been reported by the nursing staff rather the patient is constipated and need for an enema Objective - Vital Signs Vital signs: Vital Signs Temp 98.5 F 06/11/21 07:33 Pulse 71 06/11/21 07:33 Resp 16 06/11/21 08:00 BP 154/79 06/11/21 07:33 Pulse Ox 99 06/11/21 07:33 Intake & Output 06/10/21 06/11/21 06/11/21 18:59 06:59 18:59 Intake Total 200 300 Output Total 1550 2150 Balance -1350 -2150 300 Intake: Oral 200 300 Output: Urine 1550 2150 Other: Voiding Method Indwelling Catheter Indwelling Catheter Indwelling Catheter # Voids 1 - Exam GENERAL DESCRIPTION: An elderly male lying in bed in no distress RESPIRATORY SYSTEM: Unlabored breathing , decreased breath sounds at bases HEART: S1 S2 regular rate and rhythm , ABDOMEN: Soft , no tenderness EXTREMITIES: Left leg with more erythema and warmth to touch - Labs CBC & Chem 7: 06/09/21 06:12 06/09/21 06:12 Labs: Abnormal Lab Results - Last 24 Hours (Table) 06/10/21 06/10/21 06/11/21 Range/Units 16:32 20:03 04:33 POC Glucose (mg/dL) 113 H 149 H (75-99) mg/dL Procalcitonin 0.17 H (0.02-0.09) ng/mL 06/11/21 Range/Units 11:39 POC Glucose (mg/dL) 112 H (75-99) mg/dL Procalcitonin (0.02-0.09) ng/mL Microbiology - Last 24 Hours (Table) 06/06/21 06:24 Blood Culture - Preliminary Blood No Growth after 120 hours 06/05/21 04:57 Blood Culture - Final Blood No Growth after 144 hours Assessment and Plan (1) Bacteremia Current Visit: Yes Status: Acute Code(s): R78.81 - BACTEREMIA SNOMED Code(s): 8709696 Plan: 1patient with gram-positive bacteremia has been finalized with Streptococcus agalactiae which is usually of a skin and soft tissue origin in this patient right AKA stump is currently healed left leg do not have any evidence of cellulitis patient has been complaining of lower back pain will need to rule out underlying discitis or lumbar osteomyelitis versus left lower extremity cellulitis. 2blood cultures repeat are negative 3patient patient antibiotic has been switched over to Omnicef to continue for about a week 4-MRI of the lumbosacral spine was completed at [facility] was reviewed with Dr. Meng , the patient has significant degenerative changes at L1 to L4 level however knowing has been has been seen with contrast and mention not behaving as discitis or abscess, and this was discussed with the patient admitting physician Time with Patient: Less than 30
[2021-06-12 07:00] LABS: Glucose,Whole Blood 94 mg/dL (75-99)
[2021-06-12] MEDS: INSULIN ASPART (NovoLOG) 100 UNIT/ML VIAL SQ SCH ×3 (08:41→16:30)
[2021-06-12] MEDS: LIDOCAINE 5% PATCH TOPICAL SCH (09:22)
[2021-06-12] MEDS: PREGABALIN 100 MG CAP PO SCH ×2 (09:22→15:07)
[2021-06-12] MEDS: metFORMIN 500 MG TAB PO SCH ×2 (09:22→15:07)
[2021-06-12] MEDS: FERROUS SULFATE 325 MG TAB PO SCH ×2 (09:22→15:07)
[2021-06-12] MEDS: CEFDINIR 300 MG CAP PO SCH (09:22)
[2021-06-12] MEDS: NIFEdipine XL 30 MG TAB.ER.24 PO SCH (09:22)
[2021-06-12] MEDS: PSYLLIUM HUSK 100% 6 GM PACKET PO SCH (09:23)
[2021-06-12] MEDS: SODIUM CHLORIDE 0.9% 1,000 ML IV SCH (09:23)
[2021-06-12] MEDS: ENOXAPARIN 40 MG/0.4 ML SYRINGE SQ SCH (09:23)
[2021-06-12] MEDS: HYDROCORTISONE SUPPOSITORY 25 MG SUPP RECTAL SCH (09:23)
[2021-06-12] MEDS: HYDROCORTISONE 1% CREAM 30 GM TUBE TOPICAL SCH (09:24)
[2021-06-12] MEDS: HYDROcodone/APAP 7.5-325MG 1 EACH TAB PO PRN ×2 (09:38→15:06)
[2021-06-12 09:43] VITALS: BP 143/78; PULSE 69; RESP 17; TEMP 97.8
[2021-06-12 11:04] LABS: Glucose,Whole Blood 122 mg/dL (75-99)
--- NOTE | 2021-06-12 13:00 | P.DS ---
Providers Date of admission: 06/03/21 12:29 Expected date of discharge: 06/12/21 Attending physician: Luis Rojas Consults: 06/03/21 18:01 Consult Physician Routine Consulting Provider: Jennifer Gracia Consult Reason/Comments: Low back pain Do you want consulting provider notified?: Yes 06/04/21 12:20 Consult Physician Routine Consulting Provider: Farrah Craig Consult Reason/Comments: pos blood cult Do you want consulting provider notified?: Yes Primary care physician: Bill Adkins MD Hospital Course: Hospital course: This is a pleasant 76-year-old patient, follows with visiting physicians Dr. Adkins. Chronic stable medical conditions includes diabetes, hypertension, cerebral palsy with surgery in the legs cannot straighten legs, sometimes uses a walker otherwise pretty much in a wheelchair. Patient lives in the apartment with his brother Susan. hard of hearing. 04/07/2021 patient underwent right above-knee amputation. Nonhealing infection. Patient now presents with some fever. Also having abdominal pain. Also complains of pain in the lower back seems to be going across. No nausea vomiting. Appetite is good. No change in bowel habits. Lives with his brother. There was concern about discitis. Hence patient was started on IV vancomycin. Patient does have a neurostimulator in the spine. Eventually this was cleared. Patient had to go out and get this done at [facility]. Results were discussed with Dr. Hagan from [place]. Not felt to be discitis. Possible sepsis portal of entry could be mild cellulitis of the lower extremity. Patient also had pneumonia for which she was given a course of cefepime. Became hypoxic and responded well. Patient was seen by orthopedics. Blood cultures were positive for Streptococcus agalactiae. Repeat blood cultures from June 05 were negative. Patient had constipation and hemorrhoids hence Anusol HC laxative was given. Responded to same. June 12: Discussed with ID doctor site. Patient to complete a course of Ceftin. No discitis. Continue with laxatives. He'll be discharged back to the [facility]. Discussion and discharge planning more than 35 minutes Past medical history to include: Diabetes, hard of hearing, hypertension, cerebral palsy with surgery in the legs cannot straighten legs, sometimes uses a walker mostly wheelchair. 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 Right above-knee amputation Social history: Lives with his brother and [id number]. No history of smoking or alcohol. Family history: Reviewed, noncontributory to presentation Physical examination: VITAL SIGNS: 97.8, 69, 17, 143/78, 99% on 2 L GENERAL: Reclining in bed, awake, EYES: Pupils equal. Conjunctiva normal. HEENT: External appearance of nose and ears normal, oral cavity grossly normal. NECK: JVD not raised; masses not palpable. HEART: First and second heart sounds are normal; no edema. LUNGS: Respiratory rate normal, decreased breath sounds ABDOMEN: Soft, nontender, liver spleen not palpable, no masses palpable. PSYCH: Alert and oriented x3; mood and affect anxious MUSCULOSKELETAL:No Clubbing/cyanosis;muscles-grossly intact. Right above-knee amputation INVESTIGATIONS, reviewed in the clinical context: MRI of the lumbar spine: Arthritic changes. No discitis. June 04: White count 4.3 hemoglobin 11.9 which is 98 CRP 30.3 procalcitonin 3.55 ESR 33 Blood culture [June 03]: Streptococcus agalactiae group B. Blood culture [June 05: Negative WBC 10.1 hemoglobin 12.2 platelets 124 potassium 4.3 creatinine 0.55 COVID 19, influenza type A, type B: Not detected Chest x-ray film personally reviewed by me-cardiomegaly. Possible atelectasis: Assessment and plan: -Sepsis positive blood cultures of Streptococcus agalactiae group B possible portal of entry lower extremity. Received IV Ancef. Complete course with Ceftin -Patient presents with fever, lower back pain and some abdominal pain. No nausea vomiting. No change in bowel habit.: Pain from flaring up of acute osteoarthritis MRI negative for discitis -Right basal pneumonia, causing hypoxia: Better IV cefepime 2 g every 8: Completed course -Acute hypoxic respiratory failure from pneumonia: Better Supplement oxygen - right above-knee amputation -Cerebral palsy causing cognitive impairment -Chronic gait dysfunction. wheelchair bound Fall precautions -Essential hypertension Nifedipine ER 30 mg a day -Diabetes mellitus type 2 Glucophage 500 mg twice a day. Follow Accu-Cheks with sliding scale. -Hyperlipidemia Lipitor 10 mg daily at bedtime -Hard of hearing, -Hemorrhoidal bleeding Anusol HC. Laxative. -BrotherMario Alberto Disposition: [facility]/[place] Patient Condition at Discharge: Stable Plan - Discharge Summary Discharge Rx Participant: No New Discharge Prescriptions: New Hydrocortisone Suppository [Anusol-Hc] 25 mg RECTAL BID supp Aspirin 81 mg PO DAILY #1 tab Lidocaine 5% Patch [Lidoderm 5% Patch] 1 patch TOPICAL DAILY #3 patch Psyllium Husk 100% [Metamucil Packet] 6 gm PO DAILY packet Cefdinir [Omnicef] 300 mg PO BID #14 cap Continue metFORMIN HCL [Glucophage] 500 mg PO BID@0800,1700 NIFEdipine [NIFEdipine ER] 30 mg PO DAILY@0800 Atorvastatin Calcium [Lipitor] 10 mg PO HS@2100 methocarbamoL [Robaxin] 1,000 mg PO QID PRN PRN Reason: Muscle Pain Ferrous Sulfate [Iron (65 MG Elemental)] 325 mg PO BID@0800,1700 Na Phos,M-B/Na Phos,Di-Ba [Fleet Adult] 133 ml RECTAL DAILY PRN PRN Reason: Constipation Acetaminophen [Tylenol] 650 mg PO Q4H PRN PRN Reason: Pain Hydrocortisone Cream [Hydrocortisone 1% Cream] 1 applic TOPICAL DAILY Glucerna Shake 1 can PO DAILY@0800 Tamsulosin [Flomax] 0.4 mg PO HS@2100 Magnesium Hydroxide [Milk of Magnesia] 2,400 mg PO Q48H PRN PRN Reason: Constipation bisacodyL [Dulcolax] 10 mg RECTAL DAILY PRN PRN Reason: Constipation Liquacel 30 ml PO BID@0800,1700 HYDROcodone/APAP 7.5-325MG [[place] 7.5-325] 1 tab PO QID PRN #12 tab PRN Reason: Pain Changed Pregabalin [Lyrica] 100 mg PO BID@0800,1700 #6 cap Discontinued Aspirin 325 mg PO HS@2100 metroNIDAZOLE [Flagyl] 500 mg PO TID@0600,1400,2100 Levofloxacin [Levaquin] 250 mg PO DAILY Discharge Medication List Atorvastatin Calcium [Lipitor] 10 mg PO HS@2100 03/11/19 [History] NIFEdipine [NIFEdipine ER] 30 mg PO DAILY@0800 03/11/19 [History] metFORMIN HCL [Glucophage] 500 mg PO BID@0800,1700 03/11/19 [History] methocarbamoL [Robaxin] 1,000 mg PO QID PRN 07/26/20 [History] Ferrous Sulfate [Iron (65 MG Elemental)] 325 mg PO BID@0800,1700 04/03/21 [History] Acetaminophen [Tylenol] 650 mg PO Q4H PRN 06/03/21 [History] Glucerna Shake 1 can PO DAILY@0800 06/03/21 [History] Hydrocortisone Cream [Hydrocortisone 1% Cream] 1 applic TOPICAL DAILY 06/03/21 [History] Liquacel 30 ml PO BID@0800,1700 06/03/21 [History] Magnesium Hydroxide [Milk of Magnesia] 2,400 mg PO Q48H PRN 06/03/21 [History] Na Phos,M-B/Na Phos,Di-Ba [Fleet Adult] 133 ml RECTAL DAILY PRN 06/03/21 [History] Tamsulosin [Flomax] 0.4 mg PO HS@2100 06/03/21 [History] bisacodyL [Dulcolax] 10 mg RECTAL DAILY PRN 06/03/21 [History] Aspirin 81 mg PO DAILY #1 tab 06/12/21 [Rx] Cefdinir [Omnicef] 300 mg PO BID #14 cap 06/12/21 [Rx] HYDROcodone/APAP 7.5-325MG [[place] 7.5-325] 1 tab PO QID PRN #12 tab 06/12/21 [Rx] Hydrocortisone Suppository [Anusol-Hc] 25 mg RECTAL BID supp 06/12/21 [Rx] Lidocaine 5% Patch [Lidoderm 5% Patch] 1 patch TOPICAL DAILY #3 patch 06/12/21 [Rx] Pregabalin [Lyrica] 100 mg PO BID@0800,1700 #6 cap 06/12/21 [Rx] Psyllium Husk 100% [Metamucil Packet] 6 gm PO DAILY packet 06/12/21 [Rx] Follow up Appointment(s)/Referral(s): Drew Chew DO [STAFF PHYSICIAN] - 1-2 Days Bill Adkins MD [Primary Care Provider] - As Needed Kirit Fermin, [NON-STAFF] - As Needed
[2021-06-12 16:25] LABS: Glucose,Whole Blood 121 mg/dL (75-99)
== END 2021-06-12 18:02 | DRG 871 ==
LOC: EC 08:40 → 4SSUR 12:29
PROVIDERS: ADMIT Hospitalist; ATTEND Hospitalist
DX: A40.9 Streptococcal sepsis, unspecified (principal); J18.9 Pneumonia, unspecified organism; J96.01 Acute respiratory failure with hypoxia; L03.116 Cellulitis of left lower limb; E11.9 Type 2 diabetes mellitus without complications; E78.5 Hyperlipidemia, unspecified; G47.00 Insomnia, unspecified; G80.9 Cerebral palsy, unspecified; H91.90 Unspecified hearing loss, unspecified ear; I11.9 Hypertensive heart disease without heart failure; K59.00 Constipation, unspecified; K64.9 Unspecified hemorrhoids; M43.17 Spondylolisthesis, lumbosacral region; M47.819 Spondylosis without myelopathy or radiculopathy, site unspecified; M51.36 Other intervertebral disc degeneration, lumbar region; G89.4 Chronic pain syndrome; M15.9 Polyosteoarthritis, unspecified; Z89.611 Acquired absence of right leg above knee; Z98.890 Other specified postprocedural states; R26.9 Unspecified abnormalities of gait and mobility; Z96.82 Presence of neurostimulator; Z90.89 Acquired absence of other organs; Z20.822 Contact with and (suspected) exposure to COVID-19; Z90.49 Acquired absence of other specified parts of digestive tract; Z79.4 Long term (current) use of insulin; Z79.82 Long term (current) use of aspirin; Z79.84 Long term (current) use of oral hypoglycemic drugs; Z79.899 Other long term (current) drug therapy; Z96.651 Presence of right artificial knee joint; Z99.3 Dependence on wheelchair; Z88.0 Allergy status to penicillin; Z88.8 Allergy status to other drugs, medicaments and biological substances; Z88.1 Allergy status to other antibiotic agents; Z88.3 Allergy status to other anti-infective agents; Z91.040 Latex allergy status
CPT/HCPCS: 36415; 71045; 71046; 72131; 74176; 80048; 80053; 81001; 82150; 83605; 83690; 84145; 85025; 85610; 85652; 85730; 86140; 87040; 87077; 87086; 87186; 87502; 87635; 96361; 96365; 96366; 96375; 99285